=== PATIENT | male | born 1945 | race Caucasian/White ===

== ENCOUNTER 2020-02-17 22:52 | Inpatient (IN) | payer MEDICARE, OTHER ==
[~2020-02-17] VITALS: Ht 185.4 cm; Wt 85.0 kg
[~2020-02-17 22:52] MED LIST: BUMETANIDE1 MG PO; LASIX40 MG PO; LISINOPRIL2.5 MG PO; LOSARTAN POTASS25 MG PO; METOPROLOL SUCC25 MG PO; METOPROLOL TART25 MG PO; NO MEDS
--- OUTSIDE RECORDS SUMMARY | 2020-02-17 22:56 | XMS REPORT ---
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 Allergies, Adverse Reactions, Alerts This patient has no known allergies or adverse reactions. Medications This patient has no known medications. Results Test Description Test Time Test Comments Text Results Atomic Results Result Comments AFB CULTURE + SMEAR 2017-10-13 11:58:00 CULTURE (BEAKER) (test puwk=1251) No acid-fast bacilli isolated in 42 days AFB SMEAR (BEAKER) (test prhk=954) No acid fast bacilli seen FUNGUS CULTURE + [id number] 07:36:00* Test Item Value Reference Range Comments CULTURE (BEAKER) (test qtxk=6512) No fungus isolated in 28 days FUNGUS SMEAR (BEAKER) (test ngts=5801) No fungi seen ANAEROBIC [id number] 12:06:00* Test Item Value Reference Range Comments CULTURE (BEAKER) (test smhh=6534) See comment Charges for this culture will be credited. DILUTE JAYDE [facility]ER [facility] (DRVV) 2017-09-05 15:20:00* Test Item Value Reference Range Comments PROTIME (BEAKER) (test hret=526) 17.2 seconds 11.7-14.7 INR (BEAKER) (test vsjw=135) 1.4 <=5.9 PARTIAL THROMBOPLASTIN TIME (BEAKER) (test qbhu=686) 41.5 seconds 22.5-36.0 DRVV INTERPRETATION (BEAKER) (test atpk=5135) Normal DRVV Results SSOW-RCTNOINRMBY-357 (BEAKER) (test xciu=5099) Brandie Garces MD (electronic signature) DRVV SCREEN RATIO (BEAKER) (test xwfj=8929) 1.16 <1.20 Positive hexagonal phospholipid test.CBC W/PLT COUNT & AUTO DIFFERENTIAL 2017-09-05 13:29:00* Test Item Value Reference Range Comments WHITE BLOOD CELL COUNT (BEAKER) (test bthy=751) 9.2 K/ L 3.5-10.5 RED BLOOD CELL COUNT (BEAKER) (test gzha=649) 4.00 M/ L 4.63-6.08 HEMOGLOBIN (BEAKER) (test kyuy=348) 11.1 GM/DL 13.7-17.5 HEMATOCRIT (BEAKER) (test pkrf=758) 34.6 % 40.1-51.0 MEAN CORPUSCULAR VOLUME (BEAKER) (test fnou=116) 86.5 fL 79.0-92.2 MEAN CORPUSCULAR HEMOGLOBIN (BEAKER) (test alem=161) 27.8 pg 25.7-32.2 MEAN CORPUSCULAR HEMOGLOBIN CONC (BEAKER) (test diai=560) 32.1 GM/DL 32.3-36.5 RED CELL DISTRIBUTION WIDTH (BEAKER) (test msxh=508) 16.5 % 11.6-14.4 PLATELET COUNT (BEAKER) (test kehh=013) 221 K/CU MM 150-450 MEAN PLATELET VOLUME (BEAKER) (test lhjx=862) 10.1 fL 9.4-12.4 NUCLEATED RED BLOOD CELLS (BEAKER) (test bqlb=085) 0 /100 WBC 0-0 NEUTROPHILS RELATIVE PERCENT (BEAKER) (test nzhr=378) 72 % LYMPHOCYTES RELATIVE PERCENT (BEAKER) (test fcux=545) 14 % MONOCYTES RELATIVE PERCENT (BEAKER) (test uaoe=302) 10 % EOSINOPHILS RELATIVE PERCENT (BEAKER) (test hmxz=859) 4 % BASOPHILS RELATIVE PERCENT (BEAKER) (test lnly=198) 0 % NEUTROPHILS ABSOLUTE COUNT (BEAKER) (test bros=686) 6.62 K/ L 1.78-5.38 LYMPHOCYTES ABSOLUTE COUNT (BEAKER) (test xaou=232) 1.26 K/ L 1.32-3.57 MONOCYTES ABSOLUTE COUNT (BEAKER) (test jbvz=165) 0.89 K/ L 0.30-0.82 EOSINOPHILS ABSOLUTE COUNT (BEAKER) (test uvzy=059) 0.33 K/ L 0.04-0.54 BASOPHILS ABSOLUTE COUNT (BEAKER) (test ktxf=681) 0.04 K/ L 0.01-0.08 IMMATURE GRANULOCYTES-RELATIVE PERCENT (BEAKER) (test rrqc=0464) 1 % 0-1 EQUAL MIX, NORMAL [id number] 10:43:00* Test Item Value Reference Range Comments PROTIME (BEAKER) (test btxg=004) 17.2 seconds 11.7-14.7 PARTIAL THROMBOPLASTIN TIME (BEAKER) (test ifcw=840) 41.5 seconds 22.5-36.0 PT 1/1 MIX (BEAKER) (test bmof=7364) 14.2 SECS 11.7-14.7 PTT 1/1 MIX (BEAKER) (test daxv=7257) 35.0 SECS 22.5-36.0 THROMBIN [id number] 10:40:00* Test Item Value Reference Range Comments THROMBIN TIME (BEAKER) (test zbik=475) 15.0 secs 13.8-20.0 HEXAGONAL [id number] 10:38:00* Test Item Value Reference Range Comments HEXAGONAL PHOSPHOLIPID (BEAKER) (test kwfw=4811) Positive [id number] 04:34:00* Test Item Value Reference Range Comments MAGNESIUM (BEAKER) (test prmx=933) 1.8 mg/dL 1.6-2.6 BASIC METABOLIC [id number] 04:34:00* Test Item Value Reference Range Comments SODIUM (BEAKER) (test ealm=001) 140 meq/L 136-145 POTASSIUM (BEAKER) (test omsf=208) 3.8 meq/L 3.5-5.1 CHLORIDE (BEAKER) (test qyei=478) 107 meq/L 98-107 CO2 (BEAKER) (test hyal=981) 25 meq/L 22-29 BLOOD UREA NITROGEN (BEAKER) (test yjke=971) 18 mg/dL 7-21 CREATININE (BEAKER) (test lqae=196) 0.87 mg/dL 0.57-1.25 GLUCOSE RANDOM (BEAKER) (test uanf=154) 91 mg/dL 70-105 CALCIUM (BEAKER) (test vukn=951) 9.2 mg/dL 8.4-10.2 EGFR (BEAKER) (test lxmk=0538) 87 mL/min/1.73 sq m ESTIMATED GFR IS NOT ACCURATE CREATININE CLEARANCE IN PREDICTING GLOMERULAR FILTRATION RATE. ESTIMATED GFR IS NOT APPLICABLE FOR DIALYSIS PATIENTS. CBC (HEMOGRAM ONLY)2017-09-05 04:05:00* Test Item Value Reference Range Comments WHITE BLOOD CELL COUNT (BEAKER) (test hheb=742) 7.6 K/ L 3.5-10.5 RED BLOOD CELL COUNT (BEAKER) (test vnff=958) 3.21 M/ L 4.63-6.08 HEMOGLOBIN (BEAKER) (test dknd=146) 8.7 GM/DL 13.7-17.5 HEMATOCRIT (BEAKER) (test mprw=392) 28.5 % 40.1-51.0 MEAN CORPUSCULAR VOLUME (BEAKER) (test ehyq=671) 88.8 fL 79.0-92.2 MEAN CORPUSCULAR HEMOGLOBIN (BEAKER) (test jsdn=895) 27.1 pg 25.7-32.2 MEAN CORPUSCULAR HEMOGLOBIN CONC (BEAKER) (test xqvp=627) 30.5 GM/DL 32.3-36.5 RED CELL DISTRIBUTION WIDTH (BEAKER) (test cqks=646) 16.6 % 11.6-14.4 PLATELET COUNT (BEAKER) (test qwel=427) 182 K/CU MM 150-450 MEAN PLATELET VOLUME (BEAKER) (test rnoa=517) 10.0 fL 9.4-12.4 NUCLEATED RED BLOOD CELLS (BEAKER) (test qhnn=981) 0 /100 WBC 0-0 [id number] 05:24:00* Test Item Value Reference Range Comments MAGNESIUM (BEAKER) (test wupo=925) 2.1 mg/dL 1.6-2.6 BASIC METABOLIC [id number] 05:24:00* Test Item Value Reference Range Comments SODIUM (BEAKER) (test racp=874) 140 meq/L 136-145 POTASSIUM (BEAKER) (test lvjs=144) 3.5 meq/L 3.5-5.1 CHLORIDE (BEAKER) (test zyzu=809) 105 meq/L 98-107 CO2 (BEAKER) (test xaue=728) 26 meq/L 22-29 BLOOD UREA NITROGEN (BEAKER) (test lnaj=753) 17 mg/dL 7-21 CREATININE (BEAKER) (test yvkw=891) 0.82 mg/dL 0.57-1.25 GLUCOSE RANDOM (BEAKER) (test igzn=601) 89 mg/dL 70-105 CALCIUM (BEAKER) (test fhvo=169) 9.3 mg/dL 8.4-10.2 EGFR (BEAKER) (test wxun=2631) 93 mL/min/1.73 sq m ESTIMATED GFR IS NOT ACCURATE CREATININE CLEARANCE IN PREDICTING GLOMERULAR FILTRATION RATE. ESTIMATED GFR IS NOT APPLICABLE FOR DIALYSIS PATIENTS. CBC (HEMOGRAM ONLY)2017-09-04 05:16:00* Test Item Value Reference Range Comments WHITE BLOOD CELL COUNT (BEAKER) (test sfbz=674) 8.0 K/ L 3.5-10.5 RED BLOOD CELL COUNT (BEAKER) (test jgio=269) 3.72 M/ L 4.63-6.08 HEMOGLOBIN (BEAKER) (test gfcd=248) 10.4 GM/DL 13.7-17.5 HEMATOCRIT (BEAKER) (test cmpe=250) 32.2 % 40.1-51.0 MEAN CORPUSCULAR VOLUME (BEAKER) (test jjwp=852) 86.6 fL 79.0-92.2 MEAN CORPUSCULAR HEMOGLOBIN (BEAKER) (test jyoq=098) 28.0 pg 25.7-32.2 MEAN CORPUSCULAR HEMOGLOBIN CONC (BEAKER) (test ppbm=877) 32.3 GM/DL 32.3-36.5 RED CELL DISTRIBUTION WIDTH (BEAKER) (test cpxm=526) 16.3 % 11.6-14.4 PLATELET COUNT (BEAKER) (test ckjc=736) 224 K/CU MM 150-450 MEAN PLATELET VOLUME (BEAKER) (test ycou=651) 10.2 fL 9.4-12.4 NUCLEATED RED BLOOD CELLS (BEAKER) (test kyor=058) 0 /100 WBC 0-0 CALCIUM, [id number] 06:25:00* Test Item Value Reference Range Comments CALCIUM IONIZED (BEAKER) (test movj=173) 1.28 mmol/L 1.12-1.27 PH, BLOOD (BEAKER) (test fnrv=2360) 7.42 OXYGEN SATURATION, [id number] 06:09:00* Test Item Value Reference Range Comments O2 SATURATION (MEASURED) (BEAKER) (test tsbz=8072) 56.7 % BASIC METABOLIC [id number] 05:37:00* Test Item Value Reference Range Comments SODIUM (BEAKER) (test qzll=209) 139 meq/L 136-145 POTASSIUM (BEAKER) (test qejv=767) 3.6 meq/L 3.5-5.1 CHLORIDE (BEAKER) (test oyqj=234) 108 meq/L 98-107 CO2 (BEAKER) (test wczd=807) 23 meq/L 22-29 BLOOD UREA NITROGEN (BEAKER) (test qnss=514) 20 mg/dL 7-21 CREATININE (BEAKER) (test zuav=562) 0.77 mg/dL 0.57-1.25 GLUCOSE RANDOM (BEAKER) (test narg=503) 85 mg/dL 70-105 CALCIUM (BEAKER) (test zwpy=889) 9.2 mg/dL 8.4-10.2 EGFR (BEAKER) (test fgxl=0927) 100 mL/min/1.73 sq m ESTIMATED GFR IS NOT ACCURATE CREATININE CLEARANCE IN PREDICTING GLOMERULAR FILTRATION RATE. ESTIMATED GFR IS NOT APPLICABLE FOR DIALYSIS PATIENTS. CBC (HEMOGRAM ONLY)2017-09-03 05:11:00* Test Item Value Reference Range Comments WHITE BLOOD CELL COUNT (BEAKER) (test prbn=415) 8.0 K/ L 3.5-10.5 RED BLOOD CELL COUNT (BEAKER) (test htsu=040) 3.52 M/ L 4.63-6.08 HEMOGLOBIN (BEAKER) (test qzso=672) 9.7 GM/DL 13.7-17.5 HEMATOCRIT (BEAKER) (test itni=616) 30.3 % 40.1-51.0 MEAN CORPUSCULAR VOLUME (BEAKER) (test jlmb=830) 86.1 fL 79.0-92.2 MEAN CORPUSCULAR HEMOGLOBIN (BEAKER) (test owfl=939) 27.6 pg 25.7-32.2 MEAN CORPUSCULAR HEMOGLOBIN CONC (BEAKER) (test jogi=644) 32.0 GM/DL 32.3-36.5 RED CELL DISTRIBUTION WIDTH (BEAKER) (test fkwu=377) 16.4 % 11.6-14.4 PLATELET COUNT (BEAKER) (test cxzd=397) 184 K/CU MM 150-450 MEAN PLATELET VOLUME (BEAKER) (test jpxr=923) 10.3 fL 9.4-12.4 NUCLEATED RED BLOOD CELLS (BEAKER) (test ieyl=953) 0 /100 WBC 0-0 [id number] 09:01:00* Test Item Value Reference Range Comments POTASSIUM (BEAKER) (test oxam=111) 4.2 meq/L 3.5-5.1 Specimen moderately hemolyzed RAD, CHEST, 1 VIEW, NON [id number] 06:20:00Reason for exam:->pl effusionShould this be performed at the bedside?->YesFINAL REPORT RAD, CHEST, 1 VIEW, NON DEPT INDICATION: pl effusion COMPARISON: Prior day's exam FINDINGS: Portable frontal view of the chest. IMPRESSION: Support Lines: Surgical and mediastinal drains have been removed. The right IJ central venous catheter remains in place. Lungs and pleura: Multifocal subsegmental atelectasis noted. No discernible pneumothorax.Heart and mediastinum: Stable contours. Stable surgical changes.Additional findings: None. Signed: JR Patricia, Stacia Daugherty Verified Date/Time: 09/02/2017 06:20:49 Reading Location: [address] Transitional Reading Room Electronically si gned by: STACIA FLORENCE on 09/02/2017 06:20 AM LACTATE DEHYDROGENASE (LDH)2017-09-02 04:49:00* Test Item Value Reference Range Comments LACTATE DEHYDROGENASE (BEAKER) (test fitu=801) 283 U/L 125-220 Specimen slightly hemolyzed BASIC METABOLIC [id number] 04:48:00* Test Item Value Reference Range Comments SODIUM (BEAKER) (test ppxx=373) 137 meq/L 136-145 POTASSIUM (BEAKER) (test eamw=935) 3.5 meq/L 3.5-5.1 Specimen slightly hemolyzed CHLORIDE (BEAKER) (test jktf=171) 106 meq/L 98-107 CO2 (BEAKER) (test lmkh=734) 25 meq/L 22-29 BLOOD UREA NITROGEN (BEAKER) (test vlsv=165) 21 mg/dL 7-21 CREATININE (BEAKER) (test ifgr=871) 0.76 mg/dL 0.57-1.25 Specimen slightly hemolyzed GLUCOSE RANDOM (BEAKER) (test hrfw=226) 93 mg/dL 70-105 CALCIUM (BEAKER) (test nckw=429) 9.1 mg/dL 8.4-10.2 EGFR (BEAKER) (test qrfe=8816) 101 mL/min/1.73 sq m ESTIMATED GFR IS NOT ACCURATE CREATININE CLEARANCE IN PREDICTING GLOMERULAR FILTRATION RATE. ESTIMATED GFR IS NOT APPLICABLE FOR DIALYSIS PATIENTS. HEPATIC FUNCTION [id number] 04:48:00* Test Item Value Reference Range Comments TOTAL PROTEIN (BEAKER) (test rnxb=793) 5.4 gm/dL 6.0-8.3 Specimen slightly hemolyzed ALBUMIN (BEAKER) (test xsbt=3417) 2.6 g/dL 3.5-5.0 Specimen slightly hemolyzed BILIRUBIN TOTAL (BEAKER) (test mbqv=819) 0.9 mg/dL 0.2-1.2 Specimen slightly hemolyzed BILIRUBIN DIRECT (BEAKER) (test qfdl=074) 0.4 mg/dL 0.1-0.5 Specimen slightly hemolyzed ALKALINE PHOSPHATASE (BEAKER) (test furp=992) 67 U/L 40-150 AST (SGOT) (BEAKER) (test qaxl=899) 25 U/L 5-34 Specimen slightly hemolyzed ALT (SGPT) (BEAKER) (test josw=667) 13 U/L 6-55 Specimen slightly hemolyzed LACTIC ACID, ARTERIAL, WHOLE [id number] 04:25:00* Test Item Value Reference Range Comments LACTATE BLOOD ARTERIAL (2) (BEAKER) (test omzm=3978) 0.7 mmol/L 0.5-2.2 Effective 03/20/2016: Units/Reference Range ChangeNew: 0.5-2.2 mmol/L Previous: 5 -20 mg/dLCBC (HEMOGRAM ONLY)2017-09-02 04:23:00* Test Item Value Reference Range Comments WHITE BLOOD CELL COUNT (BEAKER) (test wqbt=736) 10.6 K/ L 3.5-10.5 RED BLOOD CELL COUNT (BEAKER) (test vlag=205) 3.49 M/ L 4.63-6.08 HEMOGLOBIN (BEAKER) (test pfkv=857) 9.8 GM/DL 13.7-17.5 HEMATOCRIT (BEAKER) (test eanp=092) 29.8 % 40.1-51.0 MEAN CORPUSCULAR VOLUME (BEAKER) (test hhah=583) 85.4 fL 79.0-92.2 MEAN CORPUSCULAR HEMOGLOBIN (BEAKER) (test ibbz=667) 28.1 pg 25.7-32.2 MEAN CORPUSCULAR HEMOGLOBIN CONC (BEAKER) (test tqww=554) 32.9 GM/DL 32.3-36.5 RED CELL DISTRIBUTION WIDTH (BEAKER) (test rxbp=589) 16.4 % 11.6-14.4 PLATELET COUNT (BEAKER) (test gubd=428) 143 K/CU MM 150-450 MEAN PLATELET VOLUME (BEAKER) (test krxs=536) 11.4 fL 9.4-12.4 NUCLEATED RED BLOOD CELLS (BEAKER) (test efuh=939) 0 /100 WBC 0-0 OXYGEN SATURATION, [id number] 04:11:00* Test Item Value Reference Range Comments O2 SATURATION (MEASURED) (BEAKER) (test agkl=3177) 62.1 % CALCIUM, [id number] 04:08:00* Test Item Value Reference Range Comments CALCIUM IONIZED (BEAKER) (test hegc=676) 1.25 mmol/L 1.12-1.27 PH, BLOOD (BEAKER) (test nfbg=3897) 7.44 SURGICALLY OBTAINED CULTURE + GRAM [id number] 08:14:00* Test Item Value Reference Range Comments CULTURE (BEAKER) (test wxtw=7405) No growth GRAM STAIN RESULT (BEAKER) (test juvp=8210) <1+ WBCs GRAM STAIN RESULT (BEAKER) (test cdvr=66287) No organisms seen CBC W/PLT COUNT & AUTO [id number] 07:09:00* Test Item Value Reference Range Comments WHITE BLOOD CELL COUNT (BEAKER) (test swsz=617) 13.9 K/ L 3.5-10.5 RED BLOOD CELL COUNT (BEAKER) (test hjgl=436) 3.41 M/ L 4.63-6.08 HEMOGLOBIN (BEAKER) (test knbb=479) 9.4 GM/DL 13.7-17.5 HEMATOCRIT (BEAKER) (test tyiq=668) 29.0 % 40.1-51.0 MEAN CORPUSCULAR VOLUME (BEAKER) (test qrdi=818) 85.0 fL 79.0-92.2 MEAN CORPUSCULAR HEMOGLOBIN (BEAKER) (test oemu=421) 27.6 pg 25.7-32.2 MEAN CORPUSCULAR HEMOGLOBIN CONC (BEAKER) (test zqlb=597) 32.4 GM/DL 32.3-36.5 RED CELL DISTRIBUTION WIDTH (BEAKER) (test agmb=614) 16.9 % 11.6-14.4 PLATELET COUNT (BEAKER) (test pmos=576) 146 K/CU MM 150-450 MEAN PLATELET VOLUME (BEAKER) (test bykn=487) 11.1 fL 9.4-12.4 NUCLEATED RED BLOOD CELLS (BEAKER) (test subi=735) 0 /100 WBC 0-0 NEUTROPHILS RELATIVE PERCENT (BEAKER) (test yxyj=141) 89 % LYMPHOCYTES RELATIVE PERCENT (BEAKER) (test wvid=426) 5 % MONOCYTES RELATIVE PERCENT (BEAKER) (test qtas=592) 6 % EOSINOPHILS RELATIVE PERCENT (BEAKER) (test ahzr=071) 0 % BASOPHILS RELATIVE PERCENT (BEAKER) (test akti=119) 0 % NEUTROPHILS ABSOLUTE COUNT (BEAKER) (test owhs=194) 12.36 K/ L 1.78-5.38 LYMPHOCYTES ABSOLUTE COUNT (BEAKER) (test gzew=806) 0.64 K/ L 1.32-3.57 MONOCYTES ABSOLUTE COUNT (BEAKER) (test wjqu=626) 0.82 K/ L 0.30-0.82 EOSINOPHILS ABSOLUTE COUNT (BEAKER) (test lxcb=806) 0.03 K/ L 0.04-0.54 BASOPHILS ABSOLUTE COUNT (BEAKER) (test kwxg=911) 0.01 K/ L 0.01-0.08 IMMATURE GRANULOCYTES-RELATIVE PERCENT (BEAKER) (test rhyv=7366) 0 % 0-1 [id number] 06:05:00* Test Item Value Reference Range Comments ACTIVATED CLOTTING TIME (BEAKER) (test wcgw=912) 125 sec TESTED AT [address] [place] [address] [id number] 06:05:00* Test Item Value Reference Range Comments ACTIVATED CLOTTING TIME (BEAKER) (test sygj=349) 351 sec TESTED AT [place] [id number] 06:05:00* Test Item Value Reference Range Comments ACTIVATED CLOTTING TIME (BEAKER) (test npkw=930) 455 sec TESTED AT [place] [id number] 06:05:00* Test Item Value Reference Range Comments ACTIVATED CLOTTING TIME (BEAKER) (test pbzx=927) 626 sec TESTED AT [place] [id number] 06:05:00* Test Item Value Reference Range Comments ACTIVATED CLOTTING TIME (BEAKER) (test fhad=754) 676 sec TESTED AT [place] [id number] 06:05:00* Test Item Value Reference Range Comments ACTIVATED CLOTTING TIME (BEAKER) (test lupe=200) 681 sec TESTED AT [place] [id number] 06:05:00* Test Item Value Reference Range Comments ACTIVATED CLOTTING TIME (BEAKER) (test zerd=890) 676 sec TESTED AT [place] [id number] 06:05:00* Test Item Value Reference Range Comments ACTIVATED CLOTTING TIME (BEAKER) (test hmnu=693) 692 sec TESTED AT [place] [id number] 06:05:00* Test Item Value Reference Range Comments ACTIVATED CLOTTING TIME (BEAKER) (test qhru=253) 648 sec TESTED AT [place] [id number] 06:05:00* Test Item Value Reference Range Comments ACTIVATED CLOTTING TIME (BEAKER) (test odjq=592) 395 sec TESTED AT [place] [id number] 06:05:00* Test Item Value Reference Range Comments ACTIVATED CLOTTING TIME (BEAKER) (test ywvc=376) 400 sec TESTED AT [place] [id number] RAD, CHEST, 1 VIEW, NON [id number] 04:53:00Reason for exam:->While chest tubes in placeShould this be performed at the bedside?->YesFINAL REPORT Comparison exam: 08/31/2017 Pulmonary venous congestion unchanged. Stable cardiomediastinal contours. Appropriate position of the support hardware. Signed: Palmer Coolort Verified Date/Time: 09/01/2017 04:53:41 Reading Location: [address] Transitional Reading Room ATE DEHYDROGENASE (LDH)2017-09-01 04:37:00* Test Item Value Reference Range Comments LACTATE DEHYDROGENASE (BEAKER) (test gzaz=403) 290 U/L 125-220 BASIC METABOLIC [id number] 04:37:00* Test Item Value Reference Range Comments SODIUM (BEAKER) (test relt=901) 139 meq/L 136-145 POTASSIUM (BEAKER) (test kyrm=050) 3.5 meq/L 3.5-5.1 CHLORIDE (BEAKER) (test nbwc=829) 106 meq/L 98-107 CO2 (BEAKER) (test sdpc=929) 26 meq/L 22-29 BLOOD UREA NITROGEN (BEAKER) (test inlc=549) 24 mg/dL 7-21 CREATININE (BEAKER) (test krvd=472) 0.81 mg/dL 0.57-1.25 GLUCOSE RANDOM (BEAKER) (test ciow=910) 102 mg/dL 70-105 CALCIUM (BEAKER) (test qnzd=140) 9.3 mg/dL 8.4-10.2 EGFR (BEAKER) (test mrce=8969) 94 mL/min/1.73 sq m ESTIMATED GFR IS NOT ACCURATE CREATININE CLEARANCE IN PREDICTING GLOMERULAR FILTRATION RATE. ESTIMATED GFR IS NOT APPLICABLE FOR DIALYSIS PATIENTS. HEPATIC FUNCTION [id number] 04:37:00* Test Item Value Reference Range Comments TOTAL PROTEIN (BEAKER) (test towz=643) 5.6 gm/dL 6.0-8.3 ALBUMIN (BEAKER) (test zakb=8945) 2.8 g/dL 3.5-5.0 BILIRUBIN TOTAL (BEAKER) (test icyp=048) 0.9 mg/dL 0.2-1.2 BILIRUBIN DIRECT (BEAKER) (test jrqv=310) 0.5 mg/dL 0.1-0.5 ALKALINE PHOSPHATASE (BEAKER) (test mliz=525) 66 U/L 40-150 AST (SGOT) (BEAKER) (test wckc=303) 27 U/L 5-34 ALT (SGPT) (BEAKER) (test uqwr=740) 13 U/L 6-55 LACTIC ACID, ARTERIAL, WHOLE [id number] 04:33:00* Test Item Value Reference Range Comments LACTATE BLOOD ARTERIAL (2) (BEAKER) (test ddsh=8352) 0.9 mmol/L 0.5-2.2 Effective 03/20/2016: Units/Reference Range ChangeNew: 0.5-2.2 mmol/L Previous: 5 -20 mg/dLCBC (HEMOGRAM ONLY)2017-09-01 04:19:00* Test Item Value Reference Range Comments WHITE BLOOD CELL COUNT (BEAKER) (test hccw=673) 13.9 K/ L 3.5-10.5 RED BLOOD CELL COUNT (BEAKER) (test cdcj=197) 3.41 M/ L 4.63-6.08 HEMOGLOBIN (BEAKER) (test qdac=321) 9.4 GM/DL 13.7-17.5 HEMATOCRIT (BEAKER) (test ljvl=902) 29.0 % 40.1-51.0 MEAN CORPUSCULAR VOLUME (BEAKER) (test hxjz=434) 85.0 fL 79.0-92.2 MEAN CORPUSCULAR HEMOGLOBIN (BEAKER) (test cgxo=015) 27.6 pg 25.7-32.2 MEAN CORPUSCULAR HEMOGLOBIN CONC (BEAKER) (test guuw=025) 32.4 GM/DL 32.3-36.5 RED CELL DISTRIBUTION WIDTH (BEAKER) (test fusi=480) 16.9 % 11.6-14.4 PLATELET COUNT (BEAKER) (test twor=607) 146 K/CU MM 150-450 MEAN PLATELET VOLUME (BEAKER) (test pqeb=982) 11.1 fL 9.4-12.4 NUCLEATED RED BLOOD CELLS (BEAKER) (test dmkh=149) 0 /100 WBC 0-0 OXYGEN SATURATION, [id number] 04:06:00* Test Item Value Reference Range Comments O2 SATURATION (MEASURED) (BEAKER) (test vzfk=7776) 64.5 % BLOOD GAS, [id number] 04:05:00* Test Item Value Reference Range Comments PH ARTERIAL (BEAKER) (test fhag=071) 7.56 7.35-7.45 PCO2 ARTERIAL (BEAKER) (test gbkx=738) 32 mmHg 35-45 PO2 ARTERIAL (BEAKER) (test qrkm=386) 105 mmHg 80-90 O2 SATURATION ARTERIAL (BEAKER) (test cngs=572) 98.4 % 96.0-97.0 HCO3 ARTERIAL (BEAKER) (test kdmv=620) 28 mmol/L 21-29 BASE EXCESS ARTERIAL (BEAKER) (test ngri=713) 5.5 mmol/L -2.0-3.0 PATIENT TEMPERATURE (BEAKER) (test srvh=4212) 37.1 C FIO2 (BEAKER) (test cgne=0753) 100.0 % CALCIUM, [id number] 04:04:00* Test Item Value Reference Range Comments CALCIUM IONIZED (BEAKER) (test obdw=603) 1.25 mmol/L 1.12-1.27 PH, BLOOD (BEAKER) (test ojwu=3020) 7.56 [id number] 19:22:00* Test Item Value Reference Range Comments POTASSIUM (BEAKER) (test lppi=283) 3.6 meq/L 3.5-5.1 Check Serum Phosphorus level 4 hours after IV phosphorus replacement or 8 hours after PO replacement completed.Check Serum Potassium level 2 hours after oral po tassium replacement completed or 30 min after intravenous potassium replacement. [id number] 19:22:00* Test Item Value Reference Range Comments MAGNESIUM (BEAKER) (test tsyx=857) 2.2 mg/dL 1.6-2.6 Check Serum Phosphorus level 4 hours after IV phosphorus replacement or 8 hours after PO replacement completed.Check Serum Potassium level 2 hours after oral po tassium replacement completed or 30 min after intravenous potassium replacement. [id number] 19:22:00* Test Item Value Reference Range Comments PHOSPHORUS (BEAKER) (test ghzz=593) 2.4 mg/dL 2.3-4.7 Check Serum Phosphorus level 4 hours after IV phosphorus replacement or 8 hours after PO replacement completed.Check Serum Potassium level 2 hours after oral po tassium replacement completed or 30 min after intravenous potassium replacement. POCT-GLUCOSE [id number] 18:48:00* Test Item Value Reference Range Comments POC-GLUCOSE METER (BEAKER) (test ldqu=9237) 110 mg/dL 70-110 TESTED AT [facility] [address] [facility] [address] [id number] 10:11:00* Test Item Value Reference Range Comments MAGNESIUM (BEAKER) (test ajnm=155) 2.1 mg/dL 1.6-2.6 RAD, CHEST, 1 VIEW, NON [id number] 05:46:00Reason for exam:->While chest tubes in placeShould this be performed at the bedside?->YesFINAL REPORT Comparison exam: 08/30/2017 Mild pulmonary venous congestion unchanged. Stable cardiomediastinal contours. Appropriate position of the support hardware. Signed: Palmer Cool Verified Date/Time: 08/31/2017 05:46:29 Reading Location: [address] Transitional Reading Room ATE DEHYDROGENASE (LDH)2017-08-31 03:58:00* Test Item Value Reference Range Comments LACTATE DEHYDROGENASE (BEAKER) (test bsve=313) 477 U/L 125-220 Specimen moderately hemolyzed BASIC METABOLIC [id number] 03:36:00* Test Item Value Reference Range Comments SODIUM (BEAKER) (test ooqx=579) 142 meq/L 136-145 POTASSIUM (BEAKER) (test dmcp=163) 4.4 meq/L 3.5-5.1 Specimen moderately hemolyzed CHLORIDE (BEAKER) (test nebq=147) 109 meq/L 98-107 CO2 (BEAKER) (test dgot=161) 23 meq/L 22-29 BLOOD UREA NITROGEN (BEAKER) (test llcb=619) 20 mg/dL 7-21 CREATININE (BEAKER) (test rxru=428) 0.81 mg/dL 0.57-1.25 Specimen moderately hemolyzed GLUCOSE RANDOM (BEAKER) (test ladh=443) 112 mg/dL 70-105 CALCIUM (BEAKER) (test owhv=641) 9.7 mg/dL 8.4-10.2 EGFR (BEAKER) (test mcgf=6549) 94 mL/min/1.73 sq m ESTIMATED GFR IS NOT ACCURATE CREATININE CLEARANCE IN PREDICTING GLOMERULAR FILTRATION RATE. ESTIMATED GFR IS NOT APPLICABLE FOR DIALYSIS PATIENTS. HEPATIC FUNCTION [id number] 03:36:00* Test Item Value Reference Range Comments TOTAL PROTEIN (BEAKER) (test nsdr=599) 6.3 gm/dL 6.0-8.3 Specimen moderately hemolyzed ALBUMIN (BEAKER) (test jzeb=9107) 3.3 g/dL 3.5-5.0 Specimen moderately hemolyzed BILIRUBIN TOTAL (BEAKER) (test tzkz=195) 0.9 mg/dL 0.2-1.2 Specimen moderately hemolyzed BILIRUBIN DIRECT (BEAKER) (test init=589) 0.3 mg/dL 0.1-0.5 Specimen moderately hemolyzed ALKALINE PHOSPHATASE (BEAKER) (test tgyv=061) 71 U/L 40-150 AST (SGOT) (BEAKER) (test ciby=929) 62 U/L 5-34 Specimen moderately hemolyzed ALT (SGPT) (BEAKER) (test hkba=955) 18 U/L 6-55 Specimen moderately hemolyzed LACTIC ACID, ARTERIAL, WHOLE [id number] 03:31:00* Test Item Value Reference Range Comments LACTATE BLOOD ARTERIAL (2) (BEAKER) (test oare=2014) 1.3 mmol/L 0.5-2.2 Specimen moderately hemolyzed Effective 03/20/2016: Units/Reference Range ChangeNew: 0.5-2.2 mmol/L Previous: 5 -20 mg/dLCBC W/PLT COUNT & AUTO [id number] 03:28:00* Test Item Value Reference Range Comments WHITE BLOOD CELL COUNT (BEAKER) (test xjvb=650) 16.3 K/ L 3.5-10.5 RED BLOOD CELL COUNT (BEAKER) (test npod=148) 3.55 M/ L 4.63-6.08 HEMOGLOBIN (BEAKER) (test zmgn=674) 10.0 GM/DL 13.7-17.5 HEMATOCRIT (BEAKER) (test noho=331) 30.9 % 40.1-51.0 MEAN CORPUSCULAR VOLUME (BEAKER) (test zplr=340) 87.0 fL 79.0-92.2 MEAN CORPUSCULAR HEMOGLOBIN (BEAKER) (test mmqh=332) 28.2 pg 25.7-32.2 MEAN CORPUSCULAR HEMOGLOBIN CONC (BEAKER) (test shvw=356) 32.4 GM/DL 32.3-36.5 RED CELL DISTRIBUTION WIDTH (BEAKER) (test tnag=201) 16.7 % 11.6-14.4 PLATELET COUNT (BEAKER) (test xtog=506) 142 K/CU MM 150-450 MEAN PLATELET VOLUME (BEAKER) (test jzva=996) 11.2 fL 9.4-12.4 NUCLEATED RED BLOOD CELLS (BEAKER) (test vndc=092) 0 /100 WBC 0-0 NEUTROPHILS RELATIVE PERCENT (BEAKER) (test syjt=787) 86 % LYMPHOCYTES RELATIVE PERCENT (BEAKER) (test ieod=568) 6 % MONOCYTES RELATIVE PERCENT (BEAKER) (test ctie=566) 7 % EOSINOPHILS RELATIVE PERCENT (BEAKER) (test aztv=041) 0 % BASOPHILS RELATIVE PERCENT (BEAKER) (test mfhu=898) 0 % NEUTROPHILS ABSOLUTE COUNT (BEAKER) (test jshj=891) 14.02 K/ L 1.78-5.38 LYMPHOCYTES ABSOLUTE COUNT (BEAKER) (test qqbq=629) 0.99 K/ L 1.32-3.57 MONOCYTES ABSOLUTE COUNT (BEAKER) (test sliz=526) 1.19 K/ L 0.30-0.82 EOSINOPHILS ABSOLUTE COUNT (BEAKER) (test ebdg=073) 0.01 K/ L 0.04-0.54 BASOPHILS ABSOLUTE COUNT (BEAKER) (test xpcu=212) 0.02 K/ L 0.01-0.08 IMMATURE GRANULOCYTES-RELATIVE PERCENT (BEAKER) (test fago=8951) 0 % 0-1 BLOOD GAS, [id number] 03:13:00* Test Item Value Reference Range Comments PH ARTERIAL (BEAKER) (test gjgo=094) 7.53 7.35-7.45 PCO2 ARTERIAL (BEAKER) (test anqg=723) 33 mmHg 35-45 PO2 ARTERIAL (BEAKER) (test fmib=938) 63 mmHg 80-90 O2 SATURATION ARTERIAL (BEAKER) (test mjvj=708) 95.0 % 96.0-97.0 HCO3 ARTERIAL (BEAKER) (test imkb=365) 27 mmol/L 21-29 BASE EXCESS ARTERIAL (BEAKER) (test rvry=533) 4.2 mmol/L -2.0-3.0 PATIENT TEMPERATURE (BEAKER) (test cbqf=0663) 36.4 C FIO2 (BEAKER) (test phkh=3907) 52.0 % OXYGEN SATURATION, [id number] 03:11:00* Test Item Value Reference Range Comments O2 SATURATION (MEASURED) (BEAKER) (test qzhh=1688) 68.2 % CALCIUM, [id number] 03:11:00* Test Item Value Reference Range Comments CALCIUM IONIZED (BEAKER) (test rpfz=925) 1.23 mmol/L 1.12-1.27 PH, BLOOD (BEAKER) (test tigj=1005) 7.52 [id number] 23:30:00* Test Item Value Reference Range Comments MAGNESIUM (BEAKER) (test yvqd=907) 2.7 mg/dL 1.6-2.6 Specimen slightly hemolyzed Check Serum Potassium level 2 hours after oral potassium replacement completed o r 30 min after intravenous potassium replacement.[id number] 23:30:00* Test Item Value Reference Range Comments POTASSIUM (BEAKER) (test iibj=939) 4.4 meq/L 3.5-5.1 Specimen slightly hemolyzed Check Serum Potassium level 2 hours after oral potassium replacement completed o r 30 min after intravenous potassium replacement.CALCIUM, [id number] 22:57:00* Test Item Value Reference Range Comments CALCIUM IONIZED (BEAKER) (test ochv=527) 1.23 mmol/L 1.12-1.27 PH, BLOOD (BEAKER) (test lhgt=2651) 7.52 Check serum Ionized Calcium level after 4 hours after IV Calcium replacement. [id number] 20:39:00* Test Item Value Reference Range Comments PHOSPHORUS (BEAKER) (test tntl=322) 3.6 mg/dL 2.3-4.7 Check Serum Phosphorus level 4 hours after IV phosphorus replacement or 8 hours after PO replacement completed.[id number] 20:39:00* Test Item Value Reference Range Comments MAGNESIUM (BEAKER) (test piam=075) 1.9 mg/dL 1.6-2.6 Check Serum Phosphorus level 4 hours after IV phosphorus replacement or 8 hours after PO replacement completed.BASIC METABOLIC [id number] 20:39:00* Test Item Value Reference Range Comments SODIUM (BEAKER) (test bmqt=508) 143 meq/L 136-145 POTASSIUM (BEAKER) (test yvlb=027) 4.5 meq/L 3.5-5.1 CHLORIDE (BEAKER) (test vqde=016) 111 meq/L 98-107 CO2 (BEAKER) (test rpyn=864) 24 meq/L 22-29 BLOOD UREA NITROGEN (BEAKER) (test gdcp=133) 20 mg/dL 7-21 CREATININE (BEAKER) (test qwfy=579) 0.86 mg/dL 0.57-1.25 GLUCOSE RANDOM (BEAKER) (test lamv=902) 107 mg/dL 70-105 CALCIUM (BEAKER) (test dylg=010) 9.5 mg/dL 8.4-10.2 EGFR (BEAKER) (test ssna=9447) 88 mL/min/1.73 sq m ESTIMATED GFR IS NOT ACCURATE CREATININE CLEARANCE IN PREDICTING GLOMERULAR FILTRATION RATE. ESTIMATED GFR IS NOT APPLICABLE FOR DIALYSIS PATIENTS. Check Serum Phosphorus level 4 hours after IV phosphorus replacement or 8 hours after PO replacement completed.POCT-GLUCOSE [id number] 20:01:00* Test Item Value Reference Range Comments POC-GLUCOSE METER (BEAKER) (test bcqq=2528) 110 mg/dL 70-110 TESTED AT [facility] [address] [facility] [address] POCT-GLUCOSE [id number] 18:13:00* Test Item Value Reference Range Comments POC-GLUCOSE METER (BEAKER) (test lfkr=0834) 101 mg/dL 70-110 TESTED AT [place] [id number] [facility] [address] LACTIC ACID, ARTERIAL, WHOLE [id number] 16:53:00* Test Item Value Reference Range Comments LACTATE BLOOD ARTERIAL (2) (BEAKER) (test rdwd=7291) 0.9 mmol/L 0.5-2.2 Effective 03/20/2016: Units/Reference Range ChangeNew: 0.5-2.2 mmol/L Previous: 5 -20 mg/dLBLOOD GAS, [id number] 16:19:00* Test Item Value Reference Range Comments PH VENOUS (BEAKER) (test hwpn=790) 7.41 7.32-7.42 PCO2 VENOUS (BEAKER) (test ubdj=419) 45 mmHg 41-51 PO2 VENOUS (BEAKER) (test hqyk=830) 32 mmHg 25-40 O2 SATURATION VENOUS (BEAKER) (test fqac=084) 61.3 % 40.0-70.0 HCO3 VENOUS (BEAKER) (test olnq=852) 28 mmol/L 21-29 BASE EXCESS VENOUS (BEAKER) (test tojr=951) 2.6 mmol/L -2.0-3.0 PATIENT TEMPERATURE (BEAKER) (test bnmz=0128) 37.0 C FIO2 (BEAKER) (test ukje=4979) 21.0 % POCT-GLUCOSE [id number] 16:14:00* Test Item Value Reference Range Comments POC-GLUCOSE METER (BEAKER) (test uspr=1410) 99 mg/dL 70-110 TESTED AT [address] [address] POCT-GLUCOSE [id number] 14:25:00* Test Item Value Reference Range Comments POC-GLUCOSE METER (BEAKER) (test xlfc=3246) 98 mg/dL 70-110 TESTED AT [address] [address] POCT-GLUCOSE [id number] 12:31:00* Test Item Value Reference Range Comments POC-GLUCOSE METER (BEAKER) (test tgds=9282) 112 mg/dL 70-110 TESTED AT [address] [address] POCT-GLUCOSE [id number] 12:15:00* Test Item Value Reference Range Comments POC-GLUCOSE METER (BEAKER) (test uqsy=9905) 58 mg/dL 70-110 TESTED AT [address] [address] BLOOD GAS, [id number] 10:08:00* Test Item Value Reference Range Comments PH VENOUS (BEAKER) (test cqpx=938) 7.39 7.32-7.42 PCO2 VENOUS (BEAKER) (test zeix=853) 45 mmHg 41-51 PO2 VENOUS (BEAKER) (test usfz=089) 26 mmHg 25-40 O2 SATURATION VENOUS (BEAKER) (test ogbr=528) 45.3 % 40.0-70.0 HCO3 VENOUS (BEAKER) (test nbry=101) 27 mmol/L 21-29 BASE EXCESS VENOUS (BEAKER) (test ugsj=933) 1.5 mmol/L -2.0-3.0 PATIENT TEMPERATURE (BEAKER) (test njcm=5570) 37.1 C FIO2 (BEAKER) (test zqyf=7895) 40.0 % BLOOD GAS, [id number] 09:39:00* Test Item Value Reference Range Comments PH ARTERIAL (BEAKER) (test euxl=595) 7.43 7.35-7.45 PCO2 ARTERIAL (BEAKER) (test rqgx=684) 40 mmHg 35-45 PO2 ARTERIAL (BEAKER) (test gmqn=164) 71 mmHg 80-90 O2 SATURATION ARTERIAL (BEAKER) (test wpvw=397) 94.7 % 96.0-97.0 HCO3 ARTERIAL (BEAKER) (test wact=513) 26 mmol/L 21-29 BASE EXCESS ARTERIAL (BEAKER) (test pzda=903) 1.2 mmol/L -2.0-3.0 PATIENT TEMPERATURE (BEAKER) (test xttr=9611) 37.0 C FIO2 (BEAKER) (test skwj=0020) 40.0 % OXYGEN SATURATION, [id number] 09:38:00* Test Item Value Reference Range Comments O2 SATURATION (MEASURED) (BEAKER) (test fhxy=9980) 66.5 % GLUCOSE-STAT [id number] 09:38:00* Test Item Value Reference Range Comments GLUCOSE RANDOM (BEAKER) (test wzhy=059) 101 mg/dL 70-110 POCT-GLUCOSE [id number] 09:16:00* Test Item Value Reference Range Comments POC-GLUCOSE METER (BEAKER) (test bqgf=7100) 111 mg/dL 70-110 TESTED AT [facility] [address] [facility] [address] POCT-GLUCOSE [id number] 07:30:00* Test Item Value Reference Range Comments POC-GLUCOSE METER (BEAKER) (test ipvk=3828) 117 mg/dL 70-110 TESTED AT [facility] [address] [facility] [address] [id number] 07:30:00* Test Item Value Reference Range Comments PHOSPHORUS (BEAKER) (test mufv=678) 4.7 mg/dL 2.3-4.7 [id number] 07:30:00* Test Item Value Reference Range Comments MAGNESIUM (BEAKER) (test yvnr=601) 2.3 mg/dL 1.6-2.6 BLOOD GAS, [id number] 06:26:00* Test Item Value Reference Range Comments PH ARTERIAL (BEAKER) (test zplu=229) 7.38 7.35-7.45 PCO2 ARTERIAL (BEAKER) (test tuyq=576) 46 mmHg 35-45 PO2 ARTERIAL (BEAKER) (test qabq=774) 111 mmHg 80-90 O2 SATURATION ARTERIAL (BEAKER) (test mfbp=139) 98.0 % 96.0-97.0 HCO3 ARTERIAL (BEAKER) (test nkvt=686) 27 mmol/L 21-29 BASE EXCESS ARTERIAL (BEAKER) (test sjsf=966) 1.3 mmol/L -2.0-3.0 PATIENT TEMPERATURE (BEAKER) (test hhoj=4358) 36.9 C FIO2 (BEAKER) (test imwf=4869) 50.0 % POCT-GLUCOSE [id number] 06:17:00* Test Item Value Reference Range Comments POC-GLUCOSE METER (BEAKER) (test zzgw=3555) 135 mg/dL 70-110 TESTED AT [facility] [address] [facility] [address] POCT-GLUCOSE [id number] 06:17:00* Test Item Value Reference Range Comments POC-GLUCOSE METER (BEAKER) (test ttoj=3271) 179 mg/dL 70-110 TESTED AT [facility] [address] [facility] [address] POCT-GLUCOSE [id number] 06:17:00* Test Item Value Reference Range Comments POC-GLUCOSE METER (BEAKER) (test vlcv=3782) 190 mg/dL 70-110 TESTED AT [place] [id number] [facility] [address] CALCIUM, [id number] 04:08:00* Test Item Value Reference Range Comments CALCIUM IONIZED (BEAKER) (test xfgx=938) 1.29 mmol/L 1.12-1.27 PH, BLOOD (BEAKER) (test umha=1109) 7.30 BASIC METABOLIC [id number] 04:06:00* Test Item Value Reference Range Comments SODIUM (BEAKER) (test seaa=560) 141 meq/L 136-145 POTASSIUM (BEAKER) (test whgc=541) 4.7 meq/L 3.5-5.1 CHLORIDE (BEAKER) (test oblv=782) 110 meq/L 98-107 CO2 (BEAKER) (test qrnl=379) 22 meq/L 22-29 BLOOD UREA NITROGEN (BEAKER) (test cayf=415) 20 mg/dL 7-21 CREATININE (BEAKER) (test yzkx=571) 1.05 mg/dL 0.57-1.25 GLUCOSE RANDOM (BEAKER) (test lqve=295) 171 mg/dL 70-105 CALCIUM (BEAKER) (test wujf=384) 9.4 mg/dL 8.4-10.2 EGFR (BEAKER) (test rptv=1815) 70 mL/min/1.73 sq m ESTIMATED GFR IS NOT ACCURATE CREATININE CLEARANCE IN PREDICTING GLOMERULAR FILTRATION RATE. ESTIMATED GFR IS NOT APPLICABLE FOR DIALYSIS PATIENTS. BLOOD GAS, [id number] 04:04:00* Test Item Value Reference Range Comments PH ARTERIAL (BEAKER) (test nqhz=180) 7.30 7.35-7.45 PCO2 ARTERIAL (BEAKER) (test vmvs=426) 48 mmHg 35-45 PO2 ARTERIAL (BEAKER) (test cmin=656) 127 mmHg 80-90 O2 SATURATION ARTERIAL (BEAKER) (test jzbp=470) 98.2 % 96.0-97.0 HCO3 ARTERIAL (BEAKER) (test jtnr=776) 23 mmol/L 21-29 BASE EXCESS ARTERIAL (BEAKER) (test jjsd=638) -3.5 mmol/L -2.0-3.0 PATIENT TEMPERATURE (BEAKER) (test wpor=9629) 36.9 C FIO2 (BEAKER) (test ifli=1365) 50.0 % OXYGEN SATURATION, [id number] 04:04:00* Test Item Value Reference Range Comments O2 SATURATION (MEASURED) (BEAKER) (test yhic=4415) 82.0 % LACTIC ACID, ARTERIAL, WHOLE [id number] 03:57:00* Test Item Value Reference Range Comments LACTATE BLOOD ARTERIAL (2) (BEAKER) (test iqwt=7907) 4.0 mmol/L 0.5-2.2 Effective 03/20/2016: Units/Reference Range ChangeNew: 0.5-2.2 mmol/L Previous: 5 -20 mg/dLCBC W/PLT COUNT & AUTO [id number] 03:53:00* Test Item Value Reference Range Comments WHITE BLOOD CELL COUNT (BEAKER) (test pknq=485) 12.5 K/ L 3.5-10.5 RED BLOOD CELL COUNT (BEAKER) (test kdik=581) 3.57 M/ L 4.63-6.08 HEMOGLOBIN (BEAKER) (test tnnj=241) 10.0 GM/DL 13.7-17.5 HEMATOCRIT (BEAKER) (test jxym=888) 31.7 % 40.1-51.0 MEAN CORPUSCULAR VOLUME (BEAKER) (test xptr=183) 88.8 fL 79.0-92.2 MEAN CORPUSCULAR HEMOGLOBIN (BEAKER) (test sqel=935) 28.0 pg 25.7-32.2 MEAN CORPUSCULAR HEMOGLOBIN CONC (BEAKER) (test clyk=037) 31.5 GM/DL 32.3-36.5 RED CELL DISTRIBUTION WIDTH (BEAKER) (test myhi=768) 16.6 % 11.6-14.4 PLATELET COUNT (BEAKER) (test dyvo=482) 180 K/CU MM 150-450 MEAN PLATELET VOLUME (BEAKER) (test ojmj=570) 10.7 fL 9.4-12.4 NUCLEATED RED BLOOD CELLS (BEAKER) (test jcgp=269) 0 /100 WBC 0-0 NEUTROPHILS RELATIVE PERCENT (BEAKER) (test wbhz=679) 87 % LYMPHOCYTES RELATIVE PERCENT (BEAKER) (test bytu=814) 5 % MONOCYTES RELATIVE PERCENT (BEAKER) (test tzwr=482) 7 % EOSINOPHILS RELATIVE PERCENT (BEAKER) (test nvnc=667) 0 % BASOPHILS RELATIVE PERCENT (BEAKER) (test khvb=997) 0 % NEUTROPHILS ABSOLUTE COUNT (BEAKER) (test zaov=605) 10.82 K/ L 1.78-5.38 LYMPHOCYTES ABSOLUTE COUNT (BEAKER) (test upgs=542) 0.60 K/ L 1.32-3.57 MONOCYTES ABSOLUTE COUNT (BEAKER) (test figp=631) 0.91 K/ L 0.30-0.82 EOSINOPHILS ABSOLUTE COUNT (BEAKER) (test cbpp=842) 0.00 K/ L 0.04-0.54 BASOPHILS ABSOLUTE COUNT (BEAKER) (test awkm=187) 0.05 K/ L 0.01-0.08 IMMATURE GRANULOCYTES-RELATIVE PERCENT (BEAKER) (test ydek=9366) 1 % 0-1 CBC (HEMOGRAM ONLY)2017-08-30 03:50:00* Test Item Value Reference Range Comments WHITE BLOOD CELL COUNT (BEAKER) (test vehq=944) 12.5 K/ L 3.5-10.5 RED BLOOD CELL COUNT (BEAKER) (test tjdg=091) 3.57 M/ L 4.63-6.08 HEMOGLOBIN (BEAKER) (test jbtg=162) 10.0 GM/DL 13.7-17.5 HEMATOCRIT (BEAKER) (test boif=200) 31.7 % 40.1-51.0 MEAN CORPUSCULAR VOLUME (BEAKER) (test bnvr=979) 88.8 fL 79.0-92.2 MEAN CORPUSCULAR HEMOGLOBIN (BEAKER) (test ngxe=480) 28.0 pg 25.7-32.2 MEAN CORPUSCULAR HEMOGLOBIN CONC (BEAKER) (test qkpv=426) 31.5 GM/DL 32.3-36.5 RED CELL DISTRIBUTION WIDTH (BEAKER) (test xieu=353) 16.6 % 11.6-14.4 PLATELET COUNT (BEAKER) (test pate=982) 180 K/CU MM 150-450 MEAN PLATELET VOLUME (BEAKER) (test eyis=837) 10.7 fL 9.4-12.4 NUCLEATED RED BLOOD CELLS (BEAKER) (test mxjs=722) 0 /100 WBC 0-0 RAD, CHEST, 1 VIEW, NON [id number] 03:15:00Reason for exam:->While chest tubes in placeShould this be performed at the bedside?->YesFINAL REPORT Comparison exam: 08/30/2017 time 12:02 AM No pneumothorax, focal pulmonary consolidation, or significant pleural effusion. Stable cardiomediastinal contours. Appropriate position of the support hardware. Signed: Palmer Cool Verified Date/Time: 08/30/2017 03:15:42 Reading Location: [address] Ortho Consult Reading Room -GLUCOSE [id number] 02:28:00 * Test Item Value Reference Range Comments POC-GLUCOSE METER (BEAKER) (test diij=8211) 189 mg/dL 70-110 TESTED AT [facility] [address] [facility] [address] [id number] 02:14:00* Test Item Value Reference Range Comments POTASSIUM (BEAKER) (test hetl=414) 4.7 meq/L 3.5-5.1 [id number] 02:14:00* Test Item Value Reference Range Comments MAGNESIUM (BEAKER) (test vjoa=011) 2.5 mg/dL 1.6-2.6 BASIC METABOLIC [id number] 02:14:00* Test Item Value Reference Range Comments SODIUM (BEAKER) (test ivrx=577) 141 meq/L 136-145 POTASSIUM (BEAKER) (test rkls=565) 4.7 meq/L 3.5-5.1 CHLORIDE (BEAKER) (test jozq=045) 110 meq/L 98-107 CO2 (BEAKER) (test yuca=268) 21 meq/L 22-29 BLOOD UREA NITROGEN (BEAKER) (test dbbk=887) 20 mg/dL 7-21 CREATININE (BEAKER) (test udcd=325) 1.05 mg/dL 0.57-1.25 GLUCOSE RANDOM (BEAKER) (test fdbr=301) 192 mg/dL 70-105 CALCIUM (BEAKER) (test wjlf=700) 9.5 mg/dL 8.4-10.2 EGFR (BEAKER) (test egra=4915) 70 mL/min/1.73 sq m ESTIMATED GFR IS NOT ACCURATE CREATININE CLEARANCE IN PREDICTING GLOMERULAR FILTRATION RATE. ESTIMATED GFR IS NOT APPLICABLE FOR DIALYSIS PATIENTS. CALCIUM, [id number] 01:38:00* Test Item Value Reference Range Comments CALCIUM IONIZED (BEAKER) (test mwxk=890) 1.29 mmol/L 1.12-1.27 PH, BLOOD (BEAKER) (test xads=0617) 7.36 RAD, CHEST, 1 VIEW, NON [id number] 00:44:00Reason for exam:->IABP positionShould this be performed at the bedside?->YesFINAL REPORT EXAMINATION: AP PORTABLE CHEST RADIOGRAPH CLINICAL INDICATION: Intra- aortic balloon pump IMPRESSION: Compared with 08/29/2017. Support tube and catheter positions are unchanged including the radiopaque marker for the balloon pump which projects approximately 3 cm below the aortic arch. The heart is enlarged but stable. Opacities are noted in the perihilar regions and lung bases worrisome for a combination of edema and atelectasis. An underlying pneumonia cannot be excluded. No definite evidence of new lung consolidation or pneumothorax. In summary, recommend clinical correlation regarding fluid overload/heart failure. Signed: Nereida Garzaeport Verified Date/Time: 08/30 00:44:07 Reading Location: [address] Reading Room [facility] signed by: NEREIDA GARZA M.D. on 08/30/2017 12:44 AM OXYGEN SATURATION, [id number] 23:56:00* Test Item Value Reference Range Comments O2 SATURATION (MEASURED) (BEAKER) (test bbzg=2046) 79.5 % CBC W/PLT COUNT & AUTO [id number] 23:51:00* Test Item Value Reference Range Comments WHITE BLOOD CELL COUNT (BEAKER) (test gilv=917) 12.5 K/ L 3.5-10.5 RED BLOOD CELL COUNT (BEAKER) (test xliu=662) 3.46 M/ L 4.63-6.08 HEMOGLOBIN (BEAKER) (test arrv=128) 9.6 GM/DL 13.7-17.5 HEMATOCRIT (BEAKER) (test ueml=177) 30.3 % 40.1-51.0 MEAN CORPUSCULAR VOLUME (BEAKER) (test uqso=511) 87.6 fL 79.0-92.2 MEAN CORPUSCULAR HEMOGLOBIN (BEAKER) (test flbv=691) 27.7 pg 25.7-32.2 MEAN CORPUSCULAR HEMOGLOBIN CONC (BEAKER) (test jrmb=151) 31.7 GM/DL 32.3-36.5 RED CELL DISTRIBUTION WIDTH (BEAKER) (test davz=736) 16.5 % 11.6-14.4 PLATELET COUNT (BEAKER) (test wwdg=029) 170 K/CU MM 150-450 MEAN PLATELET VOLUME (BEAKER) (test iaat=468) 11.0 fL 9.4-12.4 NUCLEATED RED BLOOD CELLS (BEAKER) (test wabv=486) 0 /100 WBC 0-0 NEUTROPHILS RELATIVE PERCENT (BEAKER) (test jtiq=847) 91 % LYMPHOCYTES RELATIVE PERCENT (BEAKER) (test dtve=074) 4 % MONOCYTES RELATIVE PERCENT (BEAKER) (test psdb=182) 5 % EOSINOPHILS RELATIVE PERCENT (BEAKER) (test pmup=438) 0 % BASOPHILS RELATIVE PERCENT (BEAKER) (test adio=041) 0 % NEUTROPHILS ABSOLUTE COUNT (BEAKER) (test ckyi=350) 11.32 K/ L 1.78-5.38 LYMPHOCYTES ABSOLUTE COUNT (BEAKER) (test zbzx=403) 0.44 K/ L 1.32-3.57 MONOCYTES ABSOLUTE COUNT (BEAKER) (test wkhd=894) 0.64 K/ L 0.30-0.82 EOSINOPHILS ABSOLUTE COUNT (BEAKER) (test whaa=243) 0.00 K/ L 0.04-0.54 BASOPHILS ABSOLUTE COUNT (BEAKER) (test wvwg=323) 0.03 K/ L 0.01-0.08 IMMATURE GRANULOCYTES-RELATIVE PERCENT (BEAKER) (test htul=3291) 1 % 0-1 BLOOD GAS, [id number] 23:26:00* Test Item Value Reference Range Comments PH ARTERIAL (BEAKER) (test nxtr=675) 7.38 7.35-7.45 PCO2 ARTERIAL (BEAKER) (test oijr=696) 39 mmHg 35-45 PO2 ARTERIAL (BEAKER) (test rxfk=367) 152 mmHg 80-90 O2 SATURATION ARTERIAL (BEAKER) (test yjfc=953) 98.9 % 96.0-97.0 HCO3 ARTERIAL (BEAKER) (test nsdk=478) 23 mmol/L 21-29 BASE EXCESS ARTERIAL (BEAKER) (test qfhn=716) -2.4 mmol/L -2.0-3.0 PATIENT TEMPERATURE (BEAKER) (test yqxe=4886) 37.0 C FIO2 (BEAKER) (test ylgk=0305) 60.0 % GLUCOSE-STAT [id number] 23:26:00* Test Item Value Reference Range Comments GLUCOSE RANDOM (BEAKER) (test cysi=803) 216 mg/dL 70-110 HGB/HCT (H&H) - STAT [id number] 23:26:00* Test Item Value Reference Range Comments HEMOGLOBIN (BEAKER) (test vuuc=347) 10.5 g/dL 13.0-16.8 HEMATOCRIT (BEAKER) (test zwnz=567) 31.0 % 40.0-50.0 SODIUM NA-STAT [id number] 23:25:00* Test Item Value Reference Range Comments SODIUM (BEAKER) (test sehd=507) 138 meq/L 135-148 POTASSIUM-STAT [id number] 23:25:00* Test Item Value Reference Range Comments POTASSIUM (BEAKER) (test pwhq=849) 4.2 meq/L 3.6-5.5 LACTIC ACID, ARTERIAL, WHOLE [id number] 23:22:00* Test Item Value Reference Range Comments LACTATE BLOOD ARTERIAL (2) (BEAKER) (test wbgh=4396) 4.8 mmol/L 0.5-2.2 Specimen slightly hemolyzed Effective 03/20/2016: Units/Reference Range ChangeNew: 0.5-2.2 mmol/L Previous: 5 -20 mg/[id number] 21:15:00* Test Item Value Reference Range Comments PHOSPHORUS (BEAKER) (test zgdq=041) 1.6 mg/dL 2.3-4.7 [id number] 21:15:00* Test Item Value Reference Range Comments MAGNESIUM (BEAKER) (test yxzu=859) 2.2 mg/dL 1.6-2.6 BASIC METABOLIC [id number] 21:15:00* Test Item Value Reference Range Comments SODIUM (BEAKER) (test wnch=752) 141 meq/L 136-145 POTASSIUM (BEAKER) (test gntp=498) 3.7 meq/L 3.5-5.1 CHLORIDE (BEAKER) (test vyde=043) 110 meq/L 98-107 CO2 (BEAKER) (test rpwc=727) 21 meq/L 22-29 BLOOD UREA NITROGEN (BEAKER) (test vqel=297) 19 mg/dL 7-21 CREATININE (BEAKER) (test yhjx=925) 1.00 mg/dL 0.57-1.25 GLUCOSE RANDOM (BEAKER) (test cxus=396) 185 mg/dL 70-105 CALCIUM (BEAKER) (test hwmk=937) 8.9 mg/dL 8.4-10.2 EGFR (BEAKER) (test pris=3808) 74 mL/min/1.73 sq m ESTIMATED GFR IS NOT ACCURATE CREATININE CLEARANCE IN PREDICTING GLOMERULAR FILTRATION RATE. ESTIMATED GFR IS NOT APPLICABLE FOR DIALYSIS PATIENTS. RAD, CHEST, 1 VIEW, NON [id number] 20:39:00Reason for exam:->IABP insertionShould this be performed at the bedside?->YesFINAL REPORT Chest, portable AP view History: IABP insertion Comparison: Earlier the same day at 1627 IMPRESSION: There has been interval insertion of a IABP with the radiopaque marker approximately 4.5 cm below the aortic knob. Other support devices are in stable position. No other significant interval changes. Signed: Willard Gonzáles MDReport Verified Date/Time: 08/29/2017 20:39:31 Reading Location: [address] Reading Room IUM, [id number] 20:28:00 * Test Item Value Reference Range Comments CALCIUM IONIZED (BEAKER) (test twld=882) 1.24 mmol/L 1.12-1.27 PH, BLOOD (BEAKER) (test lpgs=5261) 7.37 LACTIC ACID, ARTERIAL, WHOLE [id number] 19:47:00* Test Item Value Reference Range Comments LACTATE BLOOD ARTERIAL (2) (BEAKER) (test olwm=9499) 3.7 mmol/L 0.5-2.2 Specimen moderately hemolyzed Effective 03/20/2016: Units/Reference Range ChangeNew: 0.5-2.2 mmol/L Previous: 5 -20 mg/dLCBC W/PLT COUNT & AUTO [id number] 19:32:00* Test Item Value Reference Range Comments WHITE BLOOD CELL COUNT (BEAKER) (test rrpz=828) 14.1 K/ L 3.5-10.5 RED BLOOD CELL COUNT (BEAKER) (test ggiw=246) 3.93 M/ L 4.63-6.08 HEMOGLOBIN (BEAKER) (test vhsu=110) 11.0 GM/DL 13.7-17.5 HEMATOCRIT (BEAKER) (test uwqs=209) 34.4 % 40.1-51.0 MEAN CORPUSCULAR VOLUME (BEAKER) (test jqrk=275) 87.5 fL 79.0-92.2 MEAN CORPUSCULAR HEMOGLOBIN (BEAKER) (test cpsz=026) 28.0 pg 25.7-32.2 MEAN CORPUSCULAR HEMOGLOBIN CONC (BEAKER) (test jcnj=691) 32.0 GM/DL 32.3-36.5 RED CELL DISTRIBUTION WIDTH (BEAKER) (test eeov=018) 16.2 % 11.6-14.4 PLATELET COUNT (BEAKER) (test pluq=259) 146 K/CU MM 150-450 MEAN PLATELET VOLUME (BEAKER) (test tuxk=118) 9.7 fL 9.4-12.4 NUCLEATED RED BLOOD CELLS (BEAKER) (test zyuz=095) 0 /100 WBC 0-0 NEUTROPHILS RELATIVE PERCENT (BEAKER) (test wofn=442) 81 % LYMPHOCYTES RELATIVE PERCENT (BEAKER) (test sfsx=996) 10 % MONOCYTES RELATIVE PERCENT (BEAKER) (test sazf=065) 7 % EOSINOPHILS RELATIVE PERCENT (BEAKER) (test ndyf=114) 0 % BASOPHILS RELATIVE PERCENT (BEAKER) (test zmbw=106) 0 % NEUTROPHILS ABSOLUTE COUNT (BEAKER) (test xtpc=041) 11.47 K/ L 1.78-5.38 LYMPHOCYTES ABSOLUTE COUNT (BEAKER) (test zrwq=008) 1.44 K/ L 1.32-3.57 MONOCYTES ABSOLUTE COUNT (BEAKER) (test ibhq=310) 1.02 K/ L 0.30-0.82 EOSINOPHILS ABSOLUTE COUNT (BEAKER) (test mvyz=255) 0.06 K/ L 0.04-0.54 BASOPHILS ABSOLUTE COUNT (BEAKER) (test nxka=098) 0.03 K/ L 0.01-0.08 IMMATURE GRANULOCYTES-RELATIVE PERCENT (BEAKER) (test xruk=0125) 1 % 0-1 (MANUAL DIFFERENTIAL)2017-08-29 19:32:00* Test Item Value Reference Range Comments NEUTROPHILS - REL (DIFF) (BEAKER) (test pmup=7636) 60 % LYMPHOCYTES - REL (DIFF) (BEAKER) (test niou=0217) 5 % MONOCYTES - REL (DIFF) (BEAKER) (test hnvn=4831) 9 % BANDS - REL (DIFF) (BEAKER) (test nkhp=8565) 26 % 0-10 NEUTROPHILS - ABS (DIFF) (BEAKER) (test qqun=5273) 8.46 K/ L 1.80-8.00 LYMPHOCYTES - ABS (DIFF) (BEAKER) (test elfk=1672) 0.71 K/ L 1.48-4.50 MONOCYTES - ABS (DIFF) (BEAKER) (test jbkg=2297) 1.27 K/ L 0.00-1.30 BANDS-ABS (DIFF) (BEAKER) (test yoqw=2123) 3.7 K/ L 0.0-0.8 TOTAL COUNTED (BEAKER) (test dned=6884) 100 BANDS + SEGMENTED NEUTROPHILS (BEAKER) (test jkbl=1576) 12.13 WBC MORPHOLOGY (BEAKER) (test kgzh=785) Normal LARGE PLT(BEAKER) (test dnyc=3559) Present ELLIPTOCYTES (BEAKER) (test mkek=989) 1+ few BLOOD GAS, [id number] 19:29:00* Test Item Value Reference Range Comments PH ARTERIAL (BEAKER) (test knlh=897) 7.42 7.35-7.45 PCO2 ARTERIAL (BEAKER) (test rzxw=913) 40 mmHg 35-45 PO2 ARTERIAL (BEAKER) (test chnv=653) 140 mmHg 80-90 O2 SATURATION ARTERIAL (BEAKER) (test iduk=182) 98.8 % 96.0-97.0 HCO3 ARTERIAL (BEAKER) (test avym=713) 25 mmol/L 21-29 BASE EXCESS ARTERIAL (BEAKER) (test dviu=147) 0.7 mmol/L -2.0-3.0 PATIENT TEMPERATURE (BEAKER) (test wuwt=8974) 36.7 C FIO2 (BEAKER) (test nmab=1215) 60.0 % OXYGEN SATURATION, [id number] 19:28:00* Test Item Value Reference Range Comments O2 SATURATION (MEASURED) (BEAKER) (test dcud=8381) 71.6 % CALCIUM, [id number] 17:21:00* Test Item Value Reference Range Comments CALCIUM IONIZED (BEAKER) (test bmnp=239) 1.29 mmol/L 1.12-1.27 PH, BLOOD (BEAKER) (test bkwy=0001) 7.37 GLUCOSE-STAT [id number] 17:20:00* Test Item Value Reference Range Comments GLUCOSE RANDOM (BEAKER) (test xnlf=710) 148 mg/dL 70-110 HGB/HCT (H&H) - STAT [id number] 17:20:00* Test Item Value Reference Range Comments HEMOGLOBIN (BEAKER) (test hkxg=483) 11.6 GM/DL 13.0-16.8 HEMATOCRIT (BEAKER) (test kryr=360) 34.0 % 40.0-50.0 HEMOGLOBIN-STAT [id number] 17:20:00* Test Item Value Reference Range Comments HEMOGLOBIN (BEAKER) (test fowm=953) 11.6 g/dL 13.0-16.8 RAD, CHEST, 1 VIEW, NON [id number] 17:20:00Reason for exam:->Post AVR, MVR with chest tubes and intubatedShould this be performed at the bedside?->YesFINAL REPORT Chest, portable AP view History: Status post AVR, MVR, 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 Patient is status post median sternotomy. The heart is mildly enlarged, stable. Right basilar chest tube and mediastinal drains are in place. A right internal jugular central venous catheter is present with the distal tip terminating at the level of the mid SVC. There is no sizable pneumothorax. Bibasilar atelectasis is present. There is a small left pleural effusion. Signed: Willard Gonzáles Date/Time: 08/29/2017 17:20:50 Reading Location: [address] Consult Reading Room [facility] NA-STAT [id number] 17:19:00* Test Item Value Reference Range Comments SODIUM (BEAKER) (test ranu=363) 140 meq/L 135-148 POTASSIUM-STAT [id number] 17:19:00* Test Item Value Reference Range Comments POTASSIUM (BEAKER) (test ashu=111) 3.5 meq/L 3.6-5.5 BLOOD GAS, [id number] 17:19:00* Test Item Value Reference Range Comments PH ARTERIAL (BEAKER) (test cabf=722) 7.38 7.35-7.45 PCO2 ARTERIAL (BEAKER) (test ypei=654) 43 mmHg 35-45 PO2 ARTERIAL (BEAKER) (test tkeh=701) 103 mmHg 80-90 O2 SATURATION ARTERIAL (BEAKER) (test pjby=625) 97.7 % 96.0-97.0 HCO3 ARTERIAL (BEAKER) (test swms=871) 25 mmol/L 21-29 BASE EXCESS ARTERIAL (BEAKER) (test mjss=597) -0.8 mmol/L -2.0-3.0 PATIENT TEMPERATURE (BEAKER) (test nalq=6309) 36.4 C FIO2 (BEAKER) (test urfg=4898) 60.0 % [id number] 16:21:00* Test Item Value Reference Range Comments POTASSIUM (BEAKER) (test utdf=038) 4.0 meq/L 3.5-5.1 [id number] 16:21:00* Test Item Value Reference Range Comments MAGNESIUM (BEAKER) (test nynm=088) 2.7 mg/dL 1.6-2.6 [id number] 16:21:00* Test Item Value Reference Range Comments PHOSPHORUS (BEAKER) (test wqpx=283) 3.4 mg/dL 2.3-4.7 [id number] 16:21:00* Test Item Value Reference Range Comments GLUCOSE RANDOM (BEAKER) (test ynpq=855) 151 mg/dL 70-105 BASIC METABOLIC [id number] 16:21:00* Test Item Value Reference Range Comments SODIUM (BEAKER) (test zagz=901) 143 meq/L 136-145 POTASSIUM (BEAKER) (test ywhk=572) 4.0 meq/L 3.5-5.1 CHLORIDE (BEAKER) (test osay=352) 109 meq/L 98-107 CO2 (BEAKER) (test wiey=754) 22 meq/L 22-29 BLOOD UREA NITROGEN (BEAKER) (test wfvb=457) 19 mg/dL 7-21 CREATININE (BEAKER) (test ldtq=077) 0.87 mg/dL 0.57-1.25 GLUCOSE RANDOM (BEAKER) (test quda=051) 151 mg/dL 70-105 CALCIUM (BEAKER) (test vebn=012) 10.0 mg/dL 8.4-10.2 EGFR (BEAKER) (test bjcg=7516) 87 mL/min/1.73 sq m ESTIMATED GFR IS NOT ACCURATE CREATININE CLEARANCE IN PREDICTING GLOMERULAR FILTRATION RATE. ESTIMATED GFR IS NOT APPLICABLE FOR DIALYSIS PATIENTS. LACTIC ACID, ARTERIAL, WHOLE [id number] 16:18:00* Test Item Value Reference Range Comments LACTATE BLOOD ARTERIAL (2) (BEAKER) (test tkzg=2790) 3.4 mmol/L 0.5-2.2 Effective 03/20/2016: Units/Reference Range ChangeNew: 0.5-2.2 mmol/L Previous: 5 -20 mg/dLPT/[id number] 16:18:00* Test Item Value Reference Range Comments PROTIME (BEAKER) (test wise=383) 17.5 seconds 11.7-14.7 INR (BEAKER) (test bqrj=642) 1.4 <=5.9 PARTIAL THROMBOPLASTIN TIME (BEAKER) (test olcs=980) 38.5 seconds 22.5-36.0 RECOMMENDED COUMADIN/WARFARIN INR THERAPY RANGESSTANDARD DOSE: 2.0 - 3.0 Inclu hudson: PROPHYLAXIS for venous thrombosis, systemic embolization; TREATMENT for yuan ous thrombosis and/or pulmonary embolus.HIGH RISK: Target INR is 2.5-3.5 for pat ients with mechanical heart valves.BLOOD GAS, [id number] 16:05:00* Test Item Value Reference Range Comments PH ARTERIAL (BEAKER) (test vkam=115) 7.34 7.35-7.45 PCO2 ARTERIAL (BEAKER) (test hkmq=655) 49 mmHg 35-45 PO2 ARTERIAL (BEAKER) (test xfrq=738) 80 mmHg 80-90 O2 SATURATION ARTERIAL (BEAKER) (test yfez=163) 95.5 % 96.0-97.0 HCO3 ARTERIAL (BEAKER) (test wmxi=285) 26 mmol/L 21-29 BASE EXCESS ARTERIAL (BEAKER) (test ecfx=167) -0.4 mmol/L -2.0-3.0 PATIENT TEMPERATURE (BEAKER) (test rwua=0378) 36.2 C FIO2 (BEAKER) (test unyy=7395) 60.0 % CALCIUM, [id number] 16:04:00* Test Item Value Reference Range Comments CALCIUM IONIZED (BEAKER) (test ejlz=899) 1.37 mmol/L 1.12-1.27 PH, BLOOD (BEAKER) (test gqhf=0850) 7.34 OXYGEN SATURATION, [id number] 16:04:00* Test Item Value Reference Range Comments O2 SATURATION (MEASURED) (BEAKER) (test ilxt=3565) 72.0 % PLATELET [id number] 15:26:00* Test Item Value Reference Range Comments PLATELET COUNT (BEAKER) (test prru=466) 73 K/CU MM 150-450 SODIUM NA-STAT [id number] 15:03:00* Test Item Value Reference Range Comments SODIUM (BEAKER) (test ivxx=982) 138 meq/L 135-148 POTASSIUM-STAT [id number] 15:03:00* Test Item Value Reference Range Comments POTASSIUM (BEAKER) (test hxrr=266) 4.1 meq/L 3.6-5.5 CALCIUM, [id number] 15:03:00* Test Item Value Reference Range Comments CALCIUM IONIZED (BEAKER) (test xuqg=868) 1.01 mmol/L 1.12-1.27 PH, BLOOD (BEAKER) (test oaem=1919) 7.32 BLOOD GAS, [id number] 15:03:00* Test Item Value Reference Range Comments PH ARTERIAL (BEAKER) (test hxrr=899) 7.33 7.35-7.45 PCO2 ARTERIAL (BEAKER) (test yzof=897) 47 mmHg 35-45 PO2 ARTERIAL (BEAKER) (test vkxm=163) 89 mmHg 80-90 O2 SATURATION ARTERIAL (BEAKER) (test xjmm=608) 96.6 % 96.0-97.0 HCO3 ARTERIAL (BEAKER) (test qsmp=235) 24 mmol/L 21-29 BASE EXCESS ARTERIAL (BEAKER) (test eham=511) -2.2 mmol/L -2.0-3.0 PATIENT TEMPERATURE (BEAKER) (test wyfw=0604) 36.0 C FIO2 (BEAKER) (test sdma=7907) 90.0 % GLUCOSE-STAT [id number] 15:03:00* Test Item Value Reference Range Comments GLUCOSE RANDOM (BEAKER) (test tofg=573) 182 mg/dL 70-110 HGB/HCT (H&H) - STAT [id number] 15:03:00* Test Item Value Reference Range Comments HEMOGLOBIN (BEAKER) (test inkx=260) 11.6 g/dL 13.0-16.8 HEMATOCRIT (BEAKER) (test ebsx=986) 34.0 % 40.0-50.0 [id number] 14:55:00* Test Item Value Reference Range Comments PARTIAL THROMBOPLASTIN TIME (BEAKER) (test zivg=765) 37.7 seconds 22.5-36.0 PROTHROMBIN TIME/[id number] 14:54:00* Test Item Value Reference Range Comments PROTIME (BEAKER) (test ectu=538) 19.0 seconds 11.7-14.7 INR (BEAKER) (test nuzb=714) 1.6 <=5.9 RECOMMENDED COUMADIN/WARFARIN INR THERAPY RANGESSTANDARD DOSE: 2.0 - 3.0 Inclu hudson: PROPHYLAXIS for venous thrombosis, systemic embolization; TREATMENT for yuan ous thrombosis and/or pulmonary embolus.HIGH RISK: Target INR is 2.5-3.5 for pat ients with mechanical heart valves.THROMBOELASTOGRAPH (TEG)2017-08-29 14:42:00* Test Item Value Reference Range Comments TEG ACTIVATED CLOTTING TIME (BEAKER) (test kqfd=5983) 104.2 minutes 4.0-7.0 NO CLOT DETECTED TEG FIBRINOGEN ACTIVITY (BEAKER) (test mccz=2842) degrees 61.0-73.0 NO CLOT DETECTED TEG PLT. AGGREGATION (BEAKER) (test bixw=6475) MM 55.0-65.0 NO CLOT DETECTED TEG FIBRINOLYSIS (BEAKER) (test jmnb=0483) % 0.0-5.0 NO CLOT DETECTED TGH ACTIVATED CLOTTING TIME (BEAKER) (test bueh=6129) 10.2 minutes 4.0-7.0 TGH FIBRINOGEN ACTIVITY (BEAKER) (test ueim=4111) 58.4 degrees 61.0-73.0 TGH PLT. AGGREGATION (BEAKER) (test ghel=8385) 54.0 MM 55.0-65.0 PROTHROMBIN TIME/[id number] 14:15:00* Test Item Value Reference Range Comments PROTIME (BEAKER) (test fgow=453) 21.3 seconds 11.7-14.7 INR (BEAKER) (test ikvq=818) 1.9 <=5.9 RECOMMENDED COUMADIN/WARFARIN INR THERAPY RANGESSTANDARD DOSE: 2.0 - 3.0 Inclu hudson: PROPHYLAXIS for venous thrombosis, systemic embolization; TREATMENT for yuan ous thrombosis and/or pulmonary embolus.HIGH RISK: Target INR is 2.5-3.5 for pat ients with mechanical heart valves.[id number] 14:15:00* Test Item Value Reference Range Comments FIBRINOGEN LEVEL (BEAKER) (test uwph=571) 323 mg/dl 225-434 [id number] 14:15:00* Test Item Value Reference Range Comments PARTIAL THROMBOPLASTIN TIME (BEAKER) (test yxrj=583) 38.8 seconds 22.5-36.0 CALCIUM, [id number] 14:05:00* Test Item Value Reference Range Comments CALCIUM IONIZED (BEAKER) (test esto=260) 1.11 mmol/L 1.12-1.27 PH, BLOOD (BEAKER) (test cfod=1631) 7.31 BLOOD GAS, [id number] 14:04:00* Test Item Value Reference Range Comments PH ARTERIAL (BEAKER) (test zsxb=452) 7.33 7.35-7.45 PCO2 ARTERIAL (BEAKER) (test nshh=160) 46 mmHg 35-45 PO2 ARTERIAL (BEAKER) (test wrwr=758) 119 mmHg 80-90 O2 SATURATION ARTERIAL (BEAKER) (test tijy=609) 98.2 % 96.0-97.0 HCO3 ARTERIAL (BEAKER) (test txuo=322) 24 mmol/L 21-29 BASE EXCESS ARTERIAL (BEAKER) (test jqdg=123) -2.3 mmol/L -2.0-3.0 PATIENT TEMPERATURE (BEAKER) (test tkdu=2276) 35.9 C FIO2 (BEAKER) (test dbki=4306) 90.0 % GLUCOSE-STAT [id number] 14:04:00* Test Item Value Reference Range Comments GLUCOSE RANDOM (BEAKER) (test axmk=535) 173 mg/dL 70-110 HGB/HCT (H&H) - STAT [id number] 14:04:00* Test Item Value Reference Range Comments HEMOGLOBIN (BEAKER) (test kzvi=895) 10.5 g/dL 13.0-16.8 HEMATOCRIT (BEAKER) (test rfij=222) 31.0 % 40.0-50.0 SODIUM NA-STAT [id number] 14:02:00* Test Item Value Reference Range Comments SODIUM (BEAKER) (test mqrb=369) 135 meq/L 135-148 POTASSIUM-STAT [id number] 14:02:00* Test Item Value Reference Range Comments POTASSIUM (BEAKER) (test rhfr=448) 4.0 meq/L 3.6-5.5 [id number] 12:53:00* Test Item Value Reference Range Comments FIBRINOGEN LEVEL (BEAKER) (test opjc=898) 357 mg/dl 225-434 PLATELET [id number] 12:46:00* Test Item Value Reference Range Comments PLATELET COUNT (BEAKER) (test fhxf=198) 99 K/CU MM 150-450 POTASSIUM-STAT [id number] 12:36:00* Test Item Value Reference Range Comments POTASSIUM (BEAKER) (test weyd=285) 5.0 meq/L 3.6-5.5 BLOOD GAS, [id number] 12:36:00* Test Item Value Reference Range Comments PH ARTERIAL (BEAKER) (test qeqh=496) 7.35 7.35-7.45 PCO2 ARTERIAL (BEAKER) (test auzr=587) 45 mmHg 35-45 PO2 ARTERIAL (BEAKER) (test pabh=449) 328 mmHg 80-90 O2 SATURATION ARTERIAL (BEAKER) (test gbsg=038) 99.7 % 96.0-97.0 HCO3 ARTERIAL (BEAKER) (test gwtc=888) 24 mmol/L 21-29 BASE EXCESS ARTERIAL (BEAKER) (test pers=606) -1.5 mmol/L -2.0-3.0 PATIENT TEMPERATURE (BEAKER) (test ggjd=3574) 36.5 C FIO2 (BEAKER) (test cjmu=3079) 85.0 % SODIUM NA-STAT [id number] 12:36:00* Test Item Value Reference Range Comments SODIUM (BEAKER) (test ixrx=044) 134 meq/L 135-148 GLUCOSE-STAT [id number] 12:36:00* Test Item Value Reference Range Comments GLUCOSE RANDOM (BEAKER) (test lmxw=224) 158 mg/dL 70-110 HGB/HCT (H&H) - STAT [id number] 12:36:00* Test Item Value Reference Range Comments HEMOGLOBIN (BEAKER) (test zyhr=250) 11.7 g/dL 13.0-16.8 HEMATOCRIT (BEAKER) (test qoje=423) 34.0 % 40.0-50.0 BLOOD GAS, [id number] 12:14:00* Test Item Value Reference Range Comments PH ARTERIAL (BEAKER) (test poao=212) 7.48 7.35-7.45 PCO2 ARTERIAL (BEAKER) (test sjss=898) 31 mmHg 35-45 PO2 ARTERIAL (BEAKER) (test xezl=705) 314 mmHg 80-90 O2 SATURATION ARTERIAL (BEAKER) (test rtev=950) 99.8 % 96.0-97.0 HCO3 ARTERIAL (BEAKER) (test lbxk=000) 24 mmol/L 21-29 BASE EXCESS ARTERIAL (BEAKER) (test upbg=633) -1.2 mmol/L -2.0-3.0 PATIENT TEMPERATURE (BEAKER) (test jczf=5269) 30.2 C FIO2 (BEAKER) (test qfxe=0176) 70.0 % GLUCOSE-STAT [id number] 12:14:00* Test Item Value Reference Range Comments GLUCOSE RANDOM (BEAKER) (test ejwa=185) 184 mg/dL 70-110 HGB/HCT (H&H) - STAT [id number] 12:14:00* Test Item Value Reference Range Comments HEMOGLOBIN (BEAKER) (test wupt=479) 12.5 g/dL 13.0-16.8 HEMATOCRIT (BEAKER) (test ieth=701) 37.0 % 40.0-50.0 SODIUM NA-STAT [id number] 12:04:00* Test Item Value Reference Range Comments SODIUM (BEAKER) (test arsp=211) 135 meq/L 135-148 POTASSIUM-STAT [id number] 12:04:00* Test Item Value Reference Range Comments POTASSIUM (BEAKER) (test omrb=652) 5.0 meq/L 3.6-5.5 SODIUM NA-STAT [id number] 11:40:00* Test Item Value Reference Range Comments SODIUM (BEAKER) (test pcef=030) 137 meq/L 135-148 POTASSIUM-STAT [id number] 11:40:00* Test Item Value Reference Range Comments POTASSIUM (BEAKER) (test lxhj=607) 4.9 meq/L 3.6-5.5 BLOOD GAS, [id number] 11:40:00* Test Item Value Reference Range Comments PH ARTERIAL (BEAKER) (test qsiq=776) 7.43 7.35-7.45 PCO2 ARTERIAL (BEAKER) (test uccu=482) 38 mmHg 35-45 PO2 ARTERIAL (BEAKER) (test yvqa=238) 335 mmHg 80-90 O2 SATURATION ARTERIAL (BEAKER) (test vdrv=813) 99.8 % 96.0-97.0 HCO3 ARTERIAL (BEAKER) (test xzrp=287) 27 mmol/L 21-29 BASE EXCESS ARTERIAL (BEAKER) (test qfwt=283) 0.2 mmol/L -2.0-3.0 PATIENT TEMPERATURE (BEAKER) (test bjyx=6225) 28.1 C FIO2 (BEAKER) (test tcwj=7399) 60.0 % GLUCOSE-STAT [id number] 11:40:00* Test Item Value Reference Range Comments GLUCOSE RANDOM (BEAKER) (test yppg=594) 183 mg/dL 70-110 HGB/HCT (H&H) - STAT [id number] 11:40:00* Test Item Value Reference Range Comments HEMOGLOBIN (BEAKER) (test vlqd=842) 12.0 g/dL 13.0-16.8 HEMATOCRIT (BEAKER) (test uvvl=956) 35.0 % 40.0-50.0 BLOOD GAS, [id number] 11:18:00* Test Item Value Reference Range Comments PH ARTERIAL (BEAKER) (test cpee=401) 7.41 7.35-7.45 PCO2 ARTERIAL (BEAKER) (test ppdd=429) 39 mmHg 35-45 PO2 ARTERIAL (BEAKER) (test vmkq=877) 311 mmHg 80-90 O2 SATURATION ARTERIAL (BEAKER) (test gbyh=480) 99.7 % 96.0-97.0 HCO3 ARTERIAL (BEAKER) (test obev=794) 27 mmol/L 21-29 BASE EXCESS ARTERIAL (BEAKER) (test jnfp=091) -0.4 mmol/L -2.0-3.0 PATIENT TEMPERATURE (BEAKER) (test jgpy=5207) 27.9 C FIO2 (BEAKER) (test caiy=4235) 60.0 % GLUCOSE-STAT [id number] 11:18:00* Test Item Value Reference Range Comments GLUCOSE RANDOM (BEAKER) (test svyo=539) 174 mg/dL 70-110 HGB/HCT (H&H) - STAT [id number] 11:18:00* Test Item Value Reference Range Comments HEMOGLOBIN (BEAKER) (test nzoj=564) 11.6 g/dL 13.0-16.8 HEMATOCRIT (BEAKER) (test pnaz=744) 34.0 % 40.0-50.0 SODIUM NA-STAT [id number] 11:17:00* Test Item Value Reference Range Comments SODIUM (BEAKER) (test oogi=806) 135 meq/L 135-148 POTASSIUM-STAT [id number] 11:17:00* Test Item Value Reference Range Comments POTASSIUM (BEAKER) (test lzwx=901) 4.3 meq/L 3.6-5.5 BLOOD GAS, [id number] 10:35:00* Test Item Value Reference Range Comments PH ARTERIAL (BEAKER) (test jtrg=947) 7.43 7.35-7.45 PCO2 ARTERIAL (BEAKER) (test eyah=165) 38 mmHg 35-45 PO2 ARTERIAL (BEAKER) (test eukv=350) 310 mmHg 80-90 O2 SATURATION ARTERIAL (BEAKER) (test zzsm=940) 99.7 % 96.0-97.0 HCO3 ARTERIAL (BEAKER) (test fbpo=596) 28 mmol/L 21-29 BASE EXCESS ARTERIAL (BEAKER) (test dacz=317) 0.6 mmol/L -2.0-3.0 PATIENT TEMPERATURE (BEAKER) (test ljze=2360) 27.9 C FIO2 (BEAKER) (test mfsb=9920) 60.0 % GLUCOSE-STAT [id number] 10:35:00* Test Item Value Reference Range Comments GLUCOSE RANDOM (BEAKER) (test xnzt=502) 151 mg/dL 70-110 HGB/HCT (H&H) - STAT [id number] 10:35:00* Test Item Value Reference Range Comments HEMOGLOBIN (BEAKER) (test inwv=691) 11.3 g/dL 13.0-16.8 HEMATOCRIT (BEAKER) (test dkml=344) 33.0 % 40.0-50.0 SODIUM NA-STAT [id number] 10:34:00* Test Item Value Reference Range Comments SODIUM (BEAKER) (test whcg=226) 136 meq/L 135-148 POTASSIUM-STAT [id number] 10:34:00* Test Item Value Reference Range Comments POTASSIUM (BEAKER) (test mipb=237) 4.2 meq/L 3.6-5.5 SODIUM NA-STAT [id number] 10:07:00* Test Item Value Reference Range Comments SODIUM (BEAKER) (test wkec=675) 135 meq/L 135-148 POTASSIUM-STAT [id number] 10:07:00* Test Item Value Reference Range Comments POTASSIUM (BEAKER) (test ivkq=450) 3.8 meq/L 3.6-5.5 BLOOD GAS, [id number] 10:07:00* Test Item Value Reference Range Comments PH ARTERIAL (BEAKER) (test fhjw=586) 7.55 7.35-7.45 PCO2 ARTERIAL (BEAKER) (test bdqj=878) 28 mmHg 35-45 PO2 ARTERIAL (BEAKER) (test sfye=567) 336 mmHg 80-90 O2 SATURATION ARTERIAL (BEAKER) (test smvr=688) 99.8 % 96.0-97.0 HCO3 ARTERIAL (BEAKER) (test rhhc=618) 26 mmol/L 21-29 BASE EXCESS ARTERIAL (BEAKER) (test ulpz=062) 1.4 mmol/L -2.0-3.0 PATIENT TEMPERATURE (BEAKER) (test uczm=3629) 28.3 C FIO2 (BEAKER) (test qefa=4305) 60.0 % GLUCOSE-STAT [id number] 10:07:00* Test Item Value Reference Range Comments GLUCOSE RANDOM (BEAKER) (test lhse=203) 133 mg/dL 70-110 HGB/HCT (H&H) - STAT [id number] 10:07:00* Test Item Value Reference Range Comments HEMOGLOBIN (BEAKER) (test sani=207) 10.9 g/dL 13.0-16.8 HEMATOCRIT (BEAKER) (test ddha=062) 32.0 % 40.0-50.0 BLOOD GAS, [id number] 09:39:00* Test Item Value Reference Range Comments PH ARTERIAL (BEAKER) (test fnih=105) 7.40 7.35-7.45 PCO2 ARTERIAL (BEAKER) (test ygep=163) 41 mmHg 35-45 PO2 ARTERIAL (BEAKER) (test whhu=049) 391 mmHg 80-90 O2 SATURATION ARTERIAL (BEAKER) (test bbxj=771) 99.8 % 96.0-97.0 HCO3 ARTERIAL (BEAKER) (test fqil=054) 26 mmol/L 21-29 BASE EXCESS ARTERIAL (BEAKER) (test qgsd=131) 0.1 mmol/L -2.0-3.0 PATIENT TEMPERATURE (BEAKER) (test dmva=0778) 33.1 C FIO2 (BEAKER) (test mysy=7467) 70.0 % SODIUM NA-STAT [id number] 09:39:00* Test Item Value Reference Range Comments SODIUM (BEAKER) (test tyvh=804) 134 meq/L 135-148 POTASSIUM-STAT [id number] 09:39:00* Test Item Value Reference Range Comments POTASSIUM (BEAKER) (test etnc=159) 3.4 meq/L 3.6-5.5 GLUCOSE-STAT [id number] 09:39:00* Test Item Value Reference Range Comments GLUCOSE RANDOM (BEAKER) (test zfxj=266) 126 mg/dL 70-110 HGB/HCT (H&H) - STAT [id number] 09:39:00* Test Item Value Reference Range Comments HEMOGLOBIN (BEAKER) (test ggth=892) 10.8 g/dL 13.0-16.8 HEMATOCRIT (BEAKER) (test mdvd=258) 32.0 % 40.0-50.0 BLOOD GAS, [id number] 08:47:00* Test Item Value Reference Range Comments PH ARTERIAL (BEAKER) (test wxtp=341) 7.37 7.35-7.45 PCO2 ARTERIAL (BEAKER) (test caye=437) 50 mmHg 35-45 PO2 ARTERIAL (BEAKER) (test vmcp=161) 326 mmHg 80-90 O2 SATURATION ARTERIAL (BEAKER) (test veuw=964) 99.7 % 96.0-97.0 HCO3 ARTERIAL (BEAKER) (test kzox=652) 29 mmol/L 21-29 BASE EXCESS ARTERIAL (BEAKER) (test ebjr=796) 2.2 mmol/L -2.0-3.0 PATIENT TEMPERATURE (BEAKER) (test iwzj=0255) 36.0 C FIO2 (BEAKER) (test obrt=9420) 90.0 % GLUCOSE-STAT [id number] 08:46:00* Test Item Value Reference Range Comments GLUCOSE RANDOM (BEAKER) (test abww=094) 103 mg/dL 70-110 SODIUM NA-STAT [id number] 08:46:00* Test Item Value Reference Range Comments SODIUM (BEAKER) (test vgcy=522) 137 meq/L 135-148 POTASSIUM-STAT [id number] 08:46:00* Test Item Value Reference Range Comments POTASSIUM (BEAKER) (test uqff=902) 4.8 meq/L 3.6-5.5 HGB/HCT (H&H) - STAT [id number] 08:46:00* Test Item Value Reference Range Comments HEMOGLOBIN (BEAKER) (test vmgz=052) 13.8 g/dL 13.0-16.8 HEMATOCRIT (BEAKER) (test ylds=332) 41.0 % 40.0-50.0 COMPREHENSIVE METABOLIC [id number] 07:23:00* Test Item Value Reference Range Comments TOTAL PROTEIN (BEAKER) (test dxpk=371) 7.5 gm/dL 6.0-8.3 ALBUMIN (BEAKER) (test qocg=4075) 3.7 g/dL 3.5-5.0 ALKALINE PHOSPHATASE (BEAKER) (test gruh=218) 101 U/L 40-150 BILIRUBIN TOTAL (BEAKER) (test xeny=405) 0.7 mg/dL 0.2-1.2 SODIUM (BEAKER) (test nwhl=729) 139 meq/L 136-145 POTASSIUM (BEAKER) (test batl=438) 3.9 meq/L 3.5-5.1 CHLORIDE (BEAKER) (test wwmr=855) 105 meq/L 98-107 CO2 (BEAKER) (test qysd=681) 25 meq/L 22-29 BLOOD UREA NITROGEN (BEAKER) (test hoth=029) 23 mg/dL 7-21 CREATININE (BEAKER) (test baaa=917) 1.09 mg/dL 0.57-1.25 GLUCOSE RANDOM (BEAKER) (test guys=449) 88 mg/dL 70-105 CALCIUM (BEAKER) (test pcwy=776) 9.8 mg/dL 8.4-10.2 AST (SGOT) (BEAKER) (test yvyw=828) 21 U/L 5-34 ALT (SGPT) (BEAKER) (test bvzl=718) 13 U/L 6-55 EGFR (BEAKER) (test twxm=1044) 67 mL/min/1.73 sq m ESTIMATED GFR IS NOT ACCURATE CREATININE CLEARANCE IN PREDICTING GLOMERULAR FILTRATION RATE. ESTIMATED GFR IS NOT APPLICABLE FOR DIALYSIS PATIENTS. PROTHROMBIN TIME/[id number] 07:12:00* Test Item Value Reference Range Comments PROTIME (BEAKER) (test nvys=962) 15.8 seconds 11.7-14.7 INR (BEAKER) (test hvsr=089) 1.3 <=5.9 RECOMMENDED COUMADIN/WARFARIN INR THERAPY RANGESSTANDARD DOSE: 2.0 - 3.0 Inclu hudson: PROPHYLAXIS for venous thrombosis, systemic embolization; TREATMENT for yuan ous thrombosis and/or pulmonary embolus.HIGH RISK: Target INR is 2.5-3.5 for pat ients with mechanical heart valves.CBC W/PLT COUNT & AUTO [id number] 07:08:00* Test Item Value Reference Range Comments WHITE BLOOD CELL COUNT (BEAKER) (test xify=502) 9.5 K/ L 3.5-10.5 RED BLOOD CELL COUNT (BEAKER) (test zwsq=464) 5.30 M/ L 4.63-6.08 HEMOGLOBIN (BEAKER) (test gksd=043) 14.4 GM/DL 13.7-17.5 HEMATOCRIT (BEAKER) (test kdcv=051) 45.3 % 40.1-51.0 MEAN CORPUSCULAR VOLUME (BEAKER) (test xgsd=334) 85.5 fL 79.0-92.2 MEAN CORPUSCULAR HEMOGLOBIN (BEAKER) (test egke=412) 27.2 pg 25.7-32.2 MEAN CORPUSCULAR HEMOGLOBIN CONC (BEAKER) (test ausb=195) 31.8 GM/DL 32.3-36.5 RED CELL DISTRIBUTION WIDTH (BEAKER) (test tgqq=827) 16.5 % 11.6-14.4 PLATELET COUNT (BEAKER) (test vdxj=315) 214 K/CU MM 150-450 MEAN PLATELET VOLUME (BEAKER) (test ezct=910) 11.3 fL 9.4-12.4 NUCLEATED RED BLOOD CELLS (BEAKER) (test lkjt=067) 0 /100 WBC 0-0 NEUTROPHILS RELATIVE PERCENT (BEAKER) (test giuj=489) 67 % LYMPHOCYTES RELATIVE PERCENT (BEAKER) (test ymvy=659) 20 % MONOCYTES RELATIVE PERCENT (BEAKER) (test ghgt=918) 8 % EOSINOPHILS RELATIVE PERCENT (BEAKER) (test dszc=521) 4 % BASOPHILS RELATIVE PERCENT (BEAKER) (test nynr=154) 1 % NEUTROPHILS ABSOLUTE COUNT (BEAKER) (test zpgb=541) 6.38 K/ L 1.78-5.38 LYMPHOCYTES ABSOLUTE COUNT (BEAKER) (test drvd=593) 1.89 K/ L 1.32-3.57 MONOCYTES ABSOLUTE COUNT (BEAKER) (test pgxq=398) 0.77 K/ L 0.30-0.82 EOSINOPHILS ABSOLUTE COUNT (BEAKER) (test vfef=105) 0.35 K/ L 0.04-0.54 BASOPHILS ABSOLUTE COUNT (BEAKER) (test jbkk=623) 0.09 K/ L 0.01-0.08 IMMATURE GRANULOCYTES-RELATIVE PERCENT (BEAKER) (test ttyj=9305) 0 % 0-1 RAD, CHEST, 2 [id number] 11:08:00Reason for Exam:->SOBFINAL REPORT Chest two views INDICATION: Shortness of breath, mitral valve insufficiency COMPARISON: None available IMPRESSION: The cardiac silhouette is enlarged. There is mild pulmonary vascular congestion. No lobar consolidation, pleural effusion, or pneumothorax is seen. The aorta is mildly ectatic/tortuous. There are degenerative spine changes with osteopenia. Signed: Elisabet Villalta MDReport Verified Date/Time: 08/14/2017 11:08:39 Reading Location: [facility] Reading Room ARM LEFT 2 VIEW [place] [address] Patient Name: ROSAURA TORRES MR #: [id number] : 1945 Age/Sex: 71/M Req #: [id number] Adm Physician: Ordered by: NURY EASLEY Report #: [id number] Location: ER Room/Bed: Procedure: [id number] DX/FOREARM LEFT 2 VIEW E xam Date: 10/25/17 Exam Time: 1536 REPORT STATU S: Signed Left forearm - 2 views HISTORY: Pain. COMPARISON: None avai lable. FINDINGS: Bones: Cortical irregularity is present along the distal ulna, best visualized on the lateral projection. No expansile lytic or sclerotic lesion. Joints: The joint spaces are well-maintained. No di slocation. Soft tissues: Skin laceration on the dorsal aspect of the wris t. IMPRESSION: Skin laceration with cortical irregularity of the distal ulna may represent an open fracture. Signed by: Dr. Santiago Hayes M.D. on 10/25/2017 3:58 PM Dictated By: SANTIAGO HAYES MD [id number] Transcribed By: JOAO on 10/25/17 978 COPY TO: NURY EASLEY
[2020-02-17] MEDS ORDERED: ACETAMINOPHEN 325 MG TAB PO ONE (23:00)
[2020-02-17] MEDS ORDERED: ACETAMINOPHEN 325 MG TAB ONE (23:06)
[2020-02-17] MEDS ORDERED: SODIUM CHLORIDE 0.9% 1000ML 1,000 ML ONE (23:06)
--- NOTE | 2020-02-17 23:22 | NUR ---
Patient had 531 mL noted on bladder scan. MD notified.
[2020-02-17 23:27] LABS: BASOPHILS % 0.1 % (0.0-1.0); EOSINOPHILS # (AUTO) 0.2 (0.0-0.4); EOSINOPHILS % 1.7 % (0.0-6.0); HEMATOCRIT 32.9 % (38.2-49.6); HEMOGLOBIN 9.9 g/dL (14.0-18.0); LYMPHOCYTES # (AUTO) 0.7 (1.0-3.2); LYMPHOCYTES % 5.6 % (18.0-39.1); MEAN CORPUSCULAR HEMOGLOBIN 19.9 pg (28-32); MEAN CORPUSCULAR HGB CONC 30.1 g/dL (31-35); MEAN CORPUSCULAR VOLUME 66.2 fL (81-99); MONOCYTES # (AUTO) 0.7 (0.2-0.8); MONOCYTES % 5.7 % (4.4-11.3); NEUTROPHILS # (AUTO) 10.8 (2.1-6.9); NEUTROPHILS % 86.7 % (38.7-80.0); PLATELET COUNT 256 x10e3/uL (140-360); RED BLOOD COUNT 4.97 x10e6/uL (4.3-5.7); RED CELL DISTRIBUTION WIDTH 19.9 % (11.7-14.4)
[2020-02-17 23:32] LABS: INFLUENZAE A&B ANTIGEN (RAPID) NEGATIVE (NEGATIVE)
[2020-02-17 23:33] LABS: STREPTOCOCCUS GRP A ANTIGEN NEGATIVE (NEGATIVE)
[2020-02-17 23:36] LABS: INR 1.19; PROTHROMBIN TIME 15.9 seconds (11.9-14.5)
[2020-02-17 23:38] LABS: PARTIAL THROMBOPLASTIN TIME 44.6 seconds (23.8-35.5)
[2020-02-17 23:46] LABS: ALBUMIN 2.9 g/dL (3.5-5.0); ALBUMIN/GLOBULIN RATIO 0.7 (0.8-2.0); ANION GAP 17.1 mmol/L (8-16); CALCIUM 9.7 mg/dL (8.4-10.2); POTASSIUM 4.1 mmol/L (3.5-5.1)
--- NOTE | 2020-02-17 23:56 | NUR ---
ER MD AND PRIMARY RN NOTIFIED AND AWARE OF CRITICAL LAB VALUE, LACTIC ACID 2.3.
[2020-02-18] VITALS (10 sets, daily range): BP systolic 106–126; BP diastolic 56–78
[2020-02-18] MEDS ORDERED: CEFEPIME 2 GM/NS 0.9% 100 ML 100 ML IV ONE
[2020-02-18] MEDS ORDERED: SODIUM CHLORIDE 0.9% 1000ML 1,000 ML IV ONE
[2020-02-18 00:09] LABS: CLARITY,URINE CLOUDY (CLEAR); COLOR,URINE AMBER (YELLOW); LEUKOCYTE ESTERASE ,URINE 2+ (NEGATIVE); NITRITE,URINE NEGATIVE (NEGATIVE); PROTEIN,URINE DIPSTICK NEGATIVE (NEGATIVE)
[2020-02-18 00:10] LABS: BACTERIA,URINE FEW /HPF; BILIRUBIN,URINE 1+ (NEGATIVE); EPITHELIAL CELLS,URINE FEW /LPF; KETONES,URINE NEGATIVE (NEGATIVE); RBC,URINE >50 /HPF (0-5); URINE UROBILINOGEN 0.2 mg/dL (0.2 - 1); WBC,URINE (MAN) 21-50 /HPF (0-5)
--- NOTE | 2020-02-18 00:29 | Diagnostic Imaging Report ---
CT Abdomen and Pelvis without contrast INDICATION: Abdominal pain, fever, ^HEMATURIA ^[id number] ^2340 ^Y TECHNIQUE: Thin collimation axial images obtained from the diaphragm to the level of the pubic symphysis without nonionic intravenous contrast. Dose reduction techniques used: Automated exposure control, adjustment of the mAs and/or kVp according to patient size, standardized low-dose protocol, and/or iterative reconstruction technique. RADIATION DOSE: Total DLP: 642.65 mGy*cm Estimated effective dose: (DLP x 0.015 x size factor) mSv CTDIvol has been reviewed. It is below the limits set by the Radiation Protocol Committee (RPC). COMPARISON: None. ABDOMEN FINDINGS: Lung Bases: Clear. There are prosthetic tricuspid and mitral valves. The heart is mildly enlarged. No pericardial effusion. Liver: Normal attenuation. Scattered low attenuating lesions measure up to 12 mm and are suggestive of cysts. Gallbladder: Present and appears normal. No ductal dilatation. Pancreas: Mild fatty atrophy without mass or ductal dilatation. Spleen: Measures 15 cm in AP dimension. No mass. Adrenal Glands: No evidence for mass. Kidneys: Right: The collecting system is significantly dilated with a few cortical atrophy. There is a large soft tissue mass arising from the anterior cortex measuring 9.2 x 13.0 x 12.9 cm. There is soft tissue with in the renal pelvis and ureter extending to the bladder. There is mild perinephric inflammation. Left: Normal morphology. No calculus.. No cortical mass or hydronephrosis. Mild perinephric inflammation. Lymph Nodes: No significant lymphadenopathy given the absence of intravenous contrast. Aorta: Normal in diameter with scattered calcifications PELVIS FINDINGS: Bowel: Stomach: Collapsed but otherwise normal. Small Bowel: Normal in caliber with normal wall thickness. Large Bowel: Cecum and ascending colon are poorly visualized. The hepatic flexure is located between the right lobe of liver and the diaphragm and contains fluid. No associated inflammation. The mid transverse colon and descending colon are normal in diameter with normal wall thickness.. Appendix: Not visualized is present. Bladder: Contains a Reyes catheter. There is high attenuating intraluminal material within suggestive of blood. Ureters: As mentioned above, the right ureter is distended throughout its course with soft tissue. There is a calcification in the distal ureter measuring 8 mm. The left ureter is normal. Prostate: Measures 4.4 x 6.1 cm in the axial plane. Peritoneum/retroperitoneum: No free fluid or fluid collection. Bones: Mild degenerative changes of the spine. Scattered Schmorl's nodes throughout the thoracic and lumbar spine. Soft tissues: Low attenuating subcutaneous mass in the right posterior abdomen at L2 measuring 1.4 x 2.3 cm. This may represent a sebaceous cyst but cutaneous metastasis cannot be excluded. IMPRESSION: 1. Large soft tissue mass arising from the right kidney consistent with carcinoma. Chronic right hydronephrosis. Soft tissue in the right renal collecting system and ureter resulting in chronic hydronephrosis. Soft tissue filling the urinary bladder, likely a combination of blood products and neoplasm. 2. Normal appearing left kidney and ureter 3. No evidence for bowel obstruction or inflammation. Poor visualization of the right colon. Signed by: Dr. Tamir Baker MD on 02/18/2020 12:26 AM
--- NOTE | 2020-02-18 00:34 | Diagnostic Imaging Report ---
EXAMINATION: CHEST SINGLE (PORTABLE) COMPARISON: Report of chest x-ray 04/14/2017, CT abdomen/pelvis 02/17/2020 INDICATION: Hematuria ^FEVER ^[id number] ^2340 ^Y DISCUSSION: Frontal view of the chest obtained at 2354 hours. HEART AND MEDIASTINUM: The heart is mildly enlarged. A left atrial clip is present. Pulmonary arteries are mildly prominent. LINES: None. LUNGS: The lungs are well inflated. Nodule in the right midlung field measures 9 mm. Nodule in the left lung base measures 9 mm and corresponds to a rib. No infiltrates. No additional edema. PLEURA: No pleural effusion or pneumothorax. BONES AND SOFT TISSUES: Median sternotomy wires are intact. The soft tissues are normal. IMPRESSION: Mild cardiomegaly and postoperative changes of the mediastinum is described above. 9 mm nodule in the right lung of uncertain significance. Signed by: Dr. Tamir Baker MD on 02/18/2020 12:31 AM
[2020-02-18] MEDS ORDERED: ONDANSETRON HCL INJ 2MG/ML 2ML 2 MG/ML VIAL IV PRN ×2 (01:00→13:15)
[2020-02-18] MEDS: SODIUM CHLORIDE 0.9% 1000ML 1,000 ML IV SCH ×3 (01:20→16:46)
--- NOTE | 2020-02-18 01:58 | NUR ---
RECEIVED PATIENT TO ROOM FROM ED AT THIS TIME. A&OX4. NO PAIN REPORTED. LUNG SOUNDS CLEAR. BOWEL SOUNDS ACTIVE, LAST BM 02/16. NO EDEMA NOTED. PEDAL PULSES PALPABLE. SKIN INTACT. TELE MONITOR #28, RUNNING SR. L AC20G IV ASYMPTOMATIC, INTACT, AND PATENT, RUNNING NS @ 125ML/HR. PATIENT ORIENTED TO ROOM AND CALL LIGHT SYSTEM. EXPLAINED NPO STATUS, PATIENT VERBALIZED UNDERSTANDING. BED LOCKED IN LOWEST POSITION, SIDE RAILS UPX2, CALL LIGHT IN REACH.
[2020-02-18] MEDS: CEFEPIME 2 GM/NS 0.9% 100 ML 100 ML IV SCH ×3 (06:02→21:20)
--- NOTE | 2020-02-18 07:20 | NUR ---
PATIENT IN BED RESTING WITH NO S/S OF DISTRESS. TALLEY CATHETER IN PLACE DRAINING DARK RED URINE. DENIED PAIN AT THIS TIME. BED IN LOWER POSITION, CALL LIGHT AT REACH.
[2020-02-18 09:19] LABS: HEMATOCRIT 30.6 % (38.2-49.6); HEMOGLOBIN 9.2 g/dL (14.0-18.0)
--- NOTE | 2020-02-18 09:30 | NUR ---
ASSESSMENT: Spiritual distress Pt reflecting on his own mortality. Pt expressed emotions thru words and tears. Pt worried concerning illness. Pt's family history is meaningful to him. Intervention: Provided hospitality and unhurried empathic listening. Facilitated illness review and storytelling. Outcome: Pt expressed appreciation for support. Will follow as able. JOANA MENA [employer] Spiritual Care Department O: [phone]
--- NOTE | 2020-02-18 11:04 | NUR ---
SPOKE WITH MD REGARDING ABNORMAL LAB RESULT, NO NEW ORDER RECEIVED.
[2020-02-18 12:42] LABS: HEMATOCRIT 31.4 % (38.2-49.6); HEMOGLOBIN 9.4 g/dL (14.0-18.0)
[2020-02-18] MEDS ORDERED: ALBUTEROL/IPRATROPIUM 3 ML NEB NEB PRN (13:15)
--- NOTE | 2020-02-18 14:30 | NUR ---
PATIENT HAS A TALLEY CATHETER AND C/O BLADDER PRESSURE. BLADDER SCAN PERFORMED WITH 61 ML RESIDUAL. MD NOTIFIED, NEW ORDER RECEIVED.
--- NOTE | 2020-02-18 15:00 | NUR ---
PATIENT OFF UNIT TO RADIOLOGY.
--- NOTE | 2020-02-18 15:26 | NUR ---
PATIENT BACK TO UNIT FROM RADIOLOGY.
--- NOTE | 2020-02-18 16:48 | Diagnostic Imaging Report ---
EXAM: CT Chest WITHOUT intravenous contrast 02/18/2020 1:06 PM INDICATION: Renal mass, lung nodule COMPARISON: Chest radiograph 02/17/2020 TECHNIQUE: Chest was scanned utilizing a multidetector helical scanner from the lung apex through the level of the adrenal glands without administration of IV contrast. Coronal and sagittal reformations were obtained. Routine protocol was performed. IV CONTRAST: None RADIATION DOSE: Total DLP: 540 mGy*cm. Dose modulation, iterative reconstruction, and/or weight based adjustment of the mA/kV was utilized to reduce the radiation dose to as low as reasonably achievable. COMPLICATIONS: None FINDINGS: LINES/ TUBES: None. LUNGS AND AIRWAYS: The central airways are patent. No focal consolidation or pulmonary edema. No suspicious pulmonary nodules. PLEURA: The pleural spaces are clear. HEART AND MEDIASTINUM: The thyroid gland is normal. No mediastinal, hilar or axillary lymphadenopathy. The heart is normal in size.. There is no pericardial effusion. Scattered coronary artery atherosclerotic calcifications. UPPER ABDOMEN: Scattered subcentimeter low density structures in the liver likely represent cysts. No acute findings in the upper abdomen. BONES: No acute osseous injury. Mild degenerative changes of the visualized spine. SOFT TISSUES: Unremarkable. IMPRESSION: No suspicious pulmonary nodule. The nodular opacity seen on the chest radiograph of the prior day most likely represents nipple shadow or other superimposed structure. Signed by: Kimberli Davis MD on 02/18/2020 4:44 PM
[2020-02-18] MEDS: ACETAMINOPHEN 325 MG TAB PO PRN ×2 (17:40→20:42)
[2020-02-18 19:19] LABS: HEMATOCRIT 28.7 % (38.2-49.6); HEMOGLOBIN 8.7 g/dL (14.0-18.0)
--- NOTE | 2020-02-18 20:19 | Consultation ---
DATE OF CONSULTATION: 02/18/2020 Cardiology Consultation REQUESTING PHYSICIAN: Dr. Donovan. REASON FOR CONSULTATION: Preoperative evaluation. HISTORY OF PRESENT ILLNESS: This is a 74-year-old man with history of severe mitral regurgitation with mitral valve repair, pulmonary hypertension, right ventricular enlargement with moderately impaired systolic function, and prior admission for septic arthritis of the right knee, who presents with complaints of hematuria. The patient reports he had been doing well until he began to see episodes of blood in his urine. This progressed until he was convinced to present to the ER by family yesterday. He also complained of inability to urinate. Evaluation in the ER revealed low-grade fever. CT of the abdomen and pelvis demonstrated a large soft tissue mass in the right kidney consistent with carcinoma and chronic right hydronephrosis. He was admitted for further evaluation. Given his cardiac history, Cardiology is consulted for preoperative evaluation. The patient denies any chest pain, shortness of breath, palpitations, edema, orthopnea, or PND. He does have chronic dyspnea on exertion, which has been unchanged. REVIEW OF SYSTEMS: Negative except as per HPI. PAST MEDICAL HISTORY: 1. Severe mitral regurgitation, status post mitral valve repair in 2017. 2. Pulmonary hypertension. 3. Moderate right ventricular systolic dysfunction. 4. History of septic arthritis of the right knee. PAST SURGICAL HISTORY: 1. Arthroscopic irrigation and debridement with synovectomy of the right knee. 2. Mitral valve repair. ALLERGIES: PLEASE SEE EMR. MEDICATIONS: Please see medication list. SOCIAL HISTORY: Denies tobacco, alcohol, or illicit drugs. FAMILY HISTORY: Noncontributory to current illness. PHYSICAL EXAMINATION: VITAL SIGNS: Temperature 98.1 degrees, pulse 86, respiratory rate 18, blood pressure 110/78, and oxygen saturation 97% on room air. GENERAL: Well-developed, well-nourished man. HEENT: Normocephalic and atraumatic. Pupils equal. No scleral icterus. NECK: Supple. No thyromegaly or cervical lymphadenopathy. No carotid bruits. LUNGS: Clear to auscultation bilaterally. No wheezes or crackles. CARDIOVASCULAR: Normal rate. Irregular rhythm. Diastolic murmur is appreciated. ABDOMEN: Soft and nontender. NEUROLOGIC: Nonfocal exam. Awake, alert, in no acute distress. EXTREMITIES: No edema. LABORATORY DATA: WBC 12.45, hemoglobin 9.9, hematocrit 32.9, and platelets 256. Sodium 126, potassium 4.1, chloride 93, CO2 of 20, BUN 24, and creatinine 2. Blood cultures growing gram-positive cocci in pairs and chains in 4/4 bottles. EKG, sinus tachycardia, PACs, cannot rule out anterior infarct, age undetermined. IMPRESSION: 1. Right renal mass. 2. Hydronephrosis. 3. Acute kidney injury. 4. Pulmonary hypertension. 5. Chronic systolic heart failure with recovered ejection fraction on last echo over one year prior. 6. Right ventricular dysfunction. 7. Moderate aortic regurgitation. 8. Hypertension. RECOMMENDATIONS: The patient had cardiac catheterization prior to his mitral valve repair with normal coronary arteries. Repeat echocardiogram to re-evaluate severity of aortic regurgitation as well as systolic function of the left and right ventricles. Check BNP. Monitor the patient on telemetry to evaluate for arrhythmias. He had a history of postop atrial fibrillation. We will monitor for further occurrence. Continue home cardiac medications. Specifically, he should be on metoprolol succinate 25 mg p.o. daily as well as lisinopril 5 mg p.o. daily. Antibiotics per Primary Service. Continue supportive care. Decision regarding the patient's operative risk pending completion of echocardiogram. Thank you for this consult. We will continue to follow. Priya Araujo MD ABS/MODL /[id number]
--- NOTE | 2020-02-18 20:35 | NUR ---
PATIENT IS RESTING IN STABLE CONDITION AOX4, NO SIGNS OF DISTRESS NOTED. IV FLUIDS ARE RUNNING AT ORDERED RATE AND PATIENT VOICES PAIN IN WRISTS AT A LEVEL OF 5 AND WAS MEDICATED ORDERED. TALLEY CATHETER WAS IRRIGATED DUE PATIENTS COMPLAINT OF PAIN, DISCOMFORT, AND URGE TO GO. MULTIPLE BLOODY CLOTS NOTED, TALLEY NOW PATENT AND FLOWING, DARK RED COLORED URINE NOTED. BED IS IN LOWEST POSITION, BOTH SIDE RAILS ARE UP, CALL LIGHT IS WITHIN EASY REACH, WILL CONTINUE TO MONITOR.
[2020-02-19] VITALS (8 sets, daily range): BP systolic 90–117; BP diastolic 57–69
[2020-02-19] MEDS: SODIUM CHLORIDE 0.9% 1000ML 1,000 ML IV SCH ×4 (00:40→23:42)
[2020-02-19] MEDS: ACETAMINOPHEN 325 MG TAB PO PRN (03:02)
[2020-02-19] MEDS ORDERED: AMIODARONE HCL 150MG 100 ML IV ONE (05:30)
[2020-02-19] MEDS ORDERED: METOPROLOL TARTRATE INJ 1 MG/ML VIAL IV ONE (05:30)
[2020-02-19] MEDS ORDERED: AMIODARONE HCL 360MG 200 ML IV PRN ×2 (05:45→07:00)
[2020-02-19] MEDS: CEFEPIME 2 GM/NS 0.9% 100 ML 100 ML IV SCH ×3 (05:57→22:07)
[2020-02-19] MEDS ORDERED: METOPROLOL TARTRATE 25 MG TAB PO SCH (06:00)
--- NOTE | 2020-02-19 06:00 | NUR ---
PATIENT IS BEING TRANSFERRED TO IMCU DUE ELEVATED HEART RATE A-FIB WITH RVR. PATIENT SHOWS NO SIGNS OF DISTRESS, REPORT GIVEN TO BLAISE ARTIS.
[2020-02-19 06:12] LABS: BASOPHILS % 0.3 % (0.0-1.0); EOSINOPHILS % 0.1 % (0.0-6.0); HEMATOCRIT 30.5 % (38.2-49.6); HEMOGLOBIN 8.9 g/dL (14.0-18.0); LYMPHOCYTES # (AUTO) 0.8 (1.0-3.2); LYMPHOCYTES % 11.1 % (18.0-39.1); MEAN CORPUSCULAR HEMOGLOBIN 19.4 pg (28-32); MEAN CORPUSCULAR HGB CONC 29.2 g/dL (31-35); MEAN CORPUSCULAR VOLUME 66.4 fL (81-99); MONOCYTES # (AUTO) 0.9 (0.2-0.8); MONOCYTES % 11.7 % (4.4-11.3); NEUTROPHILS # (AUTO) 5.7 (2.1-6.9); NEUTROPHILS % 76.4 % (38.7-80.0); PLATELET COUNT 165 x10e3/uL (140-360); RED BLOOD COUNT 4.59 x10e6/uL (4.3-5.7); RED CELL DISTRIBUTION WIDTH 20.2 % (11.7-14.4)
[2020-02-19 06:29] LABS: ALBUMIN 2.1 g/dL (3.5-5.0); ALBUMIN/GLOBULIN RATIO 0.6 (0.8-2.0); ANION GAP 11.9 mmol/L (8-16); CALCIUM 8.9 mg/dL (8.4-10.2); CREATININE, SERUM 1.57 mg/dL (0.72-1.25); POTASSIUM 3.9 mmol/L (3.5-5.1)
--- NOTE | 2020-02-19 07:02 | NUR ---
PATIENT ARRIVED TO FLOOR AAOX4, NO SIGNS OF DISTRESS, 2 NEW IVS ADDED DUE TO AMIODARONE DRIP ADDITION AND OLD IV WENT BAD. PATIENT ADVISED OF AMIODARONE DRUG THERAPY. BOLUS OF AMIODARONE COMPLETED AND DRIP STARTED AT 6:49 OF 33ML/HR EDUCATED ONCOMING NURSE PEARL OF THE START TIME.
[2020-02-19 07:40] LABS: ANISOCYTOSIS SLIGHT; BAND NEUTROPHILS % (MANUAL) 6 %; LYMPHOCYTES % (MANUAL) 10 % (19-48); MICROCYTOSIS SLIGHT; MONOCYTES % (MANUAL) 5 % (3.4-9.0); NEUTROPHILS % (MANUAL) 79 % (40-74); RBC MORPHOLOGY COMMENT ABNORMAL
[2020-02-19 07:41] LABS: BURR CELLS SLIGHT; PLATELET ESTIMATE ADEQUATE; PLATELET MORPHOLOGY COMMENT NORMAL
[2020-02-19] MEDS ORDERED: DIGOXIN INJ 0.25 MG/ML 2 ML AMP IV ONE ×2 (10:30→21:45)
--- NOTE | 2020-02-19 11:20 | Progress Note ---
DATE: Cardiology Progress Note. SUBJECTIVE: The patient is feeling better. Denies any palpitations, chest pain or shortness of breath. OBJECTIVE: VITAL SIGNS: Temperature is 98.3, heart rate ranges from 100 to 108, respiratory rate is 15, blood pressure is 98/58, oxygen saturation is 98% on room air. GENERAL: Well appearing, in no apparent distress. CARDIOVASCULAR: Irregularly irregular, tachycardic. LUNGS: Diminished breath sounds at the bases. ABDOMEN: Soft and nontender, nondistended. EXTREMITIES: Trace edema. CARDIOVASCULAR MEDICATIONS: Reviewed. LABORATORY DATA: Reviewed, hemoglobin is 8.9, potassium is 3.9, creatinine is 1.57. TELEMETRY: Monitoring reveals atrial fibrillation with rapid ventricular response. IMPRESSION: 1. Atrial fibrillation with rapid ventricular response. 2. Acute on chronic kidney disease. 3. Renal mass. 4. Chronic systolic congestive heart failure. 5. Moderate aortic regurgitation. 6. History of severe mitral regurgitation status post repair. RECOMMENDATIONS: The patient had a cardiac catheterization prior to his mitral valve repair, which showed normal coronary arteries. Echocardiogram done today was technically difficult, although showed left ventricular ejection fraction of 45% to 50% with no aortic stenosis. He has moderate aortic regurgitation and mitral valve repair with mild mitral regurgitation. He was started on amiodarone infusion for atrial fibrillation with a rapid ventricular response and will continue this per protocol. His beta blockers have changed and we will titrate as necessary. We will give one dose of low-dose IV digoxin for better heart rate control. The patient may proceed with kidney surgery at a [id number] risk once he is better rate controlled. DO SONYA Hernandez/MODL /[id number]
--- NOTE | 2020-02-19 16:49 | NUR ---
patient c/o hallucinations. patient is in touch with it and under control of self at this point but will monitor closely. bed alarm activated.
[2020-02-19] MEDS: METOPROLOL SUCCINATE 50 MG TAB XL PO SCH (17:00)
--- NOTE | 2020-02-19 19:00 | NUR ---
patient received awake, alert, lying quietly in bed. vss. patient c/o pain to left hand/arm but refuses pain medication at this time. patient remains awake, alert but pleasantly confused with hallucinations. ivf continue to infuse without difficulty. winston catheter draining clear yellow urine to bsd. pm assessment complete. call geiger placed within reach. patient instructed to call for assistance when needed.
--- NOTE | 2020-02-19 20:45 | NUR ---
report given to Krysta Preciado RN on this patient at this time.
--- NOTE | 2020-02-19 20:49 | NUR ---
error---winston draining light bloody urine to bsd.
--- NOTE | 2020-02-19 21:20 | NUR ---
PATIENT BLOOD CULTURE RESULTS SHOW GRAM POS COCCI IN PAIRS AND CHAINS OF STREP GROUP B WITH THERAPEUTIC OPTIONS OF PENICILLINS AND VANCOMYCIN. CALLED TO NOTIFY DR. CORDOVA CURRENT ANTIBIOTIC OF CEFEPIME NOT COVERED. DR CORDOVA STATES HE WILL CHANGE ATB ORDERS.
--- NOTE | 2020-02-19 21:42 | NUR ---
PT COMPLAINING OF HALLUCINATIONS WHERE SPIDERS ARE FALLING ON HIM AND HE'S SEEING THINGS ALL OVER THE [place]TI[place], IT WON'T GO AWAY HE SAYS AND IS BOTHERING HIM. CALLED DR. CORDOVA TO NOTIFY. PT HR STILL AT [address] GAMEZ TO NOTIFY AND ORDERED TO GIVE DOSE OF DIGOXIN NOW 0.25MG IV. AWAITING CALL BACK FROM DR CORDOVA. WILL CONT TO MONITOR.
[2020-02-19] MEDS: AMPICILLIN SOD 2 GM/NS 100ML 2 G in AMPICILLIN SOD 2 GM/NS 100ML 100 ML IV SCH ×2 (22:30→23:14)
[2020-02-20] VITALS (11 sets, daily range): BP systolic 112–145; BP diastolic 63–103
--- NOTE | 2020-02-20 04:53 | NUR ---
CALLED TO NOTIFY DR. GAMEZ THAT PATIENT HR IS STILL CONT TO BE IN THE 120'S DESPITE ONE TIME DOSE OF DIGOXIN ORDERED AND PATIENT'S HALLUCINATIONS ARE GETTING WORSE HE'S PULLING AT LINES, TAKING OFF CLOTHES, SEEING THINGS FALLING ON HIM WELL HAVING CONFUSION WITH HIS OWN PERSONAL ITEMS AND DISORIENTATION MOMENTS THAT WERE NOT THERE PREVIOUSLY ONLY MEDICATION CHANGE SINCE ADMISSION THAT THE PATIENT HAS RECEIVED IS AMIODARONE DRIP AT THIS TIME. AWAITING CALL BACK.
[2020-02-20] MEDS ORDERED: METOPROLOL TARTRATE INJ 1 MG/ML VIAL IV ONE (05:00)
--- NOTE | 2020-02-20 05:03 | NUR ---
DR GAMEZ CALLED AND STATES HE'S NEVER HAD PT HAVE HALLUCINATIONS FROM AMIODARONE CARTER ORDERED TO CALL PRIMARY DOCTOR AND NOTIFY OF HALLUCINATIONS AND TO GIVE PT METOPROLOL IV 5MG ONE TIME DOSE FOR HEART RATE. CALLED DR. CORDOVA TO NOTIFY OF PATIENTS INCREASED HALLUCINATIONS AND PULLING AT LINES WELL PULLING CLOTHES AND TALLEY. AWAITING CALL BACK.
[2020-02-20 05:20] LABS: BASOPHILS % 0.2 % (0.0-1.0); EOSINOPHILS # (AUTO) 0.1 (0.0-0.4); EOSINOPHILS % 0.5 % (0.0-6.0); HEMATOCRIT 34.7 % (38.2-49.6); HEMOGLOBIN 9.8 g/dL (14.0-18.0); LYMPHOCYTES # (AUTO) 1.2 (1.0-3.2); LYMPHOCYTES % 12.4 % (18.0-39.1); MEAN CORPUSCULAR HEMOGLOBIN 19.4 pg (28-32); MEAN CORPUSCULAR HGB CONC 28.2 g/dL (31-35); MEAN CORPUSCULAR VOLUME 68.6 fL (81-99); MONOCYTES % 10.3 % (4.4-11.3); NEUTROPHILS # (AUTO) 7.4 (2.1-6.9); NEUTROPHILS % 76.2 % (38.7-80.0); PLATELET COUNT 205 x10e3/uL (140-360); RED BLOOD COUNT 5.06 x10e6/uL (4.3-5.7)
[2020-02-20 05:44] LABS: ANION GAP 13.3 mmol/L (8-16); CREATININE, SERUM 1.46 mg/dL (0.72-1.25); POTASSIUM 4.3 mmol/L (3.5-5.1)
[2020-02-20] MEDS: SODIUM CHLORIDE 0.9% 1000ML 1,000 ML IV SCH ×2 (08:45→17:31)
[2020-02-20] MEDS: AMPICILLIN SOD 2 GM/NS 100ML 2 G in AMPICILLIN SOD 2 GM/NS 100ML 100 ML IV SCH ×4 (08:45→23:09)
[2020-02-20] MEDS: METOPROLOL SUCCINATE 50 MG TAB XL PO SCH ×2 (08:48→17:36)
[2020-02-20] MEDS ORDERED: DIGOXIN INJ 0.25 MG/ML 2 ML AMP IV NR ×3 (10:30→15:30)
--- NOTE | 2020-02-20 15:45 | Progress Note ---
DATE: Cardiology Progress Note SUBJECTIVE: The patient feeling better. Nurse reported hallucinations overnight. The patient denies any palpitations. OBJECTIVE: VITAL SIGNS: Temperature is 98.3, heart rate is 104, respirations are 25, blood pressure is 119/72, and O2 saturation 95% on room air. GENERAL: Well-appearing elderly man, lying comfortably in bed, and he appears to be in no respiratory distress. CARDIOPULMONARY: Not performed due to the concern for COVID-19 during this pandemic. CARDIOVASCULAR MEDICATIONS: Reviewed. LABORATORY DATA: Reviewed. TELEMETRY: Monitoring revealed atrial fibrillation with rapid ventricular response. IMPRESSION: 1. Renal mass. 2. Hematuria. 3. Dhhqy-hm-qmuqpni kidney disease. 4. Atrial fibrillation with rapid ventricular response. 5. Chronic systolic congestive heart failure. 6. Moderate aortic regurgitation. 7. History of severe mitral regurgitation, status post repair. PLAN: Continue amiodarone. Change to p.o. medications. Continue to titrate metoprolol as well as his blood pressure can tolerate. We will add digoxin today due to the inability to increase his metoprolol due to hypotension. The patient may proceed with kidney surgery with a [id number] risk once he is better rate controlled. DO SONYA Hernandez/TOBIN /[id number]
[2020-02-20] MEDS: AMIODARONE HCL 200 MG TAB PO SCH (20:52)
--- NOTE | 2020-02-20 20:56 | Consultation ---
DATE OF CONSULTATION: 02/18/2020 Urology consultation REASON FOR CONSULTATION: Gross hematuria. HISTORY OF PRESENT ILLNESS: Santy Ramsay is a 74-year-old man, who is not a great historian, who was admitted with gross hematuria. Findings obtained upon initial workup indicated urological consultation was necessary. The patient reports that he had gross hematuria approximately 6 months prior to admission. He did not tell his physician about it and did not seek help. The patient has had decreased urinary force of stream for quite some time. PAST MEDICAL/SURGICAL HISTORY: 1. Status post heart valve repair for severe mitral valve regurgitation. 2. Pulmonary hypertension. 3. Right ventricular enlargement with moderately impaired systolic function. 4. History of septic arthritis of the right knee. 5. Status post arthroscopic irrigation and debridement and synovectomy of the right knee. CURRENT MEDICATIONS: Please refer to the MAR. ALLERGIES: NONE KNOWN. SOCIAL HISTORY: The patient denies current smoking, ethanol, and drug use. 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 FAMILY HISTORY: Noncontributory to the urological problems. REVIEW OF SYSTEMS: Discussed as above in history of present illness, past medical history, otherwise negative for all systems. PHYSICAL EXAMINATION: GENERAL: Elderly male, lying in bed, in no apparent distress. VITAL SIGNS: He is currently febrile, was medically stable. ABDOMEN: Soft, nondistended, and nontender without costovertebral angle tenderness. GENITOURINARY: Testes descended bilaterally. The patient has normal male phallus with normal meatus with Reyes catheter in place draining bloody urine output. For the remaining physical examination systems, please refer to the admission history and physical on chart. LABORATORY STUDIES: The patient has a positive growth in his blood cultures. Urine culture is preliminarily negative. White blood cell count 7450, hemoglobin 8.9, platelets 265,000. The patient's sodium is low at 134, creatinine is elevated at 1.57. Lactic acid upon admission was 2.3, but has since decreased to 1.0. Urinalysis significant for greater than 50 rbc's and [address] scan of the abdomen and pelvis was done without contrast. It revealed significantly dilated right kidney with some degree of cortical atrophy. There is a large soft tissue mass arising from the anterior cortex measuring up to 13 cm. Soft tissue within the renal pelvis and the ureter extending to the bladder. There is some calcification of the distal ureter, which is not fully consistent with stone. Reyes catheter is in the bladder and there is intraluminal material in the bladder, which could be clot, but could be tumor. The calcification in the ureter is 8 mm in size. The prostate is enlarged measuring 4.4 x 6.1 cm. Unfortunately, his volume was not measured by the radiologist due to the fact that ASSESSMENT: 1. Gross hematuria. 2. Right renal mass. 3. Potential for bladder mass versus blood clot. 4. BPH. 5. Probably chronic renal insufficiency. 6. Right hydronephrosis. 7. Possible right ureterolithiasis versus calcified cancer. 8. Leukocytosis. 9. Anemia. 10. Hyponatremia. PLAN: 1. The patient needs to be optimized from a cardiac standpoint and I informed Dr. Araujo about the patient's admission and asked her to "clear" him for surgery. 2. Hold all anticoagulants. 3. The patient needs cystoscopy with retrograde pyelograms and evaluation of his urinary tract in light of the high likelihood that we are dealing with a sizable cancer that will need to be addressed. 4. Defer the hematological and electrolyte abnormalities to the admitting physician. Thank you very much for involving us in care of your patient. We are happy to follow him along with you as well as an outpatient. Pantera Donovan MD OH/MODL /[id number]
[2020-02-20] MEDS ORDERED: ZIPRASIDONE 20 MG VIAL IM STA (23:45)
--- NOTE | 2020-02-20 23:45 | NUR ---
PATIENT FOUND IN ROOM COVERED IN BLOOD WITH A TOWEL WRAPPED AROUND HIS ARM PULLING AT HIS TALLEY CATHETER. PATIENT HAD PULLED OUT BOTH IV LINES INCLUDING LINE SUPPLYING AMIODARONE DRIP. PATIENT'S HALLUCINATIONS ARE WORSENING AND NOW HE BELIEVES THEM OVER STAFF MEMEBERS. CLEANED PATIENT UP AND GOT BACK INTO BED, CHANGED LINENS AND WAS ABLE TO RESTART ONE IV LINE TO DELIVER ANTIBIOTICS. CALLED DR CORDOVA TO NOTIFY OF INCREASING COMBATIVENESS OF PATIENT ORDERED TO GIVE 5MG GEODON IM Q6PRN. CALLED DR. GAMEZ TO NOTIFY THAT AMIODARONE DRIP UNABLE TO BE RESTARTED DUE TO NO LINE ACCESS AND ESTABLISH IF OK TO DC AMIODARONE DRIP NOW THAT PT STARTED PO MEDS. AWAITING CALL BACK.
[2020-02-21] VITALS (12 sets, daily range): BP systolic 104–192; BP diastolic 68–112
[2020-02-21] MEDS ORDERED: ZIPRASIDONE 20 MG VIAL IM ONE (00:06)
[2020-02-21] MEDS: SODIUM CHLORIDE 0.9% 1000ML 1,000 ML IV SCH ×3 (00:07→23:00)
--- NOTE | 2020-02-21 01:15 | NUR ---
PATIENT FOUND OUT OF BED STANDING BESIDE BED NAKED, PULLING AT TALLEY LINE, AND TALKING TO THINGS IN THE AIR. PATIENT CONTINUES TO BE DISORIENTED DESPITE GEODON ADMINISTRATION AND CONTINUES TO BE COMBATIVE WITH STAFF, HALLUCINATIONS CONTINUE. PATIENT ABLE TO BE SLIGHTLY REORIENTED AND PUT BACK IN BED. CALLED AND LEFT ANOTHER MSG FOR DR. GAMEZ. WILL CONT TO MONITOR.
[2020-02-21] MEDS: ZIPRASIDONE 20 MG VIAL IM PRN ×2 (02:01→11:00)
[2020-02-21] MEDS ORDERED: LORAZEPAM INJ 2 MG/ML VIAL IV STA (02:01)
--- NOTE | 2020-02-21 02:01 | NUR ---
PATIENT FOUND IN ROOM BESIDE BED PULLING AT IVS AND TALLEY, THERE IS LARGE AMOUNTS OF BLOOD IN TALLEY LINE DUE PATIENT PULLING AT TALLEY. PATIENT CONTINUES TO HAVE WORSENING HALLUCINATIONS AND DELUSIONS TO WHERE HE'S AT AND THINGS HE'S SEEING ARE NOW TALKING TO HIM. PATIENT'S HEART RATE IN THE 160S AND SUSTAINED. CALLED DR. CORDOVA TO NOTIFY UNABLE TO REACH DR. GAMEZ. ORDERED TO GIVE ATIVAN 1MG TO PATIENT AND ANOTHER DOSE OF GEODON WITH A SITTER TO BEDSIDE AND NO RESTRAINTS AT THIS TIME. WILL CONT TO MONITOR.
[2020-02-21] MEDS ORDERED: LORAZEPAM INJ 2 MG/ML VIAL IV PRN (02:15)
[2020-02-21 03:50] LABS: BASOPHILS % 0.2 % (0.0-1.0); EOSINOPHILS % 0.2 % (0.0-6.0); HEMATOCRIT 28.7 % (38.2-49.6); HEMOGLOBIN 8.9 g/dL (14.0-18.0); LYMPHOCYTES # (AUTO) 0.7 (1.0-3.2); LYMPHOCYTES % 6.6 % (18.0-39.1); MEAN CORPUSCULAR HEMOGLOBIN 19.5 pg (28-32); MONOCYTES # (AUTO) 0.7 (0.2-0.8); MONOCYTES % 6.4 % (4.4-11.3); NEUTROPHILS # (AUTO) 9.7 (2.1-6.9); NEUTROPHILS % 86.1 % (38.7-80.0); PLATELET COUNT 230 x10e3/uL (140-360); RED BLOOD COUNT 4.56 x10e6/uL (4.3-5.7); RED CELL DISTRIBUTION WIDTH 20.4 % (11.7-14.4)
[2020-02-21 03:52] LABS: MEAN CORPUSCULAR VOLUME 62.9 fL (81-99)
--- NOTE | 2020-02-21 04:00 | NUR ---
PATIENT TRYING TO GET OUT OF BED, BLOOD COMING OUT OF RECTUM DRIPPING. PATIENT STATES NEEDS TO HAVE BOWEL MOVEMENT TRIED TO USE BSC AND ONLY BRIGHT RED BLOOD COMES OUT. CALLED DR. CORDOVA TO NOTIFY THAT PATIENT IS HAVING RECTAL BLEEDING AND HAS BLED THROUGH [address] CORDOVA ON CBC RESULTS AND HE STATES "GET TYPE AND SCREEN, KEEP MONITORING AND HE CAN HAVE HIS PROCEDURE TOMORROW. THERE'S NOTHING ELSE I CAN DO FOR RECTAL BLEEDING".
[2020-02-21] MEDS ORDERED: HYDRALAZINE HCL 20 MG/ML VIAL IV STA (04:04)
[2020-02-21] MEDS ORDERED: METOPROLOL TARTRATE INJ 1 MG/ML VIAL IV PRN (04:15)
[2020-02-21] MEDS ORDERED: HYDRALAZINE HCL 20 MG/ML VIAL IV PRN (04:15)
--- NOTE | 2020-02-21 04:15 | NUR ---
CALLED AND NOTIFIED DR. GAMEZ PT HEART RATE 135 WITH BP OF 192/112. ED DR GAMEZ ON PT RECTAL BLEEDING AND ALL MEDS GIVEN TONIGHT FOR HALLUCINATIONS AND DISORIENTATION. DR GAMEZ ORDERED TO GIVE HYDRALAZINE 10MG IV AND METOPROLOL PRN. AFTER ADMINISTRATION OF HYDRALAZINE BP WENT TO 189/99 HR 123. WILL CONT TO MONITOR.
--- NOTE | 2020-02-21 04:42 | NUR ---
CALLED RAPID ON PT DUE TO PT BEING SHORT OF BREATH, O2 SATURATION WAS AT 87% ON RA. PT HAVING MORE ACTIVE BLEEDING FROM RECTUM AND MORE CONFUSION WITH PERIODS OF LETHARGY THEN ALERTNESS. APPLIED O2 TO PATIENT AND TITRATED TO 4L/NC TO GET TO 98% [address] ENTERED ROOM AT 0445 AND STOPPED FLUIDS, ORDERED LABS, EKG, IMAGING AND STAFF COMPLETED AND EXITED THE ROOM AT 0520. PATIENT IN BED STILL ALTERED, HR 135 BP 141/88 RESP 37 AND O2 SAT AT 97% ON 4L/NC. NURSE SITTING AT BEDSIDE TO REORIENT PATIENT AND AWAITING RESULTS.
--- NOTE | 2020-02-21 05:42 | Diagnostic Imaging Report ---
EXAMINATION: CHEST SINGLE (PORTABLE) COMPARISON: CT chest 02/18/2020, chest x-ray 02/17/2020 INDICATION: ^SOB ^[id number] ^[id number] DISCUSSION: Frontal view of the chest obtained at 0504 hours. HEART AND MEDIASTINUM: Stable cardiomegaly. Prosthetic mitral valve annulus. Stable left atrial clip. Pulmonary arteries are enlarged. Pulmonary veins are prominent LINES: None. LUNGS: Small focus of airspace disease in the left lung base. No additional edema. PLEURA: No pleural effusion or pneumothorax. BONES AND SOFT TISSUES: Median sternotomy wires are intact. The soft tissues are normal. IMPRESSION: Cardiomegaly and pulmonary artery hypertension. Stable pulmonary venous congestion. Small focus of airspace disease in the left lung base, either atelectasis or infiltrate. Signed by: Dr. Tamir Baker MD on 02/21/2020 5:39 AM
[2020-02-21 05:50] LABS: BASOPHILS % 0.2 % (0.0-1.0); EOSINOPHILS % 0.1 % (0.0-6.0); HEMATOCRIT 30.2 % (38.2-49.6); HEMOGLOBIN 9.2 g/dL (14.0-18.0); LYMPHOCYTES # (AUTO) 0.7 (1.0-3.2); LYMPHOCYTES % 6.2 % (18.0-39.1); MEAN CORPUSCULAR HEMOGLOBIN 19.4 pg (28-32); MEAN CORPUSCULAR HGB CONC 30.5 g/dL (31-35); MEAN CORPUSCULAR VOLUME 63.7 fL (81-99); MONOCYTES # (AUTO) 0.7 (0.2-0.8); MONOCYTES % 6.1 % (4.4-11.3); NEUTROPHILS # (AUTO) 10.4 (2.1-6.9); NEUTROPHILS % 86.7 % (38.7-80.0); PLATELET COUNT 245 x10e3/uL (140-360); RED BLOOD COUNT 4.74 x10e6/uL (4.3-5.7); RED CELL DISTRIBUTION WIDTH 20.5 % (11.7-14.4)
--- NOTE | 2020-02-21 06:03 | Diagnostic Imaging Report ---
EXAMINATION: Head CT without contrast. HISTORY:Altered mental status. COMPARISON:None. TECHNIQUE: Multidetector axial images were obtained from the foramen magnum to the vertex without contrast. The images were reconstructed using brain and bone algorithms. Thin section brain images were reformatted into coronal and sagittal planes. Dose modulation, iterative reconstruction, and/or weight based adjustment of the mA/kV was utilized to reduce the radiation dose to as low as reasonably achievable. Intravenous contrast: None IMAGE QUALITY: Suboptimal evaluation due to motion artifacts. FINDINGS: Skull/scalp: No lytic or blastic. lesions. No surgical changes. Parenchyma: Nonspecific few, scattered supratentorial white matter hypodensity are likely related to small vessel ischemic changes. No acute hemorrhage, mass or acute major vascular territorial infarct. Arteries: No density suggestive of thrombosis. Dural sinuses: No abnormal density suggestive of thrombosis. Ventricles: Mild compensated dilatation due to volume loss. No hydrocephalus. Extra-axial spaces: No abnormal density. Brain volume: Normal for age. Craniocervical junction: No mass, Chiari malformation, or basilar invagination. Sella: No mass. Paranasal/mastoid sinuses: Under pneumatization and partial sclerosis of bilateral mastoid air cells, possibly related to chronic inflammation. IMPRESSION: Suboptimal evaluation due to motion artifacts, despite the limitation no gross acute intracranial abnormality. Mild generalized cerebral volume loss and minimal supratentorial white matter microvascular ischemic changes. Signed by: Dr. Le Ca M.D. on 02/21/2020 6:00 AM
[2020-02-21 06:05] LABS: ANION GAP 11.8 mmol/L (8-16); CALCIUM 8.9 mg/dL (8.4-10.2); CREATININE, SERUM 1.31 mg/dL (0.72-1.25); POTASSIUM 3.8 mmol/L (3.5-5.1)
[2020-02-21] MEDS: AMPICILLIN SOD 2 GM/NS 100ML 2 G in AMPICILLIN SOD 2 GM/NS 100ML 100 ML IV SCH (06:13)
[2020-02-21 07:31] LABS: CREATINE KINASE MB 3.5 ng/mL (0-5.0)
[2020-02-21] MEDS: AMIODARONE HCL 200 MG TAB PO SCH ×2 (09:14→20:51)
[2020-02-21] MEDS: DIGOXIN 0.25 MG TAB PO SCH (09:14)
[2020-02-21] MEDS: METOPROLOL SUCCINATE 50 MG TAB XL PO SCH ×2 (09:14→20:52)
--- NOTE | 2020-02-21 09:30 | NUR ---
CORDOVA INTO SEE PT ,DISCUSSED POC, AWARE THAT PT IS STILL BLEEDING FROM RECTAL AREA AND STILL ALTERED, ORDERS NOTED, SPOKE WITH PTS VIA TELEPHONE
[2020-02-21] MEDS: CEFTRIAXONE SOD 1 GM/NS 50 ML 50 ML IV SCH ×2 (10:00→14:48)
--- NOTE | 2020-02-21 10:32 | NUR ---
PT TRYING TO GET OOB, REPOSITIONED, REORIENTED, PT STILL ATTEMPTING TO GET OOB , INSISTING HE "HAS TO GO TO WORK", SPOKE WITH PT, PT RAISING VOICE, STILL ATTEMPTING TO GET OOB, MEDICATED PER MD ORDER, SITTER AT BS, CALL LIGHT WITHIN REACH
--- NOTE | 2020-02-21 11:06 | NUR ---
PT ATTEMPTING TO GET OOB, LEGS OVER END OF BED, PT REFUSING TO GET BACK IN BED, TECHNICAL PROGRAM MANAGER NOTIFIED, SECURITY NOTIFIED, GEODON GIVEN PER MD ORDER, PT BACK IN BED, SITTER AT SIDE, CALL LIGHT WITHIN REACH
--- NOTE | 2020-02-21 11:14 | NUR ---
BEAR TEJADA WITH MD DECKER IN HOSPITAL, AWARE OF CONSULT
--- NOTE | 2020-02-21 11:19 | NUR ---
SPOKE WITH OSWALDO TEJADA WITH DR BLOOM, MADE AWARE OF CONSULT
--- NOTE | 2020-02-21 11:22 | NUR ---
TELEPHONED MD OROZCO'S OFFICE TO MAKE AWARE OF CONSULT, AWAITING CALL BACK FROM MD OROZCO
[2020-02-21] MEDS ORDERED: QUETIAPINE FUMARATE 25 MG TAB PO PRN (12:00)
[2020-02-21 12:04] LABS: BASOPHILS % 0.2 % (0.0-1.0); EOSINOPHILS % 0.1 % (0.0-6.0); HEMATOCRIT 27.2 % (38.2-49.6); HEMOGLOBIN 8.4 g/dL (14.0-18.0); LYMPHOCYTES # (AUTO) 0.4 (1.0-3.2); LYMPHOCYTES % 4.7 % (18.0-39.1); MEAN CORPUSCULAR HGB CONC 30.9 g/dL (31-35); MEAN CORPUSCULAR VOLUME 64.9 fL (81-99); MONOCYTES # (AUTO) 0.6 (0.2-0.8); MONOCYTES % 6.9 % (4.4-11.3); NEUTROPHILS % 87.4 % (38.7-80.0); PLATELET COUNT 189 x10e3/uL (140-360); RED BLOOD COUNT 4.19 x10e6/uL (4.3-5.7); RED CELL DISTRIBUTION WIDTH 20.8 % (11.7-14.4)
[2020-02-21] MEDS ORDERED: LORAZEPAM INJ 2 MG/ML VIAL IM PRN (12:15)
[2020-02-21] MEDS ORDERED: AMIODARONE HCL 360MG 200 ML IV PRN (12:25)
--- NOTE | 2020-02-21 13:12 | NUR ---
PT RESTING WITH EYES CLOSED, RR EVEN AND NON LABORED, CALL LIGHT WITHIN REACH, SITTER AT BEDSIDE
--- NOTE | 2020-02-21 13:21 | Consultation ---
DATE OF CONSULTATION: 02/21/2020 Psychiatric Consultation The patient evaluated and events noted. REASON FOR CONSULTATION: To evaluate the patient's psychosis. HISTORY OF PRESENT ILLNESS: The patient is a 74-year-old male, admitted to the hospital for fever, hematuria, right renal mass, sepsis, and urinary tract infection. Psychiatric consultation is called to evaluate the patient's psychosis. As per the medical record, the patient has a history of gross hematuria, renal mass, BPH, leukocytosis, anemia, hyponatremia. Upon evaluation today, patient is found to be in the bed. He is lying in the bed. He is sedated after receiving multiple p.r.n. IM medication as per the nurse. The patient is unable to answer any questions at this time. As per nurse, the patient has been very restless, agitated, confused, hallucinating, seeing things, and on bed. He is trying to get out of bed, he is not redirectable. He is receiving p.r.n. medication. The reports that the patient became confused and agitated while in the hospital. Collaborative report from the , who the claims that the patient had baseline work. He does not have history of confusion. believes that is due to medication in the confusion. does not know what medication she thinks that makes hospice. However, claims that he has no past psychiatry history. PAST PSYCHIATRIC HISTORY: He does not drink alcohol as per the nor does he take any drugs at home. The patient was admitted on the [address] on the , showed no gross acute intracranial abnormality. Toxicology not available at this time. PAST PSYCHIATRIC HISTORY: The patient has no past psychiatric history as per the . He has never attempted suicide. Does not drink alcohol or use any drugs. FAMILY HISTORY: None. SOCIAL HISTORY: The patient lives with the . MENTAL STATUS EXAM: The patient is elderly male. He is sedated. Affect is flat. Assessment is limited due to his mentation. CURRENT MEDICATIONS: 1. Geodon 5 mg IM q.6 hours p.r.n. 2. Ativan 1 mg IV q.6 hours p.r.n. 3. Metoprolol. 4. Digoxin. 5. Amiodarone. 6. Sodium chloride. 7. Ondansetron. 8. . 9. Acetaminophen. 10. Ceftriaxone. 11. Metoprolol. 12. Hydralazine. 13. Albuterol/ipratropium. CURRENT LABS: WBC 11.94, RBC 4.74, hemoglobin 9.2, hematocrit 30.2, and platelets 245. Chemistry; sodium 136, potassium 3.8, chloride 111, CO2 of 17, BUN 26, creatinine is 1.31. AST 40, ALT 23. ASSESSMENT: Unspecified psychosis/delirium, multifactorial. PLAN: 1. Add Seroquel 25 mg p.o. q.6 hours as needed. 2. Adjust Ativan from 1 mg IV q.6 hours p.r.n. to IM p.r.n. 3. Continue with Geodon p.r.n. IM. 4. Monitor for agitation. Thank you for this consultation. We will continue to follow the patient while he is hospitalized. Dictated by Yuni Cohn PA-C MD BRITTNEY GuzmánV/TOBIN /[id number]
--- NOTE | 2020-02-21 14:24 | NUR ---
MD FERRELL INTO SEE PT, DISCUSSED POC, MD FERRELL STATES PROCEDURE IS PENDING FOR NOW DUE TO CURRENT AMS OF PT Addendum: 02/21/20 at 1815 by Nallely Irwin RN STATES "HEMATURIA BETTER",
--- NOTE | 2020-02-21 16:00 | NUR ---
PT LYING IN BED, USING HIS PERSONAL PHONE, VOICES NO NEEDS AT THIS TIME, CALL LIGHT WITHIN REACH, SITTER AT SIDE
--- NOTE | 2020-02-21 18:15 | NUR ---
SPOKE WITH MD CORDOVA, MADE AWARE OF CURRENT HH, AND THAT PT IS STILL CONFUSED, NO NEW ORDERS AT THIS TIME
--- NOTE | 2020-02-21 18:52 | NUR ---
NO CHANGE IN CONDITION, REPORT TO RN TAKING OVER CARE OF PT
--- NOTE | 2020-02-21 19:13 | Consultation ---
DATE OF CONSULTATION: REASON FOR CONSULTATION: UTI, sepsis, recommendation antibiotic. HISTORY OF PRESENT ILLNESS: This is a 74-year-old white male, who has history of severe mitral regurgitation, mitral valve repair, pulmonary hypertension, right ventricular enlargement, moderately impaired systolic congestive heart failure and prior admission with sepsis and septic knee, right knee infection, they comes in with hematuria. The patient was admitted. He has been seen by Cardiology. The patient who has history of severe mitral regurgitation repair in 2017, pulmonary hypertension, moderate right ventricular systolic dysfunction, septic arthritis of the right knee, status post arthroscopic procedure with debridement and synovectomy of right knee and mitral valve repair. The patient was seen by Pulmonary, was seen by Cardiology. The patient was seen by Urology. The patient is currently confused. I was asked to see him to make recommendation to his antibiotic since there was concern if he have UTI. The patient is totally confused. There is a sitter at the bedside. He does have no other complaints. He is sedated to be seen by Psych. LABORATORY DATA: Blood culture shows Streptococcus group B, which was beta-hemolytica. His white count is 9.13, hemoglobin 8.4, his platelet of 189. Sodium 136, potassium 3.8, creatinine of 1.3. The patient who is currently on ceftriaxone in addition to amiodarone. PHYSICAL EXAMINATION: GENERAL: He is currently alert, confused, does not seem acute distress. VITAL SIGNS: Stable, currently afebrile. HEENT: Not icteric. NECK: Supple. CHEST: Clear. HEART: S1, S2. ABDOMEN: Soft. During his stay was also found to have a renal mass, infection sepsis present on admission due to bacteremia with Streptococcus group G. I am concerned about endocarditis. Recommend ANT. Recheck CBC. Recheck Chem panel. Change his antibiotic to Rocephin 1 g q.12. Recheck blood cultures. Recheck CBC. IMPRESSION: 1. Hematuria, right renal mass. Urology is following. 2. Workup is in progress. 3. Altered mental status. Obtain CT of the head, which was done, apparently suboptimal. May need an MRI. We will discuss with the medical team. We will follow with you. MD YONATAN Ascencio/TOBIN /[id number]
--- NOTE | 2020-02-21 22:49 | Consultation ---
DATE OF CONSULTATION: 02/21/2020 GI Consult Note REASON FOR CONSULT: GI bleed, not clear whether the patient has a melena versus hematochezia. HISTORY OF PRESENT ILLNESS: A 74-year-old man with a host of comorbidities, especially cardiac penn, he has severe mild cardiac regurgitation with mitral wall repair, pulmonary hypertension, systolic congestive heart failure, and atrial fibrillation with rapid ventricular response, who was recently diagnosed with right renal mass. The patient is currently undergoing cardiac optimization prior to surgery. While he is in the hospital, the nurses noted dark stool today and that too only couple of times. No bright red blood seen. The patient's hemoglobin remains stable from 8.9, 9.2, and 8.4. This seems to be his baseline. He has not been started on any anticoagulants for atrial fibrillation. The patient could not recall if he has ever had any colonoscopy. GI is being consulted to evaluate him for any GI bleeding. REVIEW OF SYSTEMS: Unobtainable at this time, as the patient is quite confused. Pertinent positive as per HPI. PAST MEDICAL HISTORY: Systolic congestive heart failure, mitral regurgitation, and history of septic arthritis in the past. PAST SURGICAL HISTORY: Right knee arthroscopy, mitral valve repair. FAMILY HISTORY: Noncontributory. SOCIAL HISTORY: No smoking, alcohol, or any illicit drug use. ALLERGIES: NO KNOWN DRUG ALLERGIES. HOME MEDICATIONS: Bumetanide, lisinopril, and metoprolol. Inpatient medications reviewed as per MAR. PHYSICAL EXAMINATION: VITAL SIGNS: Temperature 98.3, pulse ranging from 103 to 99, respirations 24, blood pressure 146/81, and oxygen saturation 96% on 4 L of nasal cannula. GENERAL: Appears to be confused at this time. Oral mucosa is moist. Anicteric sclerae. CVS: S1 and S2 irregularly irregular. LUNGS: Bilaterally grossly clear with decreased breath sounds at bases. ABDOMEN: Protuberant. Belly is soft, nondistended and nontender. No palpable mass or hernia. Positive bowel sounds. EXTREMITIES: Warm, 1+ pitting bilateral leg edema. LABORATORY DATA: WBC 9.13, hemoglobin 8.4, it was 9.2 on a prior draw today, hematocrit 27.2, MCV 64.9, and platelet count 189. Sodium 136, potassium 3.8, chloride 111, bicarb 17, BUN 26, creatinine 1.31, and glucose 130. PT 15.9, INR 1.19. Brain CT scan showed suboptimal evaluation due to motion artifact. Mild generalized cerebral volume loss and minimal supratentorial white matter microvascular ischemic changes. Chest x-ray showed cardiomegaly and pulmonary hypertension. Stable pulmonary venous congestion. Small focus of airspace disease in the left lung base, either atelectasis or infiltrates. CT of the abdomen and pelvis without contrast done on 02/17/2020 showed; 1. Large soft tissue mass arising from the right kidney consistent with carcinoma. Chronic right hydronephrosis. Soft tissue in the right renal collecting system, ureter resulting into chronic hydronephrosis. Soft tissue filling the urinary bladder, likely a combination of blood products and neoplasm. 2. Normal-appearing left kidney and ureter. 3. No evidence of bowel obstruction or inflammation. Poor visualization of the right colon. IMPRESSION: 1. The patient has microcytic anemia, likely due to hematuria from right renal cancer. 2. Darkish brown stool. Unlikely melena, certainly not hematochezia. The patient is hemodynamically stable. PLAN: Since the patient is having host of cardiac morbidities, at the same time he is undergoing cardiac optimization prior to right nephrectomy. Hemoglobin remains stable. I have doubt that the patient is having any evidence of GI bleeding. I advised the nurses to monitor stool. At this time, given his clinical condition, I would opt for watching him closely for any confirm GI bleeding. I thank Dr. Everett, for allowing me to participate in the care of this patient. Bob Rodrigez MD SA/TOBIN /[id number]
[2020-02-22] VITALS (9 sets, daily range): BP systolic 111–143; BP diastolic 59–79
--- NOTE | 2020-02-22 04:28 | NUR ---
Sponge bath given. Bed linens changed.
[2020-02-22 05:14] LABS: BASOPHILS % 0.2 % (0.0-1.0); EOSINOPHILS # (AUTO) 0.1 (0.0-0.4); EOSINOPHILS % 0.7 % (0.0-6.0); HEMATOCRIT 26.2 % (38.2-49.6); LYMPHOCYTES # (AUTO) 0.6 (1.0-3.2); LYMPHOCYTES % 6.6 % (18.0-39.1); MEAN CORPUSCULAR HEMOGLOBIN 19.4 pg (28-32); MEAN CORPUSCULAR HGB CONC 30.5 g/dL (31-35); MEAN CORPUSCULAR VOLUME 63.6 fL (81-99); MONOCYTES # (AUTO) 0.8 (0.2-0.8); MONOCYTES % 8.7 % (4.4-11.3); NEUTROPHILS # (AUTO) 7.8 (2.1-6.9); NEUTROPHILS % 83.1 % (38.7-80.0); PLATELET COUNT 250 x10e3/uL (140-360); RED BLOOD COUNT 4.12 x10e6/uL (4.3-5.7); RED CELL DISTRIBUTION WIDTH 20.3 % (11.7-14.4)
[2020-02-22] MEDS: CEFTRIAXONE SOD 1 GM/NS 50 ML 50 ML IV SCH ×2 (05:40→19:05)
[2020-02-22 05:49] LABS: ANION GAP 8.8 mmol/L (8-16); BLOOD UREA NITROGEN 20 mg/dL (7-26); BUN/CREATININE RATIO 17 (6-25); CALCIUM 8.9 mg/dL (8.4-10.2); CARBON DIOXIDE 20 mmol/L (22-29); CHLORIDE 116 mmol/L (98-107); CREATININE, SERUM 1.16 mg/dL (0.72-1.25); EST GLOMERULAR FILTRATION RATE > 60 ML/MIN (60-); GLUCOSE 102 mg/dL (74-118); POTASSIUM 3.8 mmol/L (3.5-5.1); SODIUM 141 mmol/L (136-145)
[2020-02-22] MEDS: ACETAMINOPHEN 325 MG TAB PO PRN ×3 (07:15→22:52)
--- NOTE | 2020-02-22 08:30 | NUR ---
TALLEY CATH FLUSHED W/ NS. SEVERAL LARGE CLOTS REMOVED. PT TOLERATED WELL AND EXPRESSED PAIN IMPROVEMENT.
[2020-02-22] MEDS: DIGOXIN 0.25 MG TAB PO SCH (08:31)
[2020-02-22] MEDS: AMIODARONE HCL 200 MG TAB PO SCH ×2 (08:31→21:07)
[2020-02-22] MEDS: METOPROLOL SUCCINATE 50 MG TAB XL PO SCH ×2 (08:32→21:07)
[2020-02-22] MEDS: SODIUM CHLORIDE 0.9% 1000ML 1,000 ML IV SCH ×2 (08:32→22:52)
[2020-02-22] MEDS ORDERED: ACETAMINOPHEN 325 MG TAB PO PRN (09:41)
[2020-02-22] MEDS ORDERED: FUROSEMIDE INJ 10 MG/ML 2 ML VIAL IV PRN (09:45)
[2020-02-22] MEDS ORDERED: SODIUM CHLORIDE 0.9% 250ML 250 ML IV ONE (10:15)
--- NOTE | 2020-02-22 11:45 | NUR ---
1st unit PRBC INFUSING, SEE FLOW SHEET FOR DETAILS.
--- NOTE | 2020-02-22 15:30 | NUR ---
2NT UNIT PRBC INFUSING. SEE FLOW SHEET FOR DETAILS
--- NOTE | 2020-02-22 16:16 | Progress Note ---
DATE: SUBJECTIVE: Mr. Ramsay remains in IMCU, clinically stable. There are no new problems. Noncommunicative. Discussed with the medical team yesterday. PHYSICAL EXAMINATION: GENERAL: He is noncommunicative and alert, but currently . HEENT: Not icteric. NECK: Supple. CHEST: Few crackles. COR: S1 and S2. No S3, S4, or murmur. ABDOMEN: Soft. IMPRESSION: 1. Bacteremia, concerned about endocarditis. 2. Anemia. 3. Cardiac mass. 4. Renal mass, concerned about malignancy. 5. Bacteremia, Streptococcus group G in the patient, who has history of mitral valve repair. It was assumed that is the source of bacteremia, although other possibilities could not be ruled out. Continue with Rocephin. Prognosis is very guarded. Recheck blood cultures are negative. We will discuss with Cardiology. We will follow. MD YONATAN Ascencio/TOBIN /[id number]
--- NOTE | 2020-02-22 18:15 | NUR ---
REPORT TO STEFF YOUSSEF, PT PLACED ON TELE BOX AND MOVED TO RM 102 W/O INCIDENT
--- NOTE | 2020-02-22 18:15 | NUR ---
Pt received at this time from [facility] at this time. Pt is aox3 and able to verbalize needs. Pt denies any pain at this time. Continues on IVF and well tolerated.
--- NOTE | 2020-02-22 19:25 | NUR ---
RECEIVED REPORT FROM PREVIOUS NURSE. CALL LIGHT WITHIN REACH. PATIENT IN BED. PATIENT IN NO DISTRESS
--- NOTE | 2020-02-22 21:37 | Progress Note ---
DATE: 02/22/2020 Cardiology Progress Note SUBJECTIVE: Alert and oriented today, in no acute distress. Feeling much better. OBJECTIVE: VITAL SIGNS: Temperature afebrile, pulse 81, respiratory rate 20, blood pressure 122/72, and saturating 95% on room air. GENERAL: An elderly man in no acute distress. CARDIOVASCULAR: Irregular rate and rhythm. No murmurs, rubs, or gallops. LUNGS: Clear to auscultation anteriorly. Decreased breath sounds at the bases. ABDOMEN: Soft, nontender, and nondistended. NEURO AND PSYCH: Alert and oriented to person, place, and time. Normal affect. INPATIENT MEDICATIONS: Reviewed. LABORATORY DATA: Reviewed. TELEMETRY DATA: Reviewed, shows atrial fibrillation with better rate control. ASSESSMENT: 1. Bacteremia. 2. Sepsis. 3. Atrial fibrillation with rapid ventricular response. PLAN: Continue current AV denae blocking agent including metoprolol succinate 50 mg q.12, digoxin 0.25 mg daily, amiodarone 200 mg b.i.d. Heart rate is now better controlled. Up titrate his metoprolol if blood pressure tolerates, given concern for possible endocarditis. Now, the patient's respiratory status is better, we will plan for a ANT tomorrow to rule out endocarditis. Thank you for this consult. We will continue to follow. MD LORI Wilkes/DAYOL /[id number]
[2020-02-23] VITALS (7 sets, daily range): BP systolic 131–157; BP diastolic 70–78
[2020-02-23] MEDS: CEFTRIAXONE SOD 1 GM/NS 50 ML 50 ML IV SCH ×2 (04:30→17:46)
[2020-02-23 06:05] LABS: ANION GAP 10.5 mmol/L (8-16); CALCIUM 8.6 mg/dL (8.4-10.2); CREATININE, SERUM 1.19 mg/dL (0.72-1.25); POTASSIUM 3.5 mmol/L (3.5-5.1)
[2020-02-23 06:07] LABS: BASOPHILS % 0.4 % (0.0-1.0); EOSINOPHILS # (AUTO) 0.2 (0.0-0.4); HEMATOCRIT 28.7 % (38.2-49.6); LYMPHOCYTES # (AUTO) 1.1 (1.0-3.2); LYMPHOCYTES % 13.7 % (18.0-39.1); MEAN CORPUSCULAR HEMOGLOBIN 21.4 pg (28-32); MEAN CORPUSCULAR HGB CONC 31.4 g/dL (31-35); MEAN CORPUSCULAR VOLUME 68.3 fL (81-99); MONOCYTES # (AUTO) 0.8 (0.2-0.8); MONOCYTES % 9.8 % (4.4-11.3); NEUTROPHILS # (AUTO) 5.8 (2.1-6.9); NEUTROPHILS % 71.5 % (38.7-80.0); PLATELET COUNT 240 x10e3/uL (140-360); RED CELL DISTRIBUTION WIDTH 24.5 % (11.7-14.4)
--- NOTE | 2020-02-23 07:00 | NUR ---
Received patient lying in bed with eyes open. Urinary winston catheter intact, secured to leg. Draining pinkish-colored urine to bag. Respiration even and unlabored without SOB. Call light in reach
--- NOTE | 2020-02-23 07:39 | NUR ---
GAVE REPORT TO ONCOMING NURSE. CALL LIGHT WITHIN REACH. PATIENT IN BED. PATIENT IN NO PAIN OR DISTRESS
[2020-02-23 08:07] LABS: RBC MORPHOLOGY COMMENT ABNORMAL
[2020-02-23 08:29] LABS: ANISOCYTOSIS MODERATE
[2020-02-23 08:30] LABS: ELLIPTOCYTE, RBC SLIGHT; HYPOCHROMASIA SLIGHT; OVALOCYTES FEW; TARGET CELLS FEW
[2020-02-23 08:31] LABS: PLATELET ESTIMATE ADEQUATE; PLATELET MORPHOLOGY COMMENT NORMAL; POLYCHROMASIA FEW; SCHISTOCYTES RARE
[2020-02-23] MEDS: AMIODARONE HCL 200 MG TAB PO SCH ×2 (08:53→21:15)
[2020-02-23] MEDS: DIGOXIN 0.25 MG TAB PO SCH (08:54)
[2020-02-23] MEDS: METOPROLOL SUCCINATE 50 MG TAB XL PO SCH ×2 (08:55→21:15)
[2020-02-23] MEDS: ACETAMINOPHEN 325 MG TAB PO PRN (09:00)
--- NOTE | 2020-02-23 19:00 | NUR ---
Report given to heel seam rubber. Respiration even and unlabored without SOB. call light in reach.
--- NOTE | 2020-02-23 21:15 | NUR ---
PATIENT IS RESTING IN STABLE CONDITION AOX4, NO SIGNS OF DISTRESS NOTED. TALLEY CATHETER IS PATENT AND INTACT, BLOODY RED COLOR SEDIMENT NOTED. PATIENT VOICES PAIN VOICES NO PAIN AT THIS TIME AND IS AWARE OF NPO AFTER MIDNIGHT FOR PROCEDURE TOMORROW. BED IS IN LOWEST POSITION, BOTH SIDE RAILS ARE UP, CALL LIGHT IS WITHIN EASY REACH, WILL CONTINUE TO MONITOR.
--- NOTE | 2020-02-23 21:48 | Progress Note ---
DATE: 02/23/2020 Psychiatric Progress Note SUBJECTIVE: The patient evaluated and events noted. The patient is in the room. He is alert, awake, and oriented to situation. He is talking to his family members or friends on the phone. He is doing much better. He is not confused. He is not agitated. He denies any suicidal ideation. He denies any depression or anxiety. He denies any hallucination. He reports sleeping fair. He denies any side effects from medication. ASSESSMENT: Unspecified psychosis/delirium, resolved. PLAN: 1. Continue with p.r.n. on Seroquel and p.r.n. IM medication. 2. Monitor for agitation and psychosis. Dictated by Yuni Cohn PA-C MD BRITTNEY GuzmánV/MODL /[id number]
[2020-02-24] VITALS (8 sets, daily range): BP systolic 132–167; BP diastolic 65–82
[2020-02-24] MEDS: ACETAMINOPHEN 325 MG TAB PO PRN ×2 (00:49→08:22)
[2020-02-24] MEDS: CEFTRIAXONE SOD 1 GM/NS 50 ML 50 ML IV SCH ×2 (05:15→17:29)
--- NOTE | 2020-02-24 06:55 | NUR ---
Received patient lying in bed with eyes open. Respiration even and unlabored without SOB. Call light in reach.
[2020-02-24] MEDS: DIGOXIN 0.25 MG TAB PO SCH (08:22)
[2020-02-24] MEDS: METOPROLOL SUCCINATE 50 MG TAB XL PO SCH ×2 (08:22→20:55)
[2020-02-24] MEDS: AMIODARONE HCL 200 MG TAB PO SCH ×2 (08:22→20:55)
--- NOTE | 2020-02-24 12:14 | NUR ---
Patient is transported for procedure at this time.
[2020-02-24] MEDS ORDERED: BENZOCAINE 20% SPR 60 ML CAN ONE (12:23)
[2020-02-24] MEDS ORDERED: SODIUM CHLORIDE 0.9% 1000ML 1,000 ML ONE (12:23)
--- NOTE | 2020-02-24 13:15 | NUR ---
Patient is transported back from procedure at this time.
[2020-02-24] MEDS ORDERED: PROPOFOL IV EMULSION 10 MG/ML 20 ML VIAL ONE (16:26)
--- NOTE | 2020-02-24 16:57 | NUR ---
Nutrition Screen Note RD Recommendation for Physician: -Continue cardiac diet Plan of Care: RD following, monitoring for tolerance and adequacy Nutrition reason for involvement: Length of stay Primary Diagnose(s): fever, hematuria, right renal mass, sepsis, UTI PMH: Status post heart valve repair for severe mitral valve regurgitation, Pulmonary hypertension, Right ventricular enlargement with moderately impaired systolic function, septic arthritis of the right knee, status post arthroscopic irrigation and debridement and synovectomy of the right knee. Ht: 73 in Wt:187.5 lb BMI: 24.7 kg/m2 IBW:[address] Assessment: (02/24/20) Chart reviewed. Labs and meds reviewed. Pt is admitted with fever, hematuria, right renal mass, sepsis, and UTI. Attempted to call pt, but he did not answer. It is recorded that pt consumed 50-100% of meals from 02/17-02/20. Pt had a ANT procedure today per chart. Weight has been stable during admission and no weight loss is evident per weight history. Pt weighed 180 lbs in March 2017 and currently has a weight of 187.5 lbs in chart. Will continue to monitor. Current Diet: cardiac diet Malnutrition Evaluation (02/24/20) The patient does not meet criteria for a specified degree of malnutrition at this time. Will re-evaluate at follow-up as appropriate. Diet Education Needs Assessment: RD is available for diet education as needed Nutrition Care Level: low Signed: Shirley Weston, RD, LD
[2020-02-24] MEDS ORDERED: FENTANYL CITRATE/PF 100MCG/2 ML INJ ONE (17:34)
[2020-02-24] MEDS ORDERED: MIDAZOLAM HCL 2 MG/2 ML VIAL ONE (17:34)
--- NOTE | 2020-02-24 19:14 | NUR ---
Report given to hotel night auditor. Respiration even and unlabored without SOB. call light in reach.
[2020-02-24] MEDS ORDERED: ACETAMINOPHEN 1000 MG/100 ML IV PRN (20:30)
--- NOTE | 2020-02-24 20:55 | NUR ---
PATIENT IS RESTING IN STABLE CONDITION AOX4, NO SIGNS OF DISTRESS NOTED. TALLEY CATHETER IS PATENT AND INTACT, BLOODY RED COLOR SEDIMENT NOTED. PATIENT VOICES PAIN AT A LEVEL OF 5 AND WAS MEDICATED ORDERED. BED IS IN LOWEST POSITION, BOTH SIDE RAILS ARE UP, CALL LIGHT IS WITHIN EASY REACH, WILL CONTINUE TO MONITOR.
[2020-02-24] MEDS: SENNA-S TABLET PO SCH (21:13)
--- NOTE | 2020-02-24 21:27 | Progress Note ---
DATE: 02/24/2020 SUBJECTIVE: The patient could not undergo ANT as the scope could not be advanced beyond a certain point. He is otherwise denying any dysphagia. He is eating and drinking fine. He has not had any bowel movement in last 2 to 3 days. He has a Reyes catheter in place, that is draining a bloody urine. REVIEW OF SYSTEMS: GENERAL: Admits to weakness. CVS: No chest pain or palpitation. RESPIRATORY: Shortness of breath on exertion, otherwise no cough or expectoration. MEDICATIONS: Reviewed as per JAN. He is getting ceftriaxone 1 g IV twice daily, acetaminophen 650 mg p.o. q.4 hours as needed, hydralazine 10 mg q.6 hours IV as needed, metoprolol 5 mg IV q.6 hours as needed, ziprasidone 5 mg q.6 hours intramuscular injection as needed, Zofran 4 mg IV q.4 hours as needed, metoprolol succinate 50 mg p.o. twice daily, digoxin 0.25 mg p.o. daily, amiodarone 200 mg p.o. q.12 hours, lorazepam 1 mg q.6 hours IM as needed for agitation, Seroquel 25 mg p.o. q.6 hours as needed, albuterol/ipratropium inhaler q.4 hours as needed. PHYSICAL EXAMINATION: VITAL SIGNS: Temperature 97.7, pulse 84, respirations 20, blood pressure 143/73, oxygen saturation 96% on room air. GENERAL: Not in any apparent distress. HEENT: Oral mucosa is moist. Anicteric sclerae. ABDOMEN: Soft, nondistended, nontender. No palpable mass or hernia. Positive bowel sounds. LABORATORY DATA: No lab drawn today; however, hemoglobin was noted 9.0 and hematocrit 28.7 yesterday. Prior to that, hemoglobin was 8.0 on 02/22/2020. IMPRESSION: 1. No rectal bleeding, hemoglobin is stable. 2. Microcytic anemia, likely from chronic hematuria from right renal cancer. 3. Constipation. PLAN: Daily bowel regimen. The patient is not having any rectal bleeding. Rest of the care as per primary team. Bob Rodrigez MD SA/TOBIN /[id number]
[2020-02-25] VITALS (8 sets, daily range): BP systolic 128–175; BP diastolic 62–88
[2020-02-25] MEDS: CEFTRIAXONE SOD 1 GM/NS 50 ML 50 ML IV SCH ×2 (04:11→16:00)
--- NOTE | 2020-02-25 07:30 | NUR ---
PT IN BED RESTING TALLEY TO BSD PINK URINE ,DENIE PAIN
[2020-02-25] MEDS: METOPROLOL SUCCINATE 50 MG TAB XL PO SCH ×2 (09:00→21:02)
[2020-02-25] MEDS: AMIODARONE HCL 200 MG TAB PO SCH ×2 (09:00→21:02)
[2020-02-25] MEDS: POLYETHYLENE GLYCOL 3350 17 GM PACK PO SCH (09:00)
[2020-02-25] MEDS: DIGOXIN 0.25 MG TAB PO SCH (09:00)
--- NOTE | 2020-02-25 10:30 | NUR ---
spoke with dr jones stated pt cleared for surgery
[2020-02-25] MEDS ORDERED: ONDANSETRON HCL 4 MG ORAL DISINTEGRATING TAB PO PRN (11:15)
--- NOTE | 2020-02-25 14:35 | NUR ---
SPOKE WITH INFORMED PROCEDURE WILL BE IN AM
--- NOTE | 2020-02-25 17:24 | NUR ---
PT UP IN BED DENIES PAIN,NO DISTRESS NOTED.
[2020-02-25] MEDS: SENNA-S TABLET PO SCH (21:02)
[2020-02-26] VITALS: BP_SYST 156; BP_SYST 172; BP_DIAS 72; BP_DIAS 80
[2020-02-26 04:00] VITALS: BP 158/91
[2020-02-26] MEDS: CEFTRIAXONE SOD 1 GM/NS 50 ML 50 ML IV SCH ×2 (04:00→16:00)
--- NOTE | 2020-02-26 07:25 | NUR ---
PT IN BED AWAKE ,DENIES PAIN ,TALLEY TO BSD BLOODY URINE
[2020-02-26 07:47] LABS: BASOPHILS % 0.3 % (0.0-1.0); EOSINOPHILS # (AUTO) 0.2 (0.0-0.4); HEMATOCRIT 32.2 % (38.2-49.6); HEMOGLOBIN 10.1 g/dL (14.0-18.0); LYMPHOCYTES # (AUTO) 1.1 (1.0-3.2); LYMPHOCYTES % 12.4 % (18.0-39.1); MEAN CORPUSCULAR HEMOGLOBIN 21.6 pg (28-32); MEAN CORPUSCULAR HGB CONC 31.4 g/dL (31-35); MONOCYTES # (AUTO) 0.9 (0.2-0.8); NEUTROPHILS # (AUTO) 6.8 (2.1-6.9); NEUTROPHILS % 74.4 % (38.7-80.0); PLATELET COUNT 351 x10e3/uL (140-360); RED BLOOD COUNT 4.67 x10e6/uL (4.3-5.7); RED CELL DISTRIBUTION WIDTH 25.5 % (11.7-14.4)
[2020-02-26 08:03] LABS: ANION GAP 9.7 mmol/L (8-16); BLOOD UREA NITROGEN 13 mg/dL (7-26); BUN/CREATININE RATIO 12 (6-25); CALCIUM 8.8 mg/dL (8.4-10.2); CARBON DIOXIDE 28 mmol/L (22-29); CHLORIDE 105 mmol/L (98-107); CREATININE, SERUM 1.12 mg/dL (0.72-1.25); EST GLOMERULAR FILTRATION RATE > 60 ML/MIN (60-); GLUCOSE 96 mg/dL (74-118); POTASSIUM 3.7 mmol/L (3.5-5.1); SODIUM 139 mmol/L (136-145)
[2020-02-26] MEDS: DIGOXIN 0.25 MG TAB PO SCH (08:24)
[2020-02-26] MEDS: AMIODARONE HCL 200 MG TAB PO SCH ×2 (08:24→20:53)
[2020-02-26] MEDS: METOPROLOL SUCCINATE 50 MG TAB XL PO SCH ×2 (08:25→20:53)
[2020-02-26] MEDS: POLYETHYLENE GLYCOL 3350 17 GM PACK PO SCH (08:25)
--- NOTE | 2020-02-26 08:30 | NUR ---
PT TRANSPORTED TO OR VIA STRETCHER
[2020-02-26 08:31] VITALS: BP 156/85
[2020-02-26] MEDS ORDERED: IOPAMIDOL 300MG/ML 50ML INFUS..BTL IV ONE (10:22)
[2020-02-26] MEDS ORDERED: B&O 60MG R/S 60 MG SUPP PR ONE (10:22)
[2020-02-26] MEDS ORDERED: FENTANYL CITRATE/PF 100MCG/2 ML INJ ONE (11:15)
--- NOTE | 2020-02-26 11:50 | NUR ---
pt returned to room via mariana prajapati foley to bsd dark marizol urine.
[2020-02-26 12:54] VITALS: BP 139/77
[2020-02-26] MEDS: HYDROCODONE/APAP 5MG-325MG TAB PO PRN (14:05)
--- NOTE | 2020-02-26 14:05 | NUR ---
PT C/O ABD PAIN MEDICATED.CATHETER FLUSHED NO BLOOD CLOT NOTED.
--- NOTE | 2020-02-26 16:15 | Progress Note ---
DATE: SUBJECTIVE: Mr. Ramsay is doing much better. He is more alert. No new complaint. Discussed with Urology doing cystoscopy for several lesions in the urethra. Discussed also with Cardiology, could not do ANT, could not advance the probe. The patient who is currently alert and oriented, has no complaints. Repeat cultures are negative. PHYSICAL EXAMINATION: GENERAL: He is currently alert and oriented. VITAL SIGNS: Stable. Currently afebrile. HEENT: He is not icteric. NECK: Supple. CHEST: Clear. HEART: S1, S2. No S3, S4 or murmur. ABDOMEN: Soft. Bowel sounds present. No tenderness. EXTREMITIES: No edema. SKIN: There is no rash. IMPRESSION: 1. 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 Continue Rocephin. 2. Concern about malignancy. Renal versus other. Pathology was sent. Discussed with Urology at length. 3. Continue with Rocephin 8 weeks. Await Urology workup. Await pathology workup. The patient clinically seems to be doing better. His sepsis to be improve. MD YONATAN Ascencio/TOBIN /[id number]
[2020-02-26] MEDS ORDERED: PROPOFOL IV EMULSION 10 MG/ML 50 ML VIAL ONE (17:18)
[2020-02-26] MEDS ORDERED: ONDANSETRON HCL INJ 2MG/ML 2ML 2 MG/ML VIAL ONE (17:18)
[2020-02-26] MEDS ORDERED: SEVOFLURANE INHAL SOLN 250 ML PEN BTL ONE (17:18)
[2020-02-26] MEDS ORDERED: PROPOFOL IV EMULSION 10 MG/ML 20 ML VIAL ONE (17:18)
[2020-02-26] MEDS ORDERED: LIDOCAINE HCL 2% LOCAL INJ 5 ML SDV VIAL INJ ONE (17:18)
--- NOTE | 2020-02-26 17:33 | NUR ---
UP in bed denies pain ,winston to bsd bloody urine.
[2020-02-26 19:45] VITALS: BP 126/60
[2020-02-26 20:10] VITALS: BP 126/60
--- NOTE | 2020-02-26 20:30 | Operative Report ---
DATE OF PROCEDURE: 02/26/2020 SURGEON: Pantera Donovan MD PREOPERATIVE DIAGNOSES: 1. Gross hematuria. 2. Right ureteral masses. 3. Right hydronephrosis. POSTOPERATIVE DIAGNOSES: 1. No evidence of bladder cancer, nor tumor. 2. Retained clots as well as a piece of tissue in the bladder. 3. Hematuria. 4. Right hydroureteronephrosis. 5. Multiple filling defects, possible tumors in the right ureter. OPERATIONS PERFORMED: 1. Cystourethroscopy with evacuation of blood clots and extraction of tissue floating freely in the bladder (separate procedure performed for the clot retention). 2. Cystourethroscopy with left ureteral catheterization and retrograde ureteropyelography (separate procedure performed for the hematuria). 3. Right ureteroscopy with biopsy of ureteral lesions and obstruction. 4. Urological Services for supervision and interpretation of ureteroscopy, no radiologist present. 5. Cystourethroscopy with insertion of right indwelling ureteral stent (separate procedure performed to relieve the hydronephrosis). 6. Interpretation of retrograde ureteropyelography, no radiologist present. 7. Supervision of fluoroscopy, no radiologist present. ANESTHESIA: General. COMPLICATIONS: None. CLINICAL SUMMARY: Please refer to consultation dictation from earlier this hospitalization. This procedure was planned earlier and it was delayed awaiting cardiac clearance and optimization. I discussed this procedure with the patient's preoperatively and she elected to proceed with this procedure as planned. OPERATIVE PROCEDURE IN DETAIL: Informed consent was verified. Santy Ramsay was properly identified, taken to the operating room, placed on the cystoscopy table in supine position. Anesthesia was uneventfully begun. The patient was then carefully gently repositioned in the dorsal lithotomy position with all pressure points well padded. His genitalia were prepared and draped in usual sterile fashion. The cystoscope sheath with visual obturator in place was atraumatically inserted into the patient's urethra, was guided down the relatively unremarkable urethra through the normal sphincteric region through the prostate bed, which was significant for bilobar prostatic hypertrophy with visual obstruction. We entered the patient's bladder and drained it. Panendoscopy revealed numerous clots, which were evacuated. There was also a piece of tissue that we extracted with a grasper and sent for histopathological analysis. The bladder exhibited at least grade 3 trabeculations with diffuse cellule formation throughout consistent with long-standing BPH. No tumors were identified. There were no suspicious lesions that were identified. Normally positioned and configured left ureteral orifice was identified. The right ureteral orifice was patulous and a ureteral catheter was used to cannulate the left ureter and retrograde ureteral pyelograms were performed. It was then inserted in the right ureter and retrograde ureteropyelograms were performed. A guidewire was then placed into the right ureter and guided to the level of the patient's kidney. A semi-rigid ureteroscope was then inserted alongside the guidewire into the ureter, it exhibited multiple filling defects. Some of these filling defects were globs of tissue and proteinaceous material, but some of it appeared solid. We utilized a stone basket to extract a rather copious sampling of this pathological finding. We then with cystoscopic and fluoroscopic guidance, inserted a right-sided indwelling ureteral stent coiled in the patient's kidney as well as the patient's bladder. The retaining suture was cut short. A 24-Sinhala Reyes catheter was then placed. It was irrigated to and fro to ensure it worked properly. A belladonna and opium suppository was placed revealing a large probably 50 g prostate, smooth, nonfluctuant without any nodules. The patient was then uneventfully reversed from anesthesia and taken to recovery in stable condition. There were no complications to the procedure. The patient tolerated the procedure well. Interpretation of retrograde ureteropyelography contrast was instilled in retrograde fashion bilaterally. The left side was relatively unremarkable. There was narrowing as the ureter coursed into the thickened bladder wall, but the calices were sharp and delicate. There was unobstructed drainage observed. The right side was highly abnormal with massive hydronephrosis. The ureter was massively dilated with numerous filling defects throughout its entire length. The stent was in good position, coiled in the patient's kidney region as well as the patient's bladder at the end of the case. Plan will be to eagerly await the patient's histopathology reports. We will be following up on the patient's blood work tomorrow and a renal mass CT scan may be ordered. Pantera Donovan MD [place]/TOBIN /[id number]
[2020-02-26] MEDS: SENNA-S TABLET PO SCH (20:53)
--- NOTE | 2020-02-26 22:15 | Progress Note ---
DATE: 02/26/2020 Cardiology Progress Note SUBJECTIVE: No acute events overnight. Having some penile pain due to insertion of bigger size Reyes. OBJECTIVE: VITAL SIGNS: Temperature afebrile, pulse 83, respiratory rate 20, blood pressure 126/60, saturating 94% on room air. GENERAL: Middle-aged man, in no acute distress. CARDIOVASCULAR: Regular rate and rhythm. No murmurs, rubs, or gallops. LUNGS: Clear to auscultation anteriorly. ABDOMEN: Soft, nontender, and nondistended. NEURO AND PSYCH: Alert and oriented to person, place, and time. Normal affect. INPATIENT MEDICATIONS: Reviewed. LABORATORY DATA: Reviewed. TELEMETRY DATA: Reviewed, shows rate controlled atrial fibrillation. ASSESSMENT AND PLAN: 1. Bacteremia. 2. Sepsis. 3. Atrial fibrillation with rapid ventricular response, currently rate controlled. 4. History of mitral valve repair. PLAN: Continue current cardiovascular medications. He is now rate controlled. Continues to undergo urologic workup. We tried to perform transesophageal echocardiogram given concern for possible endocarditis given history of mitral valve repair and sepsis. However, we were unable to pass the probe past the MAC line and the procedure had to be aborted. Currently, clinical suspicion for endocarditis is low. If clinical suspicion is high, can attempt to once again perform a ANT under anesthesia, direct visualization, and intubation. Continue current management otherwise. Thank you for this consult. We will continue to follow. MD LORI Wilkes/DAYOL /[id number]
[2020-02-27] VITALS (9 sets, daily range): BP systolic 120–154; BP diastolic 58–82
[2020-02-27] MEDS: CEFTRIAXONE SOD 1 GM/NS 50 ML 50 ML IV SCH ×2 (03:56→16:00)
[2020-02-27 06:13] LABS: BASOPHILS % 0.3 % (0.0-1.0); EOSINOPHILS # (AUTO) 0.1 (0.0-0.4); EOSINOPHILS % 1.2 % (0.0-6.0); HEMATOCRIT 31.4 % (38.2-49.6); HEMOGLOBIN 9.7 g/dL (14.0-18.0); LYMPHOCYTES # (AUTO) 1.2 (1.0-3.2); LYMPHOCYTES % 10.3 % (18.0-39.1); MEAN CORPUSCULAR HEMOGLOBIN 21.6 pg (28-32); MEAN CORPUSCULAR HGB CONC 30.9 g/dL (31-35); MEAN CORPUSCULAR VOLUME 69.8 fL (81-99); MONOCYTES % 8.2 % (4.4-11.3); NEUTROPHILS # (AUTO) 9.4 (2.1-6.9); NEUTROPHILS % 79.3 % (38.7-80.0); PLATELET COUNT 331 x10e3/uL (140-360); RED CELL DISTRIBUTION WIDTH 25.8 % (11.7-14.4)
--- NOTE | 2020-02-27 06:34 | NUR ---
winston cath irrigated then aspirated per md order.
[2020-02-27 06:51] LABS: ANION GAP 8.7 mmol/L (8-16); BLOOD UREA NITROGEN 15 mg/dL (7-26); BUN/CREATININE RATIO 13 (6-25); CALCIUM 8.7 mg/dL (8.4-10.2); CARBON DIOXIDE 28 mmol/L (22-29); CHLORIDE 103 mmol/L (98-107); CREATININE, SERUM 1.15 mg/dL (0.72-1.25); EST GLOMERULAR FILTRATION RATE > 60 ML/MIN (60-); GLUCOSE 92 mg/dL (74-118); POTASSIUM 3.7 mmol/L (3.5-5.1); SODIUM 136 mmol/L (136-145)
[2020-02-27] MEDS: DIGOXIN 0.25 MG TAB PO SCH (07:59)
[2020-02-27] MEDS: AMIODARONE HCL 200 MG TAB PO SCH ×2 (07:59→21:28)
[2020-02-27] MEDS: POLYETHYLENE GLYCOL 3350 17 GM PACK PO SCH (07:59)
[2020-02-27] MEDS: HYDROCODONE/APAP 5MG-325MG TAB PO PRN (08:00)
[2020-02-27] MEDS: METOPROLOL SUCCINATE 50 MG TAB XL PO SCH ×2 (09:00→21:29)
[2020-02-27] MEDS ORDERED: LORAZEPAM INJ 2 MG/ML VIAL IM PRN (10:00)
--- NOTE | 2020-02-27 17:12 | Progress Note ---
DATE: SUBJECTIVE: Mr. Ramsay is doing better. There has been no new complaint. Blood cultures are negative. Urine culture is negative. White count is 11. PHYSICAL EXAMINATION: GENERAL: He is currently alert, oriented, does not seem to be in acute distress. VITAL SIGNS: Stable, afebrile. HEENT: He is not icteric. NECK: Supple. CHEST: Clear. HEART: S1, S2. No S3, S4, or murmur. ABDOMEN: Soft. Bowel sounds present. No tenderness. EXTREMITIES: No edema. IMPRESSION AND PLAN: 1. Endocarditis, particularly from renal mass. Urology ordered a CT, the patient is on Rocephin, could not do ANT. 2. Anemia. 3. Other medical problem as above, stable. MD YONATAN Ascencio/TOBIN /[id number]
[2020-02-27] MEDS ORDERED: SODIUM CHLORIDE 0.9% 50ML 50 ML ONE (18:03)
[2020-02-27] MEDS ORDERED: IOPAMIDOL 370 MG/ML 200 ML INFUS..BTL INJ ONE (18:03)
[2020-02-27] MEDS: SENNA-S TABLET PO SCH (21:00)
--- NOTE | 2020-02-27 23:09 | Progress Note ---
DATE: 02/27/2020 Cardiology Progress Note SUBJECTIVE: No major events overnight. Feels well. OBJECTIVE: VITAL SIGNS: Temperature afebrile, pulse 80, respiratory rate 18, blood pressure 120/58, and saturating 95% on room air. GENERAL: Middle-aged man, in no acute distress. CARDIOVASCULAR: Irregular rate and rhythm. No murmurs, rubs, or gallops. LUNGS: Clear to auscultation bilaterally. ABDOMEN: Soft, nontender, and nondistended. NEURO AND PSYCH: Alert and oriented to person, place, and time. Normal affect. INPATIENT MEDICATIONS: Reviewed. LABORATORY DATA: Reviewed. TELEMETRY DATA: Reviewed, shows rate controlled atrial fibrillation. ASSESSMENT AND PLAN: 1. Bacteremia. 2. Sepsis. 3. Atrial fibrillation with rapid ventricular response, currently rate controlled. 4. History of mitral valve repair. PLAN: Continue current cardiovascular medications. He is now rate controlled. No anticoagulation given ongoing hematuria. Some concern for endocarditis given sepsis and history of mitral valve repair, however, a ANT was attempted and we were unable to pass the probe into the esophagus. Procedure had to be aborted. Clinically, currently stable. We will continue to monitor. Transthoracic echocardiogram showed no suspicion for endocarditis. Thank you for this consult. We will continue to follow. MD LORI Wilkes/TOBIN /[id number]
[2020-02-28] MEDS ORDERED: SODIUM CHLORIDE 0.9% 250ML 250 ML ONE (03:39)
[2020-02-28] MEDS: CEFTRIAXONE SOD 1 GM/NS 50 ML 50 ML IV SCH ×2 (03:41→18:18)
[2020-02-28 04:00] VITALS: BP 144/68
[2020-02-28 05:42] LABS: BASOPHILS % 0.2 % (0.0-1.0); EOSINOPHILS # (AUTO) 0.1 (0.0-0.4); EOSINOPHILS % 0.7 % (0.0-6.0); HEMOGLOBIN 8.9 g/dL (14.0-18.0); LYMPHOCYTES # (AUTO) 1.4 (1.0-3.2); LYMPHOCYTES % 11.1 % (18.0-39.1); MEAN CORPUSCULAR HEMOGLOBIN 21.8 pg (28-32); MEAN CORPUSCULAR HGB CONC 30.7 g/dL (31-35); MEAN CORPUSCULAR VOLUME 70.9 fL (81-99); MONOCYTES # (AUTO) 1.1 (0.2-0.8); MONOCYTES % 9.2 % (4.4-11.3); NEUTROPHILS # (AUTO) 9.5 (2.1-6.9); NEUTROPHILS % 78.1 % (38.7-80.0); PLATELET COUNT 300 x10e3/uL (140-360); RED BLOOD COUNT 4.09 x10e6/uL (4.3-5.7); RED CELL DISTRIBUTION WIDTH 25.1 % (11.7-14.4)
--- NOTE | 2020-02-28 07:00 | NUR ---
RECEIVED PATIENT AWAKE RESTING IN BED. NO S/S OF DISTRESS. BED LOW, WHEELS LOCKED, SIDE RAILS X2. CALL LIGHT IN REACH WILL CONTINUE TO MONITOR PATIENT.
[2020-02-28 08:06] VITALS: BP 148/70
[2020-02-28] MEDS: AMIODARONE HCL 200 MG TAB PO SCH ×2 (08:11→21:06)
[2020-02-28] MEDS: METOPROLOL SUCCINATE 50 MG TAB XL PO SCH ×2 (08:11→21:06)
[2020-02-28] MEDS: POLYETHYLENE GLYCOL 3350 17 GM PACK PO SCH (08:11)
[2020-02-28] MEDS: DIGOXIN 0.25 MG TAB PO SCH (08:11)
[2020-02-28 08:26] VITALS: BP 148/70
--- NOTE | 2020-02-28 09:35 | Progress Note ---
DATE: Mr. Ramsay seen and evaluated today. Available labs and notes reviews, discussed with the nurse. SUBJECTIVE: The patient has no nausea, vomiting, fever, chills, chest pain, or shortness of breath. He complained that he did not receive enough physical therapy yesterday, however, it was the weekend, but otherwise no new complaints. Vital signs and labs are placed in the chart. Please refer to the chart for vital signs and lab results. PHYSICAL EXAMINATION: GENERAL: Alert and oriented, in no acute distress. Responds appropriately. CV: S1, S2. CHEST: Equal expansion. Clear to auscultation. No acute distress. ABDOMEN: Soft and nontender. No distention. Bowel sounds positive. HEENT: Moist. No pallor. No JVD. EXTREMITIES: Moves all with trace edema if any. IMPRESSION: 1. Bacteremia with Streptococcus group G on 02/17/2020, recheck blood cultures negative on 02/21/2020. Urine culture on 02/17/2020 was negative and throat culture as well was negative on 02/18/2020. CT of abdomen and pelvis is pending. 2. Renal mass. 3. Chronic kidney disease. 4. Anemia. 5. Debility. 6. Fever. 7. Atrial fibrillation. 8. Leukocytosis, which is slightly higher today at 12.1, however, the patient has no component of diarrhea. 9. It was noted that Cardiology attempted to do a ANT, however, were not able to pass the probe through, therefore it was not done. The patient is on Rocephin, with a plan to complete a total of 8 weeks of treatment with Rocephin IV. Overall, alert and oriented, in no acute distress. 10. Discussed with Dr. Gerardo. Dictated by Eugenio Jose PA-C (Al) Jocelynn Gerardo MD /MODL /[id number]
[2020-02-28 11:36] VITALS: BP 146/67
--- NOTE | 2020-02-28 11:48 | NUR ---
BEAR TEJADA MAKING ROUNDS. PATIENT WILL NEED LICENSED MENTAL HEALTH COUNSELOR IV ANTIBIOTICS. NEW ORDER FOR PICC LINE. NEW ORDERS IMPLEMENTED.
--- NOTE | 2020-02-28 12:59 | Diagnostic Imaging Report ---
EXAM: CT Abdomen and Pelvis WITH intravenous contrast - renal mass protocol INDICATION: Renal mass COMPARISON: CT abdomen and pelvis of 02/17/2020. TECHNIQUE: Abdomen and pelvis were scanned utilizing a multidetector helical scanner from the lung base to the pubic symphysis before and after administration of IV contrast. Coronal and sagittal reformations were obtained. Renal mass protocol was used. Scan was performed prior to contrast administration and during portal venous phase. IV CONTRAST: 100 mL of Isovue 370 ORAL CONTRAST: None COMPLICATIONS: None RADIATION DOSE: Total DLP: 1534 mGy*cm Dose modulation, iterative reconstruction, and/or weight based adjustment of the mA/kV was utilized to reduce the radiation dose to as low as reasonably achievable. FINDINGS: LOWER THORAX: Right and left lower lobe dependent subsegmental atelectasis. Small bilateral pleural effusions. Mild multichamber cardiomegaly. Coronary artery atherosclerotic calcifications. HEPATOBILIARY: Subcentimeter hepatic cysts. No other focal liver lesions. Unremarkable gallbladder. SPLEEN: No splenomegaly. PANCREAS: No focal masses or ductal dilatation. ADRENALS: No adrenal nodules. KIDNEYS/URETERS: Again seen is the large heterogeneously enhancing mass centered about the right anterior kidney which measures up to 12.3 x 8.2 x 11.0 cm (TR x AP x SI). The superomedial aspect of the mass abuts the pancreatic head and duodenum. No definite renal vein or IVC thrombus. Extensive right hydroureteronephrosis with soft tissue thickening and enhancement of the renal pelvis and right ureter. Interval placement of a right internal nephroureteral stent. 1 cm left midpole renal cyst. No enhancing left renal mass lesions. Delayed phase images demonstrate opacification of the entirety of the left ureter without filling defect to suggest urothelial mass lesion. PELVIC ORGANS/BLADDER: Reyes catheter within the decompressed bladder. Contrast material within the bladder. PERITONEUM / RETROPERITONEUM: Trace free fluid in the pelvis, new compared to 02/17/2020. LYMPH NODES: No lymphadenopathy. VESSELS: Moderate atherosclerotic calcifications of the nonaneurysmal abdominal aorta and major branches. GI TRACT: No abnormal bowel thickening. No bowel obstruction. BONES AND SOFT TISSUES: No acute osseous injury. Diffuse soft tissue edema, new compared to 02/17/2020 IMPRESSION: Redemonstration of large heterogeneously enhancing right anterior renal mass with associated right hydroureteronephrosis and soft tissue thickening/enhancement of the renal pelvis. Status post interval right internal nephroureteral stent placement. Signed by: Kimberli Davis MD on 02/28/2020 12:56 PM
--- NOTE | 2020-02-28 15:24 | NUR ---
ORDER RECEIVED FOR HOME IV ABX X6 WEEKS. MET W THE PT AT THE BEDSIDE TO DISCUSS CHOICE. STATES HE WILL TRY CORAM. DISCUSSED PICC LINE. STATES THEY ARE SUPPOSED TO INSERT THIS PM OR TOMORROW. REFERRAL WAS FAXED TO [facility] @ OFF: [phone] / FAX: [phone]
[2020-02-28 16:30] VITALS: BP 111/58
--- NOTE | 2020-02-28 17:40 | Diagnostic Imaging Report ---
EXAMINATION: CHEST XRAY LINE PLACEMENT INDICATION: ^PICC LINE PLACEMENT ^[id number] ^1715 ^Y COMPARISON: 02/21/2020 FINDINGS: TUBES and LINES: Right peripherally inserted central venous catheter with distal tip over the low superior vena cava. Sternal wires. Left atrial clip. LUNGS: Perihilar peribronchial hazy opacity could be due to bronchitis. Likely minimal scarring/atelectasis at the lung bases. PLEURA: No pleural effusion or pneumothorax. HEART AND MEDIASTINUM: Cardiomegaly. Prosthetic heart valve. The pulmonary arteries are enlarged. Pulmonary veins are prominent. BONES AND SOFT TISSUES: No acute osseous lesion. Soft tissues are unremarkable. UPPER ABDOMEN: No free air under the diaphragm. IMPRESSION: Right peripherally inserted central venous catheter with distal tip over the low superior vena cava. Cardiomegaly with pulmonary artery hypertension. Stable pulmonary venous congestion. Likely mild scarring/atelectasis at the lung bases. Signed by: Dr. Nicholas Simpson M.D. on 02/28/2020 5:37 PM
[2020-02-28 20:00] VITALS: BP_SYST 136; BP_SYST 151; BP_DIAS 72; BP_DIAS 73
[2020-02-28] MEDS: HYDROCODONE/APAP 5MG-325MG TAB PO PRN (21:05)
[2020-02-28] MEDS: SENNA-S TABLET PO SCH (21:06)
--- NOTE | 2020-02-28 21:12 | Progress Note ---
DATE: 02/28/2020 GI Progress Report SUBJECTIVE: The patient has had a large liquidy bowel movement on Friday. For last two days he has not had any bowel movement. However, is also refusing to take laxatives and stool softener as prescribed. His appetite is poor. He is eating minimally. REVIEW OF SYSTEMS: General: Weakness. No fever or chills. CVS: No chest pain or palpitation. RESPIRATORY: No cough or expectoration. MEDICATIONS: Reviewed as per JAN. PHYSICAL EXAMINATION: VITAL SIGNS: Temperature 98.4, pulse 85, respirations 18, blood pressure 111/58, oxygen saturation 98% on room air. GENERAL: Not in any acute distress. HEENT: Oral mucosa is moist. Anicteric sclerae. ABDOMEN: Soft, nondistended, nontender. No palpable mass or hernia. Positive bowel sounds. Reyes catheter is now draining relatively clear urine. LABORATORY DATA: WBC has gone up to 12.12 from 11.90, hemoglobin down to 8.9 from 9.7, hematocrit down to 29 from 31.4, and platelet count 300. No electrolytes drawn today. IMPRESSION: 1. Bacteremia, sepsis, latest blood culture negative. Infectious Disease is following. The patient is being treated with intravenous ceftriaxone. 2. Constipation, resolved, the patient refusing laxative and stool softener. 3. No blood in the stool. Hemoglobin is down, however, he does not have any gross gastrointestinal bleeding. PLAN: 1. Continue present medical management. 2. Monitor stool. 3. I suggested to the patient to take laxatives and stool softener at least on as needed basis. Bob Rodrigez MD SA/TOBIN /[id number]
[2020-02-29] VITALS (9 sets, daily range): BP systolic 114–160; BP diastolic 48–79
[2020-02-29] MEDS: HYDROCODONE/APAP 5MG-325MG TAB PO PRN (03:19)
[2020-02-29] MEDS: CEFTRIAXONE SOD 1 GM/NS 50 ML 50 ML IV SCH ×2 (04:28→17:11)
[2020-02-29] MEDS: AMIODARONE HCL 200 MG TAB PO SCH ×2 (08:30→20:48)
--- NOTE | 2020-02-29 08:30 | NUR ---
TALLEY CATH REMOVED INTACT. PATIENT TOLERATED WELL. IN NO APPARENT DISTRESS. DR. FERRELL VISITED AND WANTS SERIAL URINE. SAME EXPLAINED TO PATIENT. ASSISTED UP INTO BEDSIDE CHAIR PER REQUEST. IN [employer], CALL [facility] AT BEDSIDE. ASKED HIM TO CALL FOR ASSISTANCE BEFORE HE ATTEMPTS TO GO TO THE BATHROOM. PATIENT STATES UNDERSTANDING
[2020-02-29] MEDS: DIGOXIN 0.25 MG TAB PO SCH (08:31)
[2020-02-29] MEDS: POLYETHYLENE GLYCOL 3350 17 GM PACK PO SCH (08:31)
[2020-02-29] MEDS: METOPROLOL SUCCINATE 50 MG TAB XL PO SCH ×2 (08:32→20:49)
--- NOTE | 2020-02-29 09:49 | Progress Note ---
DATE: SUBJECTIVE: Mr. Ramsay is seen and evaluated this morning with the nurse in the room available. Labs and notes were reviewed. The patient denied nausea, vomiting, fever, chills, chest pain, shortness of breath, headache, dysuria, polyuria. OBJECTIVE: VITAL SIGNS: Temperature is 97.8, pulse is 70, respirations 16, blood pressure 131/79. ALLERGIES: NO KNOWN ALLERGIES. LABORATORY DATA: No new labs available. Previous labs reviewed. MICROBIOLOGY: Recheck blood culture from 02/21/2020 is negative. Urine culture on 02/17/2020 was negative. The patient received a PICC line yesterday. IMAGING STUDIES: CT of abdomen and pelvis on 02/27/2020, showed demonstration of large heterogeneously enhancing right anterior renal mass with associated right hydroureteronephrosis and soft-tissue thickening/enhancement of the renal pelvis. Status post right internal nephroureteral stent placement. ASSESSMENT AND PLAN: 1. Bacteremia with Streptococcus group G with recheck blood culture negative on 02/21/2020, also urine culture is negative at 02/17/2020. 2. Renal mass. 3. Chronic renal disease. 4. Atrial fibrillation. 5. Anemia. 6. Debility. Continue with Rocephin, order placement for lead case manager to set up Rocepcan as an outpatient for a total of 6 weeks with weekly labs and call all the lab results to Dr. Gerardo's office, the patient was originally scheduled for 8 weeks; however, the patient has been here for some time and was set up for 6 weeks and further management based on the assessment. Discussed with Dr. Gerardo and discussed with the patient and discussed with the nurse. The patient may have surgical procedure by pending pathology result. This case was discussed with staff and Dr. Gerardo. Dictated by Jocelynn Gerardo MD YONATAN Ascencio/TOBIN /[id number]
--- NOTE | 2020-02-29 12:44 | NUR ---
CALL TO DR CORDOVA TO INFORM HOME IV ABX HAS BEEN ARRANGED AND TEACH DONE BY [facility]ino THE PT'S AND DTR. DR. CORDOVA STATES THEY ARE DOING TALLEY TRIAL POST TALLEY REMOVAL ADC TOMORROW. NOTIFIED [facility].
--- NOTE | 2020-02-29 14:16 | Progress Note ---
DATE: 02/29/2020 GI Progress Report SUBJECTIVE: The patient has a good bowel movement today. His stools are brown. No blood in the stool. Denies any abdominal pain. Tolerating oral diet. Reyes has been taken out. REVIEW OF SYSTEMS: GENERAL: Admits to some weakness. CVS: No chest pain or palpitation. RESPIRATORY: No cough or expectoration. MEDICATIONS: Reviewed as per JAN. PHYSICAL EXAMINATION: VITAL SIGNS: Temperature 98.1, pulse 68, respirations 16, blood pressure 133/68, oxygen saturation 93% on room air. GENERAL: Sitting comfortably at the bedside couch, not in any acute distress. HEENT: Oral mucosa is moist. ABDOMEN: Soft, nondistended, nontender. No palpable mass or hernia. Positive bowel sounds. LABORATORY DATA: No lab drawn today. IMPRESSION: 1. Constipation, resolved. 2. Awaiting right kidney mass biopsy result. No longer having any hematuria. No blood noted in the stool. PLAN: Continue present medical management. No indications for any colonoscopy at this time. The patient can be discharged from GI standpoint if he is being discharged by primary medical team. Bob Rodrigez MD SA/TOBIN /[id number]
--- NOTE | 2020-02-29 19:05 | NUR ---
RECEIVED REPORT FROM PREVIOUS NURSE. CALL LIGHT WITHIN REACH. PATIENT IN BED. ANITHA ROJAS IS DRAINING WELL. Addendum: 03/01/20 at 0059 by Summer Scott RN PLEASE IGNORE ANITHA DRAIN SENTENCE. GERRI IS DRAINING WELL
[2020-02-29] MEDS: SENNA-S TABLET PO SCH (20:48)
--- NOTE | 2020-02-29 23:20 | NUR ---
PATIENT PASSED A BLOOD CLOT IN THE URINE AND IT WAS COLLECTED AND PLACED ON THE WINDOW SEAL
[2020-03-01 00:45] VITALS: BP 138/59
[2020-03-01] MEDS: CEFTRIAXONE SOD 1 GM/NS 50 ML 50 ML IV SCH (03:30)
[2020-03-01 04:23] VITALS: BP 152/68
--- NOTE | 2020-03-01 07:09 | NUR ---
GAVE BEDSIDE SHIFT REPORT TO ONCOMING NURSE. CALL LIGHT WITHIN REACH. PATIENT IN BED.
[2020-03-01 07:25] VITALS: BP 131/69
[2020-03-01] MEDS ORDERED: TOPROL XL50 MG PO (08:59)
[2020-03-01] MEDS ORDERED: AMIODARONE HCL200 MG PO (08:59)
[2020-03-01] MEDS ORDERED: DIGOXIN125 MCG PO (08:59)
[2020-03-01] MEDS ORDERED: ZOFRAN4 MG PO (09:00)
[2020-03-01] MEDS: POLYETHYLENE GLYCOL 3350 17 GM PACK PO SCH (09:00)
[2020-03-01] MEDS ORDERED: TYLENOL WITH C1 EACH PO (09:00)
[2020-03-01] MEDS: METOPROLOL SUCCINATE 50 MG TAB XL PO SCH (09:58)
[2020-03-01] MEDS: DIGOXIN 0.25 MG TAB PO SCH (09:58)
[2020-03-01] MEDS: AMIODARONE HCL 200 MG TAB PO SCH (09:58)
[2020-03-01 10:01] VITALS: BP 131/69
--- NOTE | 2020-03-01 11:01 | NUR ---
SPOKE WITH DR MARIAELENA MD WANTS TO SEE PT BEFORE HE IS DISCHARGED, SPOKE WITH , MADE AWARE
[2020-03-01 11:32] VITALS: BP 160/65
--- NOTE | 2020-03-01 11:34 | Discharge Summary ---
CONSULTANTS: 1. Dr. Priya Araujo. 2. Dr. Jocelynn Gerardo. 3. Dr. Deepika Moraes. 4. Dr. Pantera Donovan. 5. Dr. Jasson Muñoz. PRIMARY CARE PHYSICIAN: [facility]. FINAL DIAGNOSES: 1. Gross hematuria with right ureteral mass with right hydronephrosis status post cystourethroscopy with evacuation of blood clot and extraction of tissue floating freely in the bladder. Biopsy of the urethral lesion and obstruction and insertion of the right indwelling ureteral stent. 2. Right kidney large soft tissue mass arising in the kidney, affecting the collecting system with the right hydronephrosis. 3. Status post sepsis with shock. 4. Toxic encephalopathy associated with delirium, resolved. 5. Acute kidney injury, resolving. 6. Streptococcus bacteremia. 7. anemia secondary to sepsis infection. 8. Medical deconditioning improving with physical therapy. SUMMARY: The patient is a 74-year-old male presented to the hospital with altered mental status, delirium, and basically sepsis with shock, hypotensive. The patient required blood pressure resuscitation, IV fluid resuscitation with antibiotics. The patient had a CT scan of abdomen and pelvis showed that he had a right renal mass with hematuria and with urinary retention secondary to clotting. The patient was very confused on admission, but much worse in the next few days of his admission due to the infection. Blood culture grew out positive for Streptococcus antibiotic aggressively. He was apparently on Rocephin. Subsequently, he underwent the procedures mentioned as the above one. His condition was stable. Procedure was done on February 26, 2020, by Dr. Pantera Donovan. The patient is now stable. He had a right upper extremity PICC line in place for IV antibiotics at home. Currently, he is on Rocephin. He has also had chronic atrial fibrillation. He is on medication to control his heart rate. He is stable at this time. Vital signs stable. He has remained afebrile. The patient had a Reyes discontinued trial yesterday and he is able to urinate. He is doing well at this time, but he will be going home with six weeks of IV Rocephin. The plan is for the patient to follow up with Dr. Pantera Donovan for surgical management. The pathology of the biopsy will be reviewed by Dr. Pantera Donovan. The diagnosis of the biopsy of urinary bladder was submitted as tissue floating in bladder, removal of necrotic tissue and fibrin with calcification and ureteral tumor, right biopsy necrotic tissue and fibrin with calcification. Again, this will be Dr. Pantera Donovan and the patient will follow up with Dr. Pantera Donovan for near future surgical intervention depending on the interpretation of the biopsy report and the clinical evaluation postop by Dr. Pantera Donovan when he is ready. In the meantime, he will be going home with IV antibiotics. He will also be going home with amiodarone 200 mg q.12, digoxin 0.25 mg daily, metoprolol succinate 50 mg q.12 and Tylenol No.3 p.r.n. for pain, Zofran 4 mg sublingual q.4 hours p.r.n. for nausea and vomiting. The patient will follow up with his family physician in approximately one week for referral to see his specialist. Again, patient will need to follow up with Dr. Pantera Donovan, Dr. Jocelynn Gerardo, and Dr. Priya Araujo, Cardiology. MD SULMA Zhang/TOBIN /[id number]
--- NOTE | 2020-03-01 12:27 | NUR ---
IMM EXPLAINED TO PT, SIGNED BY PT AND PLACED IN CHART COPY OF IMM TO PT
--- NOTE | 2020-03-06 12:23 | Progress Note ---
DATE: REVIEW OF SYSTEMS: No nausea, vomiting, fever, chills, chest pain, shortness of breath, headache, cough. Reyes catheter has been removed and he has been voiding since then and the urine color has gradually improving to light yellow. OBJECTIVE: VITAL SIGNS: Temperature is 97.5, pulse is 53, respirations 18, and blood pressure 131/69. GENERAL: Alert and oriented, in no acute distress. CV: S1 and S2. CHEST: Equal expansion. Clear to auscultation. No acute distress. ABDOMEN: Soft and nontender. No distention. HEENT: Moist. No pallor. No JVD. MEDICATIONS: Medication list reviewed. As far as Infectious Disease point of view, the patient is on Rocephin. ALLERGIES: NO KNOWN ALLERGIES. LABORATORY STUDIES: White count was 12.12 on 02/28/2020, hemoglobin of 8.9, and platelet count of 300. Creatinine of 1.15, sodium 136, potassium 3.7. SEROLOGY: Influenza A and B antigen and group A Strep screen negative. MICROBIOLOGY: Recheck blood cultures negative on 02/21/2020. Previous blood culture was positive for Streptococcus group G and also history of Strep species and beta-hemolytic. RADIOLOGY STUDIES: No new radiology studies available. The patient is status post PICC line placement. ASSESSMENT AND PLAN: 1. Bacteremia with Streptococcus group G, recheck blood cultures negative on 02/21/2020. 2. Urine culture negative on 02/17/2020. 3. Renal mass. 4. Chronic renal insufficiency/disease. 5. Atrial fibrillation. 6. Debility. 7. Anemia. 8. Reyes catheter-removed. The patient is voiding and the color of the urine improving to light yellow this morning. Discussed with Dr. Gerardo and discussed with attending physician, Dr. Everett. Discharge planning is in progress. The patient to receive 6 weeks of IV antibiotics and follow up with Dr. Gerardo's office as an outpatient. The patient will be receiving labs on weekly basis and labs to be reported to Dr. Gerardo's office. Further management of this patient is based on daily finding on laboratory and physical examination. Dictated by Eugenio Jose PA-C (Al) Jocelynn Gerardo MD /MODL /[id number]
[2020-03-07 07:38] LABS: ABG PH 7.52 (7.35-7.45)
[2020-03-07 07:39] LABS: ABG BASE EXCESS -3.9 mmol/L (-2 - 3); ABG HCO3 17 mmol/L (21-29); ABG OXYGEN SATURATION 99.3 % (96-97); ABG PCO2 21 mmHg (35-45)
[2020-03-10 09:19] LABS: ABG PO2 168 mmHg (80-90)
== END 2020-03-01 12:42 | disposition home health service (06) | DRG 853 ==
LOC: ER 22:52 → ERHOLD 02-18 00:51 → MED/SURG3 02-18 02:26 → IMCU 02-19 05:52 → MED/SURG 02-22 17:46
PROVIDERS: ADMIT Internal Medicine; ATTEND Internal Medicine
PROC: 0T768DZ Dilation of Right Ureter with Intraluminal Device, Via Natural or Artificial Opening Endoscopic (ICD-10-PCS; 2020-02-26)
PROC: 0T778ZZ Dilation of Left Ureter, Via Natural or Artificial Opening Endoscopic (ICD-10-PCS; 2020-02-26)
PROC: BT141ZZ Fluoroscopy of Kidneys, Ureters and Bladder using Low Osmolar Contrast (ICD-10-PCS; 2020-02-26)
PROC: 0TCB8ZZ Extirpation of Matter from Bladder, Via Natural or Artificial Opening Endoscopic (ICD-10-PCS; 2020-02-26)
PROC: 0TB68ZX Excision of Right Ureter, Via Natural or Artificial Opening Endoscopic, Diagnostic (ICD-10-PCS; principal; 2020-02-26 09:00)
PROC: 02HV33Z Insertion of Infusion Device into Superior Vena Cava, Percutaneous Approach (ICD-10-PCS; 2020-02-28)
PROC: 30233N1 Transfusion of Nonautologous Red Blood Cells into Peripheral Vein, Percutaneous Approach (ICD-10-PCS; 2020-02-28)
DX: A41.9 Sepsis, unspecified organism (principal); R65.21 Severe sepsis with septic shock; G93.41 Metabolic encephalopathy; N17.9 Acute kidney failure, unspecified; N13.30 Unspecified hydronephrosis; I50.22 Chronic systolic (congestive) heart failure; N39.0 Urinary tract infection, site not specified; E87.1 Hypo-osmolality and hyponatremia; D62 Acute posthemorrhagic anemia; C64.1 Malignant neoplasm of right kidney, except renal pelvis; D64.89 Other specified anemias; I27.20 Pulmonary hypertension, unspecified; N28.89 Other specified disorders of kidney and ureter; I11.0 Hypertensive heart disease with heart failure; I35.1 Nonrheumatic aortic (valve) insufficiency; N40.0 Benign prostatic hyperplasia without lower urinary tract symptoms; M17.11 Unilateral primary osteoarthritis, right knee; D64.9 Anemia, unspecified; K59.00 Constipation, unspecified
CPT/HCPCS: 36415; 36569; 36600; 70450; 71045; 71250; 74176; 74178; 74420; 80048; 80053; 81001; 82550; 82553; 82805; 82948; 83518; 83605; 83880; 84484; 85014; 85018; 85025; 85610; 85730; 86850; 86900; 86920; 87040; 87070; 87071; 87086; 87205; 87400; 88305; 93005; 93306; 97139; 99284; C1758; C1769; C2617; J0360; J0696; J1160; J2001; J2060; J2250; J2405; J3010; J3486; J7030; J7050; P9016; Q9967

== ENCOUNTER 2020-03-13 11:05 | Inpatient (IN) | payer OTHER ==
--- NOTE | 2020-03-10 10:10 | Diagnostic Imaging Report ---
EXAMINATION: PA and lateral views of the chest. COMPARISON: 02/28/2020 CLINICAL HISTORY: Preoperative study for nephrectomy DISCUSSION: Unchanged position of right upper extremity PICC. The tip terminates over the mid superior vena cava. Lungs are well-inflated and without focal consolidation, pleural effusion, or pneumothorax. Stable cardiomediastinal contour postsurgical changes of median sternotomy and valvular replacement. No acute osseous abnormalities. IMPRESSION: No acute cardiopulmonary abnormalities. Signed by: Dr. Jax Summers M.D. on 03/10/2020 10:06 AM
[2020-03-10 10:14] LABS: BASOPHILS # (AUTO) 0.1 (0.0-0.1); BASOPHILS % 1.2 % (0.0-1.0); EOSINOPHILS # (AUTO) 0.3 (0.0-0.4); HEMOGLOBIN 10.3 g/dL (14.0-18.0); LYMPHOCYTES # (AUTO) 1.4 (1.0-3.2); LYMPHOCYTES % 18.7 % (18.0-39.1); MEAN CORPUSCULAR HEMOGLOBIN 21.5 pg (28-32); MEAN CORPUSCULAR HGB CONC 29.4 g/dL (31-35); MEAN CORPUSCULAR VOLUME 72.9 fL (81-99); MONOCYTES # (AUTO) 0.6 (0.2-0.8); MONOCYTES % 8.5 % (4.4-11.3); NEUTROPHILS # (AUTO) 4.9 (2.1-6.9); NEUTROPHILS % 67.3 % (38.7-80.0); PLATELET COUNT 486 x10e3/uL (140-360); RED CELL DISTRIBUTION WIDTH 26.2 % (11.7-14.4)
[2020-03-10 10:33] LABS: ALBUMIN 2.8 g/dL (3.5-5.0); ALBUMIN/GLOBULIN RATIO 0.6 (0.8-2.0); ANION GAP 10.8 mmol/L (8-16); CALCIUM 10.1 mg/dL (8.4-10.2); CREATININE, SERUM 1.63 mg/dL (0.72-1.25); POTASSIUM 4.8 mmol/L (3.5-5.1)
[2020-03-10 13:18] LABS: ANISOCYTOSIS MODERATE; ELLIPTOCYTE, RBC SLIGHT; MICROCYTOSIS SLIGHT; OVALOCYTES FEW; PLATELET ESTIMATE SLIGHTLY INCREASED; PLATELET MORPHOLOGY COMMENT FEW EDTA CLUMPING; RBC MORPHOLOGY COMMENT ABNORMAL
[2020-03-10 13:19] LABS: GIANT PLATELETS FEW
[~2020-03-13] VITALS: Ht 180.3 cm; Wt 75.5 kg
[2020-03-13] VITALS (8 sets, daily range): BP systolic 138–157; BP diastolic 71–89
[~2020-03-13 11:05] MED LIST changes: +AMIODARONE HCL200 MG PO; +DIGOXIN125 MCG PO; +TOPROL XL50 MG PO; +TYLENOL WITH C1 EACH PO; +ZOFRAN4 MG PO
[2020-03-13] MEDS ORDERED: ROCEPHIN IV (11:38)
[2020-03-13] MEDS ORDERED: CEFAZOLIN SOD 1 GM/NS 50ML 50 ML IV ONE (11:39)
[2020-03-13] MEDS ORDERED: MANNITOL 25% 12.5GM/50ML 0 ML ONE (12:19)
[2020-03-13] MEDS ORDERED: AMPICILLIN SOD 1 GM/NS 50ML 50 ML IV ONE (14:02)
[2020-03-13] MEDS ORDERED: DIPHENHYDRAMINE HCL INJ 50 MG/ML VIAL IM PRN (17:00)
[2020-03-13] MEDS ORDERED: NALOXONE HCL INJ 0.4 MG/ML AMP IV PRN (17:00)
[2020-03-13] MEDS ORDERED: ONDANSETRON HCL INJ 2MG/ML 2ML 2 MG/ML VIAL IV PRN (17:00)
[2020-03-13] MEDS ORDERED: HYDROMORPHONE 1MG/1ML INJ ONE (17:19)
[2020-03-13] MEDS: MORPHINE SULFATE 1 MG/ML 30ML PCA IV PRN (17:25)
[2020-03-13 17:45] LABS: BASOPHILS % 0.3 % (0.0-1.0); EOSINOPHILS # (AUTO) 0.1 (0.0-0.4); EOSINOPHILS % 0.5 % (0.0-6.0); HEMATOCRIT 31.9 % (38.2-49.6); HEMOGLOBIN 9.6 g/dL (14.0-18.0); LYMPHOCYTES # (AUTO) 0.8 (1.0-3.2); LYMPHOCYTES % 6.3 % (18.0-39.1); MEAN CORPUSCULAR HEMOGLOBIN 21.7 pg (28-32); MEAN CORPUSCULAR HGB CONC 30.1 g/dL (31-35); MONOCYTES # (AUTO) 0.3 (0.2-0.8); MONOCYTES % 2.5 % (4.4-11.3); NEUTROPHILS # (AUTO) 11.1 (2.1-6.9); NEUTROPHILS % 89.8 % (38.7-80.0); PLATELET COUNT 407 x10e3/uL (140-360); RED BLOOD COUNT 4.43 x10e6/uL (4.3-5.7); RED CELL DISTRIBUTION WIDTH 26.2 % (11.7-14.4)
[2020-03-13 18:03] LABS: ANION GAP 11.7 mmol/L (8-16); CALCIUM 9.3 mg/dL (8.4-10.2); CREATININE, SERUM 1.57 mg/dL (0.72-1.25); POTASSIUM 4.7 mmol/L (3.5-5.1)
--- NOTE | 2020-03-13 18:22 | Diagnostic Imaging Report ---
EXAMINATION: CHEST SINGLE (PORTABLE) INDICATION: ^R/O PTX. COMPARISON: Multiple prior chest x-ray examinations most recent dated 03/10/2020. FINDINGS: AP view TUBES and LINES: There is a right-sided PICC line in place with distal tip in SVC. LUNGS/PLEURA: Lungs are not well inflated. There is bronchovascular crowding likely due to inadequate inspiration. There is a small right pleural effusion. There is new left basilar opacity likely atelectasis. No evidence of pneumothorax. HEART AND MEDIASTINUM: The cardiomediastinal silhouette is unremarkable. BONES AND SOFT TISSUES: There are degenerative changes in the thoracic spine. Soft tissues are unremarkable. UPPER ABDOMEN: No free air under the diaphragm. IMPRESSION: 1. No evidence of pneumothorax. 2. New small right pleural effusion. 3. New left basilar opacity likely atelectasis. Signed by: Eugenio Terry MD on 03/13/2020 6:18 PM
[2020-03-13] MEDS: D5.45%NS/KCL 20MEQ 1,000 ML IV SCH (19:57)
[2020-03-13] MEDS: SODIUM CHLORIDE 0.9% 250ML IRRIG IR SCH ×2 (19:58→21:00)
[2020-03-13] MEDS ORDERED: CHLORASEPTIC SPRAY 177 ML BTL MM PRN (20:30)
--- NOTE | 2020-03-13 21:55 | Operative Report ---
DATE OF PROCEDURE: 03/13/2020 SURGEON: Pantera Donovan MD PREOPERATIVE DIAGNOSES: 1. Complex sheath and huge right renal mass. 2. Indwelling ureteral stent. POSTOPERATIVE DIAGNOSES: 1. Huge complex right renal mass. 2. Right indwelling ureteral stent. 3. Intentional pneumothorax. OPERATIONS PERFORMED: 1. Thoracoabdominal incision. 2. Complicated right radical nephrectomy. 3. Right tube thoracostomy. 4. Right ureterotomy with removal of stent and intraureteral mass. COMMERCIAL REAL ESTATE ASSISTANT: Cheng Donovan MD. ANESTHESIA: General. COMPLICATIONS: None. CLINICAL SUMMARY: Santy Ramsay is a 74-year-old man with the above preoperative diagnoses. He is brought for the above procedures. He understands the risks of bleeding, infection, damage to adjacent structures, incomplete cancer resection, need for additional procedures and he elected to proceed. OPERATIVE PROCEDURE IN DETAIL: Informed consent was verified. Santy Ramsay was properly identified and taken to the operating room, placed on the operating table in supine position. Anesthesia was uneventfully begun. The patient had a Reyes catheter placed and it was carefully gently repositioned in the modified flank position with all pressure points carefully well padded. His abdomen, chest, and back were shaved, prepared, and draped in usual sterile fashion. The 10th rib incision was then made, carried through all layers of the chest and abdominal wall. The chest was entered and diaphragm was divided. We started with an extraperitoneal approach. We dissected posteriorly and inferiorly. We identified and isolated the right renal artery, doubly ligated it, and divided it. We then proceeded with the anterior resection. The patient's peritoneum was adherent to his renal masses. Therefore, we reported to perform peritoneotomy and leave the peritoneum on the kidney. We dissected inferiorly. We isolated the ureter, which was three quarter inch in diameter. We dissected this down to the inferior most extent near the iliac vessels. We isolated it. The testicular vein was ligated and divided. Ureterotomy was then performed and the stent was removed. We then through the urethrostomy pulled out abnormal necrotic appearing tissue that was like a sausage. We then ligated the ureter and divided it. We then fulgurated . We then completed the dissection in cephalad fashion. We carefully dissected around the vena cava and we carefully dissected it around the bowel with islands of peritoneum left on the tumor. Once we completed the cephalad dissection, the renal vein was doubly ligated with silk ties and divided. We then completed the dissection and removed the specimen from the field. The patient was then copiously irrigated. Hemostasis was verified. Gustavo drain was then placed through a separate stab incision and secured to the skin with a nylon suture. We then through a separate stab incision, placed the tunneled chest tube and placed the nylon U-stitch for later closure and then utilized nylon suture to secure the tube. The diaphragm was then reapproximated with a 2-0 Vicryl suture. The pathologist examined the tumor and was unable to give us the definitive diagnosis at this time. The capsule was approximated with a single layer of interrupted heavy Vicryl suture in a [id number] fashion. The abdominal incision was approximated in 2 layers utilizing heavy Vicryl suture in interrupted [id number] fashion. The skin was approximated with skin reynold. Copious irrigation was performed at each level of the closure. The chest tube was placed in negative 20 cm water pressure. Sterile dressings were applied. The patient was uneventfully reversed from anesthesia and taken to the recovery room in stable condition. There were no complications to the procedure. The patient tolerated the procedure well. Sponge, needle, and instrument count correct at the end of the case. ESTIMATED BLOOD LOSS: 250 mL. We will proceed with routine postop care and eagerly await the pathology results. Pantera Donovan MD OH/MODL /[id number]
[2020-03-13] MEDS: CEFAZOLIN SOD 1 GM/NS 50ML 50 ML IV SCH (22:40)
[2020-03-13] MEDS: ACETAMINOPHEN 1000 MG/100 ML IV PRN (22:40)
[2020-03-14] VITALS (25 sets, daily range): BP systolic 128–173; BP diastolic 59–87
[2020-03-14] MEDS: SODIUM CHLORIDE 0.9% 250ML IRRIG IR SCH ×3 (01:00→08:03)
[2020-03-14 05:33] LABS: BASOPHILS % 0.1 % (0.0-1.0); EOSINOPHILS # (AUTO) 0.2 (0.0-0.4); EOSINOPHILS % 1.8 % (0.0-6.0); HEMOGLOBIN 8.9 g/dL (14.0-18.0); LYMPHOCYTES # (AUTO) 0.5 (1.0-3.2); LYMPHOCYTES % 4.4 % (18.0-39.1); MEAN CORPUSCULAR HEMOGLOBIN 21.3 pg (28-32); MEAN CORPUSCULAR HGB CONC 29.7 g/dL (31-35); MEAN CORPUSCULAR VOLUME 71.9 fL (81-99); MONOCYTES # (AUTO) 0.8 (0.2-0.8); MONOCYTES % 7.4 % (4.4-11.3); NEUTROPHILS # (AUTO) 9.7 (2.1-6.9); PLATELET COUNT 416 x10e3/uL (140-360); RED BLOOD COUNT 4.17 x10e6/uL (4.3-5.7); RED CELL DISTRIBUTION WIDTH 25.6 % (11.7-14.4)
[2020-03-14 05:54] LABS: CALCIUM 9.1 mg/dL (8.4-10.2); CREATININE, SERUM 1.41 mg/dL (0.72-1.25)
[2020-03-14] MEDS: D5.45%NS/KCL 20MEQ 1,000 ML IV SCH ×2 (06:23→08:29)
[2020-03-14] MEDS: CEFAZOLIN SOD 1 GM/NS 50ML 50 ML IV SCH (06:25)
--- NOTE | 2020-03-14 06:29 | Diagnostic Imaging Report ---
EXAMINATION: CHEST SINGLE (PORTABLE) INDICATION: ^DAILY WHILE CHEST TUBE IN PLACE ^[id number] ^[id number] ^DAILY WHILE CHEST TUBE IN PLACE COMPARISON: 03/13/2020 FINDINGS: AP view TUBES and LINES: Unchanged 2 right-sided chest tubes. Unchanged right PICC. LUNGS: Low lung volumes with bibasilar atelectasis. No new lung consolidation. PLEURA: No identifiable pneumothorax. No new pleural effusion. HEART AND MEDIASTINUM: The cardiomediastinal silhouette is unremarkable. BONES AND SOFT TISSUES: No acute osseous lesion. Sternotomy wires. UPPER ABDOMEN: No free air under the diaphragm. IMPRESSION: Stable chest. Unchanged right-sided chest tubes. No identifiable pneumothorax. Signed by: Michael Gayle MD on 03/14/2020 6:26 AM
[2020-03-14] MEDS: MORPHINE SULFATE 1 MG/ML 30ML PCA IV PRN ×3 (06:43→17:02)
[2020-03-14 07:08] LABS: LYMPHOCYTES % (MANUAL) 3 % (19-48); MONOCYTES % (MANUAL) 6 % (3.4-9.0); NEUTROPHILS % (MANUAL) 91 % (40-74); NUCLEATED RED BLOOD CELLS 1
[2020-03-14 07:09] LABS: ANISOCYTOSIS MODERATE; ELLIPTOCYTE, RBC SLIGHT; OVALOCYTES FEW
[2020-03-14 07:10] LABS: RBC MORPHOLOGY COMMENT ABNORMAL
[2020-03-14 07:11] LABS: PLATELET ESTIMATE SLIGHTLY INCREASED; PLATELET MORPHOLOGY COMMENT FEW LARGE
[2020-03-14] MEDS: METOPROLOL SUCCINATE 25 MG TAB XL PO SCH (09:00)
[2020-03-14 09:31] LABS: % IRON SATURATION 5 % (15-50); IRON 11 ug/dL (65-175); TOTAL IRON BINDING CAPACITY 235 ug/dL (261-478); TRANSFERRIN 168 mg/dL (174-364)
[2020-03-14] MEDS: SODIUM CHLORIDE 0.9% 1000ML 1,000 ML IV SCH ×2 (10:05→19:56)
[2020-03-14] MEDS: FAMOTIDINE 20 MG/2 ML VIAL IV SCH ×2 (10:05→16:03)
[2020-03-14] MEDS: ACETAMINOPHEN 1000 MG/100 ML IV PRN (10:05)
--- NOTE | 2020-03-14 10:11 | Consultation ---
DATE OF CONSULTATION: Pulmonary Consultation. HISTORY OF PRESENT ILLNESS: The patient of Dr. Donovan, Dr. Houser, Dr. Everett, Dr. Cui, and Dr. Gerardo. 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 He was found to have a right ureteral mass with right hydronephrosis and right renal mass. He has a history of chronic atrial fibrillation, mitral regurgitation with mitral valve repair with apparent ring in 2017, history of pulmonary hypertension related to his mitral valve disease. He denies history of rheumatic heart disease. It is difficult for him to relate his history because he is hoarse postoperatively. ALLERGIES: HE HAS NO KNOWN ALLERGIES. MEDICATIONS: In the past include metoprolol and lisinopril. SOCIAL HISTORY: He was born in [place]. He does not smoke or drink. FAMILY HISTORY: Noncontributory. REVIEW OF SYSTEMS: He has a history of osteomyelitis of the right toe. He has had right synovectomy and long-term antibiotics for the osteomyelitis in the past. PHYSICAL EXAMINATION: GENERAL: He is a well-developed white male in no acute distress, looking his stated age. VITAL SIGNS: Temperature 97.9, pulse 69, respirations 18, blood pressure 152/73. HEENT: Head normocephalic and atraumatic. Eyes, extraocular movements intact. LUNGS: Diminished breath sounds. Right chest tube, right flank incision. ABDOMEN: Nontender. EXTREMITIES: Nonedematous. ASSESSMENT: The patient appears stable postoperatively after right radical nephrectomy and removal of a right ureteral mass. PLAN: Mobilization, incentive spirometry. Discontinue chest tube on 15/03 if there is no drainage or no evidence of pneumothorax. Thank you for this kind referral. MD ANMOL Santiago/MODL /[id number]
--- NOTE | 2020-03-14 11:06 | History and Physical ---
The patient is status post thoracotomy incision complicated right radical nephrectomy, right tube thoracostomy and right ureterotomy with removal of stent and intraureteral mass. Procedure was done on March 13, [address] Pantera Donovan. HISTORY OF PRESENT ILLNESS: The patient is a 74-year-old male, recently discharged from the hospital for antibiotic and recovery from his sepsis previously with urinary tract infection and pneumonia. The patient was stabilized and back to baseline. The patient is now status post procedures done as mentioned above. The procedure was done on March 13, 2020. The patient had a right chest tube in place. He is stable in ICU postoperatively. NG tube in place, n. p.o. The patient is stable. PAST MEDICAL HISTORY: Recent toxic encephalopathy from delirium secondary to urinary tract infection, Streptococcus bacteremia and diagnosis of right kidney mass, previously right ureteral stent placement for right hydronephrosis. Mitral valve repair. Systolic congestive heart failure, mitral regurgitation, right knee arthroscopy, chronic anemia, atrial fibrillation, hypertension. SOCIAL HISTORY: The patient does not smoke or use alcohol. No regular drugs. ALLERGIES: NO KNOWN ALLERGIES. HOME MEDICATIONS: List reviewed. REVIEW OF SYSTEMS: The patient is in ICU now and NG-tube, right chest tube. PHYSICAL EXAMINATION: VITAL SIGNS: Temperature is 98, blood pressure 150/73, pulse rate 74, and respiration 18. GENERAL: The patient is not in any distress. He is arousable. HEENT: Normocephalic and atraumatic. NG tube. PULMONARY: Diminished breath sounds, right chest tube. CARDIOVASCULAR: Regular rate and rhythm. ABDOMEN: Soft, status post right radical nephrectomy. EXTREMITIES: No cyanosis or edema. NEUROLOGIC: Some confusion, but not agitation. Moving all extremities. No focal deficit. LABORATORY DATA: WBC is 11.3, hemoglobin 8.9, hematocrit 30, platelets is 416. Chemistry; sodium is 134, potassium 5, chloride 104, bicarb 25, BUN is 16, creatinine 1.4, and glucose 122. IMPRESSION: 1. Status post right radical nephrectomy with status post right ureterotomy with removal of stent and intraureteral mass. 2. Complicated right radical nephrectomy as above. 3. Tension pneumothorax secondary to the thoracoabdominal incision. PLAN: Continue with postoperative care ICU. Electrolyte correction. Pain control. Antibiotics. Chest tube management. We will monitor the patient closely. Please review the postoperative orders. MD ERNIE Zhang /[id number]
--- NOTE | 2020-03-14 11:19 | NUR ---
INFECTIOUS DISEASE CONSULTATION NOTE CC: Hematuria and UTI HPI: This is a very pleasant 74 year old male who admitted to the ICU s/p surgical resection of mass on right kidney. The patient was found to have a right ureteral mass with right hydronephrosis and right renal mass. The patient was seen in clinic last week as a follow up to step bacteremia on IV rocephin at home. Currently in the ICU with right chest tube, right ANITHA drain, and [place]. PMH: afib, mitral regurg s/p MVR in 2017, history of pulmonary HTN SURGICAL HISTORY: MVR in 2017, s/p radical nephrectomy FAMILY HISTORY: noncontributory SOCIAL HISTORY: denies smoking, drinking, or drug use ROS: limited due to weakness and hoarseness POS: weakness, chills NEG: abdominal pain, chest pain, nausea, vomiting ALL SYSTEMS REVIEWED AND NEGATIVE UNLESS OTHERWISE DOCUMENTED. PHYSICAL EXAM: VS: STABLE, IN ICU GENERAL: AAOx3 with slight confusion, likely secondary to pain meds HEENT: normocephalic NECK: no JVD CV: s1, s2, slight systolic murmur CHEST: diminished ABD: soft, non-tender ANITHA drain EXT: moves all PSYCH: intact NEURO: CN intact LABS: REVIEWED RADIOLOGY: IMPRESSION: Stable chest. Unchanged right-sided chest tubes. No identifiable pneumothorax. IMPRESSION: 1. S/p right radical nephrectomy 2. s/p right tube thoracostomy 3. s/p right ureterotomy with removal of stent and intraureteral mass 4. s/p Strep bacteremia 5. Leukocytosis PLAN: 03/14/20 Supportive care, Change from Ancef to Rocephin. We will continue Rocephin while the patient is hospitalized. Pain management per others. Thank you for the consult! Discussed with Dr. Gerardo.
[2020-03-14] MEDS: CEFTRIAXONE SOD 2 GM/NS 100 ML 100 ML IV SCH (12:49)
--- NOTE | 2020-03-14 15:16 | NUR ---
Nutrition Screen Note RD Recommendation for Physician: - When feasible, ADAT to goal of Regular Plan of Care: RD following, monitoring for tolerance and adequacy Nutrition reason for involvement: Nutrition Risk Trigger Primary Diagnose(s): R renal mass PMH: recent toxic encephalopathy from delirium secondary to UTI, Streptococcus bacteremia and diagnosis of right kidney mass, previously right ureteral stent placement for right hydronephrosis, mitral valve repair, systolic congestive heart failure, mitral regurgitation, right knee arthroscopy, chronic anemia, atrial fibrillation, hypertension Ht: 73 in per prior admit (incorrect ht of 145 in chart) Wt: 187 lb BMI: 24.7 kg/m2 IBW: [address] Assessment: (03/14) 74 YOM admitted for R renal mass requiring a radical nephrectomy and R tube thoracostomy on 03/13. Pt seen today per MST2 screen. Pt sleeping at time of visit, did not disturb. Pt with recent admit in February, discharged a week ago. Noted pt wt stable per prior admit wt last month. Pt eating well during prior hospitalization. Chart reviewed. Labs and meds reviewed. Will continue to monitor. Current Diet: NPO Malnutrition Evaluation (03/14/20) The patient does not meet criteria for a specified degree of malnutrition at this time. Will re-evaluate at follow-up as appropriate. Energy intake: does not meet criteria Noted good po intake of 75-100% of meals per prior hospitalization 1 week ago Weight loss: does not meet criteria Pt wt stable per prior admit wt of 187.5# 1 mo ago Fat loss: none observed, chest well developed Muscle loss: none observed, shoulder round Supporting Evidence: Fluid accumulation: none Functional Status: not assessed Diet Education Needs Assessment: Diet education not indicated at this time. Diet tolerance: N/A Nutrition Care Level: Low Signed: Antionette Huang RD, LD, [facility]
--- NOTE | 2020-03-14 17:00 | NUR ---
Pt weaned off oxygen to room air. Dr. Donovan aware of very little NGT output. MD gave orders to remove NGT and be strict NPO. Per Dr. christianson clamp chest tube at 0400 on 03/15/20. Pt refusing to turn/reposition in bed. Pt educated on benefits of turning, pt still refusing to turn. Wound care nurse at bedside with primary RN to assess for wounds. Skin intact. Pt ambulated with physical therapy in the room.
[2020-03-14] MEDS ORDERED: GLYCOPYRROLATE INJ 0.2 MG/ML VIAL ONE (19:19)
[2020-03-14] MEDS ORDERED: ONDANSETRON HCL INJ 2MG/ML 2ML 2 MG/ML VIAL ONE (19:19)
[2020-03-14] MEDS ORDERED: SEVOFLURANE INHAL SOLN 250 ML PEN BTL ONE (19:19)
[2020-03-14] MEDS ORDERED: LIDOCAINE HCL 2% LOCAL INJ 5 ML SDV VIAL INJ ONE (19:19)
[2020-03-14] MEDS ORDERED: ROCURONIUM BROMIDE 10 MG/ML 5ML VIAL IV ONE (19:19)
[2020-03-14] MEDS ORDERED: PROPOFOL IV EMULSION 10 MG/ML 20 ML VIAL ONE (19:19)
[2020-03-14] MEDS ORDERED: NEOSTIGMINE 1 MG/ML 10ML VIAL ONE (19:19)
[2020-03-14] MEDS ORDERED: DEXAMETHASONE SOD PHOS INJ 4 MG/ML VIAL ONE (19:19)
[2020-03-14] MEDS ORDERED: CEFAZOLIN SOD 1 GM VIAL ONE (19:19)
--- NOTE | 2020-03-14 19:48 | Consultation ---
DATE OF CONSULTATION: Initial Nephrology Consultation Report REASON FOR CONSULTATION: Elevated serum creatinine. HISTORY OF PRESENT ILLNESS: Mr. Ramsay is a 74-year-old male, who is admitted here to the hospital. Yesterday, the patient underwent a right radical nephrectomy, thoracoabdominal incision, right tube thoracostomy, and right ureterostomy with removal of stent and intraureteral mass. He underwent these procedures yesterday. He is now here in the ICU of the hospital. I am being asked to see him because of elevated serum creatinine. His serum creatinine started at 1.6, that has come down to 1.4. PAST MEDICAL HISTORY: He was recently hospitalized. He had a urinary tract infection/urosepsis. He has undergone mitral valve repair. He has had congestive heart failure. He has had a right knee arthroscopy. MEDICATIONS: At the present time, he is on diphenhydramine, metoprolol, naloxone, famotidine, and morphine. PHYSICAL EXAMINATION: VITAL SIGNS: Blood pressure is 128/64, pulse is 69, and afebrile. GENERAL: The patient is lying down supine. He has a right chest tube. CARDIOVASCULAR: Regular rate and rhythm. LUNGS: Decreased breath sounds. LABORATORY RESULTS: BUN and creatinine 16 to 1.4 respectively, sodium 134, potassium 5, chloride 104, and bicarbonate 25. Initial serum creatinine was 1.6. IMPRESSION/PLAN: 1. Acute kidney injury superimposed on chronic kidney disease. 2. Status post right radical nephrectomy. 3. Status post chest tube placement. PLAN: At the present time, the patient's renal function is getting better. We will give him some slow IV hydration. should be avoided. I will follow up the patient with you. Thank you, Dr. Everett, for this consultation. Ather MD CHI Hernandez/TOBIN /[id number]
--- NOTE | 2020-03-14 20:39 | Consultation ---
DATE OF CONSULTATION: HISTORY OF PRESENT ILLNESS: Mr. Ramsay is a 74-year-old, who comes to the emergency room after surgical resection of his renal mass with bacteremia and strep. The patient is being admitted. Please refer to the note of my nurse practitioner in the chart. The patient is currently doing better. PHYSICAL EXAMINATION: GENERAL: He is alert and oriented. VITAL SIGNS: Stable, afebrile. HEENT: He is not icteric. NECK: Supple. CHEST: Clear. HEART: S1 and S2. ABDOMEN: Soft. Bowel sounds present. No tenderness. EXTREMITIES: No edema. SKIN: No rash. IMPRESSION: Recently with bacteremia with strep. Continue antibiotic. Obtain blood cultures. Status post right radical nephrectomy with status post . According to the , there is no artificial valve. Continue Rocephin. Recheck blood cultures. Further recommendations to follow. MD YONATAN Ascencio/TOBIN /[id number]
--- NOTE | 2020-03-14 22:39 | Consultation ---
DATE OF CONSULTATION: 03/14/2020 Cardiology Consult Note REASON FOR CONSULTATION: History of recent atrial fibrillation and bacteremia. History of mitral valve repair. CHIEF COMPLAINT: Incisional pain from nephrectomy. HISTORY OF PRESENT ILLNESS: History was difficult to obtain as the patient was unable to speak very much and was only able to whisper due to being extubated recently. However, the patient denied any chest pain, shortness of breath, orthopnea, or PND. He has history of mitral valve repair many years ago, was admitted recently to the hospital with strep bacteremia, was found to be in atrial fibrillation with RVR, which improved with medical therapy and eventually converted to normal sinus rhythm. Transesophageal echocardiogram was planned for bacteremia. However, it was very difficult to pass the probe and we were unable to advance it past the glottis. The procedure was aborted and TE was not performed. Blood cultures cleared at that time. A transthoracic echocardiogram did not show a significant valvular region. Now, the patient is status post nephrectomy for renal mass postoperatively in the ICU, in sinus rhythm hemodynamically stable. PAST MEDICAL HISTORY: As described above. SOCIAL HISTORY: Does not smoke, drink, or abuse drugs. FAMILY HISTORY: Noncontributory. REVIEW OF SYSTEMS: As per HPI, otherwise negative. OUTPATIENT MEDICATIONS: Reviewed. ALLERGIES: REVIEWED. PHYSICAL EXAMINATION: VITAL SIGNS: Temperature afebrile, pulse 81, respiratory rate 20, blood pressure 148/71, saturating 96% on 2 L nasal cannula. GENERAL: An elderly male in no acute distress. CARDIOVASCULAR: Regular rate and rhythm. No murmurs, rubs, or gallops. LUNGS: Clear to auscultation anteriorly. ABDOMEN: Soft, mildly tender, nondistended. NEURO AND PSYCH: Alert and oriented to person, place, and time. Normal affect. INPATIENT MEDICATIONS: Reviewed. LABORATORY DATA: Reviewed. Notable for hemoglobin 8.5, creatinine 1.4. TELEMETRY DATA: Reviewed shows normal sinus rhythm. ASSESSMENT: 1. Recent Strep bacteremia. 2. History of mitral valve repair. 3. Recent atrial fibrillation with RVR, currently in sinus rhythm. PLAN: Remains in normal sinus rhythm. Continue metoprolol succinate. No anticoagulation given recent nephrectomy. No evidence of bacteremia at this time. Blood culture is pending. If he has recurrent strep bacteremia a transesophageal echocardiogram is desired, he will need anesthesia guided intubation with direct visualization with the fiberoptic laryngoscope. Thank you for this consult. We will continue to follow. MD LORI Wilkes/TOBIN /[id number]
[2020-03-15] VITALS (16 sets, daily range): BP systolic 98–159; BP diastolic 69–88
[2020-03-15] MEDS: ACETAMINOPHEN 1000 MG/100 ML IV PRN (02:06)
[2020-03-15 05:03] LABS: BASOPHILS # (AUTO) 0.1 (0.0-0.1); BASOPHILS % 0.5 % (0.0-1.0); EOSINOPHILS # (AUTO) 0.4 (0.0-0.4); EOSINOPHILS % 3.4 % (0.0-6.0); HEMATOCRIT 31.2 % (38.2-49.6); HEMOGLOBIN 9.4 g/dL (14.0-18.0); LYMPHOCYTES # (AUTO) 0.7 (1.0-3.2); LYMPHOCYTES % 6.2 % (18.0-39.1); MEAN CORPUSCULAR HEMOGLOBIN 21.6 pg (28-32); MEAN CORPUSCULAR HGB CONC 30.1 g/dL (31-35); MEAN CORPUSCULAR VOLUME 71.7 fL (81-99); MONOCYTES # (AUTO) 0.6 (0.2-0.8); MONOCYTES % 5.7 % (4.4-11.3); NEUTROPHILS # (AUTO) 8.9 (2.1-6.9); NEUTROPHILS % 83.9 % (38.7-80.0); PLATELET COUNT 366 x10e3/uL (140-360); RED BLOOD COUNT 4.35 x10e6/uL (4.3-5.7); RED CELL DISTRIBUTION WIDTH 25.8 % (11.7-14.4)
[2020-03-15 05:30] LABS: ANION GAP 10.5 mmol/L (8-16); CALCIUM 9.3 mg/dL (8.4-10.2); CREATININE, SERUM 1.23 mg/dL (0.72-1.25); POTASSIUM 4.5 mmol/L (3.5-5.1)
[2020-03-15] MEDS: SODIUM CHLORIDE 0.9% 1000ML 1,000 ML IV SCH ×2 (05:49→19:19)
--- NOTE | 2020-03-15 06:22 | Diagnostic Imaging Report ---
EXAMINATION: CHEST SINGLE (PORTABLE) INDICATION: ^chest tube ^[id number] ^0520 COMPARISON: 03/14/2020 FINDINGS: AP view TUBES and LINES: Interval removal of the more medial right chest tube/mediastinal drain. Unchanged lateral right chest tube. Unchanged right upper extremity PICC. LUNGS: Stable bibasilar atelectasis. No new lung consolidation. PLEURA: No identifiable pneumothorax. HEART AND MEDIASTINUM: The cardiomediastinal silhouette is unchanged. BONES AND SOFT TISSUES: No acute osseous lesion. Soft tissues are unremarkable. UPPER ABDOMEN: No free air under the diaphragm. Sternotomy wires again noted. IMPRESSION: Interval removal of the more medial right chest tube/mediastinal drain. No identifiable pneumothorax. Signed by: Michael Gayle MD on 03/15/2020 6:18 AM
[2020-03-15 07:53] LABS: ANISOCYTOSIS MODERATE; ELLIPTOCYTE, RBC SLIGHT; MICROCYTOSIS SLIGHT; OVALOCYTES FEW
[2020-03-15 07:54] LABS: SCHISTOCYTES RARE
[2020-03-15 07:55] LABS: PLATELET ESTIMATE SLIGHTLY INCREASED; RBC MORPHOLOGY COMMENT ABNORMAL
[2020-03-15 07:56] LABS: POLYCHROMASIA FEW
[2020-03-15 07:57] LABS: PLATELET MORPHOLOGY COMMENT FEW EDTA CLUMPING
[2020-03-15] MEDS: METOPROLOL SUCCINATE 25 MG TAB XL PO SCH (09:00)
[2020-03-15] MEDS: FAMOTIDINE 20 MG/2 ML VIAL IV SCH ×2 (09:43→19:05)
--- NOTE | 2020-03-15 09:43 | NUR ---
Chest tube removed by Dr Conn
[2020-03-15] MEDS ORDERED: METOPROLOL TARTRATE INJ 1 MG/ML VIAL ONE (11:11)
[2020-03-15] MEDS ORDERED: AMIODARONE HCL 360MG 200 ML IV SCH ×2 (11:15→12:00)
[2020-03-15] MEDS ORDERED: AMIODARONE HCL 150MG 100 ML IV SCH (11:15)
[2020-03-15] MEDS: CEFTRIAXONE SOD 2 GM/NS 100 ML 100 ML IV SCH (12:00)
--- NOTE | 2020-03-15 12:44 | Diagnostic Imaging Report ---
EXAMINATION: CHEST SINGLE (PORTABLE) INDICATION: Chest tube removal COMPARISON: Chest radiograph 03/15/2020 FINDINGS: LINES/TUBES:Right PICC line terminates in the superior vena cava. LUNGS:The lungs are moderately inflated. No focal consolidation or pulmonary edema. Mild right basilar opacities, likely subsegmental atelectasis. PLEURA:No pleural effusion or pneumothorax. MEDIASTINUM:The cardiomediastinal silhouette appears unchanged in size and shape. BONES/SOFT TISSUES:No acute osseous injury. Sternotomy wires unchanged. ABDOMEN:No free air under the diaphragm. IMPRESSION: No pneumothorax status post right chest tube removal. Signed by: Kimberli Davis MD on 03/15/2020 12:41 PM
[2020-03-15] MEDS: AMIODARONE 900MG 500 ML IV SCH (12:52)
--- NOTE | 2020-03-15 15:30 | NUR ---
Mr. Ramsay is a 74-year-old, who comes to the emergency room after surgical resection of his renal mass _ ptient had history of strep bacteremia and strep.was on rocephin The patient is being admitted. electively Please refer to the note of my nurse practitioner in the chart. The patient is currently doing better. PHYSICAL EXAMINATION: GENERAL: He is alert and oriented. VITAL SIGNS: Stable, afebrile. HEENT: He is not icteric. NECK: Supple. CHEST: Clear. HEART: S1 and S2. ABDOMEN: Soft. Bowel sounds present. No tenderness. EXTREMITIES: No edema. SKIN: No rash. IMPRESSION: Recently with bacteremia with strep. Continue antibiotic. Obtain blood cultures. Status post right radical nephrectomy with status post . According to the , there is no artificial valve. Continue Rocephin. Recheck blood cultures. Further recommendations to follow.
--- NOTE | 2020-03-15 15:31 | NUR ---
martin Ramsay is a 74-year-old, who comes to the emergency room after surgical resection of his renal mass with bacteremia and strep. The patient is being admitted. Please refer to the note of my nurse practitioner in the chart. The patient is currently doing better. doing better PHYSICAL EXAMINATION: GENERAL: He is alert and oriented. VITAL SIGNS: Stable, afebrile. HEENT: He is not icteric. NECK: Supple. CHEST: Clear. HEART: S1 and S2. ABDOMEN: Soft. Bowel sounds present. No tenderness. EXTREMITIES: No edema. SKIN: No rash. IMPRESSION: Recently with bacteremia with strep. Continue antibiotic. Obtain blood cultures. Status post right radical nephrectomy with status po. According to the , there is no artificial valve. Continue Rocephin. Recheck blood cultures. Further recommendations to follow.
[2020-03-15] MEDS: ACETAMINOPHEN/CODEINE 300MG - 30MG TAB PO PRN ×2 (16:30→20:56)
--- NOTE | 2020-03-15 19:00 | NUR ---
Report received. Assumed care. Assessment done. See interventions. IV NS @ 100ml/hr & Amiodarone @ 0.5mg/hr or 16.7 ml/hr. Room air with sats 98-99%.
[2020-03-15] MEDS: DOCUSATE SODIUM 100 MG CAP PO SCH (19:05)
--- NOTE | 2020-03-15 20:57 | NUR ---
Medicated for c/o pain.
[2020-03-16] VITALS (14 sets, daily range): BP systolic 76–121; BP diastolic 68–94
[2020-03-16] MEDS: ACETAMINOPHEN/CODEINE 300MG - 30MG TAB PO PRN ×4 (02:32→21:18)
--- NOTE | 2020-03-16 02:32 | NUR ---
Medicated for c/o pain.
[2020-03-16 05:23] LABS: BASOPHILS % 0.5 % (0.0-1.0); EOSINOPHILS # (AUTO) 0.6 (0.0-0.4); EOSINOPHILS % 6.5 % (0.0-6.0); HEMATOCRIT 31.6 % (38.2-49.6); HEMOGLOBIN 9.4 g/dL (14.0-18.0); LYMPHOCYTES # (AUTO) 0.8 (1.0-3.2); MEAN CORPUSCULAR HEMOGLOBIN 21.1 pg (28-32); MEAN CORPUSCULAR HGB CONC 29.7 g/dL (31-35); MEAN CORPUSCULAR VOLUME 70.9 fL (81-99); MONOCYTES # (AUTO) 0.7 (0.2-0.8); MONOCYTES % 8.2 % (4.4-11.3); NEUTROPHILS # (AUTO) 6.5 (2.1-6.9); NEUTROPHILS % 75.6 % (38.7-80.0); PLATELET COUNT 347 x10e3/uL (140-360); RED BLOOD COUNT 4.46 x10e6/uL (4.3-5.7); RED CELL DISTRIBUTION WIDTH 25.8 % (11.7-14.4)
[2020-03-16 05:52] LABS: ANION GAP 9.3 mmol/L (8-16); BLOOD UREA NITROGEN 11 mg/dL (7-26); BUN/CREATININE RATIO 10 (6-25); CALCIUM 10.1 mg/dL (8.4-10.2); CARBON DIOXIDE 26 mmol/L (22-29); CHLORIDE 103 mmol/L (98-107); CREATININE, SERUM 1.11 mg/dL (0.72-1.25); EST GLOMERULAR FILTRATION RATE > 60 ML/MIN (60-); GLUCOSE 92 mg/dL (74-118); POTASSIUM 4.3 mmol/L (3.5-5.1); SODIUM 134 mmol/L (136-145)
--- NOTE | 2020-03-16 06:23 | Diagnostic Imaging Report ---
EXAMINATION: CHEST SINGLE (PORTABLE) INDICATION: ^DAILY WHILE CHEST TUBE IN PLACE ^DAILY WHILE CHEST TUBE IN PLACE COMPARISON: None FINDINGS: AP view TUBES and LINES: Unchanged right upper extremity PICC. LUNGS: Unchanged right basilar atelectasis. No new lung consolidation. PLEURA: No pleural effusion or pneumothorax. HEART AND MEDIASTINUM: Unchanged cardiac silhouette. BONES AND SOFT TISSUES: No acute osseous lesion. Post CABG surgical change. UPPER ABDOMEN: No free air under the diaphragm. IMPRESSION: Stable exam. Right basilar atelectasis. No pneumothorax. Signed by: Michael Gayle MD on 03/16/2020 6:20 AM
[2020-03-16] MEDS: DOCUSATE SODIUM 100 MG CAP PO SCH ×2 (07:57→18:31)
[2020-03-16] MEDS: SODIUM CHLORIDE 0.9% 1000ML 1,000 ML IV SCH ×3 (07:57→19:19)
[2020-03-16] MEDS: FAMOTIDINE 20 MG/2 ML VIAL IV SCH ×2 (07:57→18:31)
[2020-03-16] MEDS: METOPROLOL SUCCINATE 25 MG TAB XL PO SCH ×4 (07:57→23:39)
[2020-03-16] MEDS ORDERED: DOCUSATE SODIUM 100 MG CAP PO SCH (09:00)
[2020-03-16] MEDS ORDERED: AMIODARONE 900MG 500 ML IV SCH (09:00)
[2020-03-16 09:41] LABS: ANISOCYTOSIS MODERATE
[2020-03-16 09:42] LABS: ELLIPTOCYTE, RBC SLIGHT; MICROCYTOSIS SLIGHT; OVALOCYTES FEW; SCHISTOCYTES RARE
[2020-03-16 09:44] LABS: PLATELET ESTIMATE ADEQUATE; PLATELET MORPHOLOGY COMMENT FEW LARGE; RBC MORPHOLOGY COMMENT ABNORMAL
[2020-03-16] MEDS ORDERED: TAMSULOSIN HCL 0.4 MG CAP PO ONE (10:10)
[2020-03-16] MEDS: AMIODARONE 900MG 500 ML IV SCH (11:07)
[2020-03-16] MEDS: CEFTRIAXONE SOD 2 GM/NS 100 ML 100 ML IV SCH (12:32)
--- NOTE | 2020-03-16 13:15 | Progress Note ---
DATE: SUBJECTIVE: The patient is seen and evaluated. The patient is transferred out of ICU to [facility] clinically. No acute distress. Lunch has been rolled in and his diet is upgraded. Physical therapy currently in room. REVIEW OF SYSTEMS: No nausea, no vomiting, no fever, no chills. No chest pain. No shortness of breath. No headache. No dysuria. No polyuria. PHYSICAL EXAMINATION: VITAL SIGNS: Temperature is 97.7, pulse is 106, respiration 20, and blood pressure 121/92. GENERAL: Alert and oriented. HEENT: Moist. No pallor. No JVD. CV: S1, S2. CHEST: Equal expansion, clear to auscultation. No acute distress. ABDOMEN: Soft and nontender. No distention. Right-sided surgical site with reynold and ANITHA drain noted with serosanguineous drainage. EXTREMITIES: With 1+ edema. MEDICATIONS: Medication list reviewed. As far as Infectious Disease point of view, the patient is on Rocephin. LABORATORY STUDIES: White count of 8.65 improved from 12.32, hemoglobin of 9.4, platelet 347. Sodium 134, potassium 4.3, creatinine 1.11. SEROLOGY: COVID-19 PCR negative on 03/10. MICROBIOLOGY STUDIES: No new microbiology studies available. RADIOLOGY STUDIES: Chest x-ray from today showed stable right basilar atelectasis. No pneumothorax. ASSESSMENT AND PLAN: A pleasant 74-year-old gentleman 1. Strep bacteremia. 2. Status post right radical nephrectomy. 3. Constipation. 4. Tachycardia on amiodarone. No acute distress and metoprolol. 5. Surgical wound on the right upper quadrant/flank. 6. Continue with Rocephin. 7. Continue with wound care. 8. The patient is transferred out of ICU and currently is in the IMCU. 9. Diet advanced. 10. Continue to monitor the patient clinically follow with the labs. 11. Continue PT/OT. Discussed with Dr. Gerardo and nurse and physical therapy. Please refer to chart for more information. Thank you for this dictation. Dictated by Eugenio Jose PA-C (Al) Jocelynn Gerardo MD /MODL /[id number]
--- NOTE | 2020-03-16 14:08 | NUR ---
Received patient from ICU to room 188, patient transferred via bed, he is alert , awake and oriented x3, IVF infusing at 100cc/hr, and Amiodarone drip @ 16.7 mls/ per hour. Reyes to gravity draining clear marizol urine.
[2020-03-16] MEDS: MORPHINE SULFATE 2 MG/ML SYR 1ML IV PRN ×3 (14:57→23:12)
--- NOTE | 2020-03-16 18:50 | NUR ---
Handoff report to oncoming nurse patient in bed, amiodarone drip @16.7 mls/hr and IVF NS @ 100mls /hr, patient in bed no sings of distress, bed in low position, breaks in place.
--- NOTE | 2020-03-16 20:00 | NUR ---
patient in his room, awake alert oriented, he have urinated after Reyes catheter was discontinued. complained of pain to the right lower abdomen, pain medicine given, will continue to monitor.
[2020-03-16] MEDS: TAMSULOSIN HCL 0.4 MG CAP PO SCH (21:18)
[2020-03-17] VITALS (9 sets, daily range): BP systolic 87–121; BP diastolic 65–77
[2020-03-17] MEDS: MORPHINE SULFATE 2 MG/ML SYR 1ML IV PRN ×2 (02:54→12:05)
[2020-03-17] MEDS: METOPROLOL SUCCINATE 25 MG TAB XL PO SCH ×3 (05:38→16:59)
--- NOTE | 2020-03-17 06:05 | Diagnostic Imaging Report ---
EXAMINATION: CHEST SINGLE (PORTABLE) INDICATION: ^DAILY WHILE CHEST TUBE IN PLACE ^[id number] ^0500 ^DAILY WHILE CHEST TUBE IN PLACE COMPARISON: 03/16/2020 FINDINGS: AP view TUBES and LINES: Unchanged right upper extremity PICC. LUNGS: Slightly decreased right basilar atelectasis. No new lung consolidation. PLEURA: No significant pleural effusion. HEART AND MEDIASTINUM: Unchanged. BONES AND SOFT TISSUES: No acute osseous lesion. Sternotomy wires and post CABG surgical change. UPPER ABDOMEN: No free air under the diaphragm. IMPRESSION: Slight interval decrease in right basilar atelectasis. Otherwise stable exam. Signed by: Michael Gayle MD on 03/17/2020 6:02 AM
[2020-03-17 06:28] LABS: ANION GAP 10.2 mmol/L (8-16); CALCIUM 9.2 mg/dL (8.4-10.2); CREATININE, SERUM 1.28 mg/dL (0.72-1.25); POTASSIUM 4.2 mmol/L (3.5-5.1)
[2020-03-17] MEDS: SODIUM CHLORIDE 0.9% 1000ML 1,000 ML IV SCH ×2 (08:10→16:41)
[2020-03-17] MEDS: DOCUSATE SODIUM 100 MG CAP PO SCH ×2 (08:30→16:41)
[2020-03-17] MEDS: FAMOTIDINE 20 MG/2 ML VIAL IV SCH (08:30)
[2020-03-17] MEDS: LORATADINE 10 MG TAB PO SCH (09:12)
[2020-03-17] MEDS ORDERED: FAMOTIDINE 20 MG TAB PO SCH (09:15)
[2020-03-17] MEDS: AMIODARONE 900MG 500 ML IV SCH (09:18)
--- NOTE | 2020-03-17 10:38 | Progress Note ---
DATE: SUBJECTIVE: The patient seen and evaluated. Discussed with Dr. Gerardo in details. REVIEW OF SYSTEMS: No nausea, vomiting, fever, chills, chest pain, shortness of breath, headache, dysuria, polyuria. PHYSICAL EXAMINATION: VITAL SIGNS: Temperature is 98.2, pulse is 102, respirations 23, blood pressure 97/66. GENERAL: Alert and oriented, no acute distress. CV: S1-S2. CHEST: Equal expansion. Clear to auscultation. No acute distress. ABDOMEN: Soft and nontender. No distention. EXTREMITIES: With 1+ edema and MAURI hose. MEDICATIONS: Medication list reviewed as far as Infectious Disease point of view, the patient is on Rocephin. LABORATORY STUDIES: No new CBC from today, however, previous white count was 8.65 with a hemoglobin 9.4, platelets 347. Sodium today is 135, potassium 4.2, and creatinine 1.28. MICROBIOLOGY: No new Microbiology study is available. IMAGING: Chest x-ray from today shows slight interval decrease in the right basilar atelectasis, otherwise stable exam. ASSESSMENT AND PLAN: 1. Strep bacteremia. 2. Status post right radical nephrectomy. 3. Tachycardia, on amiodarone. 4. Surgical wound on the right flank. 5. Constipation. 6. Debility. 7. Remains on Rocephin. Continue PT/OT. Please refer to chart for more information. Continue to monitor patient clinically and follow with the labs. Dictated by Eugenio Jose PA-C (Al) Jocelynn Gerardo MD /MODL /[id number]
[2020-03-17] MEDS: IRON SUCROSE 100 MG in SODIUM CHLORIDE 0.9% 100 ML 100 ML IV SCH (11:45)
[2020-03-17] MEDS: CEFTRIAXONE SOD 2 GM/NS 100 ML 100 ML IV SCH (11:53)
--- NOTE | 2020-03-17 12:05 | NUR ---
INFORMED DR CORDOVA PATIENT MEDICATED WITH MS04 PER ORDER, AFTER 20-30 MINUTES PATIENT WAS COLD AND CLAMMY AND DIAPHORETIC, ORDERS GIVEN TO D/C MORPHINE AT THIS TIME., WILL CONTINUE TO MONITOR
--- NOTE | 2020-03-17 13:30 | NUR ---
INFORMED DR PAGAN PATIENT C/O CHEST PAIN AND DIZZINESS AFTER MEDICATION ADMINISTRATION AND PT, BP 89/57 HR 117 AND EKG SHOWED AFIB RVR, ORDERS RECEIVED AND ENTERED.
--- NOTE | 2020-03-17 16:40 | Progress Note ---
DATE: SUBJECTIVE: Mr. Ramsay is seen and examined. Chart reviewed. The patient who is seen and is confused, but he is doing well now. Earlier he had some chest discomfort, but there is none at present time. REVIEW OF SYSTEMS: GENERAL: At present time, he is feeling better, but this time he is a bit confused. He has no complaints. VITAL SIGNS: Stable. His T-max 100.1. HEENT: Normocephalic. NECK: Supple. CHEST: Few crackles. COR: S1, S2. No S3, S4, or murmur. ABDOMEN: Soft. Bowel sounds present. No tenderness. EXTREMITIES: No edema. SKIN: No rash. IMPRESSION: 1. History of strep bacteremia. We will recheck blood cultures. He is currently on Rocephin. The patient finished more than two weeks of IV antibiotic. 2. Status post nephrectomy. 3. Congestive heart failure by Cardiology. 4. Constipation from debility. 5. Continue with PT/OT. 6. We will follow with you. Thank you for asking me to see this patient. MD YONATAN Ascencio/TOBIN /[id number]
[2020-03-17] MEDS: FAMOTIDINE 20 MG TAB PO SCH (16:41)
[2020-03-17] MEDS: TAMSULOSIN HCL 0.4 MG CAP PO SCH (19:28)
[2020-03-17] MEDS: HYDROCODONE/APAP 5MG-325MG TAB PO PRN (19:28)
[2020-03-18] VITALS (9 sets, daily range): BP systolic 104–113; BP diastolic 65–93
[2020-03-18] MEDS: METOPROLOL SUCCINATE 25 MG TAB XL PO SCH ×3 (00:49→12:08)
--- NOTE | 2020-03-18 02:12 | Progress Note ---
DATE: 03/17/2020 Cardiology Progress Note SUBJECTIVE: No major events. Still in atrial fibrillation with variable rate control. Denies any chest pain or shortness of breath. OBJECTIVE: VITAL SIGNS: Temperature afebrile, pulse 100, respiratory rate 18, blood pressure 112/66, and saturating 95% on 2 L nasal cannula. GENERAL: Middle-aged man, in no acute distress. CARDIOVASCULAR: Irregular rate and rhythm. No murmurs, rubs, or gallops. LUNGS: Clear to auscultation anteriorly. Decreased breath sounds at the bases. ABDOMEN: Soft, mildly tender, nondistended. NEURO AND PSYCH: Alert and oriented to person, place, and time. Normal affect. INPATIENT MEDICATIONS: Reviewed. LABORATORY DATA: Reviewed. TELEMETRY DATA: Reviewed, shows atrial fibrillation with heart rates in the 100-120 range. ASSESSMENT: 1. Atrial fibrillation with rapid ventricular response. 2. Status post nephrectomy. 3. Recent Strep bacteremia. 4. History of mitral valve repair. PLAN: Continue IV amiodarone. We will add IV digoxin. Continue metoprolol as blood pressure tolerates. We will convert to p.o. amiodarone tomorrow if heart rate is better. No anticoagulation given recent surgery and history of hematuria. Thank you for this consult. We will continue to follow. MD LORI Wilkes/MODL /[id number]
[2020-03-18] MEDS: SODIUM CHLORIDE 0.9% 1000ML 1,000 ML IV SCH ×3 (02:23→21:06)
[2020-03-18] MEDS: HYDROCODONE/APAP 5MG-325MG TAB PO PRN ×3 (03:04→23:15)
[2020-03-18] MEDS: FAMOTIDINE 20 MG TAB PO SCH ×2 (08:11→16:49)
[2020-03-18] MEDS: AMIODARONE 900MG 500 ML IV SCH (08:11)
[2020-03-18] MEDS: DOCUSATE SODIUM 100 MG CAP PO SCH ×2 (08:11→16:49)
[2020-03-18] MEDS: LORATADINE 10 MG TAB PO SCH (08:11)
[2020-03-18 08:30] LABS: BASOPHILS # (AUTO) 0.1 (0.0-0.1); BASOPHILS % 0.7 % (0.0-1.0); EOSINOPHILS # (AUTO) 0.4 (0.0-0.4); HEMATOCRIT 32.2 % (38.2-49.6); HEMOGLOBIN 9.5 g/dL (14.0-18.0); LYMPHOCYTES % 14.4 % (18.0-39.1); MEAN CORPUSCULAR HEMOGLOBIN 21.3 pg (28-32); MEAN CORPUSCULAR HGB CONC 29.5 g/dL (31-35); MEAN CORPUSCULAR VOLUME 72.2 fL (81-99); MONOCYTES # (AUTO) 0.4 (0.2-0.8); MONOCYTES % 6.5 % (4.4-11.3); NEUTROPHILS # (AUTO) 4.9 (2.1-6.9); NEUTROPHILS % 72.3 % (38.7-80.0); PLATELET COUNT 346 x10e3/uL (140-360); RED BLOOD COUNT 4.46 x10e6/uL (4.3-5.7); RED CELL DISTRIBUTION WIDTH 25.6 % (11.7-14.4)
[2020-03-18 08:45] LABS: ANION GAP 12.4 mmol/L (8-16); CALCIUM 9.2 mg/dL (8.4-10.2); CREATININE, SERUM 1.23 mg/dL (0.72-1.25); POTASSIUM 4.4 mmol/L (3.5-5.1)
[2020-03-18] MEDS: IRON SUCROSE 100 MG in SODIUM CHLORIDE 0.9% 100 ML 100 ML IV SCH (11:36)
[2020-03-18] MEDS: CEFTRIAXONE SOD 2 GM/NS 100 ML 100 ML IV SCH (12:02)
[2020-03-18] MEDS: AMIODARONE HCL 200 MG TAB PO SCH (16:49)
[2020-03-18] MEDS: METOPROLOL TARTRATE 50 MG TAB PO SCH ×2 (17:06→23:19)
--- NOTE | 2020-03-18 17:09 | Progress Note ---
DATE: SUBJECTIVE: The patient is seen and evaluated, discussed with Dr. Gerardo in details. REVIEW OF SYSTEMS: No nausea, no vomiting, no fever, no chills. No chest pain or shortness of breath. No headache. No dysuria. No polyuria. DICTATION ENDS HERE Dictated by Eugenio Gonzalez) URBAN Jose Jocelynn Gerardo MD /TOBIN /[id number]
[2020-03-18] MEDS: TAMSULOSIN HCL 0.4 MG CAP PO SCH (21:06)
[2020-03-19] VITALS (8 sets, daily range): BP systolic 113–133; BP diastolic 76–95
[2020-03-19] MEDS: HYDROCODONE/APAP 5MG-325MG TAB PO PRN ×3 (05:50→21:55)
[2020-03-19] MEDS: METOPROLOL TARTRATE 50 MG TAB PO SCH ×3 (05:55→20:20)
[2020-03-19] MEDS: LORATADINE 10 MG TAB PO SCH (08:18)
[2020-03-19] MEDS: AMIODARONE HCL 200 MG TAB PO SCH ×2 (08:18→17:05)
[2020-03-19] MEDS: DOCUSATE SODIUM 100 MG CAP PO SCH ×2 (08:18→17:05)
[2020-03-19] MEDS: DIGOXIN 0.125 MG TAB PO SCH (08:18)
[2020-03-19] MEDS: FAMOTIDINE 20 MG TAB PO SCH ×2 (08:18→17:05)
[2020-03-19] MEDS: CEFTRIAXONE SOD 2 GM/NS 100 ML 100 ML IV SCH (11:55)
[2020-03-19] MEDS: IRON SUCROSE 100 MG in SODIUM CHLORIDE 0.9% 100 ML 100 ML IV SCH (11:55)
[2020-03-19] MEDS: SODIUM CHLORIDE 0.9% 1000ML 1,000 ML IV SCH (11:55)
[2020-03-19] MEDS: TAMSULOSIN HCL 0.4 MG CAP PO SCH (20:20)
[2020-03-20] VITALS: BP 118/70
--- NOTE | 2020-03-20 00:34 | Progress Note ---
DATE: 03/19/2020 Cardiology Progress Note SUBJECTIVE: No major events overnight. Heart rate is a little better controlled today, feeling better. OBJECTIVE: VITAL SIGNS: Temperature afebrile, pulse 86, respiratory rate 20, blood pressure 127/78, saturating 99% on room air. GENERAL: Middle-aged man, well developed, well nourished, in no acute distress. CARDIOVASCULAR: Irregular rate and rhythm. No murmurs, rubs, or gallops. LUNGS: Clear to auscultation bilaterally. ABDOMEN: Soft, nontender, nondistended. NEURO AND PSYCH: Alert and oriented to person, place, and time. Normal affect. INPATIENT MEDICATIONS: Reviewed. LABORATORY DATA: Reviewed. TELEMETRY DATA: Reviewed, shows AFib, rate controlled. IMPRESSION: 1. Atrial fibrillation with rapid ventricular response. 2. Recent Streptococcal bacteremia. 3. History of mitral valve repair. PLAN: We will consolidate metoprolol to 100 mg twice a day. Continue digoxin and oral amiodarone. Heart rate is better controlled today. No anticoagulation given recent nephrectomy. The patient is okay to be discharged from cardiovascular standpoint. Follow up in clinic 1 to 2 weeks. Thank you for this consult. We will continue to follow. MD LORI Wilkes/TOBIN /[id number]
[2020-03-20] MEDS: HYDROCODONE/APAP 5MG-325MG TAB PO PRN ×3 (04:15→16:35)
[2020-03-20 04:45] VITALS: BP 120/78
[2020-03-20] MEDS: SODIUM CHLORIDE 0.9% 1000ML 1,000 ML IV SCH ×2 (05:08→07:33)
[2020-03-20 05:42] LABS: BASOPHILS % 0.6 % (0.0-1.0); EOSINOPHILS # (AUTO) 0.4 (0.0-0.4); EOSINOPHILS % 5.6 % (0.0-6.0); HEMATOCRIT 27.8 % (38.2-49.6); HEMOGLOBIN 8.3 g/dL (14.0-18.0); LYMPHOCYTES # (AUTO) 1.1 (1.0-3.2); MEAN CORPUSCULAR HEMOGLOBIN 21.1 pg (28-32); MEAN CORPUSCULAR HGB CONC 29.9 g/dL (31-35); MEAN CORPUSCULAR VOLUME 70.7 fL (81-99); MONOCYTES # (AUTO) 0.6 (0.2-0.8); MONOCYTES % 8.3 % (4.4-11.3); NEUTROPHILS # (AUTO) 4.5 (2.1-6.9); NEUTROPHILS % 67.9 % (38.7-80.0); PLATELET COUNT 281 x10e3/uL (140-360); RED BLOOD COUNT 3.93 x10e6/uL (4.3-5.7); RED CELL DISTRIBUTION WIDTH 25.6 % (11.7-14.4)
[2020-03-20 05:55] LABS: CALCIUM 8.5 mg/dL (8.4-10.2); CREATININE, SERUM 1.2 mg/dL (0.72-1.25)
--- NOTE | 2020-03-20 07:33 | NUR ---
MD FERRELL INTO SEE PT, DISCUSSED DISCHARGE INSTRUCTIONS, PT VERBALIZED UNDERSTANDING
--- NOTE | 2020-03-20 07:42 | NUR ---
Patient condition throughout the shift was stable, patient endorsed to next shift for continuity of care.
[2020-03-20 07:44] LABS: ANISOCYTOSIS MODERATE; HYPOCHROMASIA SLIGHT; MICROCYTOSIS SLIGHT
[2020-03-20 07:45] LABS: ELLIPTOCYTE, RBC SLIGHT; PLATELET ESTIMATE ADEQUATE; PLATELET MORPHOLOGY COMMENT NORMAL; RBC MORPHOLOGY COMMENT ABNORMAL
[2020-03-20 07:46] VITALS: BP 130/91
[2020-03-20 07:46] LABS: OVALOCYTES FEW
[2020-03-20 07:47] LABS: SCHISTOCYTES RARE
--- NOTE | 2020-03-20 08:42 | NUR ---
MD CORDOVA INTO SEE PT, DISCUSSED POC AND DISCHARGE INSTRUCTIONS, DISCHARGE PENDING CONSULTS TO SEE PT PRIOR TO DC
--- NOTE | 2020-03-20 09:23 | NUR ---
EDUCATED ABOUT IMM, SIGNED, FILED IN CHART, WITH COPY LEFT WITH FAMILY AT BEDSIDE.
[2020-03-20] MEDS: DOCUSATE SODIUM 100 MG CAP PO SCH ×2 (09:56→16:35)
[2020-03-20] MEDS: METOPROLOL TARTRATE 50 MG TAB PO SCH (09:56)
[2020-03-20] MEDS: FAMOTIDINE 20 MG TAB PO SCH ×2 (09:56→16:35)
[2020-03-20] MEDS: LORATADINE 10 MG TAB PO SCH (09:56)
[2020-03-20] MEDS: AMIODARONE HCL 200 MG TAB PO SCH ×2 (09:56→16:35)
[2020-03-20] MEDS: DIGOXIN 0.125 MG TAB PO SCH (09:56)
[2020-03-20 09:58] VITALS: BP 130/91
--- NOTE | 2020-03-20 10:05 | Discharge Summary ---
CONSULTANTS: 1. Dr. Jocelynn Gerardo. 2. Dr. Antwan Cheek. 3. Dr. Jax Conn. 4. Dr. Jose Angel Cui. 5. Dr. Pantera Donovan. FINAL DIAGNOSES: 1. Acute complex right renal mass with right indwelling ureteral stent. 2. Status post thoracoabdominal incision with complicated right radical nephrectomy, right tube thoracostomy, chest tube removal status post right ureterotomy with removal of stent and intraurethral mass. procedure was done by Dr. Pantera Donovan. DISCHARGE MEDICATIONS: 1. Zofran ODT p.r.n. 2. Ferrous sulfate 325 mg b.i.d. 3. Colace 100 mg b.i.d. 4. Keflex 500 mg t.i.d. for 10 days. 5. Lopressor 100 mg b.i.d. 6. Flomax 0.4 mg q.p.m. 7. Pepcid 20 mg b.i.d. 8. Digoxin 0.125 mg daily. 9. Amiodarone 200 mg b.i.d. HOSPITAL COURSE: The patient is 74 years old male, admitted to ICU after right radical nephrectomy and right ureterotomy with removal of stent and intraurethral mass. Procedure was done by Dr. Pantera Donovan and Dr. Cheng Donovan. The patient had no complication. He is doing much better now. Stable on the right side, still intact. No sign of infection in the skin area. Chest tube, cardiac thoracotomy removal. The patient is breathing well. No oxygen needed. The patient is stable. LABORATORY DATA: Sodium 138, potassium 4, chloride 108, bicarb 25, BUN 16, creatinine 1.2, glucose 83. WBC 6.6, hemoglobin 8.3 with hemodilution. No gross bleed. Hematocrit 27.8, platelets 281. HISTORY OF PRESENT ILLNESS: The patient is doing well, stable. Liver enzymes unremarkable. The patient is stable for discharge home today. He will follow up with Dr. Pantera Donovan for staple removal. The patient to follow up with his primary care physician whoever sign by his insurance for continue to monitor closely medication reconciliation. He will follow up with Dr. Antwan Cheek for atrial fibrillation treatment. The patient is in normal sinus rhythm with medication. The patient is stable with discharged home today. MD ERNIE Zhang /[id number]
--- NOTE | 2020-03-20 10:11 | NUR ---
AL WITH MD DECKER INTO SEE PT, DISCUSSED POC, PT TO FOLLOW UP WITH MD DECKER IN 2 WEEKS, WILL CONTINUE HOME IV ANTIBIOTICS FROM LAST DISCHARGE
--- NOTE | 2020-03-20 10:50 | Progress Note ---
DATE: SUBJECTIVE: The patient is seen and evaluated. Available labs and notes reviewed. Discharge planning noted. Discussed with the nurse and discussed with Dr. Gerardo. REVIEW OF SYSTEMS: No nausea. No vomiting. No fever. No chills. No chest pain. No shortness of breath. No headache. No dysuria. No polyuria. PHYSICAL EXAMINATION: VITAL SIGNS: Temperature 97.9, pulse 86, respiration 19, and blood pressure 130/91. GENERAL: Alert and oriented, no acute distress. CV: S1 and S2. CHEST: Equal expansion. Clear to auscultation. No acute distress. HEENT: Moist. No pallor. No JVD. EXTREMITIES: Moves all. No significant edema with MAURI hose. : Right flank surgical site remains with reynold. ANITHA drain removed. No obvious drainage noted from the surgical site. No erythema or no tightness of the skin in area. MEDICATIONS: Medication list reviewed and as far as Infectious Disease point of view, the patient is on Rocephin. LABORATORY STUDIES: White count is 6.63, hemoglobin 8.3, and platelet 281. Sodium 138, potassium 4, and creatinine 1.2. 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 Please refer to pathology note and results. IMAGING: There are no new radiology studies available. ASSESSMENT AND PLAN: 1. Strep bacteremia. 2. Status post radical right nephrectomy. 3. Surgical wound. 4. Debility. 5. Congestive heart failure. 6. Anemia. 7. Leukocytosis, resolved. 8. Currently on Rocephin, discontinue plan noted. Discussed with the nurse and the patient. The patient has some IV antibiotic at home, instructed the patient to complete his IV antibiotics and follow up with us/with Dr. Gerardo in 10 days to 14 days after discharge or sooner if he needs to. Please refer to chart for more information. Dictated by Eugenio Gonzalez) URBAN Jose Jocelynn Gerardo MD /MODL /[id number]
[2020-03-20] MEDS ORDERED: TYLENOL WITH C1 EACH PO (10:58)
[2020-03-20] MEDS ORDERED: FERROUS SULFAT325 M1 PO (10:59)
[2020-03-20] MEDS ORDERED: ZOFRAN4 MG PO (10:59)
[2020-03-20] MEDS ORDERED: COLACE100 MG PO (11:00)
[2020-03-20] MEDS ORDERED: KEFLEX500 MG PO (11:01)
[2020-03-20] MEDS ORDERED: LOPRESSOR25 MG PO (11:04)
[2020-03-20] MEDS ORDERED: FLOMAX0.4 MG PO (11:04)
[2020-03-20] MEDS ORDERED: PEPCID20 MG PO (11:09)
[2020-03-20] MEDS ORDERED: DIGOXIN125 MCG PO (11:10)
[2020-03-20] MEDS ORDERED: AMIODARONE HCL200 MG PO (11:10)
[2020-03-20] MEDS: CEFTRIAXONE SOD 2 GM/NS 100 ML 100 ML IV SCH (11:39)
[2020-03-20 11:56] VITALS: BP 129/79
--- NOTE | 2020-03-20 12:03 | NUR ---
MD Betancourt COVERING FOR MD YOUNGBLOOD INTO SEE PT, DISCUSSED POC
[2020-03-20] MEDS: IRON SUCROSE 100 MG in SODIUM CHLORIDE 0.9% 100 ML 100 ML IV SCH (12:42)
--- NOTE | 2020-03-20 13:41 | NUR ---
SPOKE WITH DR VANG FOR DC ORDERS ON PT, STATES MD GAMEZ IS ROUNDING, WILL CALL ME BACK
--- NOTE | 2020-03-20 15:16 | NUR ---
SPOKE WITH DR VANG, STATES MD GAMEZ WILL ROUND ON PT AND DECIDE IF OKAY FROM [facility] FOR DC, PT NOTIFIED
--- NOTE | 2020-03-20 17:33 | NUR ---
MD GAMEZ INTO SEE PT, DISCUSSED DISCHARGE INSTRUCTIONS, PT VERBALIZED UNDERSTANDING, NURSE REVIEWED ALL DISCHARGE INSTRUCTIONS, PT VERBALIZED UNDERSTANDING, PICC INTACT AND FLUSHES TO RUE, DISCHARGING WITH PICC FOR HOME IV ANTIBIOTICS, WHEELED OFF UNIT VIA WC FOR DISCHARGE, NO CHANGE IN CONDITION
== END 2020-03-20 18:47 | disposition home or self-care (01) | DRG 853 ==
LOC: OR 11:05 → ICU 17:34 → IMCU 03-16 10:22
PROVIDERS: ADMIT Internal Medicine; ATTEND Internal Medicine
PROC: 0T9 Urinary System, Drainage (ICD-10-PCS; 2020-03-13)
PROC: 0W9900Z Drainage of Right Pleural Cavity with Drainage Device, Open Approach (ICD-10-PCS; 2020-03-13)
PROC: 0W9900Z Drainage of Right Pleural Cavity with Drainage Device, Open Approach (ICD-10-PCS; 2020-03-13)
PROC: 0TB00ZZ Excision of Right Kidney, Open Approach (ICD-10-PCS; principal; 2020-03-13 13:00)
DX: A40.9 Streptococcal sepsis, unspecified (principal); J93.0 Spontaneous tension pneumothorax; I48.20 Chronic atrial fibrillation, unspecified; I13.0 Hypertensive heart and chronic kidney disease with heart failure and stage 1 through stage 4 chronic kidney disease, or unspecified chronic kidney disease; E87.1 Hypo-osmolality and hyponatremia; N17.9 Acute kidney failure, unspecified; N28.89 Other specified disorders of kidney and ureter; T81.82XA Emphysema (subcutaneous) resulting from a procedure, initial encounter; I34.0 Nonrheumatic mitral (valve) insufficiency; M17.11 Unilateral primary osteoarthritis, right knee; I11.0 Hypertensive heart disease with heart failure; D64.9 Anemia, unspecified; Z79.01 Long term (current) use of anticoagulants; Z86.19 Personal history of other infectious and parasitic diseases; N18.3 Chronic kidney disease, stage 3 (moderate)
CPT/HCPCS: 36415; 71045; 71046; 80048; 80053; 82565; 82948; 83540; 83735; 84466; 85025; 86850; 86900; 86920; 87635; 88305; 88309; 88329; 93005; 97139; 99251; J0290; J0690; J0696; J1100; J1170; J1756; J2001; J2150; J2270; J2405; J2710; J7030

== ENCOUNTER 2020-05-17 21:07 | Inpatient (IN) | payer MEDICARE, OTHER ==
[~2020-05-17] VITALS: Ht 180.3 cm; Wt 78.0 kg
[~2020-05-17 21:07] MED LIST changes: +COLACE100 MG PO; +FERROUS SULFAT325 M1 PO; +FLOMAX0.4 MG PO; +KEFLEX500 MG PO; +LOPRESSOR25 MG PO; +PEPCID20 MG PO; +ROCEPHIN IV
[2020-05-17] MEDS ORDERED: DILTIAZEM HCL 5 MG/ML 5 ML VIAL IV STA ×2 (21:44→21:48)
--- NOTE | 2020-05-17 21:44 | Emergency Department Note ---
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 He states that he has gained approximately 15-20 pounds in the last 3 weeks. Patient had a right nephrectomy on 03/13/2020, by Dr. Pantera Donovan, due to a mass on the right kidney that was shown to be clear cell carcinoma. During his hospital stay, patient developed atrial fibrillation with rapid ventricular return, that was successfully treated. Patient's billboard mechanic is Dr. Diaz Shortness of breath, weight gain, lower extremity edema. Patient was hospitalized for removal of the right kidney, due to a mass. Patient a complicated hospital course and developed A. fib with RVR during his stay. Patient was seen by his billboard mechanic Dr. Reveles, who managed the patient's care and patient was discharged on Lopressor 100 mg twice a day, digoxin 0.125 mg daily and amiodarone 200 mg twice a day. However, patient has not been taking this medication, and apparently has a history of noncompliance. He states that Dr. Reveles "knows that he does not take his medication." Patient presents to the ED with shortness of breath, and found to be in A. fib with RVR with heart rate 150s to 160s. Patient has poor insight into his disease state. He denies any fever, chills, nausea, or vomiting. He has had a dry cough, for the past few days. He denies any known sick contacts or exposure to Covid 19. 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 ) Timing of current episode: constant Progression: unchanged Chronicity: recurrent Context: Reports recent illness (sepsis and endocarditis 03/06/20, treated at [facility]), Reports recent surgery (radical right nephrectomy for 05/06/2020) Relieving factors: rest Exacerbating factors: movement (exertion) Associated symptoms: Reports chest pain (chest tightness), Reports cough (dry cough), Reports shortness of breath, Reports weakness; Denies fever/chills, Denies nausea/vomiting Treatments prior to arrival: none Risk factors: noncompliant with prescribed medication regimen Past Medical/Family History Physician Review I have reviewed the patient's past medical and family history. Any updates have been documented here. Past Medical History Recent Fever: No Clinical Suspicion of Infectio: No New/Unexplained Change in Ment: No Past Medical History: Hypertension, A-Fib Other Medical History: Clear Cell Carcinoma of Right Kidney Endocarditis - 02/2020 Sepsis - 02/2020 Other Surgery: KNEE SURGERY IN 1972 Mitral Valve Repair Right Radical Nephrectomy - 02/2020 Social History Smoking Cessation: Never Smoker Alcohol Use: None Any Illegal Drug Use: No TB Exposure/Symptoms: No Physically hurt or threatened: No Family History Family history of heart diseas: No Other Last Tetanus: 2016 Any Pre-Existing Lines (PICC,: No Is patient up to date on immun: No (1) Review of Systems Review of Systems Constitutional: Reports fever (he is); Denies chills EENTM: Reports no symptoms Cardiovascular: Reports chest pain (tightness) Respiratory: Reports cough, Reports dyspnea, Reports dyspnea on exertion; Denies pain with cough Gastrointestinal: Denies constipation, Denies diarrhea, Denies nausea, Denies vomiting Genitourinary: Denies dysuria, Denies frequency Musculoskeletal: Denies muscle pain, Denies neck pain Integumentary: Reports no symptoms Neurological: Reports no symptoms Psychological: Reports no symptoms Review of other systems: All other systems negative Physical Exam Related Data Allergies: Coded Allergies: No Known Allergies (Unverified , 04/14/17) Vital signs reviewed: Yes Physical Exam CONSTITUTIONAL Constitutional: Present well-nourished, Present ill appearing HENT HENT: Present normocephalic, Present atraumatic, Present oropharynx clear/moist, Present nose normal HENT L/R: Present left ext ear normal, Present right ext ear normal EYES Eyes: Reports PERRL, Reports conjunctivae normal NECK Neck: Present ROM normal; Absent JVD PULMONARY Pulmonary: Present effort normal (slight increased work of breathing), Present other (decreased breath sounds at bases;) CARDIOVASCULAR Cardiovascular: Present regular rhythm, Present heart sounds normal, Present capillary refill normal, Present normal rate GASTROINTESTINAL Abdominal: Present soft, Present nontender, Present bowel sounds normal GENITOURINARY Genitourinary: Present exam deferred SKIN Skin: Present warm, Present dry, Present pale; Absent rash MUSCULOSKELETAL Musculoskeletal: Present ROM normal NEUROLOGICAL Neurological: Present alert, Present oriented x 3, Present no gross motor or sensory deficits PSYCHOLOGICAL Psychological: Present mood/affect normal, Present judgement normal Results Laboratory Laboratory CBC - nl except for H/H = 12.7/39.3; CMP - nl except for BUN = 34, Cr = 1.5 (Cr = 1.2);, ALT = 513, AST = 240 (nl LFTs 02/2020); CARDIACS - nl except davi = 122; BNP = 2840 (BNP = 770, 02/21/2020); Lab results reviewed: Yes Imaging Imaging results reviewed: Yes Impressions [place] [id number] Patient Name: ROSAURA TORRES MR #: [id number] : 1945 Age/Sex: 74/M Req #: [id number] Adm Physician: Ordered by: ANDREW REIS MD Report #: [id number] Location: [facility] Room/Bed: Procedure: [id number] HOPD/CXR 1 [facility] Exam Date: 05/17/20 Exam Time: 2232 REPORT STATUS: Signed EXAMINATION: CXR 1 [facility] INDICATION: ^SOB ^[id number] ^2232 COMPARISON: None FINDINGS: TUBES and LINES: None. LUNGS: Ill-defined consolidation of the medial right lung base. Prominent central pulmonary vasculature. PLEURA: No pleural effusion or pneumothorax. HEART AND MEDIASTINUM: The cardiomediastinal silhouette is mildly enlarged. BONES AND SOFT TISSUES: No acute osseous lesion. Sternotomy wires. Soft tissues are unremarkable. UPPER ABDOMEN: No free air under the diaphragm. IMPRESSION: Ill-defined right lung base consolidation may represent atelectasis or pneumonia. Central pulmonary venous congestion. Signed by: Nereida Finley MD on 05/17/2020 11:02 PM Dictated By: NEREIDA FINLEY MD 01 Transcribed By: JOAO on 05/17/202301 COPY TO: ANDREW REIS MD~ Diagnostics Tests Diagnostic test(s) reviewed: Yes Assessment & Plan Medical Decision Making MDM consider CHF, pneumonia, PE, anemia Reassessment Reassessment - Pt with persistent afib, with RVR, despite the following: - Cardizem 10 mg IV x 2 doses - Amiodarone 150 mg IV load, following by loading infusion - Metoprolol 5 mg IV 00:16 am - case discussed with patient's billboard mechanic, Dr. Araujo, who will consult on patient, once admitted. She recommended: - Digoxin 250 mcg IV, Metoprolol 50 mg IV q 6 hours, with prn Metoprolol 5 mg IV, prn HR > 110bpm 00:55 - case discussed with Dr. Everett, and he is agreeable to admitting patient, with Dr. Araujo consulting 01:30 am -patinet's HR down in the low 100's. Awaiting transfer to [facility]. Pt remains comfortable and stable. Assessment & Plan Final Impression: (1) Atrial fibrillation with rapid ventricular response (2) CHF (congestive heart failure) (3) Hypertension (4) Elevated liver enzymes Depart Disposition: ADMITTED (to [facility] IMCU) Home Meds Reported Medications Amiodarone Hcl (AMIODARONE HCL) 200 Mg Tablet, 200 MG PO BID, #60 03/20/20 Digoxin (DIGOXIN) 125 Mcg Tablet, 0.125 MG PO DAILY, #90 TAB 03/20/20 Famotidine (PEPCID) 20 Mg Tablet, 20 MG PO BID, #60 TAB 20 Tamsulosin Hcl* (FLOMAX*) 0.4 Mg Cap, 0.4 MG PO HS, #30 CAP 20 Metoprolol Tartrate (LOPRESSOR) 25 Mg Tab, 100 MG PO BID, #60 TAB 03/20/20 Cephalexin Monohydrate (KEFLEX) 500 Mg Capsule, 500 MG PO TID, #30 20 Docusate Sodium (COLACE) 100 Mg Cap, 100 MG PO BID, #60 CAP 20 Ferrous Sulfate (FERROUS SULFATE) 325 Mg Tablet.dr, 325 MG PO BID, #60 20 Ondansetron Hcl* (ZOFRAN*) 4 Mg Tablet, 4 MG PO Q4HR PRN for NAUSEA, #60 20 Acetaminophen With Codeine (TYLENOL WITH CODEINE #3 TABLET) 1 Each Tablet, 300 MG PO Q4HR PRN for Mild Pain (1-3) or Fever>100.8, #30 TAB 03/20/20 ANDREW REIS MD May 17, 2020 21:44
[2020-05-17] MEDS ORDERED: DILTIAZEM HCL VIAL 5 ML ONE (21:49)
[2020-05-17] MEDS ORDERED: MORPHINE SULFATE 2 MG/ML SYR 1ML IV STA (22:05)
[2020-05-17] MEDS ORDERED: METOCLOPRAMIDE HCL 10 MG/2ML VIAL IV ONE (22:15)
[2020-05-17] MEDS ORDERED: AMIODARONE HCL INJ 150MG/3ML ONE ×4 (22:21→22:23)
[2020-05-17] MEDS ORDERED: AMIODARONE HCL 900 MG in DEXTROSE 5% 500ML 500 ML IV SCH (22:30)
[2020-05-17] MEDS ORDERED: AMIODARONE HCL 150MG 100 ML IV ONE (22:30)
--- NOTE | 2020-05-17 23:05 | Diagnostic Imaging Report ---
EXAMINATION: CXR 1 [facility] INDICATION: ^SOB ^[id number] ^2233 COMPARISON: None FINDINGS: TUBES and LINES: None. LUNGS: Ill-defined consolidation of the medial right lung base. Prominent central pulmonary vasculature. PLEURA: No pleural effusion or pneumothorax. HEART AND MEDIASTINUM: The cardiomediastinal silhouette is mildly enlarged. BONES AND SOFT TISSUES: No acute osseous lesion. Sternotomy wires. Soft tissues are unremarkable. UPPER ABDOMEN: No free air under the diaphragm. IMPRESSION: Ill-defined right lung base consolidation may represent atelectasis or pneumonia. Central pulmonary venous congestion. Signed by: Michael Gayle MD on 05/17/2020 11:02 PM
[2020-05-18] VITALS (10 sets, daily range): BP systolic 107–138; BP diastolic 77–92
[2020-05-18] MEDS ORDERED: METOPROLOL TARTRATE INJ 1 MG/ML VIAL IV ONE
[2020-05-18] MEDS ORDERED: FUROSEMIDE INJ 10 MG/ML 4 ML VIAL IV ONE (00:30)
[2020-05-18] MEDS ORDERED: DIGOXIN INJ 0.25 MG/ML 2 ML AMP IV ONE (00:30)
[2020-05-18] MEDS ORDERED: SODIUM CHLORIDE FLUSH 10 ML SYR INJ PRN (00:45)
[2020-05-18] MEDS ORDERED: METOPROLOL TARTRATE INJ 1 MG/ML VIAL IV PRN (00:45)
[2020-05-18] MEDS ORDERED: ONDANSETRON HCL INJ 2MG/ML 2ML 2 MG/ML VIAL IV PRN (00:45)
[2020-05-18] MEDS ORDERED: ASPIRIN 81 MG CHEW TAB PO ONE (00:45)
--- NOTE | 2020-05-18 01:18 | NUR ---
REPORT GIVEN TO STEFF CHANG AT THIS TIME.
[2020-05-18] MEDS ORDERED: AMIODARONE HCL 360MG 200 ML IV SCH (01:45)
[2020-05-18] MEDS: METOPROLOL TARTRATE 50 MG TAB PO SCH ×4 (05:59→20:56)
--- NOTE | 2020-05-18 06:48 | NUR ---
CALLED AND SPOKE TO DR ROMERO, MADE HER AWARE PATIENT IS CONSULTED TO HER.
[2020-05-18] MEDS ORDERED: FAMOTIDINE 20 MG/2 ML VIAL IV SCH (10:30)
[2020-05-18 10:43] LABS: BASOPHILS % 0.3 % (0.0-1.0); EOSINOPHILS # (AUTO) 0.1 (0.0-0.4); EOSINOPHILS % 0.4 % (0.0-6.0); HEMATOCRIT 37.1 % (38.2-49.6); HEMOGLOBIN 11.2 g/dL (14.0-18.0); LYMPHOCYTES # (AUTO) 1.7 (1.0-3.2); LYMPHOCYTES % 14.5 % (18.0-39.1); MEAN CORPUSCULAR HEMOGLOBIN 22.7 pg (28-32); MEAN CORPUSCULAR HGB CONC 30.2 g/dL (31-35); MEAN CORPUSCULAR VOLUME 75.3 fL (81-99); MONOCYTES # (AUTO) 1.3 (0.2-0.8); MONOCYTES % 10.8 % (4.4-11.3); NEUTROPHILS # (AUTO) 8.6 (2.1-6.9); NEUTROPHILS % 73.6 % (38.7-80.0); PLATELET COUNT 228 x10e3/uL (140-360); RED BLOOD COUNT 4.93 x10e6/uL (4.3-5.7); RED CELL DISTRIBUTION WIDTH 22.2 % (11.7-14.4)
--- NOTE | 2020-05-18 10:58 | History and Physical ---
PRIMARY CARE PHYSICIAN: . BIOLOGICAL LAB TECHNICIAN: Dr. rPiya Araujo. CHIEF COMPLAINT: Atrial fibrillation with rapid ventricular rate response associated with congestive heart failure. HISTORY: A 74-year-old male with right nephrectomy back on March 13, 2020. The patient has the right complex renal mass and the patient is status post complicated right radical nephrectomy. He also had at that time right tube thoracostomy. He had a right ureterostomy with removal of stent and intraureteral mass. The patient was stable. He apparently went off on his medication. He came in at this time with increasing shortness of breath and atrial fibrillation. The patient also gained significant amount of weight. He also had lower extremity edema. The patient is admitted for further treatment. Amiodarone, Lopressor, and digoxin initiated. The patient is stable at this time in [facility]. PAST MEDICAL HISTORY: Right radical nephrectomy back in February 2020. History of mitral valve repair. Atrial fibrillation with rapid ventricular rate response. Status post strep bacteremia previously. Congestive heart failure. Hypertension. Diabetes type 2. Clear cell carcinoma of the right kidney. SOCIAL HISTORY: The patient does not smoke or use alcohol. No regular drugs. ALLERGIES: NO KNOWN ALLERGIES. HOME MEDICATIONS: 1. Tylenol No. 3. 2. Amiodarone. 3. Digoxin. 4. Metoprolol tartrate. 5. Flomax. 6. Zofran. PHYSICAL EXAMINATION: VITAL SIGNS: Temperature is 98, blood pressure 128/88, pulse rate is 115, respirations 22. GENERAL: The patient is comfortable. He is not in distress. HEENT: Normocephalic and atraumatic. He is anicteric. NECK: Supple grossly. PULMONARY: Diminished breath sounds bilaterally with rales. CARDIOVASCULAR: Atrial fibrillation with rapid rate. EXTREMITIES: No cyanosis, positive edema. NEUROLOGIC: No focal deficits. Moving all extremities. LABORATORY DATA: Pending. IMPRESSION: 1. Wvinn-vl-eapfbto systolic dysfunction congestive heart failure. 2. Atrial fibrillation with rapid ventricular rate response. 3. Chest x-ray one view showed ill-defined right lung base consolidation, could be secondary to pneumonia versus other etiologies. 4. Multiple baseline medical problems. PLAN: Repeat lab work. Repeat the CMP and CBC. Monitor the patient's electrolytes. Treatment for congestive heart failure and atrial fibrillation. CT chest without contrast. We will monitor the patient closely at this time and we will follow up. Dr. Araujo has been notified. Echocardiogram. MD SULMA Zhang/TOBIN /[id number]
[2020-05-18] MEDS: PIPER-TAZ 3.375 GM 50 ML IV SCH ×4 (11:00→23:29)
[2020-05-18 11:01] LABS: ALBUMIN 2.7 g/dL (3.5-5.0); ALBUMIN/GLOBULIN RATIO 0.8 (0.8-2.0); ANION GAP 12.2 mmol/L (8-16); CALCIUM 8.6 mg/dL (8.4-10.2); CREATININE, SERUM 1.46 mg/dL (0.72-1.25); POTASSIUM 4.2 mmol/L (3.5-5.1)
[2020-05-18 11:52] LABS: LYMPHOCYTES % (MANUAL) 11 % (19-48); MONOCYTES % (MANUAL) 8 % (3.4-9.0); NEUTROPHILS % (MANUAL) 81 % (40-74)
[2020-05-18 12:08] LABS: CREATINE KINASE MB 2.5 ng/mL (0-5.0)
--- NOTE | 2020-05-18 14:19 | Diagnostic Imaging Report ---
EXAM: CT Chest, Abdomen and Pelvis WITHOUT intravenous contrast INDICATION: Atrial fibrillation, congestive heart failure COMPARISON: Chest radiograph 03/17/2020 TECHNIQUE: The chest, abdomen and pelvis were scanned utilizing a multidetector helical scanner from the thoracic inlet to the pubic symphysis without administration of IV contrast. Coronal and sagittal reformations were obtained. IV CONTRAST: None ORAL CONTRAST: None COMPLICATIONS: None RADIATION DOSE: Total DLP: 956 mGy*cm Dose modulation, iterative reconstruction, and/or weight based adjustment of the mA/kV was utilized to reduce the radiation dose to as low as reasonably achievable. FINDINGS: LINES/ TUBES: None. LUNGS AND AIRWAYS: The central airways are patent. Linear and groundglass opacities at the dependent right lower lobe most likely represent atelectasis. Ground glass opacities at the dependent right middle lobe. PLEURA: Small right pleural effusion. No pneumothorax. HEART AND MEDIASTINUM: The thyroid gland is normal. No supraclavicular, axillary, mediastinal, or hilar lymphadenopathy. Mild multichamber cardiomegaly. No pericardial effusion.. Minimal atherosclerotic calcifications of the thoracic aorta. HEPATOBILIARY: Nodular liver surface contour compatible with hepatic cirrhosis. Subcentimeter hepatic hypodensity, too small to adequately characterize. Small moderate of hyperdense layering material in the dependent portion of the gallbladder may represent sludge versus secretion of contrast material if the patient has had recent intravenous contrast at another institution. SPLEEN: No splenomegaly. PANCREAS: No focal masses or ductal dilatation. ADRENALS: No adrenal nodules. KIDNEYS/URETERS: Status post right nephrectomy. No hydronephrosis, renal calculi, or solid mass lesion of the left kidney. PELVIC ORGANS/BLADDER: Unremarkable. PERITONEUM / RETROPERITONEUM: Small volume ascites in the abdomen and pelvis. LYMPH NODES: No lymphadenopathy. VESSELS: Mild scattered atherosclerotic calcifications of the abdominal aorta and major branches. GI TRACT: No abnormal bowel thickening. No bowel obstruction. BONES AND SOFT TISSUES: Diffuse subcutaneous soft tissue edema. No acute osseous injury. No suspicious lytic or blastic lesions. Multilevel degenerative changes of the visualized spine. IMPRESSION: Linear and groundglass opacities at the dependent portions of the right lower lobe and right middle lobe may represent subsegmental atelectasis however a component of superimposed pneumonitis cannot be excluded. Mild cardiomegaly and small right pleural effusion. No amelia pulmonary edema. Hepatic cirrhosis and small volume abdominal and pelvic ascites. Status post right nephrectomy. Diffuse subcutaneous soft tissue edema. Signed by: Kimberli Davis MD on 05/18/2020 2:15 PM
[2020-05-18] MEDS: FAMOTIDINE 20 MG/2 ML VIAL IV SCH (16:36)
[2020-05-18] MEDS ORDERED: FAMOTIDINE 20 MG TAB PO SCH (17:00)
--- NOTE | 2020-05-18 18:11 | NUR ---
informed dr dunham unable to administer Metoprol po due to parameters, and that Amiodarone drip continuous, orders received to stop Amiodarone drip when complete. will continue to monitor.
[2020-05-18] MEDS: TAMSULOSIN HCL 0.4 MG CAP PO SCH (20:54)
[2020-05-18] MEDS: BENZONATATE 100 MG CAP PO PRN (20:54)
[2020-05-19] VITALS (7 sets, daily range): BP systolic 102–131; BP diastolic 63–89
--- NOTE | 2020-05-19 02:07 | Consultation ---
DATE OF CONSULTATION: 05/18/2020 Cardiology Consult Note REASON FOR CONSULTATION: AFib with RVR. CHIEF COMPLAINT: Rapid heart rate and shortness of breath. HISTORY OF PRESENT ILLNESS: A 74-year-old man with history of atrial fibrillation, history of renal mass, status post nephrectomy recently in February. He stopped taking his medications for AFib and presents with AFib with RVR, and worsening lower extremity edema and shortness of breath. Denies any chest pain. Currently, heart rate is better after administration of IV amiodarone. PAST MEDICAL HISTORY: As per HPI, otherwise negative. SOCIAL HISTORY: Does not smoke, drink, or abuse drugs. FAMILY HISTORY: Noncontributory. OUTPATIENT MEDICATIONS: Reviewed. ALLERGIES: NO KNOWN ALLERGIES. PHYSICAL EXAMINATION: VITAL SIGNS: Temperature afebrile, pulse 110, blood pressure 128/88, saturating 98% on nasal cannula. GENERAL: Well-developed, well-nourished, in no acute distress. CARDIOVASCULAR: Irregular, tachycardic. No murmurs, rubs, or gallops. LUNGS: Coarse breath sounds at the bases. ABDOMEN: Soft, nontender, and nondistended. NEURO AND PSYCH: Alert and oriented. INPATIENT MEDICATIONS: Reviewed. LABORATORY DATA: Reviewed. Troponins negative. TELEMETRY DATA: Reviewed, shows AFib with RVR. ASSESSMENT/PLAN: 1. Atrial fibrillation with rapid ventricular response. 2. Isxls-wn-zxwvprd systolic congestive heart failure exacerbation. PLAN: We will change to p.o. amiodarone. We will add oral metoprolol. Continue diuresing as renal function tolerates. Thank you for this consult. We will continue to follow. MD ELIER WilkesP/MODL /[id number]
[2020-05-19] MEDS: PIPER-TAZ 3.375 GM 50 ML IV SCH ×4 (05:32→23:22)
[2020-05-19 06:02] LABS: BASOPHILS % 0.4 % (0.0-1.0); EOSINOPHILS # (AUTO) 0.2 (0.0-0.4); EOSINOPHILS % 1.8 % (0.0-6.0); HEMATOCRIT 37.5 % (38.2-49.6); HEMOGLOBIN 11.3 g/dL (14.0-18.0); LYMPHOCYTES # (AUTO) 1.1 (1.0-3.2); LYMPHOCYTES % 11.1 % (18.0-39.1); MEAN CORPUSCULAR HEMOGLOBIN 22.7 pg (28-32); MEAN CORPUSCULAR HGB CONC 30.1 g/dL (31-35); MEAN CORPUSCULAR VOLUME 75.5 fL (81-99); MONOCYTES # (AUTO) 0.9 (0.2-0.8); MONOCYTES % 9.4 % (4.4-11.3); NEUTROPHILS # (AUTO) 7.4 (2.1-6.9); PLATELET COUNT 211 x10e3/uL (140-360); RED BLOOD COUNT 4.97 x10e6/uL (4.3-5.7); RED CELL DISTRIBUTION WIDTH 22.3 % (11.7-14.4)
[2020-05-19 06:13] LABS: ALBUMIN 2.5 g/dL (3.5-5.0); ALBUMIN/GLOBULIN RATIO 0.8 (0.8-2.0); ANION GAP 12.8 mmol/L (8-16); CALCIUM 8.3 mg/dL (8.4-10.2); CREATININE, SERUM 1.35 mg/dL (0.72-1.25); POTASSIUM 3.8 mmol/L (3.5-5.1)
[2020-05-19 06:42] LABS: MAGNESIUM 1.9 MG/DL (1.3-2.1); PHOSPHORUS 2.9 MG/DL (2.3-4.7)
[2020-05-19] MEDS: BENZONATATE 100 MG CAP PO PRN ×3 (07:30→23:37)
[2020-05-19] MEDS ORDERED: FUROSEMIDE INJ 10 MG/ML 4 ML VIAL IV SCH (09:00)
[2020-05-19] MEDS: AMIODARONE HCL 200 MG TAB PO SCH ×2 (09:28→17:21)
[2020-05-19] MEDS: FAMOTIDINE 20 MG/2 ML VIAL IV SCH ×2 (09:28→17:21)
[2020-05-19] MEDS: METOPROLOL TARTRATE 50 MG TAB PO SCH ×2 (09:28→20:32)
[2020-05-19] MEDS ORDERED: SODIUM CHLORIDE 0.9% 250ML 250 ML ONE (12:04)
--- NOTE | 2020-05-19 14:58 | NUR ---
Attempted to walk patient down the hernandes as ordered by Dr. Diaz for discharge evaluation patient's SPO2 went down to 88% and heart rate went to 120-125.
[2020-05-19] MEDS: TAMSULOSIN HCL 0.4 MG CAP PO SCH (20:32)
[2020-05-19] MEDS: FUROSEMIDE INJ 10 MG/ML 4 ML VIAL IV SCH (23:00)
--- NOTE | 2020-05-20 01:37 | Progress Note ---
DATE: 05/19/2020 Cardiology Progress Note SUBJECTIVE: The patient denies chest pain or shortness of breath. OBJECTIVE: VITAL SIGNS: Temperature 97.8 degrees, pulse 86, respiratory rate 15, blood pressure 118/62, oxygen saturation 96%. GENERAL: Elderly man, in no acute distress, awake and alert. LUNGS: Clear to auscultation bilaterally. No wheeze or crackles. CARDIOVASCULAR: Normal rate. Irregularly irregular. No murmur. Normal S1, S2. ABDOMEN: Soft and nontender. EXTREMITIES: No edema. CARDIAC MEDICATIONS: Metoprolol tartrate 50 mg p.o. q.12 hours, amiodarone 200 mg p.o. b.i.d., furosemide 40 mg IV daily. LABORATORY DATA: WBC 9.58, hemoglobin 11.3, hematocrit 37.5, platelets 211. Sodium 138, potassium 3.8, chloride 107, CO2 of 23, BUN 27, creatinine 1.35. TELEMETRY: Personally reviewed and interpreted, revealed atrial fibrillation. IMPRESSION: 1. Atrial fibrillation with rapid ventricular response. 2. Pulmonary hypertension. 3. Moderate right ventricular systolic dysfunction. 4. Severe mitral regurgitation, status post mitral valve repair in 2017. RECOMMENDATIONS: Continue IV diuretics. If the patient is able to ambulate without hypoxia or tachycardia, he may be discharged home. Otherwise, we will increase his metoprolol and give additional IV diuretics. Continue current cardiac medications otherwise. Monitor creatinine. Replete electrolytes. Thank you for this consult. We will continue to follow. Priya Araujo MD ABS/MODL /[id number]
[2020-05-20 04:21] VITALS: BP 124/84
[2020-05-20 04:44] VITALS: BP 124/84
[2020-05-20] MEDS: PIPER-TAZ 3.375 GM 50 ML IV SCH ×2 (05:54→10:05)
[2020-05-20 07:33] VITALS: BP 128/83
[2020-05-20 08:10] VITALS: BP 128/83
[2020-05-20] MEDS: FAMOTIDINE 20 MG/2 ML VIAL IV SCH (08:23)
[2020-05-20] MEDS: AMIODARONE HCL 200 MG TAB PO SCH (08:23)
[2020-05-20] MEDS: FUROSEMIDE INJ 10 MG/ML 4 ML VIAL IV SCH (08:23)
[2020-05-20] MEDS ORDERED: METOPROLOL TARTRATE 50 MG TAB PO SCH (09:00)
--- NOTE | 2020-05-20 10:13 | Discharge Summary ---
PRIMARY CARE PHYSICIAN: Dr. Jason Aponte. SUPERINTENDENT BUILDING: Dr. Priya Araujo. FINAL DIAGNOSES: 1. Sfklc-aa-vrizxzl systolic dysfunction. 2. Congestive heart failure secondary to uncontrolled atrial fibrillation with rapid ventricular rate response. The patient did not take any of his medication at home. 3. Status post pulmonary edema. 4. History of recent right nephrectomy. SUMMARY: The patient is a 74-year-old male, who was on amiodarone, digoxin, and metoprolol at home, did not take any of his medication, came in with rapid ventricular rate response result and also pulmonary edema on chest x-ray with vascular congestion. The patient has received diuresis significantly. Repeated CT scan shows significant improvement. He does have cardiomegaly. Has small right pleural effusion. No amelia pulmonary edema on the CT scan post diuresis. Chest x-ray was unreliable. The patient also had abdominal and pelvic CT scan as well. There is no acute finding in the abdomen. The patient has atelectasis of the lung. He has hepatic cirrhosis. He has history of recent status post right nephrectomy. The patient is stable now. His vital signs are stable. He has significantly diuresed for the past few days. His heart rate has improved. The patient is stable. He will be evaluated for home O2. If he qualifies, will be set up. If not, the patient will go home without oxygen. He is asked to quarantine for 2 weeks. The patient discharged home with prescription that I wrote for the patient for his previous medication that he was supposed to take including amiodarone 200 mg twice a day, metoprolol tartrate 100 mg twice a day, digoxin 0.125 mg daily and add on Lasix 40 mg twice a day for diuretic, Tessalon Perles as needed for cough, and doxycycline monohydrate 100 mg twice a day for 10 days. The patient is otherwise stable. He is feeling much better. No further lower extremity edema. He should follow up with his digital media associate and his primary care physician within 2 to 3 weeks. MD SUMLA Zhang/TOBIN /[id number]
--- NOTE | 2020-05-20 10:24 | NUR ---
ORDER RECEIVED FOR HOME O2. CALL TO PT'S ROOM AND CELL PHONE @ [phone]. NO ANSWER. STEFF BAILEY CAME TO CM OFFICE. WILL FAX O2 SAT EVAL AND WILL GIVE PT HIS PHONE. STATES PT HAS DESATTED TO 84% WHILE AMBULATING PT. PLAN TO DC HOME TODAY.
[2020-05-20 11:41] VITALS: BP 115/82
[2020-05-20 13:06] LABS: ANION GAP 13.7 mmol/L (8-16); CALCIUM 8.9 mg/dL (8.4-10.2); CREATININE, SERUM 1.46 mg/dL (0.72-1.25); POTASSIUM 3.7 mmol/L (3.5-5.1)
[2020-05-20] MEDS ORDERED: METOPROLOL TAR100 MG PO (14:22)
[2020-05-20] MEDS ORDERED: BENZONATATE100 MG PO (14:24)
[2020-05-20] MEDS ORDERED: DOXYCYCLINE MO100 MG PO (14:27)
--- NOTE | 2020-05-20 14:32 | NUR ---
O2 TANK DELIVERED TO [facility]. STEFF BAILEY RECEIVED AND INSTRUCTED TO TELL THE PT TO CALL THE # ON THE TANK PRIOR TO LEAVING THE HOSPITAL TO ENSURE THEY RECEIVE THEIR CONCENTRATOR TODAY.
--- NOTE | 2020-05-21 02:05 | Progress Note ---
DATE: 05/20/2020 Cardiology Progress Note SUBJECTIVE: The patient denies chest pain. He continues to note dyspnea on exertion. OBJECTIVE: VITAL SIGNS: Temperature 98.2 degrees, pulse rate 98, respiratory rate 18, blood pressure 115/82, oxygen saturations 96% on 3 L nasal cannula. GENERAL: An elderly man, in no acute distress. Awake and alert. LUNGS: Clear to auscultation bilaterally. No wheezes or crackles. CARDIOVASCULAR: Normal rate. Irregularly irregular. No murmur. Normal S1, S2. ABDOMEN: Soft, nontender. EXTREMITIES: No edema. CARDIAC MEDICATIONS: 1. Furosemide 20 mg IV b.i.d. 2. Amiodarone 200 mg p.o. b.i.d. 3. Metoprolol tartrate 25 mg p.o. q.12 hours. LABORATORY DATA: Sodium 143, potassium 3.7, chloride 105, CO2 of 28, BUN 23, creatinine 1.46. Telemetry was personally reviewed and interpreted revealing atrial fibrillation. IMPRESSION: 1. Atrial fibrillation. 2. Pulmonary hypertension. 3. Moderate right ventricular systolic dysfunction. 4. Severe mitral regurgitation, status post mitral valve repair in 2017. RECOMMENDATIONS: Continue IV diuresis as he continues to require oxygen. Heart rate is improved. Continue current medications. Monitor the patient closely on telemetry. Continue current cardiac medications otherwise. Thank you for this consult. We will continue to follow. Priya Araujo MD ABS/MODL /[id number] MTDD
== END 2020-05-20 15:14 | disposition home or self-care (01) | DRG 292 ==
LOC: FSED 22:00 → ERHOLD 05-18 00:50 → IMCU 05-18 03:04
PROVIDERS: ADMIT Internal Medicine; ATTEND Internal Medicine
DX: I11.0 Hypertensive heart disease with heart failure (principal); J98.11 Atelectasis; I50.23 Acute on chronic systolic (congestive) heart failure; I48.91 Unspecified atrial fibrillation; Z79.01 Long term (current) use of anticoagulants; I27.20 Pulmonary hypertension, unspecified; Z91.14 Patient's other noncompliance with medication regimen; Z90.5 Acquired absence of kidney; K74.60 Unspecified cirrhosis of liver; Z11.59 Encounter for screening for other viral diseases
CPT/HCPCS: 36415; 71045; 71250; 74176; 80048; 80053; 82550; 82553; 83735; 84100; 84484; 85025; 87635; 93005; 99284; J1160; J1940; J2543; J7050

== ENCOUNTER 2021-01-09 07:04 | Observation (INO) | payer MEDICARE ==
[2021-01-05 16:10] LABS: BASOPHILS # (AUTO) 0.1 (0.0-0.1); BASOPHILS % 0.7 % (0.0-1.0); EOSINOPHILS # (AUTO) 0.1 (0.0-0.4); EOSINOPHILS % 1.6 % (0.0-6.0); HEMOGLOBIN 13.3 g/dL (14.0-18.0); LYMPHOCYTES # (AUTO) 1.5 (1.0-3.2); LYMPHOCYTES % 18.2 % (18.0-39.1); MEAN CORPUSCULAR HEMOGLOBIN 27.4 pg (28-32); MEAN CORPUSCULAR HGB CONC 31.7 g/dL (31-35); MEAN CORPUSCULAR VOLUME 86.4 fL (81-99); MONOCYTES # (AUTO) 0.8 (0.2-0.8); MONOCYTES % 9.2 % (4.4-11.3); NEUTROPHILS # (AUTO) 5.8 (2.1-6.9); NEUTROPHILS % 70.1 % (38.7-80.0); PLATELET COUNT 209 x10e3/uL (140-360); RED BLOOD COUNT 4.86 x10e6/uL (4.3-5.7); RED CELL DISTRIBUTION WIDTH 17.6 % (11.7-14.4)
[2021-01-05 16:25] LABS: ANION GAP 14.1 mmol/L (8-16); CALCIUM 9.6 mg/dL (8.4-10.2); CREATININE, SERUM 1.79 mg/dL (0.72-1.25); POTASSIUM 4.1 mmol/L (3.5-5.1)
[~2021-01-09] VITALS: Ht 185.4 cm; Wt 85.3 kg
[~2021-01-09 07:04] MED LIST changes: +BENZONATATE100 MG PO; +DOXYCYCLINE MO100 MG PO; +ENTRESTO 24 MG1 EACH PO; +FUROSEMIDE80 MG PO; +METOPROLOL TAR100 MG PO
[2021-01-09] MEDS ORDERED: DEXAMETHASONE SOD PHOS 10 MG/1 ML VIAL ONE (07:44)
[2021-01-09] MEDS ORDERED: GABAPENTIN 300 MG CAP ONE (07:45)
[2021-01-09] MEDS ORDERED: CEFAZOLIN SOD 1 GM/NS 50ML 100 ML IV ONE (07:45)
[2021-01-09] MEDS ORDERED: TRANEXAMIC ACID 1,000 MG/10 ML ML ONE (08:07)
[2021-01-09] MEDS ORDERED: SODIUM CHLORIDE 0.9% 500ML 500 ML ONE (08:07)
[2021-01-09] MEDS ORDERED: VANCOMYCIN HCL 1,000 MG ONE (08:07)
[2021-01-09] MEDS ORDERED: ROPIVACAINE 246.25 MG, EPINEPHRINE HCL 1:1000 1ML 0.5 MG, CLONIDINE HCL 0.08 MG, KETORO... INJ ONE ×5 (08:30)
[2021-01-09] MEDS ORDERED: ACETAMINOPHEN 1000 MG/100 ML 100 ML IV ONE (10:20)
[2021-01-09] MEDS ORDERED: DIPHENHYDRAMINE HCL INJ 50 MG/ML VIAL IV PRN (11:15)
[2021-01-09] MEDS ORDERED: HYDROCODONE/APAP 7.5MG-325MG 1 EA TAB PO PRN (11:15)
[2021-01-09] MEDS ORDERED: ONDANSETRON HCL INJ 2MG/ML 2ML 2 MG/ML VIAL IV PRN (11:15)
[2021-01-09] MEDS ORDERED: ZOLPIDEM TARTRATE 5 MG TAB PO PRN (11:15)
[2021-01-09] MEDS ORDERED: HYDROCODONE/APAP 5MG-325MG TAB PO PRN (11:15)
[2021-01-09] MEDS ORDERED: KETOROLAC TROMETHAMINE 30 MG/ML VIAL IV PRN (11:15)
[2021-01-09] MEDS ORDERED: ACETAMINOPHEN 650 MG SUPP PR PRN (11:15)
[2021-01-09] MEDS ORDERED: DOCUSATE SODIUM 100 MG CAP PO PRN (11:15)
[2021-01-09] MEDS ORDERED: FENTANYL CITRATE/PF 100MCG/2 ML INJ ONE (11:41)
[2021-01-09 12:44] VITALS: BP 162/74
[2021-01-09] MEDS ORDERED: LIDOCAINE HCL 2% LOCAL INJ 5 ML SDV VIAL INJ ONE (12:50)
[2021-01-09] MEDS ORDERED: ONDANSETRON HCL INJ 2MG/ML 2ML 2 MG/ML VIAL ONE (12:50)
[2021-01-09] MEDS ORDERED: DEXAMETHASONE SOD PHOS INJ 4 MG/ML VIAL ONE (12:50)
[2021-01-09] MEDS ORDERED: SEVOFLURANE INHAL SOLN 250 ML PEN BTL ONE (12:50)
[2021-01-09] MEDS ORDERED: PROPOFOL IV EMULSION 10 MG/ML 20 ML VIAL ONE (12:50)
[2021-01-09] MEDS ORDERED: BUPIVACAINE HCL 0.5% INJ 30 ML VIAL INJ ONE (12:52)
[2021-01-09] MEDS ORDERED: EPINEPHRINE HCL 1:1000 1ML 1 MG/ML AMP ONE (12:52)
[2021-01-09 13:01] VITALS: BP 162/74
[2021-01-09 13:04] VITALS: BP 162/74
[2021-01-09] MEDS ORDERED: SODIUM CHLORIDE 0.9% 1000ML 1,000 ML IV SCH (14:45)
[2021-01-09 16:00] VITALS: BP 112/85
[2021-01-09] MEDS: CEFAZOLIN SOD 1 GM/NS 50ML 50 ML IV SCH (16:32)
[2021-01-09] MEDS: METOPROLOL TARTRATE 50 MG TAB PO SCH (16:49)
[2021-01-09] MEDS: CELECOXIB 200 MG CAP PO SCH (16:49)
[2021-01-09] MEDS: ASPIRIN 325 MG TAB PO SCH (16:49)
[2021-01-09 20:00] VITALS: BP 117/58
[2021-01-09 20:17] VITALS: BP 117/57
[2021-01-09] MEDS ORDERED: TAMSULOSIN HCL 0.4 MG CAP PO SCH (21:00)
[2021-01-10 00:07] VITALS: BP 114/64
[2021-01-10] MEDS: CEFAZOLIN SOD 1 GM/NS 50ML 50 ML IV SCH ×2 (00:52→08:33)
[2021-01-10 04:37] VITALS: BP 108/55
[2021-01-10 05:19] LABS: HEMATOCRIT 33.6 % (38.2-49.6); HEMOGLOBIN 10.5 g/dL (14.0-18.0)
[2021-01-10 05:43] LABS: ANION GAP 10.9 mmol/L (8-16); CALCIUM 8.5 mg/dL (8.4-10.2); CREATININE, SERUM 1.84 mg/dL (0.72-1.25); POTASSIUM 4.9 mmol/L (3.5-5.1)
[2021-01-10 08:19] VITALS: BP 103/52
[2021-01-10] MEDS: METOPROLOL TARTRATE 50 MG TAB PO SCH (08:26)
[2021-01-10] MEDS: CELECOXIB 200 MG CAP PO SCH (08:33)
[2021-01-10] MEDS: ASPIRIN 325 MG TAB PO SCH (08:33)
[2021-01-10 08:34] VITALS: BP 103/52
[2021-01-10] MEDS ORDERED: AMIODARONE HCL 200 MG TAB PO SCH (09:00)
[2021-01-10] MEDS ORDERED: DIGOXIN 0.125 MG TAB PO SCH (09:00)
[2021-01-10] MEDS ORDERED: ONDANSETRON HCL 4 MG ORAL DISINTEGRATING TAB PO PRN (09:15)
[2021-01-10] MEDS ORDERED: ACETAMINOPHEN 1000 MG/100 ML IV PRN (11:15)
[2021-01-10 12:03] VITALS: BP 92/45
== END 2021-01-10 16:05 | disposition home or self-care (01) ==
LOC: OR 07:04 → PACU V 11:07 → MED/SURG 12:44
PROVIDERS: ADMIT Specialist; ATTEND Specialist
DX: M17.32 Unilateral post-traumatic osteoarthritis, left knee (principal); I25.10 Atherosclerotic heart disease of native coronary artery without angina pectoris; I11.0 Hypertensive heart disease with heart failure; I50.9 Heart failure, unspecified; Z90.5 Acquired absence of kidney; Z20.822 Contact with and (suspected) exposure to COVID-19; Z01.818 Encounter for other preprocedural examination
CPT/HCPCS: 27447; 36415 ×2; 71046; 73560; 80048 ×2; 85014; 85018; 85025; 86850; 86900; 86920; 93005; 97110; 97116 ×3; 97162; 97530 ×2; C1713 ×4; C1776; G0378 ×2; J0131; J0171; J0690 ×2; J1100 ×2; J1885; J2001; J2405; J2704; J2795; J3010; J3370; J7030; J7040; U0002

== ENCOUNTER 2022-02-26 05:26 | Observation (INO) | payer MEDICARE ==
[2022-02-22 13:41] LABS: BASOPHILS # (AUTO) 0.1 (0.0-0.1); BASOPHILS % 0.7 % (0.0-1.0); EOSINOPHILS # (AUTO) 0.2 (0.0-0.4); HEMOGLOBIN 11.9 g/dL (14.0-18.0); LYMPHOCYTES # (AUTO) 1.9 (1.0-3.2); LYMPHOCYTES % 21.4 % (18.0-39.1); MEAN CORPUSCULAR HEMOGLOBIN 22.1 pg (28-32); MEAN CORPUSCULAR HGB CONC 29.8 g/dL (31-35); MEAN CORPUSCULAR VOLUME 74.3 fL (81-99); MONOCYTES # (AUTO) 0.7 (0.2-0.8); MONOCYTES % 7.8 % (4.4-11.3); NEUTROPHILS # (AUTO) 5.9 (2.1-6.9); PLATELET COUNT 218 x10e3/uL (140-360); RED BLOOD COUNT 5.38 x10e6/uL (4.3-5.7); RED CELL DISTRIBUTION WIDTH 19.6 % (11.7-14.4)
[~2022-02-26] VITALS: Ht 185.4 cm; Wt 91.2 kg
[2022-02-26] MEDS ORDERED: GABAPENTIN 300 MG CAP ONE (06:00)
[2022-02-26] MEDS ORDERED: CELECOXIB 200 MG CAP ONE (06:00)
[2022-02-26] MEDS ORDERED: DEXAMETHASONE SOD PHOS 10 MG/1 ML VIAL ONE (06:00)
[2022-02-26] MEDS ORDERED: Vancomycin IV 1,000 MG ONE (06:41)
[2022-02-26] MEDS ORDERED: TRANEXAMIC ACID 20 ML ONE (06:41)
[2022-02-26] MEDS ORDERED: SODIUM CHLORIDE 0.9% 500ML 500 ML ONE (06:41)
[2022-02-26] MEDS ORDERED: ROPIVACAINE 246.25 MG, EPINEPHRINE HCL 1:1000 1ML 0.5 MG, CLONIDINE HCL 0.08 MG, KETORO... INJ ONE ×5 (07:30)
[2022-02-26] MEDS ORDERED: DIPHENHYDRAMINE HCL INJ 50 MG/ML VIAL IV PRN (09:00)
[2022-02-26] MEDS ORDERED: HYDROCODONE/APAP 5MG-325MG TAB PO PRN (09:00)
[2022-02-26] MEDS ORDERED: ACETAMINOPHEN 650 MG SUPP PR PRN (09:00)
[2022-02-26] MEDS ORDERED: DOCUSATE SODIUM 100 MG CAP PO PRN (09:00)
[2022-02-26] MEDS ORDERED: HYDROCODONE/APAP 7.5MG-325MG 1 EA TAB PO PRN (09:00)
[2022-02-26] MEDS ORDERED: KETOROLAC TROMETHAMINE 30 MG/ML VIAL IV PRN (09:00)
[2022-02-26] MEDS ORDERED: ONDANSETRON HCL INJ 2MG/ML 2ML 2 MG/ML VIAL IV PRN (09:00)
[2022-02-26] MEDS ORDERED: FENTANYL CITRATE/PF 100MCG/2 ML INJ ONE ×2 (09:23→12:24)
[2022-02-26] MEDS ORDERED: HYDROMORPHONE 1MG/1ML INJ ONE (09:42)
[2022-02-26 11:53] VITALS: BP 138/87
[2022-02-26 11:59] VITALS: BP 138/87
[2022-02-26] MEDS ORDERED: ACETAMINOPHEN 1000 MG/100 ML IV PRN (12:00)
[2022-02-26] MEDS ORDERED: MIDAZOLAM HCL 2 MG/2 ML VIAL ONE (12:24)
[2022-02-26] MEDS ORDERED: SODIUM CHLORIDE 0.9% 1000ML 1,000 ML IV SCH (13:00)
[2022-02-26] MEDS ORDERED: ROPIVACAINE 0.5% 5 MG/ML 30 ML SDV ONE (13:30)
[2022-02-26] MEDS ORDERED: ACETAMINOPHEN 1000 MG/100 ML IV ONE (13:34)
[2022-02-26] MEDS ORDERED: LIDOCAINE HCL 2% LOCAL INJ 5 ML SDV VIAL INJ ONE (13:34)
[2022-02-26] MEDS ORDERED: SEVOFLURANE INHAL SOLN 250 ML PEN BTL ONE (13:34)
[2022-02-26] MEDS ORDERED: ONDANSETRON HCL INJ 2MG/ML 2ML 2 MG/ML VIAL ONE (13:34)
[2022-02-26] MEDS ORDERED: POVIDONE IODINE 0.05% 0.05 % ML PO ONE (13:34)
[2022-02-26] MEDS ORDERED: PROPOFOL IV EMULSION 10 MG/ML 20 ML VIAL ONE (13:34)
[2022-02-26] MEDS ORDERED: Cefazolin 1 GM in SODIUM CHLORIDE 0.9% 50ML 50 ML IV SCH (14:00)
[2022-02-26 16:25] VITALS: BP 110/62
[2022-02-26] MEDS ORDERED: ASPIRIN 325 MG TAB PO SCH (17:00)
[2022-02-26] MEDS ORDERED: CELECOXIB 200 MG CAP PO SCH (17:00)
[2022-02-26] MEDS ORDERED: ZOLPIDEM TARTRATE 5 MG TAB PO PRN (21:00)
== END 2022-02-26 18:07 | disposition home or self-care (01) ==
LOC: OR 05:26 → PACU V 08:50 → MED/SURG 12:14
PROVIDERS: ADMIT Specialist; ATTEND Specialist
DX: M17.0 Bilateral primary osteoarthritis of knee (principal); I27.20 Pulmonary hypertension, unspecified; I11.0 Hypertensive heart disease with heart failure; I50.9 Heart failure, unspecified; Z87.891 Personal history of nicotine dependence; Z96.652 Presence of left artificial knee joint; Z20.822 Contact with and (suspected) exposure to COVID-19
CPT/HCPCS: 27447; 36415; 71046; 73560; 85025; 86850; 86900; 86920; 93005; 94799; 97110; 97116; 97139; 97161; 97530; C1713 ×4; C1776 ×2; G0378; J0131; J0171; J0690; J1100; J1170; J1885; J2001; J2405; J2704; J2795; J3010; J3370; J7040; U0002; J2250

== ENCOUNTER 2022-09-16 14:55 | Inpatient (IN) | payer MEDICARE ==
[~2022-09-16] VITALS: Ht 185.4 cm; Wt 91.2 kg
[2022-09-16] MEDS ORDERED: ACETAMINOPHEN 1000 MG/100 ML IV STA (15:08)
[2022-09-16] MEDS ORDERED: SODIUM CHLORIDE 0.9% 1000ML 1,000 ML IV ONE (15:15)
[2022-09-16 15:34] LABS: BASOPHILS % 0.2 % (0.0-1.0); HEMATOCRIT 38.6 % (38.2-49.6); HEMOGLOBIN 11.8 g/dL (14.0-18.0); LYMPHOCYTES # (AUTO) 0.2 (1.0-3.2); MEAN CORPUSCULAR HEMOGLOBIN 23.2 pg (28-32); MEAN CORPUSCULAR HGB CONC 30.6 g/dL (31-35); MONOCYTES # (AUTO) 0.4 (0.2-0.8); MONOCYTES % 2.9 % (4.4-11.3); NEUTROPHILS # (AUTO) 11.4 (2.1-6.9); NEUTROPHILS % 94.3 % (38.7-80.0); PLATELET COUNT 144 x10e3/uL (140-360); RED BLOOD COUNT 5.08 x10e6/uL (4.3-5.7)
[2022-09-16 15:38] LABS: INR 1.13; PROTHROMBIN TIME 15.5 seconds (11.9-14.5)
[2022-09-16 15:47] LABS: ALBUMIN/GLOBULIN RATIO 0.8 (0.8-2.0); CALCIUM 9.5 mg/dL (8.4-10.2); CLARITY,URINE SL CLOUDY (CLEAR); COLOR,URINE STRAW (YELLOW); CREATININE, SERUM 1.84 mg/dL (0.72-1.25); KETONES,URINE TRACE (NEGATIVE); LEUKOCYTE ESTERASE ,URINE NEGATIVE (NEGATIVE); NITRITE,URINE NEGATIVE (NEGATIVE); PROTEIN,URINE DIPSTICK 2+ (NEGATIVE); URINE UROBILINOGEN 0.2 mg/dL (0.2 - 1)
[2022-09-16 15:55] LABS: AMORPHOUS SEDIMENT,URINE MODERATE (FEW); BACTERIA,URINE MODERATE /HPF; EPITHELIAL CELLS,URINE FEW /LPF
[2022-09-16] MEDS ORDERED: IOPAMIDOL 370 MG/ML 100 ML INFUS..BTL INJ ONE (16:12)
[2022-09-16] MEDS ORDERED: SODIUM CHLORIDE 0.9% 100 ML ONE (16:12)
[2022-09-16 17:02] LABS: CREATINE KINASE MB 1.6 ng/mL (0-5.0)
[2022-09-16] MEDS ORDERED: DEXAMETHASONE SOD PHOS 10 MG/1 ML VIAL IV ONE (17:15)
[2022-09-16] MEDS ORDERED: ACYCLOVIR SODIUM INJ 1,000 MG in SODIUM CHLORIDE 0.9% 250ML 250 ML IV ONE (17:45)
[2022-09-16] MEDS ORDERED: ACYCLOVIR SODIUM 1,000 MG in SODIUM CHLORIDE 0.9% 250ML 250 ML IV ONE (18:00)
[2022-09-16] MEDS: SODIUM CHLORIDE 0.9% 1000ML 1,000 ML IV SCH (18:21)
[2022-09-16 19:29] LABS: BAND NEUTROPHILS % (MANUAL) 8 %; LYMPHOCYTES % (MANUAL) 1 % (19-48); METAMYELOCYTES % (MANUAL) 2 % (0-0); MONOCYTES % (MANUAL) 3 % (3.4-9.0); NEUTROPHILS % (MANUAL) 86 % (40-74)
[2022-09-16 19:30] LABS: HYPOCHROMASIA SLIGHT; MICROCYTOSIS SLIGHT; PLATELET ESTIMATE ADEQUATE
[2022-09-16 19:31] LABS: PLATELET MORPHOLOGY COMMENT FEW GIANT
[2022-09-16 19:32] LABS: SCHISTOCYTES FEW
[2022-09-16] MEDS ORDERED: METOPROLOL TARTRATE INJ 1 MG/ML VIAL IV PRN (22:45)
[2022-09-16] MEDS ORDERED: METOPROLOL TARTRATE INJ 1 MG/ML VIAL ONE (22:59)
[2022-09-16 23:52] VITALS: BP 98/77
[2022-09-17] VITALS (9 sets, daily range): BP systolic 98–130; BP diastolic 71–93
[2022-09-17] MEDS: METOPROLOL TARTRATE INJ 1 MG/ML VIAL IV PRN ×6 (01:44→21:48)
[2022-09-17] MEDS: SODIUM CHLORIDE 0.9% 1000ML 1,000 ML IV SCH ×2 (04:44→23:13)
[2022-09-17] MEDS ORDERED: ACETAMINOPHEN 325 MG TAB PO PRN (09:30)
[2022-09-17] MEDS ORDERED: METOPROLOL SUCC25 MG PO (10:18)
[2022-09-17] MEDS ORDERED: AMIODARONE HCL200 MG PO (10:18)
[2022-09-17] MEDS: METOPROLOL TARTRATE 25 MG TAB PO SCH ×2 (10:45→17:42)
[2022-09-17] MEDS: Vancomycin IV 1 GM in SODIUM CHLORIDE 0.9% 250ML 250 ML IV SCH (10:46)
[2022-09-17] MEDS ORDERED: DIGOXIN INJ 0.25 MG/ML 2 ML AMP IV ONE (11:15)
[2022-09-17] MEDS ORDERED: HEPARIN SOD (PORCINE) 5,000 UNIT/ML VIAL IV ONE (11:45)
[2022-09-17 11:51] LABS: BASOPHILS % 0.2 % (0.0-1.0); HEMATOCRIT 40.3 % (38.2-49.6); HEMOGLOBIN 12.1 g/dL (14.0-18.0); LYMPHOCYTES # (AUTO) 0.5 (1.0-3.2); MEAN CORPUSCULAR VOLUME 76.6 fL (81-99); MONOCYTES % 7.7 % (4.4-11.3); NEUTROPHILS # (AUTO) 11.6 (2.1-6.9); NEUTROPHILS % 87.6 % (38.7-80.0); PLATELET COUNT 145 x10e3/uL (140-360); RED BLOOD COUNT 5.26 x10e6/uL (4.3-5.7); RED CELL DISTRIBUTION WIDTH 18.6 % (11.7-14.4)
[2022-09-17] MEDS ORDERED: HEPARIN 25,000 UNIT 1,000 UNIT in DEXTROSE 5% 250ML 250 ML IV SCH (12:00)
[2022-09-17 12:07] LABS: INR 0.99
[2022-09-17] MEDS: IPRATROPIUM BROMIDE 0.02% 2.5 ML NEB NEB SCH ×2 (13:00→19:40)
[2022-09-17] MEDS: LEVALBUTEROL HCL SOLN NEBU 1.25 MG/3 ML NEB INH SCH ×3 (13:00→21:20)
[2022-09-18] VITALS (20 sets, daily range): BP systolic 93–170; BP diastolic 41–135
[2022-09-18] MEDS: LEVALBUTEROL HCL SOLN NEBU 1.25 MG/3 ML NEB INH SCH ×3 (02:17→19:00)
[2022-09-18] MEDS: IPRATROPIUM BROMIDE 0.02% 2.5 ML NEB NEB SCH ×4 (02:17→19:00)
[2022-09-18] MEDS: METOPROLOL TARTRATE INJ 1 MG/ML VIAL IV PRN ×3 (03:20→21:46)
[2022-09-18] MEDS ORDERED: METOPROLOL TARTRATE 50 MG TAB PO ONE ×2 (04:15→06:15)
[2022-09-18 05:41] LABS: BASOPHILS % 0.2 % (0.0-1.0); HEMATOCRIT 36.4 % (38.2-49.6); HEMOGLOBIN 11.5 g/dL (14.0-18.0); LYMPHOCYTES # (AUTO) 0.5 (1.0-3.2); LYMPHOCYTES % 3.9 % (18.0-39.1); MEAN CORPUSCULAR HEMOGLOBIN 23.2 pg (28-32); MEAN CORPUSCULAR HGB CONC 31.6 g/dL (31-35); MEAN CORPUSCULAR VOLUME 73.4 fL (81-99); MONOCYTES # (AUTO) 1.2 (0.2-0.8); MONOCYTES % 9.5 % (4.4-11.3); NEUTROPHILS # (AUTO) 11.1 (2.1-6.9); NEUTROPHILS % 85.7 % (38.7-80.0); PLATELET COUNT 142 x10e3/uL (140-360); RED BLOOD COUNT 4.96 x10e6/uL (4.3-5.7); RED CELL DISTRIBUTION WIDTH 18.4 % (11.7-14.4)
[2022-09-18 05:57] LABS: ANION GAP 15.9 mmol/L (8-16); CALCIUM 9.1 mg/dL (8.4-10.2); CREATININE, SERUM 1.68 mg/dL (0.72-1.25); POTASSIUM 3.9 mmol/L (3.5-5.1)
[2022-09-18] MEDS ORDERED: METOPROLOL TARTRATE 50 MG TAB PO SCH (09:00)
[2022-09-18] MEDS ORDERED: DIGOXIN 0.125 MG TAB PO SCH (09:00)
[2022-09-18] MEDS: METOPROLOL TARTRATE 25 MG TAB PO SCH ×2 (09:50→16:26)
[2022-09-18] MEDS: Vancomycin IV 1 GM in SODIUM CHLORIDE 0.9% 250ML 250 ML IV SCH (10:33)
[2022-09-18] MEDS ORDERED: BENZONATATE 100 MG CAP PO PRN (14:00)
[2022-09-18] MEDS: SODIUM CHLORIDE 0.9% 1000ML 1,000 ML IV SCH (14:04)
[2022-09-18] MEDS: HEPARIN 25,000 UNIT 1,000 UNIT in DEXTROSE 5% 250ML 250 ML IV SCH (14:05)
[2022-09-18] MEDS ORDERED: ETOMIDATE 2 MG/ML 10 ML INJ IV ONE (16:57)
[2022-09-18] MEDS ORDERED: SUCCINYLCHOLINE CHLORIDE 20 MG/ML 10ML VIAL ONE (16:57)
[2022-09-18] MEDS ORDERED: METOPROLOL TARTRATE 25 MG TAB PO ONE (17:30)
[2022-09-18] MEDS ORDERED: GUAIFENESIN 600 MG TAB PO SCH (18:00)
[2022-09-18] MEDS ORDERED: FUROSEMIDE INJ 10 MG/ML 4 ML VIAL IV SCH (18:00)
[2022-09-18] MEDS ORDERED: ONDANSETRON HCL INJ 2MG/ML 2ML 2 MG/ML VIAL ONE (20:22)
[2022-09-18 20:41] LABS: BASOPHILS % 0.1 % (0.0-1.0); EOSINOPHILS % 0.1 % (0.0-6.0); HEMATOCRIT 41.4 % (38.2-49.6); HEMOGLOBIN 12.3 g/dL (14.0-18.0); LYMPHOCYTES # (AUTO) 1.6 (1.0-3.2); LYMPHOCYTES % 9.2 % (18.0-39.1); MEAN CORPUSCULAR HGB CONC 29.7 g/dL (31-35); MEAN CORPUSCULAR VOLUME 77.4 fL (81-99); MONOCYTES # (AUTO) 1.8 (0.2-0.8); MONOCYTES % 10.5 % (4.4-11.3); NEUTROPHILS # (AUTO) 13.6 (2.1-6.9); NEUTROPHILS % 79.5 % (38.7-80.0); PLATELET COUNT 159 x10e3/uL (140-360); RED BLOOD COUNT 5.35 x10e6/uL (4.3-5.7); RED CELL DISTRIBUTION WIDTH 18.9 % (11.7-14.4)
[2022-09-18 20:48] LABS: INR 0.94; PROTHROMBIN TIME 13.4 seconds (11.9-14.5)
[2022-09-18 20:49] LABS: PARTIAL THROMBOPLASTIN TIME 36.1 seconds (23.8-35.5)
[2022-09-18 20:58] LABS: ALBUMIN 2.9 g/dL (3.5-5.0); ALBUMIN/GLOBULIN RATIO 0.7 (0.8-2.0); ANION GAP 19.2 mmol/L (8-16); CALCIUM 9.7 mg/dL (8.4-10.2); CREATININE, SERUM 1.9 mg/dL (0.72-1.25); POTASSIUM 4.2 mmol/L (3.5-5.1)
[2022-09-18] MEDS ORDERED: ONDANSETRON HCL INJ 2MG/ML 2ML 2 MG/ML VIAL IV PRN (21:00)
[2022-09-18] MEDS ORDERED: IOPAMIDOL 370 MG/ML 100 ML INFUS..BTL INJ ONE (21:18)
[2022-09-18] MEDS ORDERED: SODIUM CHLORIDE 0.9% 100 ML ONE (21:18)
[2022-09-18] MEDS: AMIODARONE 900MG 900 MG in Premix Bag 1 BAG IV SCH (22:00)
[2022-09-18] MEDS ORDERED: SODIUM CHLORIDE 0.45% 1,000 ML IV ONE (22:00)
[2022-09-18] MEDS ORDERED: AMIODARONE HCL 150 MG/100 ML BAG IV ONE (22:00)
[2022-09-18] MEDS ORDERED: AMIODARONE 900MG 500 ML IV ONE (22:23)
[2022-09-18] MEDS ORDERED: LORAZEPAM INJ 2 MG/ML VIAL ONE (22:57)
[2022-09-18] MEDS ORDERED: LORAZEPAM INJ 2 MG/ML VIAL IV ONE (23:00)
[2022-09-18] MEDS: PROPOFOL IV EMULSION 10MG/ML 100 ML IV PRN (23:17)
[2022-09-18 23:34] LABS: ABG HCO3 18 mmol/L (22-26); ABG PCO2 42 mmHg (35-45); ABG PH 7.24 (7.35-7.45); ABG PO2 325 mmHg (80-105)
[2022-09-18 23:35] LABS: ABG TCO2 19
[2022-09-18 23:36] LABS: ABG PH 7.23 (7.35-7.45)
[2022-09-18 23:37] LABS: ABG HCO3 18 mmol/L (22-26); ABG PCO2 44 mmHg (35-45); ABG PO2 115 mmHg (80-105); ABG TCO2 19
[2022-09-19] VITALS (62 sets, daily range): BP systolic 69–163; BP diastolic 39–93
[2022-09-19] MEDS: IPRATROPIUM BROMIDE 0.02% 2.5 ML NEB NEB SCH (03:45)
[2022-09-19] MEDS: LEVALBUTEROL HCL SOLN NEBU 1.25 MG/3 ML NEB INH SCH (03:45)
[2022-09-19] MEDS: PROPOFOL IV EMULSION 10MG/ML 100 ML IV PRN (05:42)
[2022-09-19 06:23] LABS: BASOPHILS % 0.1 % (0.0-1.0); EOSINOPHILS % 0.2 % (0.0-6.0); HEMATOCRIT 35.4 % (38.2-49.6); LYMPHOCYTES # (AUTO) 0.8 (1.0-3.2); LYMPHOCYTES % 8.3 % (18.0-39.1); MEAN CORPUSCULAR HEMOGLOBIN 22.9 pg (28-32); MEAN CORPUSCULAR HGB CONC 31.1 g/dL (31-35); MEAN CORPUSCULAR VOLUME 73.6 fL (81-99); MONOCYTES # (AUTO) 0.8 (0.2-0.8); MONOCYTES % 8.2 % (4.4-11.3); NEUTROPHILS # (AUTO) 8.2 (2.1-6.9); NEUTROPHILS % 82.5 % (38.7-80.0); PLATELET COUNT 112 x10e3/uL (140-360); RED BLOOD COUNT 4.81 x10e6/uL (4.3-5.7); RED CELL DISTRIBUTION WIDTH 18.2 % (11.7-14.4)
[2022-09-19 06:38] LABS: ANION GAP 13.6 mmol/L (8-16); CALCIUM 8.6 mg/dL (8.4-10.2); POTASSIUM 3.6 mmol/L (3.5-5.1)
[2022-09-19 06:53] LABS: CREATININE, SERUM 1.81 mg/dL (0.72-1.25)
[2022-09-19] MEDS: LEVALBUTEROL HCL SOLN NEBU 1.25 MG/3 ML NEB INH PRN (07:12)
[2022-09-19] MEDS ORDERED: SODIUM BICARBONATE 8.4% 50 ML in SODIUM CHLORIDE 0.45% 1,000 ML IV SCH (08:30)
[2022-09-19] MEDS ORDERED: IPRATROPIUM BROMIDE 0.02% 2.5 ML NEB NEB PRN (08:30)
[2022-09-19] MEDS: METOPROLOL TARTRATE 50 MG TAB PO SCH ×2 (09:00→16:52)
[2022-09-19] MEDS ORDERED: FUROSEMIDE INJ 10 MG/ML 4 ML VIAL IV SCH (09:00)
[2022-09-19 09:05] LABS: ABG HCO3 19 mmol/L (22-26); ABG PCO2 28 mmHg (35-45); ABG PH 7.45 (7.35-7.45); ABG PO2 177 mmHg (80-105); ABG TCO2 20
[2022-09-19] MEDS: Vancomycin IV 1 GM in SODIUM CHLORIDE 0.9% 250ML 250 ML IV SCH (09:19)
[2022-09-19 11:39] LABS: ABG HCO3 20 mmol/L (22-26); ABG PCO2 32 mmHg (35-45); ABG PO2 141 mmHg (80-105); ABG TCO2 21
[2022-09-19] MEDS: HEPARIN 25,000 UNIT 1,000 UNIT in DEXTROSE 5% 250ML 250 ML IV SCH (13:45)
[2022-09-19] MEDS ORDERED: LACTATED RINGER'S 1,000 ML INJ ONE (16:30)
[2022-09-19] MEDS: AMIODARONE 900MG 900 MG in Premix Bag 1 BAG IV SCH (19:36)
[2022-09-20] VITALS (14 sets, daily range): BP systolic 120–139; BP diastolic 74–110
[2022-09-20 06:14] LABS: BASOPHILS % 0.2 % (0.0-1.0); EOSINOPHILS # (AUTO) 0.2 (0.0-0.4); EOSINOPHILS % 1.6 % (0.0-6.0); HEMATOCRIT 35.1 % (38.2-49.6); HEMOGLOBIN 11.2 g/dL (14.0-18.0); LYMPHOCYTES % 10.4 % (18.0-39.1); MEAN CORPUSCULAR HGB CONC 31.9 g/dL (31-35); MEAN CORPUSCULAR VOLUME 72.2 fL (81-99); MONOCYTES % 10.4 % (4.4-11.3); NEUTROPHILS # (AUTO) 7.2 (2.1-6.9); NEUTROPHILS % 76.4 % (38.7-80.0); PLATELET COUNT 127 x10e3/uL (140-360); RED BLOOD COUNT 4.86 x10e6/uL (4.3-5.7); RED CELL DISTRIBUTION WIDTH 18.2 % (11.7-14.4)
[2022-09-20 06:43] LABS: ALBUMIN 2.3 g/dL (3.5-5.0); ALBUMIN/GLOBULIN RATIO 0.7 (0.8-2.0); ANION GAP 14.7 mmol/L (8-16); CALCIUM 8.9 mg/dL (8.4-10.2); CREATININE, SERUM 1.57 mg/dL (0.72-1.25); POTASSIUM 3.7 mmol/L (3.5-5.1)
[2022-09-20] MEDS: LEVALBUTEROL HCL SOLN NEBU 1.25 MG/3 ML NEB INH PRN (07:45)
[2022-09-20] MEDS: METOPROLOL TARTRATE 50 MG TAB PO SCH ×2 (08:49→16:59)
[2022-09-20] MEDS: METOPROLOL TARTRATE INJ 1 MG/ML VIAL IV PRN ×2 (08:49→13:25)
[2022-09-20] MEDS: HEPARIN 25,000 UNIT 1,000 UNIT in DEXTROSE 5% 250ML 250 ML IV SCH (10:38)
[2022-09-20] MEDS ORDERED: FUROSEMIDE INJ 10 MG/ML 4 ML VIAL IV SCH (17:00)
[2022-09-21] VITALS (8 sets, daily range): BP systolic 119–146; BP diastolic 77–92
[2022-09-21] MEDS: HEPARIN 25,000 UNIT 1,000 UNIT in DEXTROSE 5% 250ML 250 ML IV SCH (05:04)
[2022-09-21] MEDS: AMIODARONE 900MG 900 MG in Premix Bag 1 BAG IV SCH (05:06)
[2022-09-21] MEDS ORDERED: HEPARIN 25,000 UNIT DRIP IV ONE (05:08)
[2022-09-21] MEDS ORDERED: AMIODARONE 900MG 500 ML IV ONE (05:09)
[2022-09-21] MEDS: FUROSEMIDE 40 MG TAB PO SCH ×2 (06:41→18:07)
[2022-09-21 08:11] LABS: BASOPHILS % 0.2 % (0.0-1.0); EOSINOPHILS # (AUTO) 0.1 (0.0-0.4); EOSINOPHILS % 0.7 % (0.0-6.0); HEMATOCRIT 35.9 % (38.2-49.6); HEMOGLOBIN 11.1 g/dL (14.0-18.0); LYMPHOCYTES # (AUTO) 1.3 (1.0-3.2); LYMPHOCYTES % 10.6 % (18.0-39.1); MEAN CORPUSCULAR HEMOGLOBIN 23.1 pg (28-32); MEAN CORPUSCULAR HGB CONC 30.9 g/dL (31-35); MEAN CORPUSCULAR VOLUME 74.8 fL (81-99); MONOCYTES # (AUTO) 1.1 (0.2-0.8); MONOCYTES % 9.2 % (4.4-11.3); NEUTROPHILS # (AUTO) 9.3 (2.1-6.9); NEUTROPHILS % 76.7 % (38.7-80.0); PLATELET COUNT 157 x10e3/uL (140-360); RED CELL DISTRIBUTION WIDTH 18.1 % (11.7-14.4)
[2022-09-21 08:34] LABS: ANION GAP 14.3 mmol/L (8-16); CALCIUM 9.3 mg/dL (8.4-10.2); CREATININE, SERUM 1.62 mg/dL (0.72-1.25); POTASSIUM 3.3 mmol/L (3.5-5.1)
[2022-09-21] MEDS: METOPROLOL TARTRATE 50 MG TAB PO SCH ×4 (09:32→23:36)
[2022-09-21] MEDS ORDERED: POTASSIUM CHLORIDE 20MEQ/15ML UDC NG STA (10:42)
[2022-09-21] MEDS ORDERED: KCL 20 MEQ PACKET/ ORAL SOLN NG STA ×2 (12:03→22:23)
[2022-09-21] MEDS: AMIODARONE HCL 200 MG TAB PO SCH (18:06)
[2022-09-21] MEDS ORDERED: POTASSIUM CHLORIDE 20 MEQ TAB CR PO STA (20:52)
[2022-09-21] MEDS ORDERED: POTASSIUM CHLORIDE 20MEQ/15ML UDC NG ONE (22:15)
[2022-09-22] VITALS (10 sets, daily range): BP systolic 118–143; BP diastolic 66–90
[2022-09-22] MEDS: HEPARIN 25,000 UNIT 1,000 UNIT in DEXTROSE 5% 250ML 250 ML IV SCH (00:15)
[2022-09-22] MEDS ORDERED: HEPARIN 25,000 UNIT DRIP IV ONE (00:23)
[2022-09-22] MEDS: FUROSEMIDE 40 MG TAB PO SCH ×2 (05:11→16:54)
[2022-09-22] MEDS: METOPROLOL TARTRATE 50 MG TAB PO SCH ×3 (05:12→16:56)
[2022-09-22 08:22] LABS: BASOPHILS % 0.2 % (0.0-1.0); EOSINOPHILS # (AUTO) 0.2 (0.0-0.4); EOSINOPHILS % 1.2 % (0.0-6.0); HEMATOCRIT 36.2 % (38.2-49.6); HEMOGLOBIN 10.9 g/dL (14.0-18.0); LYMPHOCYTES # (AUTO) 1.5 (1.0-3.2); LYMPHOCYTES % 12.3 % (18.0-39.1); MEAN CORPUSCULAR HEMOGLOBIN 22.7 pg (28-32); MEAN CORPUSCULAR HGB CONC 30.1 g/dL (31-35); MEAN CORPUSCULAR VOLUME 75.4 fL (81-99); MONOCYTES # (AUTO) 1.1 (0.2-0.8); MONOCYTES % 9.2 % (4.4-11.3); NEUTROPHILS # (AUTO) 8.9 (2.1-6.9); NEUTROPHILS % 72.6 % (38.7-80.0); PLATELET COUNT 210 x10e3/uL (140-360); RED CELL DISTRIBUTION WIDTH 18.2 % (11.7-14.4)
[2022-09-22 08:32] LABS: ANION GAP 13.9 mmol/L (8-16); CALCIUM 9.5 mg/dL (8.4-10.2); CREATININE, SERUM 1.5 mg/dL (0.72-1.25); POTASSIUM 3.9 mmol/L (3.5-5.1)
[2022-09-22] MEDS: PANTOPRAZOLE SOD 40 MG TABEC PO SCH (09:15)
[2022-09-22] MEDS: AMIODARONE HCL 200 MG TAB PO SCH ×2 (09:16→16:54)
[2022-09-22] MEDS: APIXAB 2.5 MG TABLET PO SCH ×2 (10:45→16:56)
[2022-09-23] VITALS (8 sets, daily range): BP systolic 121–138; BP diastolic 61–81
[2022-09-23] MEDS: METOPROLOL TARTRATE 50 MG TAB PO SCH ×4 (00:35→17:14)
[2022-09-23 05:46] LABS: BASOPHILS % 0.3 % (0.0-1.0); EOSINOPHILS # (AUTO) 0.2 (0.0-0.4); HEMATOCRIT 35.4 % (38.2-49.6); HEMOGLOBIN 11.7 g/dL (14.0-18.0); LYMPHOCYTES # (AUTO) 1.6 (1.0-3.2); LYMPHOCYTES % 13.3 % (18.0-39.1); MEAN CORPUSCULAR HEMOGLOBIN 24.2 pg (28-32); MEAN CORPUSCULAR HGB CONC 33.1 g/dL (31-35); MEAN CORPUSCULAR VOLUME 73.3 fL (81-99); MONOCYTES % 8.7 % (4.4-11.3); NEUTROPHILS # (AUTO) 8.4 (2.1-6.9); NEUTROPHILS % 71.6 % (38.7-80.0); PLATELET COUNT 211 x10e3/uL (140-360); RED BLOOD COUNT 4.83 x10e6/uL (4.3-5.7); RED CELL DISTRIBUTION WIDTH 20.2 % (11.7-14.4)
[2022-09-23] MEDS: FUROSEMIDE 40 MG TAB PO SCH ×2 (06:12→17:07)
[2022-09-23 06:16] LABS: ALBUMIN 2.2 g/dL (3.5-5.0); ALBUMIN/GLOBULIN RATIO 0.5 (0.8-2.0); ANION GAP 14.9 mmol/L (8-16); CALCIUM 9.5 mg/dL (8.4-10.2); CREATININE, SERUM 1.5 mg/dL (0.72-1.25); POTASSIUM 3.9 mmol/L (3.5-5.1)
[2022-09-23] MEDS: APIXAB 2.5 MG TABLET PO SCH ×2 (08:59→17:06)
[2022-09-23] MEDS: AMIODARONE HCL 200 MG TAB PO SCH ×2 (08:59→17:06)
[2022-09-23] MEDS: PANTOPRAZOLE SOD 40 MG TABEC PO SCH (09:00)
[2022-09-24] VITALS (7 sets, daily range): BP systolic 105–122; BP diastolic 66–73
[2022-09-24] MEDS: METOPROLOL TARTRATE 50 MG TAB PO SCH ×5 (02:22→23:48)
[2022-09-24 06:15] LABS: BASOPHILS % 0.2 % (0.0-1.0); EOSINOPHILS # (AUTO) 0.3 (0.0-0.4); EOSINOPHILS % 1.9 % (0.0-6.0); HEMATOCRIT 36.8 % (38.2-49.6); HEMOGLOBIN 11.2 g/dL (14.0-18.0); LYMPHOCYTES # (AUTO) 1.4 (1.0-3.2); LYMPHOCYTES % 10.5 % (18.0-39.1); MEAN CORPUSCULAR HGB CONC 30.4 g/dL (31-35); MEAN CORPUSCULAR VOLUME 75.7 fL (81-99); NEUTROPHILS # (AUTO) 9.9 (2.1-6.9); NEUTROPHILS % 76.7 % (38.7-80.0); PLATELET COUNT 257 x10e3/uL (140-360); RED BLOOD COUNT 4.86 x10e6/uL (4.3-5.7); RED CELL DISTRIBUTION WIDTH 18.1 % (11.7-14.4)
[2022-09-24 06:51] LABS: ALBUMIN 2.2 g/dL (3.5-5.0); ALBUMIN/GLOBULIN RATIO 0.5 (0.8-2.0); ANION GAP 15.7 mmol/L (8-16); CALCIUM 9.7 mg/dL (8.4-10.2); CREATININE, SERUM 1.5 mg/dL (0.72-1.25); POTASSIUM 3.7 mmol/L (3.5-5.1)
[2022-09-24] MEDS: FUROSEMIDE 40 MG TAB PO SCH (06:58)
[2022-09-24] MEDS: PANTOPRAZOLE SOD 40 MG TABEC PO SCH (08:45)
[2022-09-24] MEDS: AMIODARONE HCL 200 MG TAB PO SCH ×2 (08:45→16:38)
[2022-09-24] MEDS: APIXAB 2.5 MG TABLET PO SCH ×2 (08:45→16:38)
[2022-09-24] MEDS: FUROSEMIDE INJ 10 MG/ML 4 ML VIAL IV SCH ×2 (12:29→16:38)
[2022-09-25 06:05] LABS: BASOPHILS # (AUTO) 0.1 (0.0-0.1); BASOPHILS % 0.3 % (0.0-1.0); EOSINOPHILS # (AUTO) 0.2 (0.0-0.4); EOSINOPHILS % 1.2 % (0.0-6.0); HEMATOCRIT 35.5 % (38.2-49.6); HEMOGLOBIN 11.4 g/dL (14.0-18.0); LYMPHOCYTES # (AUTO) 1.5 (1.0-3.2); LYMPHOCYTES % 10.7 % (18.0-39.1); MEAN CORPUSCULAR HEMOGLOBIN 23.2 pg (28-32); MEAN CORPUSCULAR HGB CONC 32.1 g/dL (31-35); MEAN CORPUSCULAR VOLUME 72.2 fL (81-99); MONOCYTES # (AUTO) 1.1 (0.2-0.8); MONOCYTES % 7.5 % (4.4-11.3); NEUTROPHILS # (AUTO) 11.2 (2.1-6.9); NEUTROPHILS % 78.1 % (38.7-80.0); PLATELET COUNT 284 x10e3/uL (140-360); RED BLOOD COUNT 4.92 x10e6/uL (4.3-5.7); RED CELL DISTRIBUTION WIDTH 17.8 % (11.7-14.4)
[2022-09-25 06:35] LABS: ALBUMIN 2.3 g/dL (3.5-5.0); ALBUMIN/GLOBULIN RATIO 0.5 (0.8-2.0); ANION GAP 15.4 mmol/L (8-16); CALCIUM 9.2 mg/dL (8.4-10.2); CREATININE, SERUM 1.58 mg/dL (0.72-1.25); POTASSIUM 3.4 mmol/L (3.5-5.1)
[2022-09-25] MEDS: METOPROLOL TARTRATE 50 MG TAB PO SCH ×3 (06:58→18:07)
[2022-09-25 07:53] VITALS: BP 122/72
[2022-09-25] MEDS: PANTOPRAZOLE SOD 40 MG TABEC PO SCH (10:05)
[2022-09-25] MEDS: AMIODARONE HCL 200 MG TAB PO SCH (10:05)
[2022-09-25] MEDS: APIXAB 2.5 MG TABLET PO SCH ×2 (10:05→18:06)
[2022-09-25] MEDS: FUROSEMIDE INJ 10 MG/ML 4 ML VIAL IV SCH ×2 (10:05→18:06)
[2022-09-25 12:13] VITALS: BP 107/66
[2022-09-25] MEDS: POTASSIUM CHLORIDE 20 MEQ TAB CR PO SCH ×2 (13:30→18:06)
[2022-09-25 15:57] VITALS: BP 101/68
[2022-09-25] MEDS ORDERED: ONDANSETRON HCL 4 MG ORAL DISINTEGRATING TAB PO PRN (16:00)
[2022-09-25 20:00] VITALS: BP 104/75
[2022-09-25 22:41] VITALS: BP 104/75
[2022-09-25 22:42] VITALS: BP 104/75
[2022-09-26] VITALS (7 sets, daily range): BP systolic 98–117; BP diastolic 66–77
[2022-09-26] MEDS: METOPROLOL TARTRATE 50 MG TAB PO SCH ×3 (01:50→12:00)
[2022-09-26] MEDS ORDERED: POTASSIUM CHLORIDE 10MEQ EA PO ONE (09:00)
[2022-09-26] MEDS ORDERED: AMIODARONE HCL 200 MG TAB PO SCH (09:00)
[2022-09-26] MEDS ORDERED: SPIRONOLACTONE 25 MG TAB PO SCH (09:00)
[2022-09-26] MEDS: PANTOPRAZOLE SOD 40 MG TABEC PO SCH (09:18)
[2022-09-26] MEDS: APIXAB 2.5 MG TABLET PO SCH (09:18)
[2022-09-26] MEDS: POTASSIUM CHLORIDE 20 MEQ TAB CR PO SCH (09:19)
[2022-09-26] MEDS ORDERED: FUROSEMIDE 40 MG TAB PO SCH (12:00)
== END 2022-09-26 15:22 | DRG 871 ==
LOC: ER 14:58 → ERHOLD 17:50 → MED/SURG3 23:30 → ICU 09-18 21:15 → MED/SURG3 09-22 13:38
PROVIDERS: ADMIT Internal Medicine; ATTEND Internal Medicine
PROC: 0BH17EZ Insertion of Endotracheal Airway into Trachea, Via Natural or Artificial Opening (ICD-10-PCS; principal; 2022-09-18)
PROC: 5A1935Z Respiratory Ventilation, Less than 24 Consecutive Hours (ICD-10-PCS; 2022-09-18)
PROC: 03HB33Z Insertion of Infusion Device into Right Radial Artery, Percutaneous Approach (ICD-10-PCS; 2022-09-18)
PROC: 3E03329 Introduction of Other Anti-infective into Peripheral Vein, Percutaneous Approach (ICD-10-PCS; 2022-09-19)
PROC: 02HV33Z Insertion of Infusion Device into Superior Vena Cava, Percutaneous Approach (ICD-10-PCS; 2022-09-24)
DX: A41.01 Sepsis due to Methicillin susceptible Staphylococcus aureus (principal); G92.8 Other toxic encephalopathy; G93.41 Metabolic encephalopathy; J96.00 Acute respiratory failure, unspecified whether with hypoxia or hypercapnia; I48.21 Permanent atrial fibrillation; E87.20 Acidosis, unspecified; N17.9 Acute kidney failure, unspecified; Z79.01 Long term (current) use of anticoagulants; N41.9 Inflammatory disease of prostate, unspecified; Z85.528 Personal history of other malignant neoplasm of kidney; Z90.5 Acquired absence of kidney; I12.9 Hypertensive chronic kidney disease with stage 1 through stage 4 chronic kidney disease, or unspecified chronic kidney disease; N18.30 Chronic kidney disease, stage 3 unspecified; R65.20 Severe sepsis without septic shock; E11.22 Type 2 diabetes mellitus with diabetic chronic kidney disease; I27.20 Pulmonary hypertension, unspecified; I11.0 Hypertensive heart disease with heart failure; I50.812 Chronic right heart failure; D69.6 Thrombocytopenia, unspecified; I08.3 Combined rheumatic disorders of mitral, aortic and tricuspid valves; E87.6 Hypokalemia; K82.8 Other specified diseases of gallbladder; N40.1 Benign prostatic hyperplasia with lower urinary tract symptoms; R33.8 Other retention of urine; R31.29 Other microscopic hematuria
CPT/HCPCS: 31500; 36415; 36569; 36600; 70450; 70551; 71045; 71250; 71260; 74018; 74174; 74176; 74230; 76700; 80048; 80053; 80202; 81001; 82140; 82550; 82553; 82805; 82948; 83605; 83880; 84484; 85025; 85610; 85730; 87040; 87071; 87086; 87186; 87205; 87400; 93005; 93306; 94002; 94003; 94640; 94799; 97139; 99251; 99284; J0330; J0690; J0696; J1100; J1160; J1644; J1940; J2060; J2405; J3370; J7030; J7050; J7121; Q9967

== ENCOUNTER 2022-12-11 13:49 | Observation (INO) | payer MEDICARE ==
[~2022-12-11] VITALS: Ht 185.4 cm; Wt 91.2 kg
[2022-12-11] MEDS ORDERED: DILTIAZEM HCL 5 MG/ML 5 ML VIAL IV ONE (14:15)
[2022-12-11] MEDS ORDERED: ASPIRIN 81 MG CHEW TAB PO ONE (14:15)
[2022-12-11] MEDS ORDERED: SODIUM CHLORIDE FLUSH 10 ML SYR IV PRN (14:15)
[2022-12-11 14:37] LABS: BASOPHILS # (AUTO) 0.1 (0.0-0.1); BASOPHILS % 0.7 % (0.0-1.0); EOSINOPHILS # (AUTO) 0.2 (0.0-0.4); EOSINOPHILS % 1.9 % (0.0-6.0); HEMATOCRIT 46.8 % (38.2-49.6); HEMOGLOBIN 13.9 g/dL (14.0-18.0); LYMPHOCYTES # (AUTO) 1.9 (1.0-3.2); LYMPHOCYTES % 19.2 % (18.0-39.1); MEAN CORPUSCULAR HEMOGLOBIN 24.8 pg (28-32); MEAN CORPUSCULAR HGB CONC 29.7 g/dL (31-35); MEAN CORPUSCULAR VOLUME 83.6 fL (81-99); MONOCYTES # (AUTO) 0.7 (0.2-0.8); MONOCYTES % 7.7 % (4.4-11.3); NEUTROPHILS # (AUTO) 6.8 (2.1-6.9); NEUTROPHILS % 70.3 % (38.7-80.0); PLATELET COUNT 246 x10e3/uL (140-360); RED CELL DISTRIBUTION WIDTH 22.4 % (11.7-14.4)
[2022-12-11] MEDS ORDERED: DILTIAZEM HCL 30 MG TAB PO ONE (15:31)
[2022-12-11 15:54] LABS: ALBUMIN 3.3 g/dL (3.5-5.0); ALBUMIN/GLOBULIN RATIO 0.9 (0.8-2.0); CALCIUM 9.6 mg/dL (8.4-10.2); CREATININE, SERUM 1.71 mg/dL (0.72-1.25)
[2022-12-11] MEDS ORDERED: ONDANSETRON HCL INJ 2MG/ML 2ML 2 MG/ML VIAL IV PRN (16:30)
[2022-12-11] MEDS ORDERED: SODIUM CHLORIDE FLUSH 10 ML SYR INJ PRN (16:30)
[2022-12-11] MEDS: FUROSEMIDE INJ 10 MG/ML 4 ML VIAL IV SCH (16:55)
[2022-12-11 17:57] LABS: CREATINE KINASE MB 3.1 ng/mL (0-5.0)
[2022-12-11 20:00] VITALS: BP 121/97
[2022-12-11 23:00] VITALS: BP 121/97
[2022-12-12] VITALS (7 sets, daily range): BP systolic 113–121; BP diastolic 86–94
[2022-12-12 03:09] LABS: CREATINE KINASE MB 2.5 ng/mL (0-5.0)
[2022-12-12 04:38] LABS: BASOPHILS # (AUTO) 0.1 (0.0-0.1); BASOPHILS % 1.2 % (0.0-1.0); EOSINOPHILS # (AUTO) 0.2 (0.0-0.4); EOSINOPHILS % 2.2 % (0.0-6.0); HEMATOCRIT 37.9 % (38.2-49.6); HEMOGLOBIN 11.6 g/dL (14.0-18.0); LYMPHOCYTES # (AUTO) 1.6 (1.0-3.2); LYMPHOCYTES % 16.6 % (18.0-39.1); MEAN CORPUSCULAR HEMOGLOBIN 24.7 pg (28-32); MEAN CORPUSCULAR HGB CONC 30.6 g/dL (31-35); MEAN CORPUSCULAR VOLUME 80.8 fL (81-99); MONOCYTES % 10.4 % (4.4-11.3); NEUTROPHILS # (AUTO) 6.5 (2.1-6.9); NEUTROPHILS % 69.2 % (38.7-80.0); PLATELET COUNT 249 x10e3/uL (140-360); RED BLOOD COUNT 4.69 x10e6/uL (4.3-5.7); RED CELL DISTRIBUTION WIDTH 21.5 % (11.7-14.4)
[2022-12-12 05:08] LABS: ALBUMIN 3.1 g/dL (3.5-5.0); ALBUMIN/GLOBULIN RATIO 0.9 (0.8-2.0); ANION GAP 16.2 mmol/L (8-16); CALCIUM 9.6 mg/dL (8.4-10.2); CREATININE, SERUM 1.96 mg/dL (0.72-1.25); POTASSIUM 4.2 mmol/L (3.5-5.1)
[2022-12-12] MEDS: FUROSEMIDE INJ 10 MG/ML 4 ML VIAL IV SCH (05:31)
[2022-12-12] MEDS ORDERED: METOPROLOL TARTRATE INJ 1 MG/ML VIAL IV PRN (08:15)
[2022-12-12] MEDS ORDERED: AMIODARONE HCL 200 MG TAB PO SCH ×2 (08:40→09:00)
[2022-12-12] MEDS ORDERED: METOPROLOL SUCCINATE 50 MG TAB XL PO SCH (08:40)
[2022-12-12] MEDS ORDERED: APIXABAN 5 MG TABLET PO SCH (08:45)
[2022-12-12] MEDS ORDERED: METOPROLOL SUCCINATE 25 MG TAB XL PO SCH (09:00)
[2022-12-13] MEDS ORDERED: BALSAM PERU/CASTOR OIL 60 GM OINT...G. TP SCH (09:00)
== END 2022-12-12 12:14 | disposition home or self-care (01) ==
LOC: ER 13:53 → ERHOLD 16:22 → INTOOBSV 16:22 → MED/SURG 18:55
PROVIDERS: ADMIT Internal Medicine; ATTEND Internal Medicine
DX: I11.0 Hypertensive heart disease with heart failure (principal); I48.91 Unspecified atrial fibrillation; Z79.01 Long term (current) use of anticoagulants; E11.9 Type 2 diabetes mellitus without complications; Z20.822 Contact with and (suspected) exposure to COVID-19; I25.10 Atherosclerotic heart disease of native coronary artery without angina pectoris; Z95.1 Presence of aortocoronary bypass graft; Z95.810 Presence of automatic (implantable) cardiac defibrillator; I50.43 Acute on chronic combined systolic (congestive) and diastolic (congestive) heart failure
CPT/HCPCS: 0223U; 36415 ×2; 71045; 80053 ×2; 82550 ×2; 82553 ×2; 82948 ×2; 83880; 84484 ×2; 85025 ×2; 93005 ×2; 94760; 94799 ×2; 99252; 99284; G0378 ×2; J1940 ×2

== ENCOUNTER 2023-02-23 08:44 | Inpatient (IN) | payer MEDICARE ==
[~2023-02-23] VITALS: Ht 185.4 cm; Wt 78.5 kg
[2023-02-23] VITALS (15 sets, daily range): BP systolic 75–153; BP diastolic 50–130
[2023-02-23 09:52] LABS: BASOPHILS % 0.3 % (0.0-1.0); EOSINOPHILS # (AUTO) 0.1 (0.0-0.4); EOSINOPHILS % 0.4 % (0.0-6.0); HEMATOCRIT 48.4 % (38.2-49.6); HEMOGLOBIN 14.9 g/dL (14.0-18.0); LYMPHOCYTES # (AUTO) 1.1 (1.0-3.2); LYMPHOCYTES % 8.1 % (18.0-39.1); MEAN CORPUSCULAR HEMOGLOBIN 25.4 pg (28-32); MEAN CORPUSCULAR HGB CONC 30.8 g/dL (31-35); MEAN CORPUSCULAR VOLUME 82.5 fL (81-99); MONOCYTES # (AUTO) 0.9 (0.2-0.8); MONOCYTES % 6.6 % (4.4-11.3); NEUTROPHILS # (AUTO) 11.1 (2.1-6.9); NEUTROPHILS % 84.1 % (38.7-80.0); PLATELET COUNT 233 x10e3/uL (140-360); RED BLOOD COUNT 5.87 x10e6/uL (4.3-5.7); RED CELL DISTRIBUTION WIDTH 22.3 % (11.7-14.4)
[2023-02-23 09:58] LABS: INR 1.23
[2023-02-23 09:59] LABS: PARTIAL THROMBOPLASTIN TIME 32.6 seconds (23.8-35.5)
[2023-02-23 11:27] LABS: ALBUMIN 3.4 g/dL (3.5-5.0); ALBUMIN/GLOBULIN RATIO 0.9 (0.8-2.0); ANION GAP 20.5 mmol/L (8-16); CALCIUM 9.7 mg/dL (8.4-10.2); CREATININE, SERUM 1.72 mg/dL (0.72-1.25); MAGNESIUM 2.5 MG/DL (1.3-2.1); POTASSIUM 5.5 mmol/L (3.5-5.1)
[2023-02-23] MEDS ORDERED: SODIUM CHLORIDE 0.9% 1000ML 1,000 ML IV STA (11:39)
[2023-02-23 12:23] LABS: CLARITY,URINE CLEAR (CLEAR); COLOR,URINE YELLOW (YELLOW); LEUKOCYTE ESTERASE ,URINE NEGATIVE (NEGATIVE)
[2023-02-23 12:24] LABS: KETONES,URINE NEGATIVE (NEGATIVE); NITRITE,URINE NEGATIVE (NEGATIVE); PROTEIN,URINE DIPSTICK 2+ (NEGATIVE); URINE UROBILINOGEN 0.2 mg/dL (0.2 - 1)
[2023-02-23 12:30] LABS: BACTERIA,URINE FEW /HPF; EPITHELIAL CELLS,URINE FEW /LPF; RBC,URINE 0-5 /HPF (0-5); WBC,URINE (MAN) 0-5 /HPF (0-5)
[2023-02-23] MEDS ORDERED: DILTIAZEM HCL 5 MG/ML 5 ML VIAL IV STA (13:24)
[2023-02-23] MEDS ORDERED: ONDANSETRON HCL INJ 2MG/ML 2ML 2 MG/ML VIAL IV PRN (13:30)
[2023-02-23] MEDS ORDERED: SODIUM CHLORIDE 0.9% 500ML 500 ML IV ONE (13:30)
[2023-02-23] MEDS ORDERED: DILTIAZEM HCL 30 MG TAB PO ONE (13:30)
[2023-02-23 13:41] LABS: ABG HCO3 14 mmol/L (22-26); ABG PCO2 24 mmHg (35-45); ABG PH 7.37 (7.35-7.45); ABG PO2 115 mmHg (80-105); ABG TCO2 15
[2023-02-23] MEDS ORDERED: LIDOCAINE HCL 2% LOCAL INJ 5 ML SDV VIAL INJ ONE (13:50)
[2023-02-23] MEDS ORDERED: PROPOFOL IV EMULSION 10 MG/ML 20 ML VIAL ONE (13:50)
[2023-02-23] MEDS ORDERED: PHENYLEPHRINE HCL 1% 10 MG/ML VIAL ONE (13:50)
[2023-02-23] MEDS ORDERED: DIPHENHYDRAMINE HCL INJ 50 MG/ML VIAL ONE (13:50)
[2023-02-23] MEDS ORDERED: ETOMIDATE 2 MG/ML 10 ML INJ IV ONE (13:50)
[2023-02-23] MEDS ORDERED: POVIDONE IODINE 0.05% 0.05 % ML PO ONE (13:50)
[2023-02-23] MEDS ORDERED: ALBUTEROL SULFATE HFA 8GM INHALATION AEROSOL INH ONE (13:50)
[2023-02-23] MEDS ORDERED: DIPHENHYDRAMINE HCL INJ 50 MG/ML VIAL IV ONE (14:00)
[2023-02-23 14:03] LABS: AMPHETAMINES SCREEN,URINE NEGATIVE (NEGATIVE); BENZODIAZEPINES SCREEN,URINE NEGATIVE (NEGATIVE); PHENCYCLIDINE SCREEN,URINE NEGATIVE (NEGATIVE)
[2023-02-23] MEDS: FAMOTIDINE 20 MG/2 ML VIAL IV SCH (14:09)
[2023-02-23] MEDS ORDERED: LORAZEPAM INJ 2 MG/ML VIAL ONE (14:28)
[2023-02-23 14:38] LABS: SALICYLATE 5.1 mg/dL (0-30)
[2023-02-23] MEDS ORDERED: LORAZEPAM INJ 2 MG/ML VIAL IV ONE (14:45)
[2023-02-23] MEDS ORDERED: Vancomycin IV 1 GM in SODIUM CHLORIDE 0.9% 250ML 250 ML IV ONE (15:30)
[2023-02-23] MEDS ORDERED: DEXTROSE 5% IV ONE (16:15)
[2023-02-23] MEDS ORDERED: FUROSEMIDE INJ 10 MG/ML 4 ML VIAL IV ONE (16:15)
[2023-02-23] MEDS ORDERED: SODIUM CHLORIDE 0.45% IV ONE (16:15)
[2023-02-23] MEDS ORDERED: SODIUM BICARBONATE 8.4% 150 ML in DEXTROSE 5% 1,000 ML IV ONE (17:30)
[2023-02-23 18:00] LABS: ABG HCO3 16 mmol/L (22-26); ABG PCO2 28 mmHg (35-45); ABG PH 7.36 (7.35-7.45); ABG PO2 491 mmHg (80-105); ABG TCO2 17
[2023-02-23] MEDS ORDERED: VASOPRESSIN 60 UNIT in DEXTROSE 5% 50ML 57 ML IV PRN (19:30)
[2023-02-23] MEDS: DEXMEDETOMIDINE 400MCG/NS100ML 100 ML IV PRN (21:33)
[2023-02-23 22:21] LABS: CREATINE KINASE MB 3.6 ng/mL (0-5.0)
[2023-02-24] VITALS (33 sets, daily range): BP systolic 97–123; BP diastolic 65–92
[2023-02-24] MEDS: FAMOTIDINE 20 MG/2 ML VIAL IV SCH ×2 (02:20→13:32)
[2023-02-24 06:33] LABS: BASOPHILS # (AUTO) 0.1 (0.0-0.1); BASOPHILS % 0.5 % (0.0-1.0); EOSINOPHILS % 0.2 % (0.0-6.0); HEMATOCRIT 36.7 % (38.2-49.6); HEMOGLOBIN 11.4 g/dL (14.0-18.0); LYMPHOCYTES # (AUTO) 0.7 (1.0-3.2); LYMPHOCYTES % 6.5 % (18.0-39.1); MEAN CORPUSCULAR HEMOGLOBIN 25.4 pg (28-32); MEAN CORPUSCULAR HGB CONC 31.1 g/dL (31-35); MEAN CORPUSCULAR VOLUME 81.7 fL (81-99); MONOCYTES # (AUTO) 0.6 (0.2-0.8); MONOCYTES % 5.4 % (4.4-11.3); NEUTROPHILS # (AUTO) 9.1 (2.1-6.9); NEUTROPHILS % 86.9 % (38.7-80.0); PLATELET COUNT 153 x10e3/uL (140-360); RED BLOOD COUNT 4.49 x10e6/uL (4.3-5.7); RED CELL DISTRIBUTION WIDTH 20.8 % (11.7-14.4)
[2023-02-24 06:55] LABS: INR 1.52; PROTHROMBIN TIME 18.8 seconds (11.9-14.5)
[2023-02-24 06:56] LABS: PARTIAL THROMBOPLASTIN TIME 40.6 seconds (23.8-35.5)
[2023-02-24 07:05] LABS: ALBUMIN 2.5 g/dL (3.5-5.0); ANION GAP 14.3 mmol/L (8-16); CALCIUM 8.2 mg/dL (8.4-10.2); CHOL/HDL RATIO 7.1 (3.9-4.7); CREATININE, SERUM 2.03 mg/dL (0.72-1.25); MAGNESIUM 2.2 MG/DL (1.3-2.1); POTASSIUM 4.3 mmol/L (3.5-5.1)
[2023-02-24 07:41] LABS: CREATINE KINASE MB 2.5 ng/mL (0-5.0)
[2023-02-24] MEDS ORDERED: LINEZOLID 600 MG/D5W 300ML 300 ML IV SCH (08:00)
[2023-02-24] MEDS: AMIODARONE HCL 200 MG TAB PO SCH (08:15)
[2023-02-24 09:06] LABS: PLATELET ESTIMATE ADEQUATE; PLATELET MORPHOLOGY COMMENT NORMAL; RBC MORPHOLOGY COMMENT NORMAL
[2023-02-24] MEDS ORDERED: VANCOMYCIN 300 ML IV SCH (12:30)
[2023-02-24] MEDS: COLLAGENASE 5 GM TUBE TP SCH (16:00)
[2023-02-24] MEDS ORDERED: FUROSEMIDE INJ 10 MG/ML 4 ML VIAL IV ONE (16:30)
[2023-02-25] VITALS (38 sets, daily range): BP systolic 98–133; BP diastolic 58–101
[2023-02-25] MEDS: FAMOTIDINE 20 MG/2 ML VIAL IV SCH ×2 (01:06→15:39)
[2023-02-25 05:31] LABS: BASOPHILS % 0.4 % (0.0-1.0); EOSINOPHILS # (AUTO) 0.2 (0.0-0.4); EOSINOPHILS % 1.8 % (0.0-6.0); HEMATOCRIT 39.4 % (38.2-49.6); HEMOGLOBIN 12.5 g/dL (14.0-18.0); LYMPHOCYTES # (AUTO) 0.6 (1.0-3.2); LYMPHOCYTES % 6.4 % (18.0-39.1); MEAN CORPUSCULAR HEMOGLOBIN 25.2 pg (28-32); MEAN CORPUSCULAR HGB CONC 31.7 g/dL (31-35); MEAN CORPUSCULAR VOLUME 79.3 fL (81-99); MONOCYTES # (AUTO) 0.5 (0.2-0.8); MONOCYTES % 5.5 % (4.4-11.3); NEUTROPHILS # (AUTO) 8.1 (2.1-6.9); NEUTROPHILS % 85.7 % (38.7-80.0); PLATELET COUNT 170 x10e3/uL (140-360); RED BLOOD COUNT 4.97 x10e6/uL (4.3-5.7); RED CELL DISTRIBUTION WIDTH 21.1 % (11.7-14.4)
[2023-02-25 05:48] LABS: CALCIUM 8.7 mg/dL (8.4-10.2); CREATININE, SERUM 1.64 mg/dL (0.72-1.25)
[2023-02-25 05:59] LABS: PHOSPHORUS 3.2 MG/DL (2.3-4.7)
[2023-02-25 06:19] LABS: THYROID STIMULATING HORMONE 2.062 uIU/mL (0.350-4.940)
[2023-02-25] MEDS ORDERED: Vancomycin IV 1 GM in SODIUM CHLORIDE 0.9% 250ML 250 ML IV SCH (09:00)
[2023-02-25] MEDS ORDERED: SODIUM CHLORIDE 0.9% 1000ML 1,000 ML ONE (09:10)
[2023-02-25] MEDS ORDERED: BENZOCAINE 20% SPR 60 ML CAN ONE (09:10)
[2023-02-25 09:37] LABS: EOSINOPHILS % (MANUAL) 2 % (0-7); LYMPHOCYTES % (MANUAL) 4 % (19-48); MONOCYTES % (MANUAL) 3 % (3.4-9.0); NEUTROPHILS % (MANUAL) 91 % (40-74)
[2023-02-25 09:38] LABS: ANISOCYTOSIS MODERATE; HYPOCHROMASIA SLIGHT; OVALOCYTES FEW; PLATELET ESTIMATE ADEQUATE; PLATELET MORPHOLOGY COMMENT FEW LARGE; RBC MORPHOLOGY COMMENT ABNORMAL
[2023-02-25] MEDS ORDERED: FENTANYL CITRATE/PF 100MCG/2 ML INJ ONE (12:32)
[2023-02-25] MEDS: FUROSEMIDE INJ 10 MG/ML 4 ML VIAL IV SCH (15:20)
[2023-02-25] MEDS: AMIODARONE HCL 200 MG TAB PO SCH (15:50)
[2023-02-25] MEDS: COLLAGENASE 5 GM TUBE TP SCH (17:49)
[2023-02-25] MEDS: DEXMEDETOMIDINE 400MCG/NS100ML 100 ML IV PRN (20:26)
[2023-02-25] MEDS: CEFTRIAXONE 2 GM in SODIUM CHLORIDE 0.9% 100 ML IV SCH (21:12)
[2023-02-26] VITALS (58 sets, daily range): BP systolic 98–144; BP diastolic 66–107
[2023-02-26] MEDS: FAMOTIDINE 20 MG/2 ML VIAL IV SCH ×2 (02:07→14:46)
[2023-02-26] MEDS: DEXMEDETOMIDINE 400MCG/NS100ML 100 ML IV PRN ×5 (05:15→22:16)
[2023-02-26 06:35] LABS: BASOPHILS % 0.4 % (0.0-1.0); EOSINOPHILS # (AUTO) 0.1 (0.0-0.4); EOSINOPHILS % 1.2 % (0.0-6.0); HEMATOCRIT 39.9 % (38.2-49.6); HEMOGLOBIN 12.6 g/dL (14.0-18.0); LYMPHOCYTES # (AUTO) 0.7 (1.0-3.2); LYMPHOCYTES % 7.7 % (18.0-39.1); MEAN CORPUSCULAR HEMOGLOBIN 25.1 pg (28-32); MEAN CORPUSCULAR HGB CONC 31.6 g/dL (31-35); MEAN CORPUSCULAR VOLUME 79.6 fL (81-99); MONOCYTES # (AUTO) 0.8 (0.2-0.8); MONOCYTES % 8.4 % (4.4-11.3); NEUTROPHILS # (AUTO) 7.5 (2.1-6.9); PLATELET COUNT 198 x10e3/uL (140-360); RED BLOOD COUNT 5.01 x10e6/uL (4.3-5.7); RED CELL DISTRIBUTION WIDTH 21.2 % (11.7-14.4)
[2023-02-26 06:55] LABS: ALBUMIN 2.6 g/dL (3.5-5.0); ALBUMIN/GLOBULIN RATIO 0.9 (0.8-2.0); ANION GAP 14.9 mmol/L (8-16); CALCIUM 8.9 mg/dL (8.4-10.2); CREATININE, SERUM 1.52 mg/dL (0.72-1.25); POTASSIUM 3.9 mmol/L (3.5-5.1)
[2023-02-26] MEDS ORDERED: BUPIVACAINE HCL 0.25% 10ML MPF VIAL INJ ONE (07:30)
[2023-02-26] MEDS ORDERED: LIDOCAINE HCL 1% LOCAL INJ 20 ML VIAL INJ ONE (07:30)
[2023-02-26] MEDS: CEFTRIAXONE 2 GM in SODIUM CHLORIDE 0.9% 100 ML IV SCH ×2 (09:56→21:15)
[2023-02-26] MEDS: COLLAGENASE 5 GM TUBE TP SCH (09:56)
[2023-02-26] MEDS: FUROSEMIDE INJ 10 MG/ML 4 ML VIAL IV SCH (09:56)
[2023-02-26] MEDS: AMIODARONE HCL 200 MG TAB PO SCH (11:06)
[2023-02-26] MEDS ORDERED: RISPERIDONE 1 MG TAB PO ONE (17:00)
[2023-02-27] VITALS (48 sets, daily range): BP systolic 88–151; BP diastolic 52–105
[2023-02-27] MEDS: FAMOTIDINE 20 MG/2 ML VIAL IV SCH ×2 (01:34→15:59)
[2023-02-27] MEDS: DEXMEDETOMIDINE 400MCG/NS100ML 100 ML IV PRN ×2 (01:37→05:38)
[2023-02-27] MEDS: CEFTRIAXONE 2 GM in SODIUM CHLORIDE 0.9% 100 ML IV SCH ×2 (08:56→20:18)
[2023-02-27] MEDS: FUROSEMIDE INJ 10 MG/ML 4 ML VIAL IV SCH (08:56)
[2023-02-27] MEDS: COLLAGENASE 5 GM TUBE TP SCH ×3 (09:00→20:25)
[2023-02-27] MEDS ORDERED: RISPERIDONE 0.5 MG TAB PO ONE (09:30)
[2023-02-27] MEDS: LORAZEPAM INJ 2 MG/ML VIAL IV PRN (09:35)
[2023-02-27] MEDS: AMIODARONE HCL 200 MG TAB PO SCH (09:51)
[2023-02-27] MEDS: METOPROLOL TARTRATE 25 MG TAB PO SCH ×3 (09:51→21:50)
[2023-02-27] MEDS ORDERED: ELIQUIS5 MG PO (16:25)
[2023-02-27] MEDS: ENOXAPARIN 30 MG/0.3 ML SYR SC SCH (16:39)
[2023-02-27] MEDS: RISPERIDONE 0.5 MG TAB PO SCH (20:19)
[2023-02-28] VITALS (25 sets, daily range): BP systolic 112–136; BP diastolic 81–101
[2023-02-28] MEDS: LORAZEPAM INJ 2 MG/ML VIAL IV PRN ×2 (00:50→22:00)
[2023-02-28] MEDS: FAMOTIDINE 20 MG/2 ML VIAL IV SCH ×2 (01:06→14:12)
[2023-02-28] MEDS ORDERED: METOPROLOL TARTRATE INJ 1 MG/ML VIAL ONE (01:56)
[2023-02-28] MEDS: METOPROLOL TARTRATE INJ 1 MG/ML VIAL IV PRN ×3 (02:04→19:38)
[2023-02-28] MEDS ORDERED: METOPROLOL TARTRATE 50 MG TAB PO ONE (04:30)
[2023-02-28] MEDS ORDERED: LORAZEPAM INJ 2 MG/ML VIAL IV ONE (06:00)
[2023-02-28] MEDS: METOPROLOL TARTRATE 25 MG TAB PO SCH ×3 (06:30→17:16)
[2023-02-28 06:51] LABS: BASOPHILS # (AUTO) 0.1 (0.0-0.1); BASOPHILS % 0.6 % (0.0-1.0); EOSINOPHILS # (AUTO) 0.1 (0.0-0.4); HEMATOCRIT 40.7 % (38.2-49.6); HEMOGLOBIN 12.6 g/dL (14.0-18.0); LYMPHOCYTES # (AUTO) 0.9 (1.0-3.2); LYMPHOCYTES % 9.8 % (18.0-39.1); MEAN CORPUSCULAR HEMOGLOBIN 24.7 pg (28-32); MEAN CORPUSCULAR VOLUME 79.6 fL (81-99); MONOCYTES # (AUTO) 0.9 (0.2-0.8); MONOCYTES % 9.8 % (4.4-11.3); NEUTROPHILS # (AUTO) 7.4 (2.1-6.9); NEUTROPHILS % 78.4 % (38.7-80.0); PLATELET COUNT 223 x10e3/uL (140-360); RED BLOOD COUNT 5.11 x10e6/uL (4.3-5.7); RED CELL DISTRIBUTION WIDTH 21.3 % (11.7-14.4)
[2023-02-28 07:16] LABS: ALBUMIN 2.8 g/dL (3.5-5.0); ALBUMIN/GLOBULIN RATIO 0.8 (0.8-2.0); ANION GAP 14.5 mmol/L (8-16); CALCIUM 9.2 mg/dL (8.4-10.2); CREATININE, SERUM 1.56 mg/dL (0.72-1.25); POTASSIUM 3.5 mmol/L (3.5-5.1)
[2023-02-28] MEDS ORDERED: AMIODARONE 900MG 500 ML IV SCH ×2 (07:30→08:00)
[2023-02-28] MEDS ORDERED: AMIODARONE HCL 150 MG/100 ML BAG IV ONE (07:50)
[2023-02-28] MEDS: RISPERIDONE 0.5 MG TAB PO SCH ×2 (08:01→20:09)
[2023-02-28] MEDS: FUROSEMIDE INJ 10 MG/ML 4 ML VIAL IV SCH (08:01)
[2023-02-28] MEDS: COLLAGENASE 5 GM TUBE TP SCH ×3 (08:01→20:09)
[2023-02-28 08:11] LABS: PHOSPHORUS 2.7 MG/DL (2.3-4.7)
[2023-02-28] MEDS: CEFTRIAXONE 2 GM in SODIUM CHLORIDE 0.9% 100 ML IV SCH ×2 (08:18→19:25)
[2023-02-28] MEDS: ENOXAPARIN 30 MG/0.3 ML SYR SC SCH (17:16)
[2023-02-28] MEDS: METOPROLOL TARTRATE INJ 1 MG/ML VIAL IV SCH ×2 (18:00→23:04)
[2023-03-01] VITALS (24 sets, daily range): BP systolic 119–156; BP diastolic 73–116
[2023-03-01] MEDS: METOPROLOL TARTRATE INJ 1 MG/ML VIAL IV PRN ×3 (00:40→19:48)
[2023-03-01] MEDS: FAMOTIDINE 20 MG/2 ML VIAL IV SCH ×3 (01:32→23:38)
[2023-03-01] MEDS: METOPROLOL TARTRATE INJ 1 MG/ML VIAL IV SCH ×4 (06:08→23:38)
[2023-03-01 07:01] LABS: BASOPHILS # (AUTO) 0.1 (0.0-0.1); BASOPHILS % 0.5 % (0.0-1.0); EOSINOPHILS # (AUTO) 0.1 (0.0-0.4); EOSINOPHILS % 0.6 % (0.0-6.0); HEMATOCRIT 39.6 % (38.2-49.6); HEMOGLOBIN 12.3 g/dL (14.0-18.0); LYMPHOCYTES # (AUTO) 1.2 (1.0-3.2); LYMPHOCYTES % 10.7 % (18.0-39.1); MEAN CORPUSCULAR HEMOGLOBIN 25.1 pg (28-32); MEAN CORPUSCULAR HGB CONC 31.1 g/dL (31-35); MEAN CORPUSCULAR VOLUME 80.7 fL (81-99); MONOCYTES # (AUTO) 1.1 (0.2-0.8); MONOCYTES % 9.9 % (4.4-11.3); NEUTROPHILS # (AUTO) 8.4 (2.1-6.9); NEUTROPHILS % 77.9 % (38.7-80.0); PLATELET COUNT 192 x10e3/uL (140-360); RED BLOOD COUNT 4.91 x10e6/uL (4.3-5.7)
[2023-03-01 07:31] LABS: ALBUMIN 2.9 g/dL (3.5-5.0); ALBUMIN/GLOBULIN RATIO 0.9 (0.8-2.0); ANION GAP 14.4 mmol/L (8-16); CALCIUM 9.2 mg/dL (8.4-10.2); CREATININE, SERUM 1.62 mg/dL (0.72-1.25); POTASSIUM 3.4 mmol/L (3.5-5.1)
[2023-03-01] MEDS: CEFTRIAXONE 2 GM in SODIUM CHLORIDE 0.9% 100 ML IV SCH (08:25)
[2023-03-01] MEDS: COLLAGENASE 5 GM TUBE TP SCH ×3 (08:25→20:01)
[2023-03-01] MEDS: RISPERIDONE 0.5 MG TAB PO SCH ×2 (08:25→20:01)
[2023-03-01] MEDS ORDERED: POTASSIUM CHLORIDE 20MEQ/100ML 100 ML IV ONE (08:45)
[2023-03-01] MEDS: ZIPRASIDONE 20 MG VIAL IM STA ×2 (08:57→18:01)
[2023-03-01] MEDS: METOPROLOL TARTRATE 25 MG TAB PO SCH ×4 (10:22→23:39)
[2023-03-01] MEDS ORDERED: AMIODARONE 900MG 500 ML IV SCH (14:00)
[2023-03-01] MEDS: ENOXAPARIN 30 MG/0.3 ML SYR SC SCH (17:43)
[2023-03-01] MEDS: LORAZEPAM INJ 2 MG/ML VIAL IV PRN (19:47)
[2023-03-01] MEDS ORDERED: ZIPRASIDONE 20 MG VIAL IM STA (21:16)
[2023-03-02] VITALS (23 sets, daily range): BP systolic 107–133; BP diastolic 85–104
[2023-03-02] MEDS: LORAZEPAM INJ 2 MG/ML VIAL IV PRN (03:16)
[2023-03-02] MEDS: METOPROLOL TARTRATE INJ 1 MG/ML VIAL IV SCH ×4 (05:33→23:21)
[2023-03-02 06:51] LABS: BASOPHILS # (AUTO) 0.1 (0.0-0.1); BASOPHILS % 0.7 % (0.0-1.0); EOSINOPHILS # (AUTO) 0.2 (0.0-0.4); EOSINOPHILS % 1.9 % (0.0-6.0); HEMATOCRIT 38.3 % (38.2-49.6); HEMOGLOBIN 11.7 g/dL (14.0-18.0); LYMPHOCYTES # (AUTO) 1.2 (1.0-3.2); LYMPHOCYTES % 12.6 % (18.0-39.1); MEAN CORPUSCULAR HEMOGLOBIN 24.7 pg (28-32); MEAN CORPUSCULAR HGB CONC 30.5 g/dL (31-35); MONOCYTES # (AUTO) 0.8 (0.2-0.8); MONOCYTES % 8.6 % (4.4-11.3); NEUTROPHILS # (AUTO) 6.9 (2.1-6.9); NEUTROPHILS % 75.7 % (38.7-80.0); PLATELET COUNT 185 x10e3/uL (140-360); RED BLOOD COUNT 4.73 x10e6/uL (4.3-5.7); RED CELL DISTRIBUTION WIDTH 21.2 % (11.7-14.4)
[2023-03-02 07:15] LABS: ALBUMIN 2.4 g/dL (3.5-5.0); ALBUMIN/GLOBULIN RATIO 0.7 (0.8-2.0); ANION GAP 13.5 mmol/L (8-16); CALCIUM 8.9 mg/dL (8.4-10.2); CREATININE, SERUM 1.59 mg/dL (0.72-1.25); POTASSIUM 3.5 mmol/L (3.5-5.1)
[2023-03-02] MEDS: RISPERIDONE 0.5 MG TAB PO SCH ×2 (08:04→19:47)
[2023-03-02] MEDS: COLLAGENASE 5 GM TUBE TP SCH ×3 (08:06→20:57)
[2023-03-02] MEDS: METOPROLOL TARTRATE 25 MG TAB PO SCH ×3 (12:00→23:20)
[2023-03-02] MEDS ORDERED: KCL 20 MEQ PACKET/ ORAL SOLN NG ONE (13:00)
[2023-03-02] MEDS: FAMOTIDINE 20 MG/2 ML VIAL IV SCH (13:52)
[2023-03-02] MEDS ORDERED: POTASSIUM CHLORIDE 20MEQ/100ML 100 ML IV ONE (14:00)
[2023-03-02] MEDS: AMIODARONE 900MG 500 ML IV SCH (15:41)
[2023-03-02] MEDS: ENOXAPARIN 30 MG/0.3 ML SYR SC SCH (17:03)
[2023-03-03] VITALS (21 sets, daily range): BP systolic 102–143; BP diastolic 74–100
[2023-03-03] MEDS: FAMOTIDINE 20 MG/2 ML VIAL IV SCH ×2 (01:30→13:17)
[2023-03-03] MEDS: METOPROLOL TARTRATE 25 MG TAB PO SCH ×4 (04:28→23:43)
[2023-03-03] MEDS: METOPROLOL TARTRATE INJ 1 MG/ML VIAL IV SCH ×3 (05:00→18:00)
[2023-03-03] MEDS: AMIODARONE 900MG 500 ML IV SCH (05:16)
[2023-03-03 08:06] LABS: ANION GAP 17.2 mmol/L (8-16); CALCIUM 9.7 mg/dL (8.4-10.2); CREATININE, SERUM 1.73 mg/dL (0.72-1.25); POTASSIUM 4.2 mmol/L (3.5-5.1)
[2023-03-03 08:27] LABS: MAGNESIUM 2.2 MG/DL (1.3-2.1); PHOSPHORUS 2.9 MG/DL (2.3-4.7)
[2023-03-03] MEDS: MUPIROCIN 2% OINT 22 GM TUBE TOP SCH (08:59)
[2023-03-03] MEDS: CEFTRIAXONE 2 GM in SODIUM CHLORIDE 0.9% 100 ML IV SCH (08:59)
[2023-03-03] MEDS: RISPERIDONE 0.5 MG TAB PO SCH (08:59)
[2023-03-03] MEDS: COLLAGENASE 5 GM TUBE TP SCH ×3 (09:00→21:08)
[2023-03-03] MEDS ORDERED: DEXTROSE 5% 1,000 ML IV ONE (16:30)
[2023-03-03] MEDS: AMIODARONE HCL 200 MG TAB PO SCH (16:58)
[2023-03-03] MEDS: ENOXAPARIN 30 MG/0.3 ML SYR SC SCH (16:59)
[2023-03-04] VITALS (19 sets, daily range): BP systolic 108–140; BP diastolic 61–103
[2023-03-04] MEDS: METOPROLOL TARTRATE INJ 1 MG/ML VIAL IV SCH ×2 (00:19→05:57)
[2023-03-04] MEDS: FAMOTIDINE 20 MG/2 ML VIAL IV SCH ×2 (02:05→16:28)
[2023-03-04] MEDS: METOPROLOL TARTRATE 25 MG TAB PO SCH ×4 (05:57→23:44)
[2023-03-04 06:39] LABS: ANION GAP 16.1 mmol/L (8-16); CALCIUM 9.3 mg/dL (8.4-10.2); CREATININE, SERUM 1.76 mg/dL (0.72-1.25); POTASSIUM 4.1 mmol/L (3.5-5.1)
[2023-03-04] MEDS: RIVASTIGMINE PATCH 4.6MG/24 HOURS PATCH TD SCH (09:00)
[2023-03-04] MEDS: CEFTRIAXONE 2 GM in SODIUM CHLORIDE 0.9% 100 ML IV SCH (09:00)
[2023-03-04] MEDS: COLLAGENASE 5 GM TUBE TP SCH ×3 (09:00→21:09)
[2023-03-04] MEDS: AMIODARONE HCL 200 MG TAB PO SCH ×2 (09:44→16:55)
[2023-03-04] MEDS: THIAMINE HCL INJ 100 MG/ML 2ML VIAL IV SCH (09:44)
[2023-03-04] MEDS: MUPIROCIN 2% OINT 22 GM TUBE TOP SCH (09:45)
[2023-03-04] MEDS ORDERED: DIGOXIN INJ 0.25 MG/ML 2 ML AMP IV ONE (10:30)
[2023-03-04] MEDS: ENOXAPARIN 30 MG/0.3 ML SYR SC SCH (16:55)
[2023-03-05] VITALS (15 sets, daily range): BP systolic 116–140; BP diastolic 83–101
[2023-03-05] MEDS: FAMOTIDINE 20 MG/2 ML VIAL IV SCH ×2 (02:30→13:19)
[2023-03-05] MEDS: METOPROLOL TARTRATE 25 MG TAB PO SCH ×3 (05:45→18:24)
[2023-03-05] MEDS: RIVASTIGMINE PATCH 4.6MG/24 HOURS PATCH TD SCH (08:23)
[2023-03-05] MEDS: COLLAGENASE 5 GM TUBE TP SCH ×3 (08:24→20:55)
[2023-03-05] MEDS: AMIODARONE HCL 200 MG TAB PO SCH ×2 (08:24→16:46)
[2023-03-05] MEDS: THIAMINE HCL INJ 100 MG/ML 2ML VIAL IV SCH (08:24)
[2023-03-05] MEDS: MUPIROCIN 2% OINT 22 GM TUBE TOP SCH (08:24)
[2023-03-05] MEDS: ENOXAPARIN 30 MG/0.3 ML SYR SC SCH (16:46)
[2023-03-06] VITALS (12 sets, daily range): BP systolic 127–149; BP diastolic 80–103
[2023-03-06] MEDS: METOPROLOL TARTRATE 25 MG TAB PO SCH ×4 (00:14→17:54)
[2023-03-06 07:14] LABS: BASOPHILS # (AUTO) 0.1 (0.0-0.1); BASOPHILS % 0.4 % (0.0-1.0); EOSINOPHILS # (AUTO) 0.1 (0.0-0.4); EOSINOPHILS % 1.1 % (0.0-6.0); HEMATOCRIT 42.2 % (38.2-49.6); HEMOGLOBIN 13.1 g/dL (14.0-18.0); LYMPHOCYTES % 9.2 % (18.0-39.1); MEAN CORPUSCULAR VOLUME 80.4 fL (81-99); MONOCYTES # (AUTO) 0.5 (0.2-0.8); MONOCYTES % 4.8 % (4.4-11.3); NEUTROPHILS # (AUTO) 9.5 (2.1-6.9); NEUTROPHILS % 84.1 % (38.7-80.0); PLATELET COUNT 191 x10e3/uL (140-360); RED BLOOD COUNT 5.25 x10e6/uL (4.3-5.7); RED CELL DISTRIBUTION WIDTH 22.3 % (11.7-14.4)
[2023-03-06 07:26] LABS: ALBUMIN 2.7 g/dL (3.5-5.0); ALBUMIN/GLOBULIN RATIO 0.8 (0.8-2.0); ANION GAP 16.2 mmol/L (8-16); CALCIUM 9.5 mg/dL (8.4-10.2); CREATININE, SERUM 1.62 mg/dL (0.72-1.25); POTASSIUM 4.2 mmol/L (3.5-5.1)
[2023-03-06] MEDS: AMIODARONE HCL 200 MG TAB PO SCH ×2 (08:12→16:14)
[2023-03-06] MEDS: MUPIROCIN 2% OINT 22 GM TUBE TOP SCH (08:12)
[2023-03-06] MEDS: COLLAGENASE 5 GM TUBE TP SCH ×2 (08:12→08:13)
[2023-03-06] MEDS: RIVASTIGMINE PATCH 4.6MG/24 HOURS PATCH TD SCH (08:12)
[2023-03-06] MEDS: THIAMINE HCL INJ 100 MG/ML 2ML VIAL IV SCH (08:12)
[2023-03-06 08:39] LABS: PLATELET ESTIMATE ADEQUATE; PLATELET MORPHOLOGY COMMENT NORMAL; RBC MORPHOLOGY COMMENT NORMAL
== END 2023-03-06 18:11 | DRG 853 ==
LOC: ER 08:50 → ERHOLD 13:27 → ICU 16:24
PROVIDERS: ADMIT Internal Medicine; ATTEND Internal Medicine
PROC: 0QB Lower Bones, Excision (ICD-10-PCS; principal; 2023-02-26)
DX: A41.9 Sepsis, unspecified organism (principal); G92.8 Other toxic encephalopathy; G92.9 Unspecified toxic encephalopathy; I50.43 Acute on chronic combined systolic (congestive) and diastolic (congestive) heart failure; I33.0 Acute and subacute infective endocarditis; I13.0 Hypertensive heart and chronic kidney disease with heart failure and stage 1 through stage 4 chronic kidney disease, or unspecified chronic kidney disease; N17.9 Acute kidney failure, unspecified; E87.20 Acidosis, unspecified; L97.516 Non-pressure chronic ulcer of other part of right foot with bone involvement without evidence of necrosis; M86.8X7 Other osteomyelitis, ankle and foot; R65.20 Severe sepsis without septic shock; E78.5 Hyperlipidemia, unspecified; N18.30 Chronic kidney disease, stage 3 unspecified; E87.5 Hyperkalemia; I27.20 Pulmonary hypertension, unspecified; Z90.5 Acquired absence of kidney; L97.509 Non-pressure chronic ulcer of other part of unspecified foot with unspecified severity; B95.0 Streptococcus, group A, as the cause of diseases classified elsewhere; I48.91 Unspecified atrial fibrillation; Z79.01 Long term (current) use of anticoagulants; I35.1 Nonrheumatic aortic (valve) insufficiency; E11.621 Type 2 diabetes mellitus with foot ulcer; G30.9 Alzheimer's disease, unspecified; F02.80 Dementia in other diseases classified elsewhere, unspecified severity, without behavioral disturbance, psychotic disturbance, mood disturbance, and anxiety; E11.69 Type 2 diabetes mellitus with other specified complication; R74.01 Elevation of levels of liver transaminase levels
CPT/HCPCS: 36415; 36569; 36600; 70450; 70551; 71045; 71250; 74230; 76700; 80048; 80053; 80061; 80307; 80320; 80329; 81001; 82140; 82550; 82553; 82607; 82805; 82948; 83605; 83735; 83880; 84100; 84443; 84484; 85025; 85379; 85610; 85730; 87040; 87071; 87086; 87186; 87205; 93005; 93306; 93312; 93320; 93325; 94660; 94799; 95819; 99252; 99285; J0690; J0696; J1160; J1200; J1335; J1650; J1940; J2001; J2020; J2060; J2185; J2370; J3411; J3480; J3486; J7030; J7040; J7050; J7070

== ENCOUNTER 2023-04-15 11:46 | Inpatient (IN) | payer MEDICARE ==
[~2023-04-15] VITALS: Ht 182.9 cm; Wt 78.9 kg
[~2023-04-15 11:46] MED LIST changes: +ELIQUIS5 MG PO
[2023-04-15] MEDS ORDERED: SODIUM CHLORIDE FLUSH 10 ML SYR IV PRN (12:30)
[2023-04-15] MEDS ORDERED: DILTIAZEM HCL 5 MG/ML 5 ML VIAL IV ONE (12:45)
[2023-04-15 13:24] LABS: BASOPHILS % 0.4 % (0.0-1.0); EOSINOPHILS % 0.2 % (0.0-6.0); HEMATOCRIT 38.7 % (38.2-49.6); HEMOGLOBIN 12.4 g/dL (14.0-18.0); LYMPHOCYTES # (AUTO) 0.8 (1.0-3.2); LYMPHOCYTES % 13.3 % (18.0-39.1); MEAN CORPUSCULAR HEMOGLOBIN 26.3 pg (28-32); MONOCYTES # (AUTO) 0.5 (0.2-0.8); MONOCYTES % 8.8 % (4.4-11.3); NEUTROPHILS # (AUTO) 4.4 (2.1-6.9); NEUTROPHILS % 76.9 % (38.7-80.0); PLATELET COUNT 237 x10e3/uL (140-360); RED BLOOD COUNT 4.72 x10e6/uL (4.3-5.7); RED CELL DISTRIBUTION WIDTH 24.4 % (11.7-14.4)
[2023-04-15 13:39] LABS: ALBUMIN 3.2 g/dL (3.5-5.0); ALBUMIN/GLOBULIN RATIO 1.1 (0.8-2.0); ANION GAP 18.6 mmol/L (8-16); CREATININE, SERUM 1.86 mg/dL (0.72-1.25); POTASSIUM 3.6 mmol/L (3.5-5.1)
[2023-04-15] MEDS ORDERED: SODIUM CHLORIDE FLUSH 10 ML SYR INJ PRN (14:45)
[2023-04-15] MEDS ORDERED: ONDANSETRON HCL INJ 2MG/ML 2ML 2 MG/ML VIAL IV PRN (14:45)
[2023-04-15] MEDS ORDERED: ASPIRIN 81 MG CHEW TAB PO ONE (14:45)
[2023-04-15 14:55] VITALS: PULSE 74; RESP 20; O2SAT 98
[2023-04-15 16:39] VITALS: BP 120/92; PULSE 74; RESP 20; TEMP 98.6; O2SAT 98
[2023-04-15] MEDS: DILTIAZEM HCL 30 MG TAB PO SCH ×2 (17:17→22:24)
[2023-04-15 18:05] VITALS: BP 107/86; PULSE 124; RESP 20; TEMP 98.6; O2SAT 98
[2023-04-15 19:40] VITALS: PULSE 67; RESP 20; O2SAT 97
[2023-04-15 20:20] VITALS: BP 116/87; PULSE 71; RESP 23; TEMP 96.5; O2SAT 94
[2023-04-15 21:00] VITALS: BP 116/87; PULSE 71; RESP 23; TEMP 96.5; O2SAT 94
[2023-04-15] MEDS ORDERED: FUROSEMIDE INJ 10 MG/ML 4 ML VIAL IV SCH (21:00)
[2023-04-16] VITALS (9 sets, daily range): BP systolic 109–138; BP diastolic 67–101; PULSE 88–103; RESP 18–20; TEMP 97.1–98.7; O2SAT 94–97
[2023-04-16 03:46] LABS: BASOPHILS % 0.5 % (0.0-1.0); EOSINOPHILS # (AUTO) 0.1 (0.0-0.4); EOSINOPHILS % 1.2 % (0.0-6.0); HEMOGLOBIN 12.8 g/dL (14.0-18.0); LYMPHOCYTES # (AUTO) 0.9 (1.0-3.2); LYMPHOCYTES % 13.5 % (18.0-39.1); MEAN CORPUSCULAR HEMOGLOBIN 26.2 pg (28-32); MONOCYTES # (AUTO) 0.5 (0.2-0.8); NEUTROPHILS # (AUTO) 5.1 (2.1-6.9); NEUTROPHILS % 76.6 % (38.7-80.0); PLATELET COUNT 199 x10e3/uL (140-360); RED BLOOD COUNT 4.88 x10e6/uL (4.3-5.7); RED CELL DISTRIBUTION WIDTH 24.4 % (11.7-14.4)
[2023-04-16 04:04] LABS: ALBUMIN 3.2 g/dL (3.5-5.0); ALBUMIN/GLOBULIN RATIO 1.1 (0.8-2.0); ANION GAP 17.3 mmol/L (8-16); CREATININE, SERUM 1.73 mg/dL (0.72-1.25); POTASSIUM 3.3 mmol/L (3.5-5.1)
[2023-04-16] MEDS ORDERED: POTASSIUM CHLORIDE 10MEQ EA PO ONE (10:00)
[2023-04-16] MEDS: DILTIAZEM HCL 30 MG TAB PO SCH ×2 (11:30→11:54)
[2023-04-16] MEDS: APIXABAN 5 MG TABLET PO SCH (11:54)
[2023-04-16] MEDS: FUROSEMIDE INJ 10 MG/ML 4 ML VIAL IV SCH ×2 (11:54→13:12)
[2023-04-16] MEDS: AMIODARONE HCL 200 MG TAB PO SCH (11:54)
[2023-04-16] MEDS ORDERED: DIGOXIN INJ 0.25 MG/ML 2 ML AMP IV ONE (16:20)
[2023-04-16] MEDS: BALSAM PERU/CASTOR OIL 60 GM OINT...G. TP SCH (17:45)
[2023-04-16] MEDS: METOPROLOL TARTRATE 25 MG TAB PO SCH (20:43)
[2023-04-16] MEDS: MUPIROCIN 2% OINT 22 GM TUBE TOP SCH (20:45)
[2023-04-16] MEDS: COLLAGENASE 5 GM TUBE TP SCH (20:46)
[2023-04-17] VITALS (8 sets, daily range): BP systolic 108–132; BP diastolic 81–103; PULSE 66–116; RESP 18–20; TEMP 97.4–98.7; O2SAT 94–98
[2023-04-17 06:08] LABS: BASOPHILS % 0.6 % (0.0-1.0); EOSINOPHILS # (AUTO) 0.1 (0.0-0.4); HEMATOCRIT 43.4 % (38.2-49.6); HEMOGLOBIN 13.6 g/dL (14.0-18.0); LYMPHOCYTES # (AUTO) 0.6 (1.0-3.2); LYMPHOCYTES % 8.2 % (18.0-39.1); MEAN CORPUSCULAR HEMOGLOBIN 26.1 pg (28-32); MEAN CORPUSCULAR HGB CONC 31.3 g/dL (31-35); MEAN CORPUSCULAR VOLUME 83.1 fL (81-99); MONOCYTES # (AUTO) 0.5 (0.2-0.8); MONOCYTES % 6.9 % (4.4-11.3); NEUTROPHILS # (AUTO) 5.8 (2.1-6.9); PLATELET COUNT 212 x10e3/uL (140-360); RED BLOOD COUNT 5.22 x10e6/uL (4.3-5.7)
[2023-04-17 06:31] LABS: ANION GAP 16.6 mmol/L (8-16); CALCIUM 9.8 mg/dL (8.4-10.2); CREATININE, SERUM 1.51 mg/dL (0.72-1.25); POTASSIUM 3.6 mmol/L (3.5-5.1)
[2023-04-17] MEDS ORDERED: ONDANSETRON HCL 4 MG ORAL DISINTEGRATING TAB PO PRN (09:00)
[2023-04-17 09:14] LABS: PLATELET ESTIMATE ADEQUATE; PLATELET MORPHOLOGY COMMENT NORMAL; RBC MORPHOLOGY COMMENT NORMAL
[2023-04-17 09:15] LABS: ANISOCYTOSIS SLIGHT; POIKILOCYTOSIS SLIGHT
[2023-04-17] MEDS: AMIODARONE HCL 200 MG TAB PO SCH (09:21)
[2023-04-17] MEDS: METOPROLOL TARTRATE 25 MG TAB PO SCH ×2 (09:21→21:31)
[2023-04-17] MEDS: APIXABAN 5 MG TABLET PO SCH (09:21)
[2023-04-17] MEDS: BALSAM PERU/CASTOR OIL 60 GM OINT...G. TP SCH (09:22)
[2023-04-17] MEDS: MUPIROCIN 2% OINT 22 GM TUBE TOP SCH ×2 (09:22→21:31)
[2023-04-17] MEDS: COLLAGENASE 5 GM TUBE TP SCH ×2 (09:22→21:31)
[2023-04-17] MEDS: FUROSEMIDE INJ 10 MG/ML 4 ML VIAL IV SCH ×2 (09:22→12:18)
[2023-04-17] MEDS: CEFTRIAXONE 2 GM in SODIUM CHLORIDE 0.9% 100 ML IV SCH (15:44)
[2023-04-18] VITALS (10 sets, daily range): BP systolic 107–148; BP diastolic 79–94; PULSE 72–118; RESP 18–24; TEMP 97.4–98.6; O2SAT 90–96
[2023-04-18 06:30] LABS: BASOPHILS % 0.5 % (0.0-1.0); EOSINOPHILS # (AUTO) 0.1 (0.0-0.4); EOSINOPHILS % 1.6 % (0.0-6.0); HEMATOCRIT 42.7 % (38.2-49.6); HEMOGLOBIN 13.2 g/dL (14.0-18.0); LYMPHOCYTES # (AUTO) 0.4 (1.0-3.2); LYMPHOCYTES % 7.2 % (18.0-39.1); MEAN CORPUSCULAR HEMOGLOBIN 26.2 pg (28-32); MEAN CORPUSCULAR HGB CONC 30.9 g/dL (31-35); MEAN CORPUSCULAR VOLUME 84.9 fL (81-99); MONOCYTES # (AUTO) 0.5 (0.2-0.8); MONOCYTES % 7.5 % (4.4-11.3); NEUTROPHILS # (AUTO) 5.1 (2.1-6.9); PLATELET COUNT 203 x10e3/uL (140-360); RED BLOOD COUNT 5.03 x10e6/uL (4.3-5.7); RED CELL DISTRIBUTION WIDTH 23.8 % (11.7-14.4)
[2023-04-18 06:49] LABS: CALCIUM 9.4 mg/dL (8.4-10.2); CREATININE, SERUM 1.37 mg/dL (0.72-1.25)
[2023-04-18 08:33] LABS: ANISOCYTOSIS SLIGHT; PLATELET ESTIMATE ADEQUATE; PLATELET MORPHOLOGY COMMENT NORMAL; POIKILOCYTOSIS SLIGHT; RBC MORPHOLOGY COMMENT NORMAL
[2023-04-18] MEDS: APIXABAN 5 MG TABLET PO SCH (09:25)
[2023-04-18] MEDS: AMIODARONE HCL 200 MG TAB PO SCH (09:25)
[2023-04-18] MEDS: METOPROLOL TARTRATE 25 MG TAB PO SCH ×2 (09:25→18:09)
[2023-04-18] MEDS: MUPIROCIN 2% OINT 22 GM TUBE TOP SCH ×2 (09:26→21:00)
[2023-04-18] MEDS: COLLAGENASE 5 GM TUBE TP SCH (09:26)
[2023-04-18] MEDS: FUROSEMIDE INJ 10 MG/ML 4 ML VIAL IV SCH (09:26)
[2023-04-18] MEDS: BALSAM PERU/CASTOR OIL 60 GM OINT...G. TP SCH (09:27)
[2023-04-18] MEDS: POTASSIUM CHLORIDE 10MEQ EA PO SCH ×3 (12:44→15:31)
[2023-04-18] MEDS: CEFTRIAXONE 2 GM in SODIUM CHLORIDE 0.9% 100 ML IV SCH (15:31)
[2023-04-19] VITALS (11 sets, daily range): BP systolic 103–138; BP diastolic 76–88; PULSE 52–111; RESP 19–26; TEMP 96.5–97.8; O2SAT 85–100
[2023-04-19] MEDS: COLLAGENASE 5 GM TUBE TP SCH ×3 (03:32→21:00)
[2023-04-19 05:12] LABS: ANION GAP 21.3 mmol/L (8-16); CALCIUM 9.6 mg/dL (8.4-10.2); CREATININE, SERUM 1.61 mg/dL (0.72-1.25); POTASSIUM 4.3 mmol/L (3.5-5.1)
[2023-04-19 05:26] LABS: MAGNESIUM 2.1 MG/DL (1.3-2.1); PHOSPHORUS 3.4 MG/DL (2.3-4.7)
[2023-04-19] MEDS: FUROSEMIDE INJ 10 MG/ML 2 ML VIAL IV SCH (08:09)
[2023-04-19] MEDS: APIXABAN 5 MG TABLET PO SCH (08:09)
[2023-04-19] MEDS: AMIODARONE HCL 200 MG TAB PO SCH (08:10)
[2023-04-19] MEDS: METOPROLOL TARTRATE 25 MG TAB PO SCH ×2 (08:15→17:00)
[2023-04-19] MEDS: MUPIROCIN 2% OINT 22 GM TUBE TOP SCH ×2 (08:18→21:53)
[2023-04-19] MEDS: BALSAM PERU/CASTOR OIL 60 GM OINT...G. TP SCH (08:18)
[2023-04-19] MEDS ORDERED: FUROSEMIDE INJ 10 MG/ML 4 ML VIAL IV SCH (09:00)
[2023-04-19] MEDS: CEFTRIAXONE 2 GM in SODIUM CHLORIDE 0.9% 100 ML IV SCH (14:17)
[2023-04-20] VITALS (10 sets, daily range): BP systolic 103–129; BP diastolic 77–96; PULSE 62–118; RESP 20–28; TEMP 97–98.4; O2SAT 89–100
[2023-04-20] MEDS: APIXABAN 5 MG TABLET PO SCH (08:38)
[2023-04-20] MEDS: METOPROLOL TARTRATE 25 MG TAB PO SCH ×2 (08:38→17:18)
[2023-04-20] MEDS: FUROSEMIDE INJ 10 MG/ML 2 ML VIAL IV SCH (08:39)
[2023-04-20] MEDS: MUPIROCIN 2% OINT 22 GM TUBE TOP SCH ×2 (09:00→21:06)
[2023-04-20] MEDS: BALSAM PERU/CASTOR OIL 60 GM OINT...G. TP SCH (09:00)
[2023-04-20] MEDS: COLLAGENASE 5 GM TUBE TP SCH ×2 (09:00→21:05)
[2023-04-20] MEDS: CEFTRIAXONE 2 GM in SODIUM CHLORIDE 0.9% 100 ML IV SCH (15:00)
[2023-04-20] MEDS: FUROSEMIDE INJ 10 MG/ML 4 ML VIAL IV SCH (21:05)
[2023-04-21] VITALS (11 sets, daily range): BP systolic 96–116; BP diastolic 71–85; PULSE 77–110; RESP 18–22; TEMP 97.1–98.1; O2SAT 93–100
[2023-04-21 06:15] LABS: BASOPHILS % 0.1 % (0.0-1.0); EOSINOPHILS % 0.1 % (0.0-6.0); HEMATOCRIT 43.3 % (38.2-49.6); HEMOGLOBIN 13.8 g/dL (14.0-18.0); MEAN CORPUSCULAR HEMOGLOBIN 26.3 pg (28-32); MEAN CORPUSCULAR HGB CONC 31.9 g/dL (31-35); MEAN CORPUSCULAR VOLUME 82.5 fL (81-99); MONOCYTES # (AUTO) 0.6 (0.2-0.8); MONOCYTES % 6.9 % (4.4-11.3); NEUTROPHILS # (AUTO) 7.4 (2.1-6.9); NEUTROPHILS % 81.5 % (38.7-80.0); PLATELET COUNT 199 x10e3/uL (140-360); RED BLOOD COUNT 5.25 x10e6/uL (4.3-5.7); RED CELL DISTRIBUTION WIDTH 23.8 % (11.7-14.4)
[2023-04-21 06:42] LABS: ANION GAP 20.8 mmol/L (8-16); CALCIUM 9.7 mg/dL (8.4-10.2); CREATININE, SERUM 2.13 mg/dL (0.72-1.25); POTASSIUM 4.8 mmol/L (3.5-5.1)
[2023-04-21] MEDS: FUROSEMIDE INJ 10 MG/ML 4 ML VIAL IV SCH (08:38)
[2023-04-21] MEDS: METOPROLOL TARTRATE 25 MG TAB PO SCH ×2 (08:38→17:23)
[2023-04-21] MEDS: MUPIROCIN 2% OINT 22 GM TUBE TOP SCH ×2 (08:39→21:00)
[2023-04-21] MEDS: BALSAM PERU/CASTOR OIL 60 GM OINT...G. TP SCH (08:39)
[2023-04-21] MEDS: COLLAGENASE 5 GM TUBE TP SCH ×2 (08:39→21:00)
[2023-04-21] MEDS: APIXABAN 5 MG TABLET PO SCH (08:39)
[2023-04-21 09:47] LABS: PLATELET ESTIMATE ADEQUATE; PLATELET MORPHOLOGY COMMENT NORMAL; RBC MORPHOLOGY COMMENT NORMAL
[2023-04-21] MEDS: CEPHALEXIN 500 MG CAP PO SCH (22:21)
[2023-04-22] VITALS (27 sets, daily range): BP systolic 88–129; BP diastolic 60–81; PULSE 86–111; RESP 6–28; TEMP 97.2–97.8; O2SAT 90–100
[2023-04-22] MEDS ORDERED: FUROSEMIDE INJ 10 MG/ML 4 ML VIAL IV ONE (01:00)
[2023-04-22 06:53] LABS: INR 3.06
[2023-04-22 06:54] LABS: PARTIAL THROMBOPLASTIN TIME 47.7 seconds (23.8-35.5)
[2023-04-22 06:58] LABS: ANION GAP 14.8 mmol/L (8-16); CALCIUM 9.2 mg/dL (8.4-10.2); CREATININE, SERUM 2.11 mg/dL (0.72-1.25); POTASSIUM 3.8 mmol/L (3.5-5.1)
[2023-04-22] MEDS ORDERED: FUROSEMIDE INJ 10 MG/ML 4 ML VIAL IV SCH (09:00)
[2023-04-22] MEDS: CEPHALEXIN 500 MG CAP PO SCH ×2 (09:00→20:08)
[2023-04-22 10:49] LABS: ABG HCO3 25 mmol/L (22-26); ABG PCO2 35 mmHg (35-45); ABG PH 7.47 (7.35-7.45); ABG PO2 145 mmHg (80-105); ABG TCO2 26
[2023-04-22] MEDS: BALSAM PERU/CASTOR OIL 60 GM OINT...G. TP SCH (11:44)
[2023-04-22] MEDS: METOPROLOL TARTRATE 25 MG TAB PO SCH ×2 (11:44→17:25)
[2023-04-22] MEDS: MUPIROCIN 2% OINT 22 GM TUBE TOP SCH ×2 (12:24→20:08)
[2023-04-22] MEDS: COLLAGENASE 5 GM TUBE TP SCH ×2 (12:24→20:08)
[2023-04-23] VITALS (18 sets, daily range): BP systolic 91–111; BP diastolic 61–90; PULSE 86–121; RESP 15–31; TEMP 97.3–98.2; O2SAT 71–100
[2023-04-23 06:51] LABS: BASOPHILS % 0.1 % (0.0-1.0); EOSINOPHILS # (AUTO) 0.1 (0.0-0.4); EOSINOPHILS % 1.2 % (0.0-6.0); HEMATOCRIT 44.3 % (38.2-49.6); HEMOGLOBIN 13.9 g/dL (14.0-18.0); LYMPHOCYTES # (AUTO) 0.6 (1.0-3.2); LYMPHOCYTES % 7.4 % (18.0-39.1); MEAN CORPUSCULAR HEMOGLOBIN 26.3 pg (28-32); MEAN CORPUSCULAR HGB CONC 31.4 g/dL (31-35); MEAN CORPUSCULAR VOLUME 83.7 fL (81-99); MONOCYTES # (AUTO) 0.4 (0.2-0.8); MONOCYTES % 5.5 % (4.4-11.3); NEUTROPHILS # (AUTO) 6.5 (2.1-6.9); NEUTROPHILS % 85.5 % (38.7-80.0); PLATELET COUNT 186 x10e3/uL (140-360); RED BLOOD COUNT 5.29 x10e6/uL (4.3-5.7); RED CELL DISTRIBUTION WIDTH 23.7 % (11.7-14.4)
[2023-04-23 06:56] LABS: INR 2.11; PROTHROMBIN TIME 24.1 seconds (11.9-14.5)
[2023-04-23 07:04] LABS: ALBUMIN 2.3 g/dL (3.5-5.0); ALBUMIN/GLOBULIN RATIO 0.8 (0.8-2.0); ANION GAP 15.7 mmol/L (8-16); CALCIUM 9.3 mg/dL (8.4-10.2); CREATININE, SERUM 1.8 mg/dL (0.72-1.25); POTASSIUM 3.7 mmol/L (3.5-5.1)
[2023-04-23] MEDS: BALSAM PERU/CASTOR OIL 60 GM OINT...G. TP SCH (09:00)
[2023-04-23] MEDS: COLLAGENASE 5 GM TUBE TP SCH ×2 (09:00→21:22)
[2023-04-23] MEDS: MUPIROCIN 2% OINT 22 GM TUBE TOP SCH (09:00)
[2023-04-23] MEDS: METOPROLOL TARTRATE 25 MG TAB PO SCH ×2 (10:37→17:42)
[2023-04-23 10:44] LABS: OVALOCYTES FEW; PLATELET ESTIMATE ADEQUATE; PLATELET MORPHOLOGY COMMENT NORMAL; RBC MORPHOLOGY COMMENT ABNORMAL; TARGET CELLS FEW
[2023-04-23 10:45] LABS: ANISOCYTOSIS MARKED; HYPOCHROMASIA SLIGHT
[2023-04-23] MEDS ORDERED: DEXTROSE 5%/0.45% SOD CHL 1,000 ML IV ONE (11:45)
[2023-04-23] MEDS ORDERED: DEXTROSE 5% 1,000 ML IV ONE (17:45)
[2023-04-24] VITALS (12 sets, daily range): BP systolic 100–124; BP diastolic 69–97; PULSE 74–121; RESP 18–22; TEMP 97.3–97.9; O2SAT 95–100
[2023-04-24 06:43] LABS: ANION GAP 15.7 mmol/L (8-16); CALCIUM 9.3 mg/dL (8.4-10.2); CREATININE, SERUM 1.55 mg/dL (0.72-1.25); POTASSIUM 3.7 mmol/L (3.5-5.1)
[2023-04-24] MEDS: COLLAGENASE 5 GM TUBE TP SCH ×2 (09:30→21:12)
[2023-04-24] MEDS: METOPROLOL TARTRATE 25 MG TAB PO SCH ×2 (09:30→18:04)
[2023-04-24] MEDS: BALSAM PERU/CASTOR OIL 60 GM OINT...G. TP SCH (09:31)
[2023-04-24 11:14] LABS: CLARITY,URINE SL CLOUDY (CLEAR); COLOR,URINE YELLOW (YELLOW); KETONES,URINE NEGATIVE (NEGATIVE); LEUKOCYTE ESTERASE ,URINE NEGATIVE (NEGATIVE); NITRITE,URINE NEGATIVE (NEGATIVE); PROTEIN,URINE DIPSTICK 2+ (NEGATIVE)
[2023-04-24 11:30] LABS: BACTERIA,URINE FEW /HPF; EPITHELIAL CELLS,URINE FEW /LPF; RBC,URINE >50 /HPF (0-5); WBC,URINE (MAN) 0-5 /HPF (0-5)
[2023-04-24] MEDS: DEXTROSE 5%/0.45% SOD CHL 1,000 ML IV SCH (14:58)
[2023-04-25 04:44] VITALS: BP 119/86; PULSE 112; RESP 21; TEMP 98.2; O2SAT 96
[2023-04-25] MEDS: DEXTROSE 5%/0.45% SOD CHL 1,000 ML IV SCH (05:11)
[2023-04-25 08:00] VITALS: BP 120/91; PULSE 114; RESP 15; TEMP 97.5; O2SAT 98
[2023-04-25 09:00] VITALS: BP 120/91; PULSE 114; RESP 15; TEMP 97.5; O2SAT 97
[2023-04-25 09:32] LABS: ANION GAP 15.8 mmol/L (8-16); CALCIUM 9.5 mg/dL (8.4-10.2); CREATININE, SERUM 1.59 mg/dL (0.72-1.25); POTASSIUM 3.8 mmol/L (3.5-5.1)
[2023-04-25] MEDS: METOPROLOL TARTRATE 25 MG TAB PO SCH (10:45)
[2023-04-25] MEDS: BALSAM PERU/CASTOR OIL 60 GM OINT...G. TP SCH (10:46)
[2023-04-25 12:26] VITALS: BP 108/79; PULSE 121; RESP 20; TEMP 98.1; O2SAT 95
[2023-04-25] MEDS ORDERED: HYDROCODONE/APAP 5MG-325MG TAB PO PRN (13:00)
== END 2023-04-25 14:19 | disposition hospice, home (50) | DRG 264 ==
LOC: ER 11:51 → ERHOLD 14:36 → MED/SURG2 16:30 → ICU 04-22 02:07 → MED/SURG 04-23 18:03
PROVIDERS: ADMIT Internal Medicine; ATTEND Internal Medicine
PROC: 0JBQ0ZZ Excision of Right Foot Subcutaneous Tissue and Fascia, Open Approach (ICD-10-PCS; principal; 2023-04-19)
PROC: 0JBR0ZZ Excision of Left Foot Subcutaneous Tissue and Fascia, Open Approach (ICD-10-PCS; 2023-04-19)
PROC: 5A09357 Assistance with Respiratory Ventilation, Less than 24 Consecutive Hours, Continuous Positive Airway Pressure (ICD-10-PCS; 2023-04-22)
DX: I13.0 Hypertensive heart and chronic kidney disease with heart failure and stage 1 through stage 4 chronic kidney disease, or unspecified chronic kidney disease (principal); G93.41 Metabolic encephalopathy; I50.23 Acute on chronic systolic (congestive) heart failure; J96.00 Acute respiratory failure, unspecified whether with hypoxia or hypercapnia; N17.0 Acute kidney failure with tubular necrosis; E43 Unspecified severe protein-calorie malnutrition; J69.0 Pneumonitis due to inhalation of food and vomit; L97.518 Non-pressure chronic ulcer of other part of right foot with other specified severity; E87.0 Hyperosmolality and hypernatremia; L97.528 Non-pressure chronic ulcer of other part of left foot with other specified severity; Z66 Do not resuscitate; Z51.5 Encounter for palliative care; Z96.659 Presence of unspecified artificial knee joint; E11.22 Type 2 diabetes mellitus with diabetic chronic kidney disease; N18.30 Chronic kidney disease, stage 3 unspecified; E11.51 Type 2 diabetes mellitus with diabetic peripheral angiopathy without gangrene; I48.0 Paroxysmal atrial fibrillation; I27.20 Pulmonary hypertension, unspecified; L97.522 Non-pressure chronic ulcer of other part of left foot with fat layer exposed; I08.3 Combined rheumatic disorders of mitral, aortic and tricuspid valves; R53.81 Other malaise; R60.0 Localized edema; E11.42 Type 2 diabetes mellitus with diabetic polyneuropathy; L03.032 Cellulitis of left toe; L03.031 Cellulitis of right toe; R62.7 Adult failure to thrive; E11.621 Type 2 diabetes mellitus with foot ulcer; F01.50 Vascular dementia, unspecified severity, without behavioral disturbance, psychotic disturbance, mood disturbance, and anxiety; Z68.23 Body mass index [BMI] 23.0-23.9, adult; Z95.1 Presence of aortocoronary bypass graft; Z95.2 Presence of prosthetic heart valve; Z79.01 Long term (current) use of anticoagulants; Z85.528 Personal history of other malignant neoplasm of kidney; Z90.5 Acquired absence of kidney; Z87.440 Personal history of urinary (tract) infections; Z89.411 Acquired absence of right great toe
CPT/HCPCS: 32555; 36415; 36600; 71045; 71250; 74230; 74470; 76604; 80048; 80053; 81001; 82550; 82553; 82805; 82948; 83735; 83880; 84100; 84484; 85025; 85610; 85730; 87040; 87071; 87205; 93005; 94660; 94760; 94799; 99252; 99285; J0696; J1160; J1940; J2543; J7050; J7070